=== PATIENT | female | born 1950 | race Caucasian/White ===

== ENCOUNTER → 2017-09-26 07:43 | Outpatient (CLI) | payer MEDICARE, SELFPAY ==
[2017-09-26 13:26] LABS: Basophils % 0.6 % (0.1-2.0); Eosinophils # 0.2 K/mm3 (0.0-0.4); Eosinophils % 3.8 % (0.1-12.0); Hematocrit 35.2 % (37.0-47.0); Hemoglobin 11.3 g/dL (12.2-16.2); Lymphocytes # 1.4 K/mm3 (0.7-4.5); Lymphocytes % 23.7 K/mm3 (10-50); Mean Corpuscular HGB Conc 32.1 g/dL (31.8-35.4); Mean Corpuscular Hemoglobin 29.6 pg (27.0-31.2); Mean Corpuscular Volume 92.1 fl (81-99); Mean Platelet Volume 8.5 fl (7.4-10.4); Monocytes # 0.3 K/mm3 (0.1-1.0); Monocytes % 4.4 % (1.7-9.3); Neutrophils # 4.1 K/mm3 (1.8-7.8); Neutrophils % 67.5 % (37.0-80.0); Platelet Count 202 K/mm3 (142-424); Red Blood Count 3.82 M/mm3 (4.20-5.40)
[2017-09-26 14:02] LABS: Alanine Aminotransferase 8 U/L (12-78); Albumin Level 2.8 gm/dL (3.4-5.0); Albumin/Globulin Ratio 0.7 (1.1-1.8); Alkaline Phosphatase 106 U/L (46-116); Anion Gap 8.3 mEq/L (5-15); Aspartate Amino Transferase 20 U/L (15-37); Bilirubin,Total 0.4 mg/dL (0.2-1.0); Blood Urea Nitrogen 13 mg/dL (7-18); Calcium 8.6 mg/dL (8.5-10.1); Carbon Dioxide 34 mmol/L (21.0-32.0); Chloride 106 mmol/L (98-107); Cholesterol 130 mg/dL (140-200); Creatinine,Serum 1.07 mg/dL (0.55-1.02); Estimated Glomerular Filt Rate 51 ml/min (>60); GFR (African American) 62 ML/MIN (>60); Globulin 3.8 gm/dl (1.3-3.2); Glucose 105 mg/dL (74-106); HDL Cholesterol 66 mg/dL (29-89); LDL Cholesterol 47 mg/dL (0-130); Potassium 3.3 mmoL/L (3.5-5.1); Sodium 145 mmol/L (136-145); Thyroid Stimulating Hormone 2.46 uIU/ml (0.358-3.740); Total Protein,Serum 6.6 gm/dL (6.4-8.2); Triglycerides 84 mg/dL (30-200); VLDL Cholesterol 17 mg/dL (0-40)
[2017-09-26 15:04] LABS: Hemoglobin A1C 6.5 % (0.0-7.0)
== END ==
PROVIDERS: PCP Internal Medicine Adolescent Medicine; Visit Provider Internal Medicine Adolescent Medicine
DX: I10 Essential (primary) hypertension (principal); E11.9 Type 2 diabetes mellitus without complications; R27.0 Ataxia, unspecified; R09.02 Hypoxemia
CPT/HCPCS: 36415; 80053; 80061; 83036; 84443; 85025

== ENCOUNTER → 2017-10-16 17:01 | Outpatient (CLI) | payer MEDICARE, SELFPAY ==
[2017-10-16 19:47] LABS: Amphetamine/Metha Screen,Urine Negative ng/mL (<1000); Barbiturates Screen,Urine Negative ng/mL (<200); Benzodiazepines Screen,Urine Negative ng/mL (200); Cannabinoid Screen,Urine Negative ng/mL (<50); Cocaine Screen,Urine Negative ng/g (<300); Methadone Screen,Urine Negative ng/mL (<300); Opiate Screen,Urine Positive ng/mL (<300); Phencyclidine Screen,Urine Negative ng/mL (<25)
[2017-10-28 23:07] LABS: Codeine Negative (Cutoff=100); Hydrocodone Negative (Cutoff=100); Hydromorphone Positive (.); Morphine Positive (.); Oxycodone (GC/MS) 442 ng/mL (Cutoff=100)
[2017-10-29 02:15] LABS: Opiates Positive (.); Oxymorphone (GC/MS) 275 ng/mL (Cutoff=100)
== END ==
PROVIDERS: PCP Internal Medicine Adolescent Medicine; Visit Provider Anesthesiology
DX: Z79.899 Other long term (current) drug therapy (principal)
CPT/HCPCS: 80305; 80361; 80365; G0480

== ENCOUNTER → 2017-11-13 08:51 | Outpatient (POV) | payer MEDICARE, SELFPAY ==
[2017-11-13 09:25] VITALS: BP 103/66; PULSE 68; RESP 18; TEMP 36.3; O2SAT 99; BMI 41.0
--- NOTE | 2017-11-13 10:27 | HMH.PAINSOAP ---
[facility] Pain Management SOAP Note Subjective:: This patient is a pleasant 67-year-old white female who presents today for descriptions refills. Patient is suffering from chronic pain secondary to degenerative disc disease of lumbar spine with lumbar radiculopathy symptoms and postlaminectomy syndrome. She is being medically managed on morphine sulfate milligrams twice daily and Percocet 10 mg twice a day as needed. Patient had been getting 90 pills however patient states she is not taking this medication. We discussed only writing for 60 pills. Patient has never tried injection therapy. Patient and I discussed this and we will come back to it at her next visit. Patient does not have any recent imaging that she can remember. Patient is also not on any anti-inflammatory medications. Patient denies any stomach or kidney problems. Patient denies any side effects to her pain medication. Patient states the medication decreases her pain 70-80% And make her more functional. Patient's Shane #[id number] reviewed and appropriate. Patient's urine drug screen has been appropriate in the past. ROS General: no recent weight change, no fever, no sleep disturbances Respiratory: no cough, no shortness of air, no recurring pulmonary infections Cardiovascular/Peripheral Vascular: No chest pain, No palpitations, no edema, no shortness of breath. Gastrointestinal: no incontinence, normal bowel movements reported Genitourinary: no incontinence Musculoskeletal: Back pain, leg pain Psychiatric: normal mood/ affect, , Neurological: Weakness in bilateral lower extremities, utilizes a cane for stability Objective:: Physical Exam General: Alert and oriented x3, no acute distress, pleasant and cooperative, [on room air] Lungs: Resps E/U, Symmetrical chest expansion, Eyes: PERRL Musculoskeletal: Flexion and extension of lumbar spine somewhat guarded secondary to pain, deep tendon reflexes normal, strength in upper and lower extremities [5/5], [abnormal gait noted] Neurological: speech clear, 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 twice daily. I discussed the risks of this medication with the patient and she understands. I believe this may help some of her joint pain. Patient only needs 1 month of prescriptions today we will give her morphine sulfate 30 mg 1 p.o. twice daily and Percocet 10 mg 1 p.o. twice daily. Patient's Shane and UDS have been reviewed and appropriate. Shane #[id number]. We will follow-up with this patient in 2 months. At that time we may talk about updating imaging as well as injective therapy. Dr. Dudley has reviewed this chart and agrees with this plan. Patient has been prescribed a controlled substance after being counseled on the medication, medication safety, and possible side effects. SHANE report has been obtained and reviewed prior to prescription and found to be appropriate. Opioid contract was reviewed and signed by the patient, and that they have agreed to all of the terms set forth by our compliance program. This note was dictated using voice recognition software may contain errors or omissions
--- NOTE | 2017-11-13 10:30 | P.CONS_ITS ---
[facility] Pain Management SOAP Note Subjective:: This patient is a pleasant 67-year-old white female who presents today for descriptions refills. Patient is suffering from chronic pain secondary to degenerative disc disease of lumbar spine with lumbar radiculopathy symptoms and postlaminectomy syndrome. She is being medically managed on morphine sulfate milligrams twice daily and Percocet 10 mg twice a day as needed. Patient had been getting 90 pills however patient states she is not taking this medication. We discussed only writing for 60 pills. Patient has never tried injection therapy. Patient and I discussed this and we will come back to it at her next visit. Patient does not have any recent imaging that she can remember. Patient is also not on any anti-inflammatory medications. Patient denies any stomach or kidney problems. Patient denies any side effects to her pain medication. Patient states the medication decreases her pain 70-80% And make her more functional. Patient's Shane #[phone] reviewed and appropriate. Patient's urine drug screen has been appropriate in the past. ROS General: no recent weight change, no fever, no sleep disturbances Respiratory: no cough, no shortness of air, no recurring pulmonary infections Cardiovascular/Peripheral Vascular: No chest pain, No palpitations, no edema, no shortness of breath. Gastrointestinal: no incontinence, normal bowel movements reported Genitourinary: no incontinence Musculoskeletal: Back pain, leg pain Psychiatric: normal mood/ affect, , Neurological: Weakness in bilateral lower extremities, utilizes a cane for stability Objective:: Physical Exam General: Alert and oriented x3, no acute distress, pleasant and cooperative, [ on room air] Lungs: Resps E/U, Symmetrical chest expansion, Eyes: PERRL Musculoskeletal: Flexion and extension of lumbar spine somewhat guarded secondary to pain, deep tendon reflexes normal, strength in upper and lower extremities [5/5], [abnormal gait noted] 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 twice daily. I discussed the risks of this medication with the patient and she understands. I believe this may help some of her joint pain. Patient only needs 1 month of prescriptions today we will give her morphine sulfate 30 mg 1 p.o. twice daily and Percocet 10 mg 1 p.o. twice daily. Patient's Shane and UDS have been reviewed and appropriate. Shane #[id number]. We will follow-up with this patient in 2 months. At that time we may talk about updating imaging as well as injective therapy. Dr. Dudley has reviewed this chart and agrees with this plan. Patient has been prescribed a controlled substance after being counseled on the medication, medication safety, and possible side effects. SHANE report has been obtained and reviewed prior to prescription and found to be appropriate. Opioid contract was reviewed and signed by the patient, and that they have agreed to all of the terms set forth by our compliance program. This note was dictated using voice recognition software may contain errors or omissions
--- NOTE | 2017-11-14 08:34 | PC.PHONENOTE ---
11/13/17-called in Rx for Diclofenac 75mg BID with 2 refills to pt's pharmacy
== END ==
PROVIDERS: Family Provider Internal Medicine Adolescent Medicine; PCP Internal Medicine Adolescent Medicine; Visit Provider Clinical Nurse Specialist Family Health
DX: M54.16 Radiculopathy, lumbar region (principal)
CPT/HCPCS: 99212

== ENCOUNTER → 2017-12-18 09:44 | Outpatient (CLI) | payer MEDICARE, SELFPAY ==
--- NOTE | 2017-12-18 09:46 | MM_ITS ---
MM Dig screening mamm BI w/CAD CAD Screening COMPARISON: Digital mammograms 12/07/2014 and 10/02/2016 INDICATION: There is no personal or family history of breast cancer. There been previous biopsies on each breast. TECHNIQUE: Standard CC and MLO images were obtained. R2 CAD reviewed. FINDINGS: Moderate fibroglandular densities are seen in the subareolar regions of both breasts. Again is a biopsy clip right breast and there is a metallic tubular device left breast likely a monitoring device. There are few benign-appearing calcination is in each breast and there is faint arterial calcification in each breast. There is no suspicious lesion and there are no suspicious microcalcifications. IMPRESSION: Fibrofatty parenchyma with no suspicious lesion seen BI-RADS Category: 2 Benign Finding(s) RECOMMENDED FOLLOW-UP: 1YR - 1 YEAR FOLLOW-UP (A letter has been sent to the patient regarding results of the study.)
== END ==
PROVIDERS: Family Provider Internal Medicine Adolescent Medicine; PCP Internal Medicine Adolescent Medicine; Visit Provider Internal Medicine Adolescent Medicine
DX: Z12.31 Encounter for screening mammogram for malignant neoplasm of breast (principal)
CPT/HCPCS: 77067

== ENCOUNTER 2017-12-26 13:30 | Outpatient (RCR) | payer MEDICARE, SELFPAY | END 2018-01-02 16:49 | disposition short-term general hospital (02) | LOC: PT 13:30 | PROVIDERS: Family Provider Internal Medicine Adolescent Medicine; PCP Internal Medicine Adolescent Medicine; Visit Provider Internal Medicine Adolescent Medicine | DX: R27.0 Ataxia, unspecified (principal); R29.6 Repeated falls; M43.16 Spondylolisthesis, lumbar region; G89.4 Chronic pain syndrome | CPT/HCPCS: 97110 ==

== ENCOUNTER 2017-12-29 06:01 | Observation (INO) ==
--- NOTE | 2017-12-29 06:18 | Emergency Department Note ---
ED Disposition Condition on Discharge: Good - Critical Care Critical Care Time: No <Mich Sinclair - Last Filed: 12/29/17 08:11> <Richie Cintron - Last Filed: 12/29/17 08:44> Clinical Impression: Hypokalemia Fall Qualifiers: Encounter type: initial encounter Qualified Code(s): W19.XXXA - Unspecified fall, initial encounter Leukocytosis Qualifiers: Leukocytosis type: unspecified Qualified Code(s): D72.829 - Elevated white blood cell count, unspecified Disposition: Still a Patient Referrals: Ari Coates MD [Primary Care Provider] - Attestation: On 12/29/17, the high probability of a clinically significant, sudden or life threatening deterioration of the following system(s) required my full and direct attention, intervention and personal management. The time I documented below is in addition to time spent performing reported procedures but includes the following listed in this critical care notation. Medical Decision Making - Asif Inquiry Pt receiving controlled substance: No - Lab Data Result diagrams: 12/29/17 06:30 12/29/17 06:30 - Radiology Data #1 Image(s): Chest, Elbow, Forearm, Pelvis, Femur, Knee Image Reviewed: Yes I reviewed the patient's radiology image - CT Data CT Scan: Head, C-Spine Time Received: 07:[address] Reviewed: Yes: I have viewed the radiologist's interpretation <Mich Sinclair - Last Filed: 12/29/17 08:11> - Lab Data Result diagrams: 12/29/17 06:30 12/29/17 06:30 <Richie Cintron - Last Filed: 12/29/17 08:44> Vital Signs: 12/29/17 06:03 Temperature 98.1 F Temperature Source Oral Pulse Rate [Right Brachial] 88 Respiratory Rate 16 Blood Pressure [Right Arm] 157/91 Blood Pressure Mean [Right Arm] 113 Blood Pressure Source [Right Arm] Automatic Cuff Blood Pressure Position [Right Arm] Sitting 02 Sat by Pulse Oximetry 99 Oxygen Delivery Method Room Air - Lab Data Lab Results 12/29/17 06:14: POC Glucose 162 H 12/29/17 06:30: WBC 18.0 H, RBC 4.09 L, Hgb 12.3, Hct 37.9, MCV 92.6, MCH 30.1, MCHC 32.5, RDW 12.5, Plt Count 244, MPV 8.4, Neut % (Auto) 93.9 H, Lymph % (Auto ) 3.5 L, [place] % (Auto) 2.4, Eos % (Auto) 0.1, Baso % (Auto) 0.1, Neut # (Auto) 16.9 H, Lymph # (Auto) 0.6 L, [place] # (Auto) 0.4, Eos # (Auto) 0.0, Baso # (Auto ) 0.0, Total Counted 100, Neutrophils % (Manual) 95 H, Lymphocytes % (Manual) 3 L, Monocytes % (Manual) 2, Platelet Estimate Normal, RBC Morphology Normal 12/29/17 06:30: Sodium 140, Potassium 3.0 L, Chloride 103, Carbon Dioxide 32, Anion Gap 8.0, BUN 21 H, Creatinine 1.26 H, Estimated Creat Clear 36, Estimated GFR 42 L, Est GFR ( Amer) 51 L, Glucose 160 H, Calcium 9.2, Total Bilirubin 0.4, AST 24, ALT 15, Alkaline Phosphatase 104, Total Creatine Kinase 340 H, CK-MB (CK-2) 4.0 H, CK-MB (CK-2) Rel Index 1.2, Troponin I < 0.02, Total Protein 8.2, Albumin 2.9 L, Globulin 5.3 H, Albumin/Globulin Ratio 0.5 L 12/29/17 07:45: Lactic Acid 1.4 Orders (Tests/Meds): ED MEDICATIONS Generic Name Dose Route Start Last Admin Trade Name Freq PRN Reason Stop Dose Admin Sodium Chloride 1,000 mls @ 100 mls/hr 12/29/17 08:15 12/29/17 08:27 Sod Chlor 0.9% 1000ml Bag IV 01/28/18 08:14 100 mls/hr .Q10H PATRICK Administration Ceftriaxone Sodium 1 gm/ 50 mls @ 100 mls/hr 12/29/17 08:30 12/29/17 08:27 Sodium Chloride IV 01/12/18 08:29 100 mls/hr Q24H PATRICK Administration Protocol Discontinued Medications Generic Name Dose Route Start Last Admin Trade Name Freq PRN Reason Stop Dose Admin Potassium Chloride 60 meq 12/29/17 07:15 12/29/17 07:59 Klor-Con 20meq Tablet PO 12/29/17 07:16 60 meq ONCE ONE Administration ORDERS Category Date Time Status Urinalysis-Acute [Urinalysis and Microscopic] Stat Lab 12/29/17 08:15 Received ECG Request by /Adithya Stat Y 12/29/17 06:26 Ordered - Radiology Data #1 Right femur x-ray interpreted by Mich Sinclair MD. Negative for fracture, dislocation, or foreign body. Left femur x-ray interpreted by Mich Sinclair MD. Negative for fracture, dislocation, or foreign body. Pelvis x-ray interpreted by Mich Sinclair MD. Negative for fracture, dislocation, or foreign body. Forearm x-ray interpreted by Mich Sinclair MD. Negative for fracture, dislocation, or foreign body. Elbow x-ray interpreted by Mich Sinclair MD. Negative for fracture, dislocation, or foreign body. Chest x-ray interpreted by Mich Sinclair M.D. hiatal hernia. Elevated right diaphragm. No infiltrate, pneumothorax, pleural effusion, or wide mediastinum. (Mich Sinclair) - CT Data Findings Narrative: Head: No acute process Cervical spine: Thyroid nodule, degenerative changes. No fracture or dislocation. (Mich Sinclair) - ECG Data Tracing #1 EKG interpreted by Mich Sinclair MD: Rhythm: sinus Rate: 89 [place]: normal Ectopy: none Conduction: normal ST Segment Changes: none T Wave Changes: none Q Waves: none No evidence of acute ischemia or injury Significant baseline artifact present. (Mich Sinclair) Medical Decision Narrative: 8:00 AM: Discussed with Dr. Kunz. Urine analysis and lactic acid pending. He wants to be called back when these return to discuss disposition. 8:00 AM: At shift change, I have discussed the patient with Dr. Cintron, who will assume care of the patient at this time. I have discussed all clinical information including history, physical and diagnostic study results. Preliminary diagnoses based on information available at this point have been recorded by me. Controlled substance administration and critical care statement are also preliminary, as of the time of handoff. (Mich Sinclair) General Adult HPI - General Mode of Arrival: EMS Limitations: Altered Mental Status Description of Symptoms (Recalled from ER Triage Doc. by RN): EMS report patient was found on the floor at home, reports was on floor for approx 2 hours. Reports patient was unable to get up by herself and is extremely weak. Pt reports she went to bed and thats the last thing she remembers before waking up on the floor on her stomach. Reports her left arm/elbow hurts, right knee is redenned, and very minute laceration noted to left leg. Pt alert to self. Pupils noted to be pinpoint at this time. <Mich Sinclair - Last Filed: 12/29/17 08:11> <Richie Cintron - Last Filed: 12/29/17 08:44> - General Chief complaint: Fall Stated complaint: fall Time Seen by Provider: 12/29/17 06:19 - History of Present Illness HPI narrative: Patient is brought in by ambulance. She says she just remembers waking up on the floor face down. She could not get up. She says whenever she got up on either elbow she would just slide back to the ground. She complains of some pain in both lower extremities, the right from the hip down to her knee and the left more from the mid femur to her knee. She denies head injury. States her neck does not hurt. She has chronic back pain and is in pain management on chronic pain medicine. She says she remembers before going to bed shaking and feeling very chilled and could not get warm. Denies any recent cough or cold symptoms, vomiting or diarrhea, or urinary symptoms. No new medications. Denies taking any excess medication. Does not drink alcohol. She has recently started physical therapy for generalized weakness. (Mich Sinclair) - Related Data Home Medications Medication Instructions Recorded Confirmed Atorvastatin Calcium [Lipitor 40mg 40 mg PO HS 12/29/17 12/29/17 Tablet] Carvedilol [Carvedilol 12.5mg Tab] 12.5 mg PO BID 12/29/17 12/29/17 Clopidogrel Bisulfate [Plavix 75mg 75 mg PO DAILY 12/29/17 12/29/17 Tab] Fluoxetine HCl [Prozac] 20 mg PO DAILY 12/29/17 12/29/17 Memantine HCl/Donepezil HCl 1 each PO DAILY 12/29/17 12/29/17 [Namzaric 28 mg-10 mg Capsule] Morphine Sulfate [Morphine Sulfate 30 mg PO BID 12/29/17 12/29/17 IR 30mg Tab] Oxycodone HCl/Acetaminophen 1 tab PO BID 12/29/17 12/29/17 [Oxycodone-Acet 2.5-325] Perphenazine/Amitriptyline HCl 1 each PO DAILY 12/29/17 12/29/17 [Perphen-Amitrip 2 mg-25 mg Tab] hydroCHLOROthiazide [HCTZ 25mg 25 mg PO DAILY 12/29/17 12/29/17 tab] Allergies Allergy/AdvReac Type Severity Reaction Status Date / Time ciprofloxacin [From CIPRO] Allergy Unknown Verified 12/29/17 06:17 codeine [CODEINE] Allergy Unknown Verified 12/29/17 06:17 erythromycin base Allergy Unknown I-RASH Verified 12/29/17 06:17 [From ERYTHROCIN] meperidine [MEPERIDINE] Allergy Unknown Verified 12/29/17 06:17 NSAIDS (Non-Steroidal Allergy Unknown I-RASH Verified 12/29/17 06:17 Anti-Inflamma [NSAIDS (NON-STEROIDAL ANTI-INFLAMMA] ofloxacin [OFLOXACIN] Allergy Unknown Verified 12/29/17 06:17 Quinolones [QUINOLONES] Allergy Unknown Verified 12/29/17 06:17 Iodinated Contrast Media - AdvReac Mild FLUSHED Verified 12/29/17 06:17 Oral and FACE, [Iodinated Contrast Media - ITCHING IV Dye] MACROLIDES Allergy Unknown Uncoded 09/04/17 14:31 [facility] History I have reviewed the patient's past medical history: Yes Medical History: Reports:: Diabetes Mellitus Type 1 Denies:: Cancer, Diabetes Mellitus Type 2, MRSA Amputation: No Fractures: No - Social History Alcohol Intake: never - Psychiatric History Expresses thoughts of harming self/others: None Suicide Plan Description: No Plan <Mich Sinclair - Last Filed: 12/29/17 08:11> ROS Obtained: Yes All systems reviewed & no additional complaints - Constitutional Constitutional: Reports chills, Denies fever(s), Reports weakness - Cardiovascular Cardiovascular: Denies chest pain - Respiratory Respiratory: No cough, No dyspnea - Gastrointestinal Gastrointestingal: Denies: abdominal pain, diarrhea, vomiting - Genitourinary Female Genitourinary: Denies difficulty voiding - Musculoskeletal Musculoskeletal: Reports as per HPI <Mich Sinclair - Last Filed: 12/29/17 08:11> Physical Exam - General General appearance: alert, in no apparent distress - Head Head exam: atraumatic, normocephalic, normal inspection - Eye Eye exam: Present: normal appearance, PERRL, EOMI, miosis - ENT ENT exam: Present: normal exam, normal oropharynx, mucous membranes moist - Neck Neck exam: Present: normal inspection, full ROM, trachea midline. Absent: meningismus, lymphadenopathy - Chest Chest inspection: Present: normal inspection, symmetric chest wall rise. Absent : tenderness - Respiratory Respiratory exam: Present: normal lung sounds bilaterally. Absent: respiratory distress - Cardiovascular Cardiovascular exam: Present: regular rate, normal rhythm. Absent: JVD - Abdominal Exam Abdominal exam: Present: soft, normal bowel sounds. Absent: distention, tenderness, guarding - Extremities Exam Extremities exam: Present: normal inspection, full ROM, normal capillary refill. Absent: calf tenderness - Back Exam Back exam: Present: normal inspection. Absent: tenderness - Neurological Exam Neurological exam: Present: alert, oriented X3, CN II-XII intact, other ( generalized weakness, no focal deficits) - Psychiatric Psychiatric exam: Present: normal affect, normal mood - Skin Skin exam: Present: warm, dry, intact, normal color <Mich Sinclair - Last Filed: 12/29/17 08:11>
[2017-12-29 06:42] LABS: Basophils % 0.1 % (0.1-2.0); Eosinophils % 0.1 % (0.1-12.0); Hematocrit 37.9 % (37.0-47.0); Hemoglobin 12.3 g/dL (12.2-16.2); Lymphocytes # 0.6 K/mm3 (0.7-4.5); Lymphocytes % 3.5 K/mm3 (10-50); Mean Corpuscular HGB Conc 32.5 g/dL (31.8-35.4); Mean Corpuscular Hemoglobin 30.1 pg (27.0-31.2); Mean Corpuscular Volume 92.6 fl (81-99); Mean Platelet Volume 8.4 fl (7.4-10.4); Monocytes # 0.4 K/mm3 (0.1-1.0); Monocytes % 2.4 % (1.7-9.3); Neutrophils # 16.9 K/mm3 (1.8-7.8); Neutrophils % 93.9 % (37.0-80.0); Platelet Count 244 K/mm3 (142-424); Red Blood Count 4.09 M/mm3 (4.20-5.40); Red Cell Distribution Width 12.5 % (11.5-17.5)
[2017-12-29 06:56] LABS: Lymphocytes % 3 % (10-50); Monocytes % 2 % (2-9); Neutrophils % 95 % (42-76); RBC Morphology Normal; Total Cells Counted 100
[2017-12-29 07:05] LABS: Alanine Aminotransferase 15 U/L (12-78); Albumin Level 2.9 gm/dL (3.4-5.0); Albumin/Globulin Ratio 0.5 (1.1-1.8); Alkaline Phosphatase 104 U/L (46-116); Aspartate Amino Transferase 24 U/L (15-37); Bilirubin,Total 0.4 mg/dL (0.2-1.0); Blood Urea Nitrogen 21 mg/dL (7-18); Calcium 9.2 mg/dL (8.5-10.1); Carbon Dioxide 32 mmol/L (21.0-32.0); Chloride 103 mmol/L (98-107); Creatine Kinase 340 U/L (26-192); Globulin 5.3 gm/dl (1.3-3.2); Glucose 160 mg/dL (74-106); Sodium 140 mmol/L (136-145); Total Protein,Serum 8.2 gm/dL (6.4-8.2)
[2017-12-29 08:21] LABS: Microscopic, Urine URINE MICROSCOPIC (MICROSCOPIC)
[2017-12-29 08:22] LABS: Appearance,Urine CLEAR (Clear); Bilirubin,Urine Negative (Negative); Blood, Urine Negative (Negative); Color,Urine YELLOW (Yellow); Glucose,Urine (UA) Negative (Negative); Ketones,Urine Negative (Negative); Leukocyte Esterase,Urine Negative (Negative); Protein,Urine Negative (Negative); Specific Gravity, Urine 1.015 (1.005-1.030); Urobilinogen,Urine 0.2 EU/dl (0.2)
[2017-12-29 08:44] LABS: Bacteria,Urine 2+ /lpf; Mucus,Urine Trace /lpf
[2017-12-29 08:45] LABS: Hyaline Casts,Urine Occasional #/lpf (0)
--- NOTE | 2017-12-29 09:04 | Emergency Department Note ---
ED Disposition Clinical Impression: Hypokalemia, Generalized weakness, Thyroid nodule, UTI (urinary tract infection ), Elevated CK Fall Qualifiers: Encounter type: initial encounter Qualified Code(s): W19.XXXA - Unspecified fall, initial encounter Leukocytosis Qualifiers: Leukocytosis type: unspecified Qualified Code(s): D72.829 - Elevated white blood cell count, unspecified Disposition: Still a Patient Condition on Discharge: Fair Referrals: Ari Coates MD [Primary Care Provider] - - Critical Care Critical Care Time: No Attestation: On 12/29/17, the high probability of a clinically significant, sudden or life threatening deterioration of the following system(s) required my full and direct attention, intervention and personal management. The time I documented below is in addition to time spent performing reported procedures but includes the following listed in this critical care notation. Medical Decision Making - Medical Records Medical records reviewed: Yes: I reviewed the patient's medical records. - Asif Inquiry Pt receiving controlled substance: No Asif was queried for this patient: No Vital Signs: 12/29/17 06:03 Temperature 98.1 F Temperature Source Oral Pulse Rate [Right Brachial] 88 Respiratory Rate 16 Blood Pressure [Right Arm] 157/91 Blood Pressure Mean [Right Arm] 113 Blood Pressure Source [Right Arm] Automatic Cuff Blood Pressure Position [Right Arm] Sitting 02 Sat by Pulse Oximetry 99 Oxygen Delivery Method Room Air - Lab Data Lab Results 12/29/17 06:14: POC Glucose 162 H 12/29/17 06:30: WBC 18.0 H, RBC 4.09 L, Hgb 12.3, Hct 37.9, MCV 92.6, MCH 30.1, MCHC 32.5, RDW 12.5, Plt Count 244, MPV 8.4, Neut % (Auto) 93.9 H, Lymph % (Auto ) 3.5 L, [place] % (Auto) 2.4, Eos % (Auto) 0.1, Baso % (Auto) 0.1, Neut # (Auto) 16.9 H, Lymph # (Auto) 0.6 L, [place] # (Auto) 0.4, Eos # (Auto) 0.0, Baso # (Auto ) 0.0, Total Counted 100, Neutrophils % (Manual) 95 H, Lymphocytes % (Manual) 3 L, Monocytes % (Manual) 2, Platelet Estimate Normal, RBC Morphology Normal 12/29/17 06:30: Sodium 140, Potassium 3.0 L, Chloride 103, Carbon Dioxide 32, Anion Gap 8.0, BUN 21 H, Creatinine 1.26 H, Estimated Creat Clear 36, Estimated GFR 42 L, Est GFR ( Amer) 51 L, Glucose 160 H, Calcium 9.2, Total Bilirubin 0.4, AST 24, ALT 15, Alkaline Phosphatase 104, Total Creatine Kinase 340 H, CK-MB (CK-2) 4.0 H, CK-MB (CK-2) Rel Index 1.2, Troponin I < 0.02, Total Protein 8.2, Albumin 2.9 L, Globulin 5.3 H, Albumin/Globulin Ratio 0.5 L 12/29/17 07:45: Lactic Acid 1.4 12/29/17 08:15: Urine Color Yellow, Urine Appearance Clear, Urine pH 7.0, Ur Specific [place] 1.015, Urine Protein Negative, Urine Glucose (UA) Negative, Urine Ketones Negative, Urine Blood Negative, Urine Nitrate Negative, Urine Bilirubin Negative, Urine Urobilinogen 0.2, Ur Leukocyte Esterase Negative, Urine WBC 3-5, Urine Bacteria 2+, Hyaline Casts Occasional, Urine Mucus Trace Result diagrams: 12/29/17 06:30 12/29/17 06:30 Orders (Tests/Meds): ED MEDICATIONS Generic Name Dose Route Start Last Admin Trade Name Freq PRN Reason Stop Dose Admin Sodium Chloride 1,000 mls @ 100 mls/hr 12/29/17 08:15 12/29/17 08:27 Sod Chlor 0.9% 1000ml Bag IV 01/28/18 08:14 100 mls/hr .Q10H PATRICK Administration Ceftriaxone Sodium 1 gm/ 50 mls @ 100 mls/hr 12/29/17 08:30 12/29/17 08:27 Sodium Chloride IV 01/12/18 08:29 100 mls/hr Q24H PATRICK Administration Protocol Discontinued Medications Generic Name Dose Route Start Last Admin Trade Name Freq PRN Reason Stop Dose Admin Potassium Chloride 60 meq 12/29/17 07:15 12/29/17 07:59 Klor-Con 20meq Tablet PO 12/29/17 07:16 60 meq ONCE ONE Administration ORDERS Category Date Time Status Urine Culture Stat Micro 12/29/17 08:15 Received ECG Request by /Nse Stat Y 12/29/17 06:26 Ordered - CT Data CT Scan: Head, C-Spine Time Received: 09:[address] Reviewed: Yes: I have viewed the radiologist's interpretation Preliminary Findings: Abnormal Findings Narrative: Does have a thyroid nodule, age related changes of arthritis no acute. - ECG Data Tracing #1 Normal sinus rhythm 89/min baseline artifact no acute findings. ECG initial impression date: 12/29/17 ECG initial impression time: 09:08 Medical Decision Narrative: 0800 As an incoming physician, I received a report from Dr. Sinclair and after discussion we contacted Dr. Kunz for admission. He requested lactic acid and urine analysis to be done and called back. 08;30 I personally obtained history examined the patient reviewed EKG labs and x -rays. 899 I received a urine analysis report I called Dr. Kunz who advised for admission for IV fluids potassium replacement and repeat labs on 12/30/17 in a.m. Weakness HPI - General Chief complaint: Fall Stated complaint: fall Time Seen by Provider: 12/29/17 06:19 Mode of Arrival: EMS Limitations: Altered Mental Status Description of Symptoms (Recalled from ER Triage Doc. by RN): EMS report patient was found on the floor at home, reports was on floor for approx 2 hours. Reports patient was unable to get up by herself and is extremely weak. Pt reports she went to bed and thats the last thing she remembers before waking up on the floor on her stomach. Reports her left arm/elbow hurts, right knee is redenned, and very minute laceration noted to left leg. Pt alert to self. Pupils noted to be pinpoint at this time. - History of Present Illness HPI Narrative: 67 years old white female with a history of hyperlipidemia, hypertension and and chronic back pain on morphine and oxycodone per Dr. Dudley the pain specialist. She usually gets up at 4 AM and prepares herself some coffee this morning at 4 AM she found herself on the floor and was unable to get up she contacted her who called her daughter and she was able to sit up. She was unable to stand us when he called ambulance she is brought to the ED at 6 AM. Alert oriented 3 she was able to provide history but she was generally slow to respond and move. He had no focal complain. She mentioned having chills and mild headache started last night before she goes to bed and she urinated only one time during the day yesterday. He denies having fever cough hemoptysis shortness of breath chest pain vomiting diarrhea dysuria or hematuria. MD Complaint: generalized weakness Onset (ago): hour(s) (4-5 hours) Duration: constant Location: generalized Relieving factors: none Exacerbating factors: none Associated symptoms: denies other symptoms - Related Data Home Medications Medication Instructions Recorded Confirmed Atorvastatin Calcium [Lipitor 40mg 40 mg PO HS 12/29/17 12/29/17 Tablet] Carvedilol [Carvedilol 12.5mg Tab] 12.5 mg PO BID 12/29/17 12/29/17 Clopidogrel Bisulfate [Plavix 75mg 75 mg PO DAILY 12/29/17 12/29/17 Tab] Fluoxetine HCl [Prozac] 20 mg PO DAILY 12/29/17 12/29/17 Memantine HCl/Donepezil HCl 1 each PO DAILY 12/29/17 12/29/17 [Namzaric 28 mg-10 mg Capsule] Morphine Sulfate [Morphine Sulfate 30 mg PO BID 12/29/17 12/29/17 IR 30mg Tab] Oxycodone HCl/Acetaminophen 1 tab PO BID 12/29/17 12/29/17 [Oxycodone-Acet 2.5-325] Perphenazine/Amitriptyline HCl 1 each PO DAILY 12/29/17 12/29/17 [Perphen-Amitrip 2 mg-25 mg Tab] hydroCHLOROthiazide [HCTZ 25mg 25 mg PO DAILY 12/29/17 12/29/17 tab] Allergies Allergy/AdvReac Type Severity Reaction Status Date / Time ciprofloxacin [From CIPRO] Allergy Unknown Verified 12/29/17 06:17 codeine [CODEINE] Allergy Unknown Verified 12/29/17 06:17 erythromycin base Allergy Unknown I-RASH Verified 12/29/17 06:17 [From ERYTHROCIN] meperidine [MEPERIDINE] Allergy Unknown Verified 12/29/17 06:17 NSAIDS (Non-Steroidal Allergy Unknown I-RASH Verified 12/29/17 06:17 Anti-Inflamma [NSAIDS (NON-STEROIDAL ANTI-INFLAMMA] ofloxacin [OFLOXACIN] Allergy Unknown Verified 12/29/17 06:17 Quinolones [QUINOLONES] Allergy Unknown Verified 12/29/17 06:17 Iodinated Contrast Media - AdvReac Mild FLUSHED Verified 12/29/17 06:17 Oral and FACE, [Iodinated Contrast Media - ITCHING IV Dye] MACROLIDES Allergy Unknown Uncoded 09/04/17 14:31 [facility] History I have reviewed the patient's past medical history: Yes (I reviewed her history from Dr. Sinclair and her medications.) Medical History: Reports:: Diabetes Mellitus Type 1 Denies:: Cancer, Diabetes Mellitus Type 2, MRSA Amputation: No Fractures: No - Social History Alcohol Intake: never - Psychiatric History Expresses thoughts of harming self/others: None Suicide Plan Description: No Plan ROS Obtained: Yes All systems reviewed & no additional complaints - Constitutional Constitutional: Reports chills, Reports malaise Physical Exam - General General appearance: alert, in no apparent distress, other (she Is generally slow to respond without slurred speech or dysarthia. She has a urine smell over her. ) - Head Head exam: atraumatic, normocephalic, normal inspection - Eye Eye exam: Present: normal appearance, PERRL, EOMI. Absent: scleral icterus - ENT ENT exam: Present: normal exam, normal oropharynx, mucous membranes moist, TM's normal bilaterally, normal external ear exam - Neck Neck exam: Present: normal inspection, full ROM, trachea midline. Absent: tenderness, meningismus, lymphadenopathy - Chest Chest inspection: Present: normal inspection, symmetric chest wall rise. Absent : tenderness - Respiratory Respiratory exam: Present: normal lung sounds bilaterally. Absent: respiratory distress - Cardiovascular Cardiovascular exam: Present: regular rate, normal rhythm. Absent: JVD - Abdominal Exam Abdominal exam: Present: soft, normal bowel sounds. Absent: distention, tenderness, guarding - External exam: Present: normal external exam - Extremities Exam Extremities exam: Present: normal inspection, full ROM, tenderness (Her maximum maximum tenderness over the elbows and knees. ), normal capillary refill. Absent: calf tenderness - Back Exam Back exam: Present: normal inspection. Absent: tenderness - Neurological Exam Neurological exam: Present: alert, oriented X3, CN II-XII intact, motor sensory deficit, reflexes normal, other (Gait was not tested, as a generalized weakness of 4/5. Babinski was downgoing. ) - Psychiatric Psychiatric exam: Present: depressed - Skin Skin exam: Present: intact (She does have bilateral forearm rash with large bruising over the elbows and knees.) - Lymphatic Lymphatic Findings: no adenopathy
--- NOTE | 2017-12-29 11:38 | History & Physical Report ---
*Admission Date: 12/29/17 *Chief complaint: Unexplained fall *History of present illness: 67-year-old female was brought to the emergency department this morning after she was found in her kitchen and could not explain how she got there. Patient states she awoke this morning and was facedown on the floor in her kitchen. She had difficulty getting to a seated position. Once she was to a seated position that was how her found her early this morning. She does not know how long she was on the floor. She suffers from generalized weakness at baseline and apparently has been in physical therapy recently to gain strength. She was not strong enough to get herself to a standing position. She also reports yesterday evening while going to bed onset of shivering and chills with inability to get warm. She denies fevers. She denies cough, dysuria, urinary frequency, urinary urgency, foul-smelling urine. In the emergency department her workup was begun and she was found to be mildly hypokalemic. Family tells me that the hydrochlorothiazide that she takes is a recent addition to her medications. Patient denies any prior history of syncope. She is suspected of having Parkinson's disease. She denies chest pain or shortness of breath. [facility] History Medical History: Reports:: Diabetes Mellitus Type 1, Hyperlipidemia, Hypertension Denies:: Cancer, Diabetes Mellitus Type 2, MRSA Comment: Chronic pain Other Surgeries: Yes: Cardiac Catheterization, Colonoscopy, Hysterectomy-Total, Plastic Surgery Amputation: No Fractures: No - *Social History Educational Level: Attended High School Alcohol Intake: never Occupational Status: retired Household Members: spouse - Psychiatric History Expresses thoughts of harming self/others: None Suicide Plan Description: No Plan *Family Hx:: No significant family history Review of Systems - Constitutional Reports anorexia, Reports chills, Reports lack of energy, Reports weakness, Reports weight loss (35 pounds) - Eyes Denies blurry vision - *Cardiovascular Denies chest pain, Denies chest pain at rest, Denies chest pain with activity - *Respiratory Denies change in phlegm color, Denies cough, Denies shortness of breath - *Gastrointestinal Denies abdominal pain - *Musculoskeletal Denies joint pain - *Neurologic Reports weakness Meds Home Medications Medication Instructions Recorded Confirmed Type Atorvastatin Calcium [Lipitor 40mg 40 mg PO HS 12/29/17 12/29/17 History Tablet] Carvedilol [Carvedilol 12.5mg Tab] 12.5 mg PO BID 12/29/17 12/29/17 History Clopidogrel Bisulfate [Plavix 75mg 75 mg PO DAILY 12/29/17 12/29/17 History Tab] Fluoxetine HCl [Prozac] 20 mg PO DAILY 12/29/17 12/29/17 History Memantine HCl/Donepezil HCl 1 each PO DAILY 12/29/17 12/29/17 History [Namzaric 28 mg-10 mg Capsule] Morphine Sulfate [Morphine Sulfate 30 mg PO BID 12/29/17 12/29/17 History IR 30mg Tab] Oxycodone HCl/Acetaminophen 1 tab PO BID 12/29/17 12/29/17 History [Oxycodone-Acet 2.5-325] Perphenazine/Amitriptyline HCl 1 each PO DAILY 12/29/17 12/29/17 History [Perphen-Amitrip 2 mg-25 mg Tab] hydroCHLOROthiazide [HCTZ 25mg 25 mg PO DAILY 12/29/17 12/29/17 History tab] Allergies Allergy/AdvReac Type Severity Reaction Status Date / Time ciprofloxacin [From CIPRO] Allergy Unknown Verified 12/29/17 06:17 codeine [CODEINE] Allergy Unknown Verified 12/29/17 06:17 erythromycin base Allergy Unknown I-RASH Verified 12/29/17 06:17 [From ERYTHROCIN] meperidine [MEPERIDINE] Allergy Unknown Verified 12/29/17 06:17 NSAIDS (Non-Steroidal Allergy Unknown I-RASH Verified 12/29/17 06:17 Anti-Inflamma [NSAIDS (NON-STEROIDAL ANTI-INFLAMMA] ofloxacin [OFLOXACIN] Allergy Unknown Verified 12/29/17 06:17 Quinolones [QUINOLONES] Allergy Unknown Verified 12/29/17 06:17 Iodinated Contrast Media - AdvReac Mild FLUSHED Verified 12/29/17 06:17 Oral and FACE, [Iodinated Contrast Media - ITCHING IV Dye] MACROLIDES Allergy Unknown Uncoded 09/04/17 14:31 Exam Vital signs and Labs for Last 24 Hours: Temp Pulse Resp BP Pulse Ox 98.6 F 87 18 146/77 93 L 12/29/17 10:24 12/29/17 10:24 12/29/17 10:24 12/29/17 10:24 12/29/17 11:05 I & O for Last 24 hours: Intake & Output 12/26/17 12/27/17 12/28/17 12/29/17 11:59 11:59 11:59 11:59 Weight 213 lb 8 oz Narrative: Patient does not appear acutely ill but looks weak. Pupils are reactive to light. Her lips are dry. Oropharynx has tacky mucous membranes. Neck has no carotid bruits. Neck has no lymphadenopathy. Lungs are clear to auscultation. Heart has a regular rate and rhythm. Abdomen is soft, nontender, nondistended. Braswell catheter is in place. Patient has active range of motion in all extremities. She has bruising on bilateral forearms. There is no facial bruising or swelling. H&P: Result - Labs Labs: Abnormal Lab Results 12/29/17 12/29/17 12/29/17 06:14 06:30 06:30 WBC 18.0 H RBC 4.09 L Hgb 12.3 Hct 37.9 MCV 92.6 MCH 30.1 MCHC 32.5 RDW 12.5 Plt Count 244 MPV 8.4 Neut % (Auto) 93.9 H Lymph % (Auto) 3.5 L [place] % (Auto) 2.4 Eos % (Auto) 0.1 Baso % (Auto) 0.1 Neut # (Auto) 16.9 H Lymph # (Auto) 0.6 L [place] # (Auto) 0.4 Eos # (Auto) 0.0 Baso # (Auto) 0.0 Total Counted 100 Neutrophils % (Manual) 95 H Lymphocytes % (Manual) 3 L Monocytes % (Manual) 2 Platelet Estimate Normal RBC Morphology Normal Sodium 140 Potassium 3.0 L Chloride 103 Carbon Dioxide 32 Anion Gap 8.0 BUN 21 H Creatinine 1.26 H Estimated Creat Clear 36 Estimated GFR 42 L Est GFR ( Amer) 51 L Glucose 160 H POC Glucose 162 H Lactic Acid Calcium 9.2 Total Bilirubin 0.4 AST 24 ALT 15 Alkaline Phosphatase 104 Total Creatine Kinase 340 H CK-MB (CK-2) 4.0 H CK-MB (CK-2) Rel Index 1.2 Troponin I < 0.02 Total Protein 8.2 Albumin 2.9 L Globulin 5.3 H Albumin/Globulin Ratio 0.5 L Urine Color Urine Appearance Urine pH Ur Specific [place] Urine Protein Urine Glucose (UA) Urine Ketones Urine Blood Urine Nitrate Urine Bilirubin Urine Urobilinogen Ur Leukocyte Esterase Urine WBC Urine Bacteria Hyaline Casts Urine Mucus 12/29/17 12/29/17 07:45 08:15 WBC RBC Hgb Hct MCV MCH MCHC RDW Plt Count MPV Neut % (Auto) Lymph % (Auto) [place] % (Auto) Eos % (Auto) Baso % (Auto) Neut # (Auto) Lymph # (Auto) [place] # (Auto) Eos # (Auto) Baso # (Auto) Total Counted Neutrophils % (Manual) Lymphocytes % (Manual) Monocytes % (Manual) Platelet Estimate RBC Morphology Sodium Potassium Chloride Carbon Dioxide Anion Gap BUN Creatinine Estimated Creat Clear Estimated GFR Est GFR ( Amer) Glucose POC Glucose Lactic Acid 1.4 Calcium Total Bilirubin AST ALT Alkaline Phosphatase Total Creatine Kinase CK-MB (CK-2) CK-MB (CK-2) Rel Index Troponin I Total Protein Albumin Globulin Albumin/Globulin Ratio Urine Color Yellow Urine Appearance Clear Urine pH 7.0 Ur Specific [place] 1.015 Urine Protein Negative Urine Glucose (UA) Negative Urine Ketones Negative Urine Blood Negative Urine Nitrate Negative Urine Bilirubin Negative Urine Urobilinogen 0.2 Ur Leukocyte Esterase Negative Urine WBC 3-5 Urine Bacteria 2+ Hyaline Casts Occasional Urine Mucus Trace Assessment and Plan (1) Hypokalemia Current visit: Yes Status: Acute Category: Medical Code(s): E87.6 - Hypokalemia (2) Fall Current visit: Yes Status: Acute Qualifiers: Encounter type: initial encounter Qualified Code(s): W19.XXXA - Unspecified fall, initial encounter Category: Medical Code(s): W19.XXXA - Unspecified fall, initial encounter (3) Generalized weakness Current visit: Yes Status: Acute Category: Medical Code(s): R53.1 - Weakness (4) Leukocytosis Current visit: Yes Status: Acute Qualifiers: Leukocytosis type: unspecified Qualified Code(s): D72.829 - Elevated white blood cell count, unspecified Category: Medical Code(s): D72.829 - Elevated white blood cell count, unspecified (5) UTI (urinary tract infection) Current visit: Yes Status: Suspected Category: Medical Code(s): N39.0 - Urinary tract infection, site not specified - Assessment and plan all Dx Assessment and Plan for all problems:: 1. Correct mild hypokalemia with oral potassium replacement 2. Normal saline at 100 mL's an hour 3. Empiric treatment of UTI with Rocephin 4. Repeat BMP and CBC in a.m. 5. Home medications 6. Out of bed with assistance
--- NOTE | 2017-12-29 13:02 | Pharmacy Consult Notes ---
[facility] Pharmacy VTE Monitoring - Patient Demographics Admission date: 12/29/17 Report Date: 12/29/17 Time: 13:02 Allergies/Adverse Reactions: Patient Allergies ciprofloxacin [From CIPRO] Allergy (Unknown, Verified 12/29/17 06:17) codeine [CODEINE] Allergy (Unknown, Verified 12/29/17 06:17) erythromycin base [From ERYTHROCIN] Allergy (Unknown, Verified 12/29/17 06:17) I-RASH meperidine [MEPERIDINE] Allergy (Unknown, Verified 12/29/17 06:17) NSAIDS (Non-Steroidal Anti-Inflamma [NSAIDS (NON-STEROIDAL ANTI-INFLAMMA] Allergy (Unknown, Verified 12/29/17 06:17) I-RASH ofloxacin [OFLOXACIN] Allergy (Unknown, Verified 12/29/17 06:17) Quinolones [QUINOLONES] Allergy (Unknown, Verified 12/29/17 06:17) Iodinated Contrast Media - Oral and [Iodinated Contrast Media - IV Dye] Adverse Reaction (Mild, Verified 12/29/17 06:17) FLUSHED FACE, ITCHING MACROLIDES Allergy (Unknown, Uncoded 09/04/17 14:31) Height: 1.52 m Weight: 96.842 kg Patient Problems: Current Active Problems Fall (Acute) Leukocytosis (Acute) Hypokalemia (Acute) Generalized weakness (Acute) Thyroid nodule (Acute) Elevated CK (Acute) - VTE Risk Labs: VTE Related Lab Results Hgb 12.3 g/dL (12.2-16.2) 12/29/17 06:30 Hct 37.9 % (37.0-47.0) 12/29/17 06:30 Plt Count 244 K/mm3 (142-424) 12/29/17 06:30 BUN 21 mg/dL (7-18) H 12/29/17 06:30 Creatinine 1.26 mg/dL (0.55-1.02) H 12/29/17 06:30 Estimated Creat Clear 36 mL/min (0-300) 12/29/17 06:30 VTE Score: 2 - Prophylaxis VTE Prophylaxis Ordered?: Yes Types of VTE Prophylaxis: TEDS Knee High Location of Applied Device: Bilateral Lower Extremeties - VTE Diagnosis Confirmed Treatment or plan recommended: Continue Current Treatment
[2017-12-30 06:48] LABS: Basophils % 0.2 % (0.1-2.0); Eosinophils # 0.1 K/mm3 (0.0-0.4); Eosinophils % 1.9 % (0.1-12.0); Lymphocytes # 1.3 K/mm3 (0.7-4.5); Lymphocytes % 19.1 K/mm3 (10-50); Mean Corpuscular HGB Conc 33.1 g/dL (31.8-35.4); Mean Corpuscular Hemoglobin 31.1 pg (27.0-31.2); Mean Platelet Volume 8.2 fl (7.4-10.4); Monocytes # 0.4 K/mm3 (0.1-1.0); Monocytes % 5.7 % (1.7-9.3); Neutrophils # 4.8 K/mm3 (1.8-7.8); Neutrophils % 72.9 % (37.0-80.0); Platelet Count 176 K/mm3 (142-424); Red Blood Count 3.16 M/mm3 (4.20-5.40); Red Cell Distribution Width 12.8 % (11.5-17.5); White Blood Count 6.5 K/mm3 (4.8-10.8)
[2017-12-30 06:49] LABS: Hematocrit 29.7 % (37.0-47.0); Hemoglobin 9.8 g/dL (12.2-16.2)
[2017-12-30 07:26] LABS: Albumin Level 2.1 gm/dL (3.4-5.0); Albumin/Globulin Ratio 0.7 (1.1-1.8); Anion Gap 10.6 mEq/L (5-15); Bilirubin,Total 0.2 mg/dL (0.2-1.0); Calcium 8.3 mg/dL (8.5-10.1); Globulin 3.2 gm/dl (1.3-3.2); Potassium 3.6 mmoL/L (3.5-5.1); Total Protein,Serum 5.3 gm/dL (6.4-8.2)
--- NOTE | 2017-12-30 07:33 | Progress Note ---
Internal Medicine - PN: Subj *Date: 12/30/17 *Time: 07:31 Interval history: Patient reports generalized weakness with pain in both forearms from her unexplained fall. Over the last 24 hours she denies chest pain or shortness of breath. She did get out of bed yesterday although nursing staff reports she appeared quite weak. She used the bedside commode. She states her appetite is not good but next to her bed is a bag of donuts and 2 candy bars Exam Vital signs and Labs for Last 24 Hours: Temp Pulse Resp BP Pulse Ox 98.6 F 66 20 105/46 94 L 12/30/17 03:40 12/30/17 03:40 12/30/17 03:40 12/30/17 03:40 12/30/17 03:40 Laboratory Results - last 24 hr 12/30/17 06:25: WBC 6.5 D, RBC 3.16 L, Hgb 9.8 L D, Hct 29.7 L, MCV 94.0, MCH 31.1, MCHC 33.1, RDW 12.8, Plt Count 176 D, MPV 8.2, Neut % (Auto) 72.9, Lymph % (Auto) 19.1, [place] % (Auto) 5.7, Eos % (Auto) 1.9, Baso % (Auto) 0.2, Neut # ( Auto) 4.8, Lymph # (Auto) 1.3, [place] # (Auto) 0.4, Eos # (Auto) 0.1, Baso # (Auto ) 0.0 I & O for Last 24 hours: Intake & Output 12/27/17 12/28/17 12/29/17 12/30/17 11:59 11:59 11:59 11:59 Intake Total 360 / 360 Output Total 1250 / 1250 Balance -890 / -890 Weight 213 lb 8 oz 213 lb 8 oz Narrative: Patient is awake and alert this morning. Lungs remain clear. Heart has a regular rate and rhythm. Abdomen is soft and nontender. She has extensive bilateral forearm bruising Assessment and Plan (1) Hypokalemia Current visit: Yes Status: Acute Category: Medical Code(s): E87.6 - Hypokalemia (2) Fall Current visit: Yes Status: Acute Qualifiers: Encounter type: initial encounter Qualified Code(s): W19.XXXA - Unspecified fall, initial encounter Category: Medical Code(s): W19.XXXA - Unspecified fall, initial encounter (3) Generalized weakness Current visit: Yes Status: Acute Category: Medical Code(s): R53.1 - Weakness (4) Leukocytosis Current visit: Yes Status: Acute Qualifiers: Leukocytosis type: unspecified Qualified Code(s): D72.829 - Elevated white blood cell count, unspecified Category: Medical Code(s): D72.829 - Elevated white blood cell count, unspecified (5) UTI (urinary tract infection) Current visit: Yes Status: Suspected Category: Medical Code(s): N39.0 - Urinary tract infection, site not specified - Assessment and plan all Dx Assessment and Plan for all problems:: Continue potassium replacement and await labs this morning. Await urine culture. Patient's white count dropped significantly since yesterday. Encourage patient to try to ambulate with assistance today and get out of bed to chair
--- NOTE | 2017-12-31 08:03 | Progress Note ---
Internal Medicine - PN: Subj *Date: 12/31/17 *Time: 08:02 Interval history: Patient feels weak, but has been eating well. Has not fallen, has gotten up with maximal assistance from the nursing staff. Exam Vital signs and Labs for Last 24 Hours: Temp Pulse Resp BP Pulse Ox 97.9 F 57 L 18 127/61 95 12/31/17 03:54 12/31/17 03:54 12/31/17 03:54 12/31/17 03:54 12/31/17 03:54 I & O for Last 24 hours: Intake & Output 12/28/17 12/29/17 12/30/17 12/31/17 11:59 11:59 11:59 11:59 Intake Total 902 / 902 2999 / 2999 Output Total 1450 / 1450 1000 / 1000 Balance -548 / -548 1998 Weight 213 lb 8 oz 213 lb 8 oz Narrative: Patient is weak, tremulous, lungs have good air movement, heart rate regular, abdomen soft, scattered bruising on arms and legs as previously noted. Assessment and Plan (1) Hypokalemia Current visit: Yes Status: Acute Category: Medical Code(s): E87.6 - Hypokalemia (2) Fall Current visit: Yes Status: Acute Qualifiers: Encounter type: initial encounter Qualified Code(s): W19.XXXA - Unspecified fall, initial encounter Category: Medical Code(s): W19.XXXA - Unspecified fall, initial encounter (3) Generalized weakness Current visit: Yes Status: Acute Category: Medical Code(s): R53.1 - Weakness (4) Leukocytosis Current visit: Yes Status: Acute Qualifiers: Leukocytosis type: unspecified Qualified Code(s): D72.829 - Elevated white blood cell count, unspecified Category: Medical Code(s): D72.829 - Elevated white blood cell count, unspecified (5) UTI (urinary tract infection) Current visit: Yes Status: Suspected Category: Medical Code(s): N39.0 - Urinary tract infection, site not specified - Assessment and plan all Dx Assessment and Plan for all problems:: Hypokalemia has improved. Continue potassium placement. PT evaluation given her weakness and tremulousness. Anticipate possible transfer to skilled care for rehabilitation stay.
--- NOTE | 2017-12-31 14:47 | Discharge Summary ---
General - General Admission date: 12/29/17 Discharge date: 12/31/17 HPI HPI: 67-year-old female was brought to the emergency department this morning after she was found in her kitchen and could not explain how she got there. Patient states she awoke this morning and was facedown on the floor in her kitchen. She had difficulty getting to a seated position. Once she was to a seated position that was how her found her early this morning. She does not know how long she was on the floor. She suffers from generalized weakness at baseline and apparently has been in physical therapy recently to gain strength. She was not strong enough to get herself to a standing position. She also reports yesterday evening while going to bed onset of shivering and chills with inability to get warm. She denies fevers. She denies cough, dysuria, urinary frequency, urinary urgency, foul-smelling urine. In the emergency department her workup was begun and she was found to be mildly hypokalemic. Family tells me that the hydrochlorothiazide that she takes is a recent addition to her medications. Patient denies any prior history of syncope. She is suspected of having Parkinson's disease. She denies chest pain or shortness of breath. Hospital Course Hospital Course: Patient was admitted to hospital, potassium was replaced orally and she did very nicely with this. Over the next couple of days she began to improve in regard to her ADL functioning. This morning she was feeling better but very weak, continued to have tremulousness which goes along with her suspected parkinsonism. Potassium levels have normalized. Physical therapy evaluated her and felt that she would do well with her recent fall, weakness and tremor with a round of acute rehabilitation. She will be transferred to the [facility] today for PT/OT evaluation. She will also need labs with a CBC and BMP in 48 hours, medications will be as noted. Objective Vital signs: Temp Pulse Resp BP Pulse Ox 97.9 F 69 18 155/68 98 12/31/17 08:00 12/31/17 08:00 12/31/17 08:00 12/31/17 08:00 12/31/17 09:15 Narrative: Is alert, oriented 3, pill-rolling tremor on the left arm, very weak appearing , lungs are clear, heart rate regular, abdomen is soft, scattered bruises and chronic skin changes on arms and legs consistent with her history of multiple falls and her current blood thinners. DS: Diagnosis - Discharge Diagnosis (1) Hypokalemia Status: Acute (2) Fall Status: Acute (3) Generalized weakness Status: Acute (4) Leukocytosis Status: Acute (5) UTI (urinary tract infection) Status: Suspected Discharge Plan - Patient Discharge Instructions ACTIVITY: Continue current activity DIET: continue same diet - Follow up Plan Follow up with: Aster Landry APRN [Nurse Practitioner] - Disposition: [facility] Home Medications: Home Medications Medication Instructions Recorded Confirmed Type Atorvastatin Calcium [Lipitor 40mg 40 mg PO HS 12/29/17 12/29/17 History Tablet] Carvedilol [Carvedilol 12.5mg Tab] 12.5 mg PO BID 12/29/17 12/29/17 History Clopidogrel Bisulfate [Plavix 75mg 75 mg PO DAILY 12/29/17 12/29/17 History Tab] Fluoxetine HCl [Prozac] 20 mg PO DAILY 12/29/17 12/29/17 History Memantine HCl/Donepezil HCl 1 tab PO DAILY 12/29/17 12/30/17 History [Namzaric 28 mg-10 mg Capsule] Oxycodone HCl/Acetaminophen 1 tab PO BID 12/29/17 12/29/17 History [Percocet 10-325 mg Tab] Perphenazine/Amitriptyline HCl 1 tab PO DAILY 12/29/17 12/30/17 History [Perphen-Amitrip 2 mg-25 mg Tab] hydroCHLOROthiazide [HCTZ 25mg 75 mg PO DAILY 12/29/17 12/30/17 History tab] Prescriptions/Medication Reconciliation: New Potassium Chloride [K-Tab ER 20 mEq] 20 meq PO BID #60 tab Continue hydroCHLOROthiazide [HCTZ 25mg tab] 75 mg PO DAILY Carvedilol [Carvedilol 12.5mg Tab] 12.5 mg PO BID Perphenazine/Amitriptyline HCl [Perphen-Amitrip 2 mg-25 mg Tab] 1 tab PO DAILY Memantine HCl/Donepezil HCl [Namzaric 28 mg-10 mg Capsule] 1 tab PO DAILY Clopidogrel Bisulfate [Plavix 75mg Tab] 75 mg PO DAILY Atorvastatin Calcium [Lipitor 40mg Tablet] 40 mg PO HS Morphine Sulfate [Morphine Sulfate IR 30mg Tab] 30 mg PO BID #60 tab Fluoxetine HCl [Prozac] 20 mg PO DAILY Discontinued Oxycodone HCl/Acetaminophen [Percocet 10-325 mg Tab] 1 tab PO BID
== END 2017-12-31 16:53 ==
LOC: ER 06:01 → 2ND 06:01
PROVIDERS: ADMIT Family Medicine; ATTEND Internal Medicine Adolescent Medicine

== ENCOUNTER → 2018-01-08 09:01 | Outpatient (POV) | payer MEDICARE, SELFPAY ==
[2018-01-08 09:16] VITALS: BP 150/82; PULSE 84; RESP 20; TEMP 36.6; O2SAT 98; BMI 41.0
--- NOTE | 2018-01-08 09:32 | HMH.PAINSOAP ---
[facility] Pain Management SOAP Note Subjective:: Patient is a pleasant 67-year-old white female who presents today for prescription refills. Patient is currently in rehabilitation at [facility] after fall. Patient states she is doing pretty well. Patient states her pain is a 6 out of 10 today. Patient states that she does not notice a difference with her stretching and therapies. Patient is currently being medically managed on morphine sulfate 30 mg 1 p.o. twice daily and Percocet 10 mg 1 p.o. twice daily. Patient denies any side effects. Patient states that the pain medication helps her 70-80%. She states it makes her more functional. Patient's SHANE #[id number] reviewed and appropriate. Patient's UDS has been appropriate in the past. Of note hydromorphone has been noted in her urine however that is a metabolite of the morphine. ROS General: no recent weight change, no fever, no sleep disturbances Respiratory: no cough, no shortness of air, no recurring pulmonary infections Cardiovascular/Peripheral Vascular: No chest pain, No palpitations, no edema, no shortness of breath. Gastrointestinal: no incontinence, normal bowel movements reported Genitourinary: no incontinence Musculoskeletal: Back pain, bilateral leg pain Psychiatric: normal mood/ affect Neurological: [denies weakness in extremities], [denies balance issues] Objective:: Physical Exam General: Alert and oriented x3, no acute distress, pleasant and cooperative, [on room air] Lungs: Resps E/U, Symmetrical chest expansion, Eyes: PERRL Musculoskeletal: Flexion and extension of lumbar spine somewhat guarded secondary to pain, deep tendon reflexes normal, strength in upper and lower extremities [5/5], [abnormal gait noted] Neurological: speech clear, hl7 interface developer equal, no gross sensory deficits Assessment:: 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 I will see her in 2-3 months. Patient has been a call for her prescriptions when they are due. Patient's Shane and urine drug screen appropriate. Dr. Dudley is reviewed this chart and agrees with this plan of care. This note was dictated using voice recognition software and may contain errors or omissions
--- NOTE | 2018-01-08 09:36 | P.CONS_ITS ---
[facility] Pain Management SOAP Note Subjective:: Patient is a pleasant 67-year-old white female who presents today for prescription refills. Patient is currently in rehabilitation at [facility] after fall. Patient states she is doing pretty well. Patient states her pain is a 6 out of 10 today. Patient states that she does not notice a difference with her stretching and therapies. Patient is currently being medically managed on morphine sulfate 30 mg 1 p.o. twice daily and Percocet 10 mg 1 p.o. twice daily. Patient denies any side effects. Patient states that the pain medication helps her 70-80%. She states it makes her more functional. Patient' s SHANE #[id number] reviewed and appropriate. Patient's UDS has been appropriate in the past. Of note hydromorphone has been noted in her urine however that is a metabolite of the morphine. ROS General: no recent weight change, no fever, no sleep disturbances Respiratory: no cough, no shortness of air, no recurring pulmonary infections Cardiovascular/Peripheral Vascular: No chest pain, No palpitations, no edema, no shortness of breath. Gastrointestinal: no incontinence, normal bowel movements reported Genitourinary: no incontinence Musculoskeletal: Back pain, bilateral leg pain Psychiatric: normal mood/ affect Neurological: [denies weakness in extremities], [denies balance issues] Objective:: Physical Exam General: Alert and oriented x3, no acute distress, pleasant and cooperative, [ on room air] Lungs: Resps E/U, Symmetrical chest expansion, Eyes: PERRL Musculoskeletal: Flexion and extension of lumbar spine somewhat guarded secondary to pain, deep tendon reflexes normal, strength in upper and lower extremities [5/5], [abnormal gait noted] Neurological: speech clear, food services coordinator equal, no gross sensory deficits Assessment:: 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 I will see her in 2-3 months. Patient has been a call for her prescriptions when they are due. Patient's Shane and urine drug screen appropriate. Dr. Dudley is reviewed this chart and agrees with this plan of care. This note was dictated using voice recognition software and may contain errors or omissions
== END ==
PROVIDERS: Family Provider Internal Medicine Adolescent Medicine; PCP Internal Medicine Adolescent Medicine; Visit Provider Clinical Nurse Specialist Family Health
DX: M54.16 Radiculopathy, lumbar region (principal)
CPT/HCPCS: 99212

== ENCOUNTER → 2018-04-08 09:44 | Outpatient (POV) | payer MEDICARE, SELFPAY ==
--- NOTE | 2018-04-08 10:31 | HMH.PAINSOAP ---
[facility] Pain Management SOAP Note Subjective:: Patient is a pleasant 68-year-old white female who presents today for prescription refills. Patient states she is doing pretty well. She is currently on morphine sulfate 30 mg 1 p.o. twice daily. Patient states this helps her pain up to 80%. Patient's SHANE #[id number] reviewed and appropriate. Patient's urine drug screen has been appropriate in the past. Patient was on Percocet as well however she has come off of this. Patient has had several falls recently. Patient has been seen by neurology in the past and I believe that it would be beneficial for her to be seen again. Patient would like to follow-up with her neurologist. ROS General: no recent weight change, no fever, no sleep disturbances Respiratory: no cough, no shortness of air, no recurring pulmonary infections Cardiovascular/Peripheral Vascular: No chest pain, No palpitations, no edema, no shortness of breath. Gastrointestinal: no incontinence, normal bowel movements reported Genitourinary: no incontinence Musculoskeletal: Back pain, leg pain Psychiatric: normal mood/ affect Neurological: This in bilateral lower extremities at times, balance issues at times Objective:: Physical Exam General: Alert and oriented x3, no acute distress, pleasant and cooperative, [on room air] Lungs: Resps E/U, Symmetrical chest expansion, Eyes: PERRL Musculoskeletal: Flexion and extension of lumbar spine somewhat guarded secondary to pain, deep tendon reflexes normal, strength in upper and lower extremities [5/5], [abnormal gait noted] Neurological: speech clear, business operations director equal, no gross sensory deficits Assessment:: Degenerative disc disease of the lumbar spine with lumbar radiculopathy Plan:: We will refill the patient's medication pain sulfate ER 30 mg 1 p.o. twice daily. We will give HER-2 months worth of prescriptions and she can call in the third month. Patient's been instructed to call the office if she has any issues prior to her next appointment. We will follow-up with her in 3 months. Patient's Shane and urine drug screen reviewed. Dr. Dudley has reviewed this chart and agrees with this plan of care. We will also set up an appointment with Dr. Yarbrough her neurologist. Patient has been prescribed a controlled substance after being counseled on the medication, medication safety, and possible side effects. SHANE report has been obtained and reviewed prior to prescription and found to be appropriate. Opioid contract was reviewed and signed by the patient, and that they have agreed to all of the terms set forth by our compliance program. This note was dictated using voice recognition software and may contain errors or omissions
--- NOTE | 2018-04-08 10:34 | P.CONS_ITS ---
[facility] Pain Management SOAP Note Subjective:: Patient is a pleasant 68-year-old white female who presents today for prescription refills. Patient states she is doing pretty well. She is currently on morphine sulfate 30 mg 1 p.o. twice daily. Patient states this helps her pain up to 80%. Patient's SHANE #[id number] reviewed and appropriate. Patient's urine drug screen has been appropriate in the past. Patient was on Percocet as well however she has come off of this. Patient has had several falls recently. Patient has been seen by neurology in the past and I believe that it would be beneficial for her to be seen again. Patient would like to follow-up with her neurologist. ROS General: no recent weight change, no fever, no sleep disturbances Respiratory: no cough, no shortness of air, no recurring pulmonary infections Cardiovascular/Peripheral Vascular: No chest pain, No palpitations, no edema, no shortness of breath. Gastrointestinal: no incontinence, normal bowel movements reported Genitourinary: no incontinence Musculoskeletal: Back pain, leg pain Psychiatric: normal mood/ affect Neurological: This in bilateral lower extremities at times, balance issues at times Objective:: Physical Exam General: Alert and oriented x3, no acute distress, pleasant and cooperative, [ on room air] Lungs: Resps E/U, Symmetrical chest expansion, Eyes: PERRL Musculoskeletal: Flexion and extension of lumbar spine somewhat guarded secondary to pain, deep tendon reflexes normal, strength in upper and lower extremities [5/5], [abnormal gait noted] Neurological: speech clear, statistics teacher equal, no gross sensory deficits Assessment:: Degenerative disc disease of the lumbar spine with lumbar radiculopathy Plan:: We will refill the patient's medication pain sulfate ER 30 mg 1 p.o. twice daily. We will give HER-2 months worth of prescriptions and she can call in the third month. Patient's been instructed to call the office if she has any issues prior to her next appointment. We will follow-up with her in 3 months. Patient's Shane and urine drug screen reviewed. Dr. Dudley has reviewed this chart and agrees with this plan of care. We will also set up an appointment with Dr. Yarbrough her neurologist. Patient has been prescribed a controlled substance after being counseled on the medication, medication safety, and possible side effects. SHANE report has been obtained and reviewed prior to prescription and found to be appropriate. Opioid contract was reviewed and signed by the patient, and that they have agreed to all of the terms set forth by our compliance program. This note was dictated using voice recognition software and may contain errors or omissions
[2018-04-08 11:00] VITALS: BP 146/88; PULSE 69; RESP 18; O2SAT 97; BMI 40.2
[2018-04-08 13:36] LABS: Amphetamine/Metha Screen,Urine Negative ng/mL (<1000); Barbiturates Screen,Urine Negative ng/mL (<200); Benzodiazepines Screen,Urine Negative ng/mL (<200); Cannabinoid Screen,Urine Negative ng/mL (<50); Cocaine Screen,Urine Negative ng/mL (<300); Methadone Screen,Urine Negative ng/mL (<300); Opiate Screen,Urine Positive ng/mL (<300); Phencyclidine Screen,Urine Negative ng/mL (<25)
[2018-04-16 23:17] LABS: Codeine Negative (Cutoff=100); Hydrocodone Negative (Cutoff=100); Hydromorphone Positive (.); Morphine Positive (.)
[2018-04-17 16:48] LABS: Opiates Positive (.)
== END ==
PROVIDERS: Family Provider Internal Medicine Adolescent Medicine; PCP Internal Medicine Adolescent Medicine; Visit Provider Clinical Nurse Specialist Family Health
DX: M54.16 Radiculopathy, lumbar region (principal); Z79.899 Other long term (current) drug therapy
CPT/HCPCS: 80305; 80361; 80365; 99212; G0480

== ENCOUNTER → 2018-04-09 08:34 | Outpatient (CLI) | payer MEDICARE, SELFPAY ==
[2018-04-09 14:15] LABS: Basophils % 0.6 % (0.1-2.0); Eosinophils # 0.2 K/mm3 (0.0-0.4); Eosinophils % 3.8 % (0.1-12.0); Hematocrit 34.2 % (37.0-47.0); Hemoglobin 10.9 g/dL (12.2-16.2); Lymphocytes # 1.3 K/mm3 (0.7-4.5); Lymphocytes % 22.2 K/mm3 (10-50); Mean Corpuscular HGB Conc 31.8 g/dL (31.8-35.4); Mean Corpuscular Hemoglobin 29.6 pg (27.0-31.2); Mean Corpuscular Volume 93.1 fl (81-99); Mean Platelet Volume 8.1 fl (7.4-10.4); Monocytes # 0.3 K/mm3 (0.1-1.0); Monocytes % 4.6 % (1.7-9.3); Neutrophils # 4.1 K/mm3 (1.8-7.8); Neutrophils % 68.9 % (37.0-80.0); Platelet Count 217 K/mm3 (142-424); Red Blood Count 3.67 M/mm3 (4.20-5.40)
[2018-04-09 16:06] LABS: Alanine Aminotransferase 17 U/L (12-78); Albumin Level 2.8 gm/dL (3.4-5.0); Albumin/Globulin Ratio 0.7 (1.1-1.8); Alkaline Phosphatase 115 U/L (46-116); Anion Gap 13.3 mEq/L (5-15); Aspartate Amino Transferase 15 U/L (15-37); Bilirubin,Total 0.2 mg/dL (0.2-1.0); Blood Urea Nitrogen 14 mg/dL (7-18); Carbon Dioxide 29 mmol/L (21.0-32.0); Chloride 107 mmol/L (98-107); Creatinine,Serum 1.05 mg/dL (0.55-1.02); Estimated Glomerular Filt Rate 52 ml/min (>60); Free Thyroxine Index 2.8 ug/dL (5.93-13.13); GFR (African American) 63 ML/MIN (>60); Globulin 4.1 gm/dl (1.3-3.2); Glucose 102 mg/dL (74-106); Magnesium 2.1 mg/dL (1.4-2.2); Potassium 4.3 mmoL/L (3.5-5.1); Sodium 145 mmol/L (136-145); T4 (Thyroxine) 8.5 ug/dl (4.7-13.3); Thyroid Stimulating Hormone 2.71 uIU/ml (0.358-3.740); Total Protein,Serum 6.9 gm/dL (6.4-8.2); Triiodothryronine (T3) Uptake 33 % (31-39)
[2018-04-12 06:33] LABS: Vitamin B12 1701 pg/mL (232-1245); Vitamin D 25 Hydroxy 22.4 ng/mL (30.0-100.0)
== END ==
PROVIDERS: Visit Provider Internal Medicine Adolescent Medicine
DX: E11.9 Type 2 diabetes mellitus without complications (principal); R27.0 Ataxia, unspecified; R29.6 Repeated falls
CPT/HCPCS: 36415; 80053; 82607; 82652; 83036; 83735; 84436; 84443; 84479; 85025

== ENCOUNTER 2018-04-13 17:28 | Observation (INO) ==
--- NOTE | 2018-04-13 18:17 | Emergency Department Note ---
ED Disposition Condition on Discharge: Fair - Critical Care Critical Care Time: No <Richie Cintron - Last Filed: 04/13/18 18:14> Condition on Discharge: Fair Time of Disposition: 20:50 - Critical Care Critical Care Time: No <Geovany Hansen - Last Filed: 04/13/18 20:52> Clinical Impression: Chronic pain disorder, Right hemiparesis, History of CVA (cerebrovascular accident), Pars defect of lumbar spine Fall Qualifiers: Encounter type: initial encounter Qualified Code(s): W19.XXXA - Unspecified fall, initial encounter Back pain Qualifiers: Back pain location: low back pain Chronicity: acute Back pain laterality: unspecified Sciatica presence: without sciatica Qualified Code(s): M54.5 - Low back pain Disposition: Admitted as Observation Referrals: Ari Coates MD [Primary Care Provider] - Attestation: On 04/13/18, the high probability of a clinically significant, sudden or life threatening deterioration of the following system(s) required my full and direct attention, intervention and personal management. The time I documented below is in addition to time spent performing reported procedures but includes the following listed in this critical care notation. Medical Decision Making - Asif Inquiry Pt receiving controlled substance: No Asif was queried for this patient: No <Richie Cintron - Last Filed: 04/13/18 18:14> - Medical Records Medical records reviewed: Yes: I reviewed the patient's medical records. - Asif Inquiry Pt receiving controlled substance: No - Lab Data Lab results reviewed: Yes: I reviewed the patient's lab results. Result diagrams: 04/13/18 18:45 04/13/18 18:45 - Radiology Data #1 Image(s): Humerus, Elbow, Forearm Image Reviewed: Yes I reviewed the patient's radiology image Preliminary Findings: Normal/NAD #2 Image(s): Abdomen, L-Spine, Pelvis Image Reviewed: Yes I discussed the image results w/the radiologist Preliminary Findings: Abnormal (bilateral nondisplaced L5 pars intra-articular fractures. Very mild grade 1 L5-S1 anterolisthesis present.) - CT Data CT Scan: Head, C-Spine Time Received: 18:[address] Reviewed: Yes: I have viewed the radiologist's interpretation Preliminary Findings: Abnormal (thyroid nodules) - Physician Consults Physician Consulted: Dr Laguna at Time: 20:30 Reason -: Pt condition Comment/Response: Orange like Pars fractures were old and nothing acute Additional Consult: Dr Boogie Time: 20:44 Reason -: Admission (obs) <Geovany Hansen - Last Filed: 04/13/18 20:52> Vital Signs: 04/13/18 17:28 Temperature 98.6 F Temperature Source Oral Pulse Rate [Left Radial] 75 Respiratory Rate 18 Blood Pressure [Right Arm] 135/80 Blood Pressure Mean [Right Arm] 98 Blood Pressure Source [Right Arm] Manual Cuff/ Auscultation Blood Pressure Position [Right Arm] Sitting 02 Sat by Pulse Oximetry 95 Oxygen Delivery Method Nasal Cannula Oxygen Flow Rate (LPM) 2 - Lab Data Lab Results 04/13/18 18:45: WBC 7.2, RBC 3.43 L, Hgb 11.0 L, Hct 31.5 L, MCV 91.9, MCH 32.1 H, MCHC 34.9, RDW 13.2, Plt Count 208, MPV 7.5, Neut % (Auto) 74.0, Lymph % ( Auto) 18.4, [place] % (Auto) 4.2, Eos % (Auto) 2.9, Baso % (Auto) 0.5, Neut # (Auto ) 5.3, Lymph # (Auto) 1.3, [place] # (Auto) 0.3, Eos # (Auto) 0.2, Baso # (Auto) 0.0 04/13/18 18:45: Sodium 141, Potassium 4.1, Chloride 105, Carbon Dioxide 30, Anion Gap 10.1, BUN 17, Creatinine 1.07 H, Estimated Creat Clear 73, Estimated GFR 51 L, Est GFR ( Amer) 61, Glucose 133 H, Calcium 9.0, Total Bilirubin 0.2, AST 13 L, ALT 16, Alkaline Phosphatase 117 H, Total Creatine Kinase 37, CK-MB (CK-2) 0.8 D, CK-MB (CK-2) Rel Index 2.2, Troponin I < 0.02, Total Protein 7.3, Albumin 2.7 L, Globulin 4.6 H, Albumin/Globulin Ratio 0.6 L 04/13/18 19:55: Urine Color Yellow, Urine Appearance Sl cloudy, Urine pH 6.0, Ur Specific Calcium 1.025, Urine Protein Negative, Urine Glucose (UA) Negative, Urine Ketones Negative, Urine Blood 1+, Urine Nitrate Negative, Urine Bilirubin Negative, Urine Urobilinogen 1.0, Ur Leukocyte Esterase 2+ A, Urine RBC 10-20, Urine WBC 20-50, Ur Squamous Epith Cells 3-5, Hyaline Casts 5-10 Orders (Tests/Meds): ORDERS Category Date Time Status Urine Culture Stat Micro 04/13/18 19:55 Received Medical Decision Narrative: I discussed the case with incoming physician Dr. Hansen will follow up on the labs and CT results make final disposition. (Richie Cintron) Fall HPI - General Mode of Arrival: EMS Limitations: No Limitations Description of Symptoms (Recalled from ER Triage Doc. by RN): Pt was walking on the [employer] steps when she fell, she has fallen in the past few months approx 5 times. Pt c/o pain all over.States when she fell she blacked out - History of Present Illness MD complaint: fall Onset (ago): hour(s) (1 [address].) Place fall occurred: home Loss of consciousness: none Prolonged down time: no Symptoms prior to fall: none Context: tripped/slipped Location of injury - extremities: Right: elbow <Richie Cintron - Last Filed: 04/13/18 18:14> <Geovany Hansen - Last Filed: 04/13/18 20:52> - General Chief Complaint: Fall Stated Complaint: Fall Time Seen by Provider: 04/13/18 17:30 - History of Present Illness HPI Narrative: 5 years old white female chronic pain syndrome and a history of recent CVA with residual right hemiparesis worse in the right lower extremity in January 2018 she is currently on daily Plavix. She finished her rehab and went home but she continues to have frequent falls. She fell 3 times last week and once today. She is complaining of pain over the right elbow and both hips. Has chronic upper and lower back pain. She denies recent head injuries loss of consciousness chest pain abdominal pain nausea vomiting or diarrhea. Her blood pressure was elevated family were concerned asked that she comes to the ER to be checked. (Richie Cintron) - Related Data Home Medications Medication Instructions Recorded Confirmed Atorvastatin Calcium [Lipitor 40mg 40 mg PO HS 12/29/17 04/13/18 Tablet] Carvedilol [Carvedilol 12.5mg Tab] 12.5 mg PO BID 12/29/17 04/13/18 Clopidogrel Bisulfate [Plavix 75mg 75 mg PO DAILY 12/29/17 04/13/18 Tab] Fluoxetine HCl [Prozac] 20 mg PO DAILY 12/29/17 04/13/18 Memantine HCl/Donepezil HCl 1 tab PO DAILY 12/29/17 04/13/18 [Namzaric 28 mg-10 mg Capsule] Perphenazine/Amitriptyline HCl 1 tab PO DAILY 12/29/17 04/13/18 [Perphen-Amitrip 2 mg-25 mg Tab] hydroCHLOROthiazide [HCTZ 25mg 75 mg PO DAILY 12/29/17 04/13/18 tab] Cyanocobalamin (Vitamin B-12) 1,000 mcg IJ WEEKLY 04/13/18 04/13/18 [Physicians Ez Use B-12] Potassium Chloride [K-Tab ER 20 20 meq PO BID 04/13/18 04/13/18 mEq] Previous Rx's Medication Instructions Recorded Morphine Sulfate [Morphine Sulfate 30 mg PO BID #60 tab 12/31/17 IR 30mg Tab] Allergies Allergy/AdvReac Type Severity Reaction Status Date / Time ciprofloxacin [From CIPRO] Allergy Unknown Verified 12/29/17 06:17 codeine [CODEINE] Allergy Unknown Verified 12/29/17 06:17 erythromycin base Allergy Unknown I-RASH Verified 12/29/17 06:17 [From ERYTHROCIN] meperidine [MEPERIDINE] Allergy Unknown Verified 12/29/17 06:17 NSAIDS (Non-Steroidal Allergy Unknown I-RASH Verified 12/29/17 06:17 Anti-Inflamma [NSAIDS (NON-STEROIDAL ANTI-INFLAMMA] ofloxacin [OFLOXACIN] Allergy Unknown Verified 12/29/17 06:17 Quinolones [QUINOLONES] Allergy Unknown Verified 12/29/17 06:17 Iodinated Contrast Media - AdvReac Mild FLUSHED Verified 12/29/17 06:17 Oral and FACE, [Iodinated Contrast Media - ITCHING IV Dye] MACROLIDES Allergy Unknown Uncoded 09/04/17 14:31 [facility] History I have reviewed the patient's past medical history: Yes Medical History: Reports:: Diabetes Mellitus Type 1, Hyperlipidemia, Hypertension Denies:: Cancer, Diabetes Mellitus Type 2, MRSA Comment: Chronic pain Other Surgeries: Yes: Cardiac Catheterization, Colonoscopy, Hysterectomy-Total, Plastic Surgery Amputation: No Fractures: No - Social History Smoking Status: Never smoker Alcohol Intake: never Occupational Status: retired Household Members: spouse - Psychiatric History Expresses thoughts of harming self/others: None Suicide Plan Description: No Plan Family Hx:: No significant family history <Richie Cintron - Last Filed: 04/13/18 18:14> ROS Obtained: Yes All systems reviewed & no additional complaints <Richie Cintron Last Filed: 04/13/18 18:14> Physical Exam - General General appearance: alert, in no apparent distress - Head Head exam: atraumatic, normocephalic, normal inspection - Eye Eye exam: Present: normal appearance, PERRL, EOMI. Absent: scleral icterus - ENT ENT exam: Present: normal exam, normal oropharynx, mucous membranes moist, TM's normal bilaterally, normal external ear exam - Neck Neck exam: Present: normal inspection, full ROM, trachea midline. Absent: tenderness, meningismus, lymphadenopathy - Chest Chest inspection: Present: normal inspection, symmetric chest wall rise, tenderness, other (Chronic midthoracic tenderness.) - Respiratory Respiratory exam: Present: normal lung sounds bilaterally. Absent: respiratory distress - Cardiovascular Cardiovascular exam: Present: regular rate, normal rhythm. Absent: JVD - Abdominal Exam Abdominal exam: Present: soft, normal bowel sounds. Absent: distention, tenderness, guarding, rebound, rigidity - External exam: Present: normal external exam - Extremities Exam Extremities exam: Present: normal inspection, tenderness (Bilateral hip tenderness with limited range of motion), normal capillary refill, pedal edema, other (Lateral hip tenderness with limited range of motion. ). Absent: full ROM , calf tenderness - Back Exam Back exam: Present: normal inspection. Absent: tenderness - Neurological Exam Neurological exam: Present: alert, oriented X3, CN II-XII intact, other (Right hemiparesis that is worse in the right lower extremity.) - Psychiatric Psychiatric exam: Present: normal affect, normal mood - Skin Skin exam: Present: warm, dry, intact, normal color - Lymphatic Lymphatic Findings: no adenopathy <Richie Cintron Last Filed: 04/13/18 18:14>
[2018-04-13 18:57] LABS: Basophils % 0.5 % (0.1-2.0); Eosinophils # 0.2 K/mm3 (0.0-0.4); Eosinophils % 2.9 % (0.1-12.0); Hematocrit 31.5 % (37.0-47.0); Lymphocytes # 1.3 K/mm3 (0.7-4.5); Lymphocytes % 18.4 K/mm3 (10-50); Mean Corpuscular HGB Conc 34.9 g/dL (31.8-35.4); Mean Corpuscular Hemoglobin 32.1 pg (27.0-31.2); Mean Corpuscular Volume 91.9 fl (81-99); Mean Platelet Volume 7.5 fl (7.4-10.4); Monocytes # 0.3 K/mm3 (0.1-1.0); Monocytes % 4.2 % (1.7-9.3); Neutrophils # 5.3 K/mm3 (1.8-7.8); Platelet Count 208 K/mm3 (142-424); Red Blood Count 3.43 M/mm3 (4.20-5.40); Red Cell Distribution Width 13.2 % (11.5-17.5); White Blood Count 7.2 K/mm3 (4.8-10.8)
[2018-04-13 19:28] LABS: Alanine Aminotransferase 16 U/L (12-78); Albumin Level 2.7 gm/dL (3.4-5.0); Albumin/Globulin Ratio 0.6 (1.1-1.8); Alkaline Phosphatase 117 U/L (46-116); Anion Gap 10.1 mEq/L (5-15); Aspartate Amino Transferase 13 U/L (15-37); Bilirubin,Total 0.2 mg/dL (0.2-1.0); Blood Urea Nitrogen 17 mg/dL (7-18); Carbon Dioxide 30 mmol/L (21.0-32.0); Chloride 105 mmol/L (98-107); Creatine Kinase 37 U/L (26-192); Globulin 4.6 gm/dl (1.3-3.2); Glucose 133 mg/dL (74-106); Potassium 4.1 mmoL/L (3.5-5.1); Sodium 141 mmol/L (136-145); Total Protein,Serum 7.3 gm/dL (6.4-8.2)
[2018-04-13 20:01] LABS: Microscopic, Urine URINE MICROSCOPIC (MICROSCOPIC)
[2018-04-13 20:04] LABS: Appearance,Urine SL CLOUDY (Clear); Bilirubin,Urine Negative (Negative); Blood, Urine 1+ (Negative); Color,Urine YELLOW (Yellow); Glucose,Urine (UA) Negative (Negative); Ketones,Urine Negative (Negative); Leukocyte Esterase,Urine 2+ (Negative); Protein,Urine Negative (Negative); Specific Gravity, Urine 1.025 (1.005-1.030)
[2018-04-13 20:07] LABS: WBC,Urine 20-50 #/hpf (0-3)
--- NOTE | 2018-04-14 05:43 | History & Physical Report ---
*Admission Date: 04/13/18 *Chief complaint: Falling and dizzy *History of present illness: 68 yo female with chronic pain syndrome, HTN, dementia, and a history of recent CVA with residual right hemiparesis worse in the right lower extremity in January 2018 she is currently on daily Plavix. She has been doing home health with PT several times a week, however she is underwhelmed by the extent of their services. She continues to have frequent falls while using her Rollator and cane. She fell 3 times last week and once today. She is complaining of pain over the right elbow and both hips. Has chronic upper and lower back pain. She denies recent head injuries loss of consciousness chest pain abdominal pain nausea vomiting or diarrhea. Today she reports improved sensation in her lower extremities compared to yesterday. Daughter at bedside states patient is more alert today. She and her sister have concerns the patient is overmedicated with her morphine, amitriptyline, and other medications. [place] History Medical History: Reports:: Atrial Fibrillation, Deep Vein Thrombosis, Diabetes Mellitus Type 2, Hyperlipidemia, Hypertension Denies:: Cancer, Diabetes Mellitus Type 1, MRSA Other Medical History: Reports: Arthritis, Cataracts, Thyroid Disease Laterality Cases: Bilateral: Breast Biopsy Other Surgeries: Yes: Cardiac Catheterization, Cholecystectomy, Colonoscopy, Hysterectomy-Total, Plastic Surgery Amputation: No Fractures: Yes - *Social History Educational Level: Completed [employer] Smoking Status: Never smoker Alcohol Intake: never Occupational Status: retired Housing: house Household Members: spouse - Psychiatric History Expresses thoughts of harming self/others: None Suicide Plan Description: No Plan *Family Hx:: Cancer, Diabetes, Hyperlipidemia, Stroke Review of Systems - Review of Systems Review of systems:: pertinent systems reviewed and negative unless documented below Meds Home Medications Medication Instructions Recorded Confirmed Type Atorvastatin Calcium [Lipitor 40mg 40 mg PO HS 12/29/17 04/13/18 History Tablet] Carvedilol [Carvedilol 12.5mg Tab] 12.5 mg PO BID 12/29/17 04/13/18 History Clopidogrel Bisulfate [Plavix 75mg 75 mg PO HS 12/29/17 04/14/18 History Tab] Fluoxetine HCl [Prozac] 20 mg PO HS 12/29/17 04/14/18 History Memantine HCl/Donepezil HCl 1 tab PO HS 12/29/17 04/14/18 History [Namzaric 28 mg-10 mg Capsule] Perphenazine/Amitriptyline HCl 2 tab PO TID 12/29/17 04/14/18 History [Perphen-Amitrip 2 mg-25 mg Tab] hydroCHLOROthiazide [HCTZ 25mg 75 mg PO DAILY 12/29/17 04/13/18 History tab] Cyanocobalamin (Vitamin B-12) 1,000 mcg IJ WEEKLY 04/13/18 04/13/18 History [Physicians Ez Use B-12] Potassium Chloride [K-Tab ER 20 20 meq PO BID 04/13/18 04/13/18 History mEq] Allergies Allergy/AdvReac Type Severity Reaction Status Date / Time ciprofloxacin [From CIPRO] Allergy Unknown Unknown Verified 04/14/18 10:13 allergy reaction codeine [CODEINE] Allergy Unknown Unknown Verified 04/14/18 10:13 allergy reaction erythromycin base Allergy Unknown I-RASH Verified 12/29/17 06:17 [From ERYTHROCIN] meperidine [MEPERIDINE] Allergy Unknown Unknown Verified 04/14/18 10:13 allergy reaction NSAIDS (Non-Steroidal Allergy Unknown I-RASH Verified 12/29/17 06:17 Anti-Inflamma [NSAIDS (NON-STEROIDAL ANTI-INFLAMMA] ofloxacin [OFLOXACIN] Allergy Unknown Unknown Verified 04/14/18 10:13 allergy reaction Quinolones [QUINOLONES] Allergy Unknown Unknown Verified 04/14/18 10:13 allergy reaction Macrolide Antibiotics Allergy Unknown Verified 04/14/18 10:13 allergy reaction Iodinated Contrast Media - AdvReac Mild FLUSHED Verified 12/29/17 06:17 Oral and FACE, [Iodinated Contrast Media - ITCHING IV Dye] Exam Vital signs and Labs for Last 24 Hours: Temp Pulse Resp BP Pulse Ox 97.5 F L 63 18 144/72 95 04/14/18 04:00 04/14/18 04:00 04/14/18 04:00 04/14/18 04:00 04/14/18 04:00 Laboratory Results - last 24 hr 04/13/18 18:45: WBC 7.2, RBC 3.43 L, Hgb 11.0 L, Hct 31.5 L, MCV 91.9, MCH 32.1 H, MCHC 34.9, RDW 13.2, Plt Count 208, MPV 7.5, Neut % (Auto) 74.0, Lymph % ( Auto) 18.4, [place] % (Auto) 4.2, Eos % (Auto) 2.9, Baso % (Auto) 0.5, Neut # (Auto ) 5.3, Lymph # (Auto) 1.3, [place] # (Auto) 0.3, Eos # (Auto) 0.2, Baso # (Auto) 0.0 04/13/18 18:45: Sodium 141, Potassium 4.1, Chloride 105, Carbon Dioxide 30, Anion Gap 10.1, BUN 17, Creatinine 1.07 H, Estimated Creat Clear 73, Estimated GFR 51 L, Est GFR ( Amer) 61, Glucose 133 H, Calcium 9.0, Total Bilirubin 0.2, AST 13 L, ALT 16, Alkaline Phosphatase 117 H, Total Creatine Kinase 37, CK-MB (CK-2) 0.8 D, CK-MB (CK-2) Rel Index 2.2, Troponin I < 0.02, Total Protein 7.3, Albumin 2.7 L, Globulin 4.6 H, Albumin/Globulin Ratio 0.6 L 04/13/18 19:55: Urine Color Yellow, Urine Appearance Sl cloudy, Urine pH 6.0, Ur Specific [place] 1.025, Urine Protein Negative, Urine Glucose (UA) Negative, Urine Ketones Negative, Urine Blood 1+, Urine Nitrate Negative, Urine Bilirubin Negative, Urine Urobilinogen 1.0, Ur Leukocyte Esterase 2+ A, Urine RBC 10-20, Urine WBC 20-50, Ur Squamous Epith Cells 3-5, Hyaline Casts 5-10 I & O for Last 24 hours: Intake & Output 04/11/18 04/12/18 04/13/18 04/14/18 23:59 23:59 23:59 23:59 Intake Total 120 / 120 Balance 120 / 120 Weight 94.12 kg - *Routine HEENT Exam Head: Present: normocephalic, atraumatic Eye: Present: EOMI ENT: Present: mucous membranes moist Comments: Pupils constricted, equal response bilaterally to light, dentures in place. - *Routine Neck Exam Present: supple. Absent: lymphadenopathy - *Routine Respiratory Exam Present: CTA bilaterally. Absent: rales, stridor, wheezes - *Routine Cardiovascular Exam Present: RRR, Normal S1, Normal S2. Absent: murmur - *Routine Abdominal Exam Present: soft, normoactive bowel sounds. Absent: tenderness - *Routine Rectal Exam Patient deferred: visual exam - *Routine Exam Patient deferred: external exam - *Routine Extremities Exam Present: edema (1+ edema to bilateral knees). Absent: cyanosis, clubbing - *Routine Skin Exam Present: intact Comments: multiple ecchymoses on arms - *Routine Neurological Exam Present: alert, oriented X3, CN II-XII intact. Absent: sensory deficit H&P: Result - Labs Labs: Short CBC 04/13/18 Range/Units 18:45 WBC 7.2 (4.8-10.8) K/mm3 Hgb 11.0 L (12.2-16.2) g/dL Hct 31.5 L (37.0-47.0) % Plt Count 208 (142-424) K/mm3 BMP 04/13/18 18:45 Sodium 141 Potassium 4.1 Chloride 105 Carbon Dioxide 30 BUN 17 Creatinine 1.07 H Glucose 133 H Calcium 9.0 Cardiac Enzymes 04/13/18 Range/Units 18:45 Total Creatine Kinase 37 (26-192) U/L CK-MB (CK-2) 0.8 D (0.0-3.6) ng/ml Troponin I < 0.02 (0.00-0.06) ng/ml Liver Function 04/13/18 Range/Units 18:45 Total Bilirubin 0.2 (0.2-1.0) mg/dL AST 13 L (15-37) U/L ALT 16 (12-78) U/L Alkaline Phosphatase 117 H (46-116) U/L Albumin 2.7 L (3.4-5.0) gm/dL Urine 04/13/18 Range/Units 19:55 Urine Color Yellow (Yellow) Urine Appearance Sl cloudy (Clear) Urine pH 6.0 (5.0-8.5) Ur Specific [place] 1.025 (1.005-1.030) Urine Protein Negative (Negative) Urine Glucose (UA) Negative (Negative) Assessment and Plan (1) UTI (urinary tract infection) Current visit: Yes Status: Acute Category: Medical Code(s): N39.0 - Urinary tract infection, site not specified (2) Fall Current visit: Yes Status: Acute Qualifiers: Encounter type: initial encounter Qualified Code(s): W19.XXXA - Unspecified fall, initial encounter Category: Medical Code(s): W19.XXXA - Unspecified fall, initial encounter (3) Generalized weakness Current visit: No Status: Acute Category: Medical Code(s): R53.1 - Weakness - Assessment and plan all Dx Assessment and Plan for all problems:: Patient's urine on admission concerning for UTI additionally with her symptoms of confusion and mild dysuria Initiate Bactrim for urinary tract infection Concern falls related to medications, decrease amitriptyline dosage Consult PT OT, initiate recommendations
--- NOTE | 2018-04-14 11:47 | Pharmacy Consult Notes ---
[facility] Pharmacy VTE Monitoring - Patient Demographics Admission date: 04/14/18 Report Date: 04/14/18 Time: 11:47 Allergies/Adverse Reactions: Patient Allergies ciprofloxacin [From CIPRO] Allergy (Unknown, Verified 04/14/18 10:13) Unknown allergy reaction codeine [CODEINE] Allergy (Unknown, Verified 04/14/18 10:13) Unknown allergy reaction erythromycin base [From ERYTHROCIN] Allergy (Unknown, Verified 12/29/17 06:17) I-RASH meperidine [MEPERIDINE] Allergy (Unknown, Verified 04/14/18 10:13) Unknown allergy reaction NSAIDS (Non-Steroidal Anti-Inflamma [NSAIDS (NON-STEROIDAL ANTI-INFLAMMA] Allergy (Unknown, Verified 12/29/17 06:17) I-RASH ofloxacin [OFLOXACIN] Allergy (Unknown, Verified 04/14/18 10:13) Unknown allergy reaction Quinolones [QUINOLONES] Allergy (Unknown, Verified 04/14/18 10:13) Unknown allergy reaction Macrolide Antibiotics Allergy (Verified 04/14/18 10:13) Unknown allergy reaction Iodinated Contrast Media - Oral and [Iodinated Contrast Media - IV Dye] Adverse Reaction (Mild, Verified 12/29/17 06:17) FLUSHED FACE, ITCHING Height: 1.52 m Weight: 94.12 kg Patient Problems: Current Active Problems Fall (Acute) Chronic pain disorder (Acute) Right hemiparesis (Acute) History of CVA (cerebrovascular accident) (Acute) Back pain (Acute) Pars defect of lumbar spine (Acute) UTI (urinary tract infection) (Acute) - VTE Risk Labs: VTE Related Lab Results Hgb 11.0 g/dL (12.2-16.2) L 04/13/18 18:45 Hct 31.5 % (37.0-47.0) L 04/13/18 18:45 Plt Count 208 K/mm3 (142-424) 04/13/18 18:45 BUN 17 mg/dL (7-18) 04/13/18 18:45 Creatinine 1.07 mg/dL (0.55-1.02) H 04/13/18 18:45 Estimated Creat Clear 73 mL/min (0-300) 04/13/18 18:45 VTE Score: 11 VTE Risk Level: Moderate Risk - Prophylaxis Location of Applied Device: Bilateral Lower Extremeties (PREETI HOSE ORDER PLACED)
--- NOTE | 2018-04-15 08:34 | Progress Note ---
Internal Medicine - PN: Subj *Date: 04/15/18 *Time: 08:32 Interval history: Patient is awake, alert. Oriented 3, sitting up in her chair, complains of extreme weakness and is very concerned about her falls. Wonders if "some of my medicine is making the fall." Exam Vital signs and Labs for Last 24 Hours: Temp Pulse Resp BP Pulse Ox 98.0 F 68 18 123/64 94 L 04/15/18 07:30 04/15/18 07:30 04/15/18 07:30 04/15/18 07:30 04/15/18 07:41 I & O for Last 24 hours: Intake & Output 04/12/18 04/13/18 04/14/18 04/15/18 11:59 11:59 11:59 11:59 Intake Total 120 / 120 1080 / 1080 Output Total 450 / 450 900 / 900 Balance -330 / -330 180 / 180 Weight 207 lb 8 oz Microbiology Reports for the Last 24 Hours: Microbiology 04/13/18 19:55 Urine,Catheterized Urine Culture - Preliminary NO GROWTH AFTER 24 HOURS Narrative: Heart rate is regular, lungs are clear in the anterior chiang. She has scattered bruising and evidence of neurodermatitis picking. Otherwise skin is intact. Abdomen is soft but obese. She is globally weak, I do not find any focal deficits on exam today. Assessment and Plan (1) UTI (urinary tract infection) Current visit: Yes Status: Acute Category: Medical Code(s): N39.0 - Urinary tract infection, site not specified (2) Fall Current visit: Yes Status: Acute Qualifiers: Encounter type: initial encounter Qualified Code(s): W19.XXXA - Unspecified fall, initial encounter Category: Medical Code(s): W19.XXXA - Unspecified fall, initial encounter (3) Generalized weakness Current visit: No Status: Acute Category: Medical Code(s): R53.1 - Weakness - Assessment and plan all Dx Assessment and Plan for all problems:: Urine cultures are negative. Continue to monitor. Adjust morphine dose downward, to 15 mg in a.m. and 30 mg in p.m. We will cut back on dose of her amitriptyline-containing antidepressant product to 1 pill twice daily instead of 2 pills 3 times daily. Patient has benefited in the past from short-term skilled stay rehab for deconditioning issues -- we will investigate this.
--- NOTE | 2018-04-15 14:48 | Discharge Summary ---
General - General Admission date:: 04/13/18 Discharge date: 04/15/18 HPI HPI: 68 yo female with chronic pain syndrome, HTN, dementia, and a history of recent CVA with residual right hemiparesis worse in the right lower extremity in January 2018 she is currently on daily Plavix. She has been doing home health with PT several times a week, however she is underwhelmed by the extent of their services. She continues to have frequent falls while using her Rollator and cane. She fell 3 times last week and once today. She is complaining of pain over the right elbow and both hips. Has chronic upper and lower back pain. She denies recent head injuries loss of consciousness chest pain abdominal pain nausea vomiting or diarrhea. Today she reports improved sensation in her lower extremities compared to yesterday. Daughter at bedside states patient is more alert today. She and her sister have concerns the patient is overmedicated with her morphine, amitriptyline, and other medications. Hospital Course Hospital Course: Patient was admitted, found to have evidence of cystitis, final culture report pending, placed on antibiotics. Amitriptyline based medication was decreased given patient's sedation and the possibility that she has been taking more medicine than prescribed, she was also subjected to decrease doses of her chronic morphine which she seemed to tolerate well this morning. PT/OT evaluated her and felt that she would do well with skilled care evaluation over the next couple of weeks. [place] [facility] [place]. Please note she has had some orthostatic hypotensive changes today. She needs to be restricted to getting up with assistance only and with a walker until this resolves. Please note blood pressure medicine changes as noted on her discharge summary. Objective Vital signs: Temp Pulse Resp BP Pulse Ox 98.0 F 68 18 123/64 94 L 04/15/18 07:30 04/15/18 07:30 04/15/18 07:30 04/15/18 07:30 04/15/18 07:41 Narrative: Patient is alert. In no pain currently. Still very weak. Lung chiang are clear, heart rate regular. Mild edema in her feet. Skin with old bruising and scratches. Abdomen soft and nontender. Results Labs on day of discharge: Preliminary micro results at discharge 04/13/18 19:55 Urine Culture - Preliminary Urine,Catheterized NO GROWTH AFTER 24 HOURS DS: Diagnosis - Discharge Diagnosis (1) UTI (urinary tract infection) Status: Acute (2) Fall Status: Acute (3) Generalized weakness Status: Chronic Discharge Plan - Patient Discharge Instructions ACTIVITY: Continue current activity DIET: continue same diet Additional Instructions: PT/OT evaluation at [facility]. Needs CBC/BMP in 1 week., Needs repeat urinalysis in 1 week - Follow up Plan Follow up with: Aster Landry APRN [Nurse Practitioner] - Disposition: [facility] Home Medications: Home Medications Medication Instructions Recorded Confirmed Type Atorvastatin Calcium [Lipitor 40mg 40 mg PO HS 12/29/17 04/13/18 History Tablet] Carvedilol [Carvedilol 12.5mg Tab] 12.5 mg PO BID 12/29/17 04/13/18 History Clopidogrel Bisulfate [Plavix 75mg 75 mg PO HS 12/29/17 04/14/18 History Tab] Fluoxetine HCl [Prozac] 20 mg PO HS 12/29/17 04/14/18 History Memantine HCl/Donepezil HCl 1 tab PO HS 12/29/17 04/14/18 History [Namzaric 28 mg-10 mg Capsule] hydroCHLOROthiazide [HCTZ 25mg 75 mg PO DAILY 12/29/17 04/13/18 History tab] Cyanocobalamin (Vitamin B-12) 1,000 mcg IJ WEEKLY 04/13/18 04/13/18 History [Physicians Ez Use B-12] Potassium Chloride [K-Tab ER 20 20 meq PO BID 04/13/18 04/13/18 History mEq] Prescriptions/Medication Reconciliation: New Atorvastatin Calcium [Lipitor 40mg Tablet] 40 mg PO HS tablet Clopidogrel Bisulfate [Plavix 75mg Tab] 75 mg PO HS tablet Fluoxetine HCl [Prozac 20mg Capsule] 20 mg PO HS capsule Morphine Sulfate [MS Contin 15mg EXTENDED RELEASE tablet] 15 mg PO DAILY 30 Days #60 tablet.er Sulfamethoxazole/Trimethoprim [Bactrim DS tablet] 1 each PO BID #10 tab Carvedilol [Coreg 12.5mg Tablet] 6.25 mg PO BID 30 Days tab Continue Memantine HCl/Donepezil HCl [Namzaric 28 mg-10 mg Capsule] 1 tab PO HS Clopidogrel Bisulfate [Plavix 75mg Tab] 75 mg PO HS Atorvastatin Calcium [Lipitor 40mg Tablet] 40 mg PO HS Fluoxetine HCl [Prozac] 20 mg PO HS Changed Perphenazine/Amitriptyline HCl [Perphen-Amitrip 2 mg-25 mg Tab] 1 tab PO BID #60 tab Discontinued hydroCHLOROthiazide [HCTZ 25mg tab] 75 mg PO DAILY Carvedilol [Carvedilol 12.5mg Tab] 12.5 mg PO BID Morphine Sulfate [Morphine Sulfate IR 30mg Tab] 30 mg PO BID #60 tab Potassium Chloride [K-Tab ER 20 mEq] 20 meq PO BID Cyanocobalamin (Vitamin B-12) [Physicians Ez Use B-12] 1,000 mcg IJ WEEKLY
== END 2018-04-15 16:35 ==
LOC: 2ND 17:28 → ER 17:28 → 2ND 21:56
PROVIDERS: ADMIT Internal Medicine Adolescent Medicine; ATTEND Internal Medicine Adolescent Medicine
CPT/HCPCS: 36415; 70450; 72125; 72131; 72192; 73060; 73080; 73090; 80053; 81001; 82550; 82553; 84484; 85025; 87086; 97116; 97162; 97166; 98960; 99284; G0378

== ENCOUNTER → 2018-06-05 07:26 | Outpatient (CLI) | payer MEDICARE, SELFPAY ==
[2018-06-05 14:02] LABS: Alanine Aminotransferase 15 U/L (12-78); Albumin Level 2.8 gm/dL (3.4-5.0); Albumin/Globulin Ratio 0.7 (1.1-1.8); Alkaline Phosphatase 138 U/L (46-116); Anion Gap 8.9 mEq/L (5-15); Aspartate Amino Transferase 15 U/L (15-37); Bilirubin,Total 0.4 mg/dL (0.2-1.0); Blood Urea Nitrogen 11 mg/dL (7-18); Calcium 8.8 mg/dL (8.5-10.1); Carbon Dioxide 32 mmol/L (21.0-32.0); Chloride 108 mmol/L (98-107); Creatinine,Serum 0.89 mg/dL (0.55-1.02); Estimated Glomerular Filt Rate 63 ml/min (>60); GFR (African American) 76 ML/MIN (>60); Globulin 4.1 gm/dl (1.3-3.2); Glucose 105 mg/dL (74-106); Potassium 3.9 mmoL/L (3.5-5.1); Sodium 145 mmol/L (136-145); Total Protein,Serum 6.9 gm/dL (6.4-8.2)
[2018-06-05 14:12] LABS: Basophils % 0.4 % (0.1-2.0); Eosinophils # 0.2 K/mm3 (0.0-0.4); Hematocrit 37.2 % (37.0-47.0); Hemoglobin 11.7 g/dL (12.2-16.2); Lymphocytes # 0.8 K/mm3 (0.7-4.5); Lymphocytes % 11.9 K/mm3 (10-50); Mean Corpuscular HGB Conc 31.3 g/dL (31.8-35.4); Mean Corpuscular Hemoglobin 29.1 pg (27.0-31.2); Mean Corpuscular Volume 92.9 fl (81-99); Mean Platelet Volume 8.2 fl (7.4-10.4); Monocytes # 0.2 K/mm3 (0.1-1.0); Monocytes % 3.3 % (1.7-9.3); Neutrophils # 5.4 K/mm3 (1.8-7.8); Neutrophils % 81.4 % (37.0-80.0); Platelet Count 222 K/mm3 (142-424); Red Cell Distribution Width 13.1 % (11.5-17.5); White Blood Count 6.6 K/mm3 (4.8-10.8)
== END ==
PROVIDERS: PCP Internal Medicine Adolescent Medicine; Visit Provider Internal Medicine Adolescent Medicine
DX: R42 Dizziness and giddiness (principal); R27.0 Ataxia, unspecified
CPT/HCPCS: 36415; 80053; 85025

== ENCOUNTER 2018-06-17 13:00 | Outpatient (RCR) | payer MEDICARE, SELFPAY | END 2018-06-17 14:30 | disposition home or self-care (01) | LOC: PT 13:00 | PROVIDERS: Family Provider Internal Medicine Adolescent Medicine; PCP Internal Medicine Adolescent Medicine; Visit Provider Internal Medicine Adolescent Medicine | DX: R27.0 Ataxia, unspecified (principal); R29.6 Repeated falls | CPT/HCPCS: 97110; 97112; 97116; 97163 ==

== ENCOUNTER → 2018-06-18 09:57 | Outpatient (POV) | payer MEDICARE, SELFPAY ==
--- NOTE | 2018-06-18 10:06 | HMH.PAINSOAP ---
[facility] Pain Management SOAP Note Subjective:: Patient is a pleasant 68-year-old white female who presents today for medication refills. Patient is being treated for pain secondary to degenerative disc disease and neuropathy in her bilateral legs. Patient is not interested in injective therapy we did discuss neuro stimulation. She may be a candidate for this in the future. Patient is currently on morphine 15 mg extended release q. twice daily. We will change her medication back to morphine for 30 mg extended release in the morning and 15 mg at nighttime. Patient denies side effects or medication. Patient's SHANE reviewed and appropriate. Patient's urine drug screen has been appropriate in the past. I will follow-up with the patient in 1 month to determine how this new medication regimen is doing. ROS General: no recent weight change, no fever, no sleep disturbances Respiratory: no cough, no shortness of air, no recurring pulmonary infections Cardiovascular/Peripheral Vascular: No chest pain, No palpitations, no edema, no shortness of breath. Gastrointestinal: no incontinence, normal bowel movements reported Genitourinary: no incontinence Musculoskeletal: Back pain, leg pain, arm pain Psychiatric: normal mood/ affect Neurological: [denies weakness in extremities], [denies balance issues] Objective:: Physical Exam General: Alert and oriented x3, no acute distress, pleasant and cooperative, [on room air] Lungs: Resps E/U, Symmetrical chest expansion, Eyes: PERRL Musculoskeletal: Flexion and extension of lumbar spine somewhat guarded secondary to pain, deep tendon reflexes normal, strength in upper and lower extremities [5/5], [abnormal gait noted] Neurological: speech clear, 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 We will see her back in a month. Dr. Dudley is reviewed this chart and agrees with this plan of care. Patient has been prescribed a controlled substance after being counseled on the medication, medication safety, and possible side effects. SHANE report has been obtained and reviewed prior to prescription and found to be appropriate. Opioid contract was reviewed and signed by the patient, and that they have agreed to all of the terms set forth by our compliance program. This note was dictated using voice recognition software and may contain errors or omissions
[2018-06-18 10:07] VITALS: BP 152/75; PULSE 78; RESP 18; O2SAT 98; BMI 37.8
== END ==
PROVIDERS: Family Provider Internal Medicine Adolescent Medicine; PCP Internal Medicine Adolescent Medicine; Visit Provider Clinical Nurse Specialist Family Health
DX: M51.16 Intervertebral disc disorders with radiculopathy, lumbar region (principal); G62.9 Polyneuropathy, unspecified
CPT/HCPCS: 99213

== ENCOUNTER → 2018-06-25 09:15 | Outpatient (CLI) | payer MEDICARE, SELFPAY ==
--- NOTE | 2018-06-25 09:17 | XR_ITS ---
XR DEXA axial skeleton HISTORY: ITS.REASON: ASYMPTOMATIC MENOPAUSE ORDERING PHYSICIAN: Ari Coates MD PATIENT AGE: 68 years COMPARISON: 12/15/2014 FINDINGS: The BMD measured at the Right femoral neck is 0.695 g/cm squared with a T score of -2.5. This is considered Osteoporotic according to the World Health Organization criteria. Fracture risk is High. Treatment is advised. The L1 L4 density has T score -0.2. The lumbar spine density has increased by 2%. The hip density has decreased by 3%. IMPRESSION: Osteoporosis with high fracture risk. Treatment suggested. Recommend follow-up exam to monitor treatment in June 2019
== END ==
PROVIDERS: PCP Internal Medicine Adolescent Medicine; Visit Provider Internal Medicine Adolescent Medicine
DX: Z13.820 Encounter for screening for osteoporosis (principal); Z78.0 Asymptomatic menopausal state
CPT/HCPCS: 77080

== ENCOUNTER → 2018-07-15 09:15 | Outpatient (POV) | payer MEDICARE, SELFPAY ==
[2018-07-15 09:52] VITALS: BP 158/89; PULSE 71; RESP 18; O2SAT 98; BMI 37.8
--- NOTE | 2018-07-15 10:39 | HMH.PAINSOAP ---
[facility] Pain Management SOAP Note Subjective:: Patient is a pleasant 68-year-old female who presents today for medication refills. Patient is being treated for pain secondary to degenerative disc disease and neuropathy of her bilateral legs. Patient's not interested in injective therapy. Patient is currently on morphine 15 mg extended release at nighttime and 30 mg extended release in the morning. Patient is doing well with this she denies any side effects. Patient's SHANE #[id number] reviewed and appropriate. Patient has had appropriate drug screens in the past. ROS General: no recent weight change, no fever, no sleep disturbances Respiratory: no cough, no shortness of air, no recurring pulmonary infections Cardiovascular/Peripheral Vascular: No chest pain, No palpitations, no edema, no shortness of breath. Gastrointestinal: no incontinence, normal bowel movements reported Genitourinary: no incontinence Musculoskeletal: Back pain, leg pain, arm pain Psychiatric: normal mood/ affect Neurological: [denies weakness in extremities], [denies balance issues] Objective:: Physical Exam General: Alert and oriented x3, no acute distress, pleasant and cooperative, [on room air] Lungs: Resps E/U, Symmetrical chest expansion, Eyes: PERRL Musculoskeletal: Flexion and extension of lumbar spine somewhat guarded secondary to pain, deep tendon reflexes normal, strength in upper and lower extremities [5/5], [abnormal gait noted] Neurological: speech clear, 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 We will see her back in 3 months. We will give her 2 months worth of prescriptions. Dr. Dudley is reviewed this chart and agrees with this plan of care. Patient has been prescribed a controlled substance after being counseled on the medication, medication safety, and possible side effects. SHANE report has been obtained and reviewed prior to prescription and found to be appropriate. Opioid contract was reviewed and signed by the patient, and that they have agreed to all of the terms set forth by our compliance program. This note was dictated using voice recognition software and may contain errors or omissions
--- NOTE | 2018-07-15 10:46 | P.CONS_ITS ---
[facility] Pain Management SOAP Note Subjective:: Patient is a pleasant 68-year-old female who presents today for medication refills. Patient is being treated for pain secondary to degenerative disc disease and neuropathy of her bilateral legs. Patient's not interested in injective therapy. Patient is currently on morphine 15 mg extended release at nighttime and 30 mg extended release in the morning. Patient is doing well with this she denies any side effects. Patient's SHANE #[id number] reviewed and appropriate. Patient has had appropriate drug screens in the past. ROS General: no recent weight change, no fever, no sleep disturbances Respiratory: no cough, no shortness of air, no recurring pulmonary infections Cardiovascular/Peripheral Vascular: No chest pain, No palpitations, no edema, no shortness of breath. Gastrointestinal: no incontinence, normal bowel movements reported Genitourinary: no incontinence Musculoskeletal: Back pain, leg pain, arm pain Psychiatric: normal mood/ affect Neurological: [denies weakness in extremities], [denies balance issues] Objective:: Physical Exam General: Alert and oriented x3, no acute distress, pleasant and cooperative, [on room air] Lungs: Resps E/U, Symmetrical chest expansion, Eyes: PERRL Musculoskeletal: Flexion and extension of lumbar spine somewhat guarded secondary to pain, deep tendon reflexes normal, strength in upper and lower extremities [5/5], [abnormal gait noted] Neurological: 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 We will see her back in 3 months. We will give her 2 months worth of prescriptions. Dr. Dudley is reviewed this chart and agrees with this plan of care. Patient has been prescribed a controlled substance after being counseled on the medication, medication safety, and possible side effects. SHANE report has been obtained and reviewed prior to prescription and found to be appropriate. Opioid contract was reviewed and signed by the patient, and that they have agreed to all of the terms set forth by our compliance program. This note was dictated using voice recognition software and may contain errors or omissions
== END ==
PROVIDERS: PCP Internal Medicine Adolescent Medicine; Visit Provider Clinical Nurse Specialist Family Health
DX: M51.16 Intervertebral disc disorders with radiculopathy, lumbar region (principal); G62.9 Polyneuropathy, unspecified
CPT/HCPCS: 99213

== ENCOUNTER → 2018-09-13 10:46 | Outpatient (CLI) | payer MEDICARE, SELFPAY ==
[2018-09-13 11:37] LABS: Amphetamine/Metha Screen,Urine Negative ng/mL (<1000); Barbiturates Screen,Urine Negative ng/mL (<200); Benzodiazepines Screen,Urine Negative ng/mL (<200); Cannabinoid Screen,Urine Negative ng/mL (<50); Cocaine Screen,Urine Negative ng/mL (<300); Methadone Screen,Urine Negative ng/mL (<300); Opiate Screen,Urine Positive ng/mL (<300); Phencyclidine Screen,Urine Negative ng/mL (<25)
[2018-09-18 13:13] LABS: Codeine Negative (Cutoff=100); Hydrocodone Negative (Cutoff=100); Hydromorphone Positive (.); Morphine Positive (.)
[2018-09-18 16:19] LABS: Opiates Positive (.)
== END ==
PROVIDERS: Visit Provider Clinical Nurse Specialist Family Health
DX: Z79.899 Other long term (current) drug therapy (principal)
CPT/HCPCS: 80305; 80361; 80365; G0480

== ENCOUNTER → 2018-10-14 08:59 | Outpatient (POV) | payer MEDICARE, SELFPAY ==
[2018-10-14 09:28] VITALS: BP 149/69; PULSE 65; RESP 18; O2SAT 99; BMI 39.0
--- NOTE | 2018-10-14 09:37 | HMH.PAINSOAP ---
[facility] Pain Management SOAP Note Subjective:: Patient is a pleasant 68-year-old white female who presents today for medication refills. Patient is being treated for pain secondary to degenerative disc disease and neuropathy in her bilateral legs. Patient states she has a little increased pain to the weather. Patient's not interested in injective therapy. She is currently on morphine 15 mg extended release at nighttime and 30 mg extended release in the morning. Shane reviewed and appropriate. Patient has had appropriate drug screens. She rates her pain today a 5 out of 10 she denies side effects occasion and states it helps up to 80%. ROS General: no recent weight change, no fever, no sleep disturbances Respiratory: no cough, no shortness of air, no recurring pulmonary infections Cardiovascular/Peripheral Vascular: No chest pain, No palpitations, no edema, no shortness of breath. Gastrointestinal: no incontinence, normal bowel movements reported Genitourinary: no incontinence Musculoskeletal: Back pain, leg pain Psychiatric: normal mood/ affect Neurological: [denies weakness in extremities], [denies balance issues] Objective:: Physical Exam General: Alert and oriented x3, no acute distress, pleasant and cooperative, [on room air] Lungs: Resps E/U, Symmetrical chest expansion, Eyes: PERRL Musculoskeletal: Flexion and extension of lumbar spine somewhat guarded secondary to pain, deep tendon reflexes normal, strength in upper and lower extremities [5/5], [abnormal gait noted] Neurological: speech clear, 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 We will see her back in 3 months we will give her 2 months worth of prescriptions. Patient has been prescribed a controlled substance after being counseled on the medication, medication safety, and possible side effects. SHANE report has been obtained and reviewed prior to prescription and found to be appropriate. Opioid contract was reviewed and signed by the patient, and that they have agreed to all of the terms set forth by our compliance program. Dr. Dudley has reviewed this note and agrees with this plan of care. This note was dictated using voice recognition software and may contain errors or omissions
== END ==
PROVIDERS: PCP Internal Medicine Adolescent Medicine; Visit Provider Clinical Nurse Specialist Family Health
DX: M51.16 Intervertebral disc disorders with radiculopathy, lumbar region (principal); G62.9 Polyneuropathy, unspecified
CPT/HCPCS: 99213

== ENCOUNTER → 2018-12-24 07:27 | Outpatient (CLI) | payer MEDICARE, SELFPAY ==
[2018-12-24 07:35] LABS: Microscopic, Urine URINE MICROSCOPIC (MICROSCOPIC)
[2018-12-24 13:51] LABS: Basophils % 0.3 % (0.1-2.0); Eosinophils # 0.2 K/mm3 (0.0-0.4); Eosinophils % 3.6 % (0.1-12.0); Hematocrit 36.1 % (37.0-47.0); Hemoglobin 11.6 g/dL (12.2-16.2); Lymphocytes # 1.1 K/mm3 (0.7-4.5); Lymphocytes % 21.7 % (10-50); Mean Corpuscular HGB Conc 32.1 g/dL (31.8-35.4); Mean Corpuscular Volume 90.4 fl (81-99); Mean Platelet Volume 7.7 fl (7.4-10.4); Monocytes # 0.2 K/mm3 (0.1-1.0); Monocytes % 3.2 % (1.7-9.3); Neutrophils # 3.5 K/mm3 (1.8-7.8); Neutrophils % 71.2 % (37.0-80.0); Platelet Count 208 K/mm3 (142-424); Red Blood Count 3.99 M/mm3 (4.20-5.40); Red Cell Distribution Width 13.2 % (11.5-17.5); White Blood Count 4.9 K/mm3 (4.8-10.8)
[2018-12-24 14:14] LABS: Alanine Aminotransferase 15 U/L (12-78); Albumin/Globulin Ratio 0.8 (1.1-1.8); Alkaline Phosphatase 126 U/L (46-116); Anion Gap 11.2 mEq/L (5-15); Appearance,Urine CLEAR (Clear); Aspartate Amino Transferase 18 U/L (15-37); Bilirubin,Total 0.4 mg/dL (0.2-1.0); Bilirubin,Urine Negative (Negative); Blood Urea Nitrogen 15 mg/dL (7-18); Blood, Urine Negative (Negative); Calcium 8.9 mg/dL (8.5-10.1); Carbon Dioxide 29 mmol/L (21.0-32.0); Chloride 106 mmol/L (98-107); Chol/HDL Ratio 2.2 (1-3.5); Cholesterol 124 mg/dL (140-200); Color,Urine YELLOW (Yellow); Creatinine,Serum 1.12 mg/dL (0.55-1.02); Estimated Glomerular Filt Rate 48 ml/min (>60); Free Thyroxine Index 2.7 ug/dL (5.93-13.13); GFR (African American) 58 ML/MIN (>60); Glucose 104 mg/dL (74-106); Glucose,Urine (UA) Negative (Negative); HDL Cholesterol 56 mg/dL (29-89); Ketones,Urine Negative (Negative); LDL Cholesterol 51 mg/dL (0-130); Leukocyte Esterase,Urine Negative (Negative); Nitrate,Urine Negative (Negative); Potassium 4.2 mmoL/L (3.5-5.1); Protein,Urine Negative (Negative); Sodium 142 mmol/L (136-145); Specific Gravity, Urine 1.025 (1.005-1.030); T4 (Thyroxine) 8.4 ug/dl (4.7-13.3); Triglycerides 83 mg/dL (30-200); Triiodothryronine (T3) Uptake 32 % (31-39); Urobilinogen,Urine 0.2 EU/dl (0.2); VLDL Cholesterol 17 mg/dL (0-40)
[2018-12-24 14:30] LABS: Bacteria,Urine 1+ /lpf; RBC,Urine Occasional #/hpf (0-3)
[2018-12-24 15:42] LABS: Erythrocyte Sedimentation Rate 108 mm/hr (0-30)
[2018-12-24 17:01] LABS: Hemoglobin A1C 5.7 % (0.0-7.0)
== END ==
PROVIDERS: PCP Internal Medicine Adolescent Medicine; Visit Provider Internal Medicine Adolescent Medicine
DX: I67.7 Cerebral arteritis, not elsewhere classified (principal); E11.9 Type 2 diabetes mellitus without complications; R44.3 Hallucinations, unspecified; R82.90 Unspecified abnormal findings in urine
CPT/HCPCS: 36415; 80053; 80061; 81001; 83036; 84436; 84443; 84479; 85025; 85651; 87086

== ENCOUNTER → 2019-01-02 16:33 | Outpatient (CLI) | payer MEDICARE, SELFPAY ==
--- NOTE | 2019-01-02 16:35 | MM_ITS ---
MM Dig screening mamm BI w/CAD CAD Screening COMPARISON: Digital mammograms with CAD 12/18/2017 and 10/02/2016 INDICATION: There is no personal or family history of breast cancer. TECHNIQUE: Standard CC and MLO images were obtained. R2 CAD reviewed. FINDINGS: The breasts are composed primarily of fat with minimal fibroglandular densities in the subareolar regions bilaterally. Again noted is the metallic clip outer quadrant right breast and the loop recorder device projecting over the inner quadrant left breast. There is no new or suspicious lesion in either breast and there are no suspicious microcalcifications. There is faint arterial calcification in each breast and a couple scattered benign-appearing microcalcifications in each breast. IMPRESSION: Stable exam with no suspicious lesion seen BI-RADS Category: 2 Benign Finding(s) RECOMMENDED FOLLOW-UP: 1YR - 1 YEAR FOLLOW-UP (A letter has been sent to the patient regarding results of the study.)
== END ==
PROVIDERS: PCP Internal Medicine Adolescent Medicine; Visit Provider Internal Medicine Adolescent Medicine
DX: Z12.31 Encounter for screening mammogram for malignant neoplasm of breast (principal)
CPT/HCPCS: 77067

== ENCOUNTER → 2019-01-07 09:05 | Outpatient (POV) | payer MEDICARE, SELFPAY ==
[2019-01-07 09:19] VITALS: BP 153/94; PULSE 91; RESP 18; O2SAT 99; BMI 39.6
--- NOTE | 2019-01-07 09:22 | P.CONS_ITS ---
[facility] Pain Management SOAP Note Subjective:: Patient is a very pleasant 68-year-old white female who presents today for medication refills. Patient is being treated for pain secondary to degenerative disc disease and neuropathy in her bilateral legs. She is rating her pain a 6 out of 10 today which is pretty much her baseline. Patient states she is much more active when the weather is warmer. She is currently on morphine 15 mg extended release at nighttime and 30 mg extended release in the morning. Shane reviewed and appropriate. Her drug screens have been appropriate. She states her medication helps up to 80%. She denies side effects. ROS General: no recent weight change, no fever, no sleep disturbances Respiratory: no cough, no shortness of air, no recurring pulmonary infections Cardiovascular/Peripheral Vascular: No chest pain, No palpitations, no edema, no shortness of breath. Gastrointestinal: no incontinence, normal bowel movements reported Genitourinary: no incontinence Musculoskeletal: Back pain, leg pain Psychiatric: normal mood/ affect Neurological: [denies weakness in extremities], [denies balance issues] Objective:: Physical Exam General: Alert and oriented x3, no acute distress, pleasant and cooperative, [on room air] Lungs: Resps E/U, Symmetrical chest expansion, Eyes: PERRL Musculoskeletal: Flexion and extension of lumbar spine somewhat guarded secondary to pain, deep tendon reflexes normal, strength in upper and lower extremities [5/5], [abnormal gait noted] Neurological: 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 Patient has been prescribed a controlled substance after being counseled on the medication, medication safety, and possible side effects. SHANE report has been obtained and reviewed prior to prescription and found to be appropriate. Opioid contract was reviewed and signed by the patient, and that they have agreed to all of the terms set forth by our compliance program. Dr. Dudley has reviewed this note and agrees with this plan of care. This note was dictated using voice recognition software and may contain errors or omissions
[2019-01-07 12:00] LABS: Amphetamine/Metha Screen,Urine Negative ng/mL (<1000); Barbiturates Screen,Urine Negative ng/mL (<200); Benzodiazepines Screen,Urine Negative ng/mL (<200); Cannabinoid Screen,Urine Negative ng/mL (<50); Cocaine Screen,Urine Negative ng/mL (<300); Methadone Screen,Urine Negative ng/mL (<300); Opiate Screen,Urine Positive ng/mL (<300); Phencyclidine Screen,Urine Negative ng/mL (<25)
[2019-01-12 04:09] LABS: Codeine Negative (Cutoff=100); Hydrocodone Negative (Cutoff=100); Hydromorphone Positive (.); Morphine Positive (.)
[2019-01-13 15:02] LABS: Opiates Positive (.)
== END ==
PROVIDERS: PCP Internal Medicine Adolescent Medicine; Visit Provider Clinical Nurse Specialist Family Health
DX: M51.16 Intervertebral disc disorders with radiculopathy, lumbar region (principal); G62.9 Polyneuropathy, unspecified; Z79.899 Other long term (current) drug therapy
CPT/HCPCS: 80305; 80361; 80365; 99212; G0480

== ENCOUNTER → 2019-01-17 13:34 | Outpatient (CLI) | payer MEDICARE, SELFPAY ==
--- NOTE | 2019-01-17 13:37 | CA_ITS ---
PROCEDURE: 2-D M-mode and color Doppler study INDICATIONS FOR THE TEST: Chest pain COPD Heart Murmur Tobacco Smoking Palpitations Fatigue Syncope EdemaX HypertensionXDiabetes Mellitus Rheumatic Fever SOBXDOEXObesityXHyperlipidemiaX Family History HD Additional History PATIENT INFORMATION HEIGHT: 60 WEIGHT:204 GENDER: Female B/P:130/80 2-D/M-MODE INTERPRETATION: 2-D MEASUREMENTS OBSERVED VALUES IN CMS Right Ventricular Dimension (RVDd) 2.0 Interventricular Septum (Thickness)(IVsd) .8 Left Ventricular Internal Dimensions(LVIDd) 4.9 Left Ventricular Posterior Wall (Thickness)(LVPWd) .8 Aortic Root 3.5 Aortic Cusp Separation 1.7 Left Atrial Dimensions (LAD) 2.0 2D 1. Left atrium is mildly enlarged, left ventricle is normal size, mild concentric left ventricular hypertrophy, visually estimated ejection fraction 55% with no regional wall motion abnormality. 2. The right atrium and right ventricle are mildly enlarged with normal contractility. 3. The aortic valve is minimally thickened and fibrosed. 4. The mitral and tricuspid valvular grossly normal. 5. The pulmonic valve is poorly visualized. 6. No significant pericardial effusion noted. DOPPLER INTERROGATION: Doppler interrogation of the aortic, mitral and tricuspid valvular presence of mild mitral and tricuspid regurgitation, tricuspid regurgitation jet velocity is inadequate for calculation of the right ventricular systolic pressure, grade 1 diastolic dysfunction seen without tissue Doppler evidence of raised left atrial pressure. CONCLUSION: 1. Mildly enlarged left atrium, normal left ventricular size, mild concentric left ventricular hypertrophy, visually estimated ejection fraction 55% with no regional wall motion abnormality, grade 1 diastolic dysfunction seen without tissue Doppler evidence of raised left atrial pressure. 2. Mild mitral and tricuspid regurgitation 3. No significant pericardial effusion noted.
--- NOTE | 2019-01-17 14:15 | CT_ITS ---
CT chest wo con HISTORY: ITS.REASON: SOB,HYPERTENSION ORDERING PHYSICIAN: Ari Coates MD PATIENT AGE: 68 years COMPARISON: 11/19/2015 Technique: Axial images obtained. Sagittal, and coronal reformatted images are also generated and reviewed. All CT scans at the facility use one or more dose reduction, viz: automated exposure control, ma/kV adjustment per patient size (including targeted exams where dose is matched to indication, i.e. head), or iterative reconstruction technique. FINDINGS: Thyroid enlargement once again noted right lobar and left. Ultrasound may provide further evaluation.. There is mild coronary artery calcification. Moderate-sized hiatal hernia. No mediastinal or hilar mass. There are scattered fibrotic changes similar to the previous exam. There is a calcified granuloma within the lingula. No suspicious pulmonary nodules. No effusions or infiltrates. No central obstructing lesions Chronic wedge compression changes are present at T12 with kyphosis loop recorder device is present anteriorly on the left. IMPRESSION: 1. Moderate-sized hiatal hernia. 2. Thyromegaly. 3. Mild coronary artery calcification 4. No acute finding
== END ==
PROVIDERS: PCP Internal Medicine Adolescent Medicine; Visit Provider Internal Medicine Adolescent Medicine
DX: R06.02 Shortness of breath (principal); I10 Essential (primary) hypertension
CPT/HCPCS: 71250; 93306

== ENCOUNTER → 2019-04-01 09:18 | Outpatient (POV) | payer MEDICARE, SELFPAY ==
[2019-04-01 09:26] VITALS: BP 150/96; PULSE 89; RESP 18; O2SAT 98; BMI 37.8
--- NOTE | 2019-04-01 09:29 | HMH.PAINSOAP ---
[facility] Pain Management SOAP Note Subjective:: Patient is a very pleasant 68-year-old white female who presents today for medication refills. Patient is being treated for pain secondary to degenerative disc disease and neuropathy in her bilateral legs. She rates her pain a 7 out of 10 today. She has been increased activity outside. Shane #[id number] has been reviewed and is appropriate. Patient denies any side effects or medications. Patient says the medication helps her up to 80%. Review of Systems General: No recent weight changes, no fever, no sleep disturbances Respiratory: No cough, no shortness of air, no recurring pulmonary infections Cardiovascular/peripheral vascular: No chest pain, no palpitations, no edema, no shortness of breath Gastrointestinal: No new onset incontinence, normal bowel movements reported Genitourinary: No new onset incontinence Musculoskeletal: Back pain Psychiatric: Normal mood/affect Neurological: [Denies weakness in extremities], [denies balance issues] Objective:: Physical exam General: Alert and oriented x3, no acute distress, pleasant and cooperative, [on room air] Lungs: Respirations even and unlabored, symmetrical chest expansion Eyes: PERRL Musculoskeletal: Flexion and extension of lumbar spine somewhat guarded secondary to pain, deep tendon reflexes normal, strength in upper and lower extremities [5/5], [abnormal gait noted] Neurological: Speech clear, hourly sign language interpreter equal, no gross sensory deficit Assessment:: 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 We will see her back in 3 months. Patient's been instructed to call the office if she has any concerns prior to her next appointment. Dr. Dudley has reviewed this note and agrees with this plan of care. This note was dictated using voice recognition software and make contain errors or omissions. Patient has been prescribed a controlled substance after being counseled on the medication, medication safety, and possible side effects. SHANE report has been obtained and reviewed prior to prescription and found to be appropriate. Opioid contract was reviewed and signed by the patient, and that they have agreed to all of the terms set forth by our compliance program.
--- NOTE | 2019-04-01 09:32 | P.CONS_ITS ---
[facility] Pain Management SOAP Note Subjective:: Patient is a very pleasant 68-year-old white female who presents today for medication refills. Patient is being treated for pain secondary to degenerative disc disease and neuropathy in her bilateral legs. She rates her pain a 7 out of 10 today. She has been increased activity outside. Shane #[id number] has been reviewed and is appropriate. Patient denies any side effects or medications. Patient says the medication helps her up to 80%. Review of Systems General: No recent weight changes, no fever, no sleep disturbances Respiratory: No cough, no shortness of air, no recurring pulmonary infections Cardiovascular/peripheral vascular: No chest pain, no palpitations, no edema, no shortness of breath Gastrointestinal: No new onset incontinence, normal bowel movements reported Genitourinary: No new onset incontinence Musculoskeletal: Back pain Psychiatric: Normal mood/affect Neurological: [Denies weakness in extremities], [denies balance issues] Objective:: Physical exam General: Alert and oriented x3, no acute distress, pleasant and cooperative, [on room air] Lungs: Respirations even and unlabored, symmetrical chest expansion Eyes: PERRL Musculoskeletal: Flexion and extension of lumbar spine somewhat guarded secondary to pain, deep tendon reflexes normal, strength in upper and lower extremities [5/5], [abnormal gait noted] Neurological: Speech clear, content writer equal, no gross sensory deficit Assessment:: 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 We will see her back in 3 months. Patient's been instructed to call the office if she has any concerns prior to her next appointment. Dr. Dudley has reviewed this note and agrees with this plan of care. This note was dictated using voice recognition software and make contain errors or omissions. Patient has been prescribed a controlled substance after being counseled on the medication, medication safety, and possible side effects. SHANE report has been obtained and reviewed prior to prescription and found to be appropriate. Opioid contract was reviewed and signed by the patient, and that they have agreed to all of the terms set forth by our compliance program.
== END ==
PROVIDERS: PCP Internal Medicine Adolescent Medicine; Visit Provider Clinical Nurse Specialist Family Health
DX: M48.062 Spinal stenosis, lumbar region with neurogenic claudication (principal)
CPT/HCPCS: 99212

== ENCOUNTER → 2019-05-06 10:33 | Outpatient (CLI) | payer MEDICARE, SELFPAY ==
[2019-05-06 19:27] LABS: Amphetamine/Metha Screen,Urine Negative ng/mL (<1000); Barbiturates Screen,Urine Negative ng/mL (<200); Benzodiazepines Screen,Urine Negative ng/mL (<200); Cannabinoid Screen,Urine Negative ng/mL (<50); Cocaine Screen,Urine Negative ng/mL (<300); Methadone Screen,Urine Negative ng/mL (<300); Opiate Screen,Urine Positive ng/mL (<300); Phencyclidine Screen,Urine Negative ng/mL (<25)
[2019-05-13 10:24] LABS: Codeine Negative (Cutoff=100); Hydrocodone Negative (Cutoff=100); Hydromorphone Positive (.); Morphine Positive (.)
[2019-05-13 11:03] LABS: Opiates Positive (.)
== END ==
PROVIDERS: Visit Provider Clinical Nurse Specialist Family Health
DX: Z79.899 Other long term (current) drug therapy (principal)
CPT/HCPCS: 80305; 80361; 80365; G0480

== ENCOUNTER → 2019-06-23 14:54 | Outpatient (POV) | payer MEDICARE, SELFPAY ==
[2019-06-23 15:12] VITALS: BP 173/94; PULSE 92; RESP 18; O2SAT 96; BMI 34.1
--- NOTE | 2019-06-24 08:26 | HMH.PAINSOAP ---
[facility] Pain Management SOAP Note Subjective:: Patient is a 69-year-old white female who presents today for medication refills. She is being treated for pain secondary to degenerative disc disease and neuropathy in her bilateral legs. She rates her pain today a 10 out of 10 due to her recent humerus fracture. She is actually on her way to her appointment with her orthopedic. Patient's SHANE #[id number] reviewed and appropriate. However when discussing medications patient states you shorted me to pills when I discussed this with her she states that she ran out of pills early. I discussed with her that this should not be the case since we confirmed with the pharmacy that she should have had 2 days of medication left. Patient states she may have taken more than prescribed. We will schedule her for a pill count. Patient and I had a long discussion in regards to the fact that she needs to take medication appropriately. She denies side effects or medication. ROS General: no recent weight change, no fever, no sleep disturbances Respiratory: no cough, no shortness of air, no recurring pulmonary infections Cardiovascular/Peripheral Vascular: No chest pain, No palpitations, no edema, no shortness of breath. Gastrointestinal: no incontinence, normal bowel movements reported Genitourinary: no incontinence Musculoskeletal: Back pain, left shoulder pain Psychiatric: normal mood/ affect Neurological: [denies weakness in extremities], [denies balance issues] Objective:: Physical Exam General: Alert and oriented x3, no acute distress, pleasant and cooperative, [on room air] Lungs: Resps E/U, Symmetrical chest expansion, Eyes: PERRL Musculoskeletal: Flexion and extension of lumbar spine somewhat guarded secondary to pain, deep tendon reflexes normal, strength in upper and lower extremities [5/5], [abnormal gait noted] Neurological: speech clear, food products 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 We will pill count her in several months to ensure compliance. Patient has been prescribed a controlled substance after being counseled on the medication, medication safety, and possible side effects. SHANE report has been obtained and reviewed prior to prescription and found to be appropriate. Opioid contract was reviewed and signed by the patient, and that they have agreed to all of the terms set forth by our compliance program. Dr. Dudley has reviewed this note and agrees with this plan of care. This note was dictated using voice recognition software and may contain errors or omissions [facility] History I have reviewed the patient's past medical history: Yes Medical History: Reports:: Atrial Fibrillation, Deep Vein Thrombosis, Diabetes Mellitus Type 2, Hyperlipidemia, Hypertension Denies:: Cancer, Diabetes Mellitus Type 1, MRSA *Have you ever received a pneumonia vaccine?: No *Have you received a flu vaccine this season?: No Other Medical History: Reports: Arthritis, Cataracts, Thyroid Disease Laterality Cases: Bilateral: Breast Biopsy Other Surgeries: Yes: No Previous Surgery, Cardiac Catheterization, Cholecystectomy, Colonoscopy, Hysterectomy-Total, Plastic Surgery Amputation: No Fractures: Yes - *Social History Smoking Status: Never smoker Alcohol Intake: never *Occupational Status:: other Housing: house Household Members: spouse *Travel in the last 8 weeks: None Family Hx:: Cancer, Diabetes, Hyperlipidemia, Stroke
--- NOTE | 2019-06-24 08:29 | P.CONS_ITS ---
[facility] Pain Management SOAP Note Subjective:: Patient is a 69-year-old white female who presents today for medication refills. She is being treated for pain secondary to degenerative disc disease and neuropathy in her bilateral legs. She rates her pain today a 10 out of 10 due to her recent humerus fracture. She is actually on her way to her appointment with her orthopedic. Patient's SHANE #[id number] reviewed and appropriate. However when discussing medications patient states you shorted me to pills when I discussed this with her she states that she ran out of pills early. I discussed with her that this should not be the case since we confirmed with the pharmacy that she should have had 2 days of medication left. Patient states she may have taken more than prescribed. We will schedule her for a pill count. Patient and I had a long discussion in regards to the fact that she needs to take medication appropriately. She denies side effects or medication. ROS General: no recent weight change, no fever, no sleep disturbances Respiratory: no cough, no shortness of air, no recurring pulmonary infections Cardiovascular/Peripheral Vascular: No chest pain, No palpitations, no edema, no shortness of breath. Gastrointestinal: no incontinence, normal bowel movements reported Genitourinary: no incontinence Musculoskeletal: Back pain, left shoulder pain Psychiatric: normal mood/ affect Neurological: [denies weakness in extremities], [denies balance issues] Objective:: Physical Exam General: Alert and oriented x3, no acute distress, pleasant and cooperative, [on room air] Lungs: Resps E/U, Symmetrical chest expansion, Eyes: PERRL Musculoskeletal: Flexion and extension of lumbar spine somewhat guarded secondary to pain, deep tendon reflexes normal, strength in upper and lower extremities [5/5], [abnormal gait noted] Neurological: speech clear, fuel handler equal, no gross sensory deficits Assessment:: Degenerative disc disease lumbar spine with lumbar radiculopathy, peripheral neuropathy, acute fracture Plan:: We will just give the patient 2 months of morphine extended release 30 mg in the morning and morphine extended release 15 mg at night we will see her back in 2 months reassess her symptoms at that time we discussed if she needs additional medication due to her fracture to speak with her surgeon. We will pill count her in several months to ensure compliance. Patient has been prescribed a controlled substance after being counseled on the medication, medication safety, and possible side effects. SHANE report has been obtained and reviewed prior to prescription and found to be appropriate. Opioid contract was reviewed and signed by the patient, and that they have agreed to all of the terms set forth by our compliance program. Dr. Dudley has reviewed this note and agrees with this plan of care. This note was dictated using voice recognition software and may contain errors or omissions [facility] History I have reviewed the patient's past medical history: Yes Medical History: Reports:: Atrial Fibrillation, Deep Vein Thrombosis, Diabetes Mellitus Type 2, Hyperlipidemia, Hypertension Denies:: Cancer, Diabetes Mellitus Type 1, MRSA *Have you ever received a pneumonia vaccine?: No *Have you received a flu vaccine this season?: No Other Medical History: Reports: Arthritis, Cataracts, Thyroid Disease Laterality Cases: Bilateral: Breast Biopsy Other Surgeries: Yes: No Previous Surgery, Cardiac Catheterization, Cholecyst ectomy, Colonoscopy, Hysterectomy-Total, Plastic Surgery Amputation: No Fractures: Yes - *Social History
== END ==
PROVIDERS: PCP Internal Medicine Adolescent Medicine; Visit Provider Clinical Nurse Specialist Family Health
DX: M51.16 Intervertebral disc disorders with radiculopathy, lumbar region (principal); M80.022A Age-related osteoporosis with current pathological fracture, left humerus, initial encounter for fracture; G62.9 Polyneuropathy, unspecified
CPT/HCPCS: 99212

== ENCOUNTER → 2019-06-25 18:03 | Observation (INO) ==
[2019-06-23 18:23] LABS: Basophils % 0.3 % (0.1-2.0); Eosinophils # 0.1 K/mm3 (0.0-0.4); Eosinophils % 0.7 % (0.1-12.0); Hematocrit 33.3 % (37.0-47.0); Hemoglobin 10.1 g/dL (12.2-16.2); Lymphocytes % 12.4 % (10-50); Mean Corpuscular HGB Conc 30.4 g/dL (31.8-35.4); Mean Corpuscular Volume 91.2 fl (81-99); Mean Platelet Volume 8.8 fl (7.4-10.4); Monocytes # 0.6 K/mm3 (0.1-1.0); Monocytes % 6.9 % (1.7-9.3); Neutrophils # 6.5 K/mm3 (1.8-7.8); Neutrophils % 79.7 % (37.0-80.0); Platelet Count 212 K/mm3 (142-424); Red Blood Count 3.65 M/mm3 (4.20-5.40); Red Cell Distribution Width 13.7 % (11.5-17.5); White Blood Count 8.2 K/mm3 (4.8-10.8)
[2019-06-23 18:31] LABS: INR 1.01 (0.9-1.1); Prothrombin Time 10.5 seconds (9.4-11.8)
[2019-06-23 18:54] LABS: Albumin Level 2.6 gm/dL (3.4-5.0); Albumin/Globulin Ratio 0.6 (1.1-1.8); Anion Gap 12.3 mEq/L (5-15); Bilirubin,Total 0.5 mg/dL (0.2-1.0); Globulin 4.1 gm/dl (1.3-3.2); Total Protein,Serum 6.7 gm/dL (6.4-8.2)
[2019-06-23 19:54] LABS: Calcium 8.2 mg/dL (8.5-10.1)
--- NOTE | 2019-06-23 20:11 | History & Physical Report ---
*Admission Date: 06/23/19 *Reason for consult:: L proximal humerus fracture *History of present illness: 69-year-old female admitted from my office earlier this evening after a fall at home yesterday. She lexis to get out of bed and felt numbness in bilateral feet, and the sensation that both legs were made of rubber; they gave way and she fell to the ground. She denies preceding chest pain, shortness of breath, dizziness or lightheadedness. She was taken to the emergency room where a left proximal humerus fracture was diagnosed. She was placed into a sling and followed up with me today in clinic. She reports severe pain in the left shoulder and was concerned regarding her safety and ability to independently care for herself at home. She does live with her in a single level home with 2 stairs required to enter the home. She ambulates short distances with a rolling walker. 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 each morning, and 15 mg each night. On review of her lumbar x-rays, she does have multilevel degenerative disc disease of the lumbar spine with retrolisthesis of L2 on L3 and a compression fracture of T12. She has a history of osteoporosis, with her last DEXA scan approximately 1 year ago. This report was reviewed and showed a T score of -2.5 in the right femoral neck and -0.2 in the lumbar spine. Follow-up DEXA was recommended in June 2019. Medical history significant for hypertension, diabetes, hyperlipidemia, history of DVT, hypothyroidism, atrial fibrillation. She is undergone a total hysterectomy, cholecystectomy, breast biopsy and cardiac catheterization. Her home medications include atorvastatin, carvedilol, clopidogrel, fluoxetine, morphine ER, meman tinedonepezil, and perphenazineamitriptyline. She has multiple documented medication allergies including ciprofloxacin, codeine, erythromycin, meperidine, NSAIDs, ofloxacin, quinolones, macrolides, and iodinated contrast material, though it is not documented with any of these reactions are. [facility] History I have reviewed the patient's past medical history: Yes Medical History: Reports:: Atrial Fibrillation, Deep Vein Thrombosis, Diabetes Mellitus Type 2, Hyperlipidemia, Hypertension Denies:: Cancer, Diabetes Mellitus Type 1, MRSA *Have you ever received a pneumonia vaccine?: No *Have you received a flu vaccine this season?: No Other Medical History: Reports: Arthritis, Cataracts, Thyroid Disease Laterality Cases: Bilateral: Breast Biopsy Other Surgeries: Yes: No Previous Surgery, Cardiac Catheterization, Cholecystectomy, Colonoscopy, Hysterectomy-Total, Plastic Surgery Amputation: No Fractures: Yes - *Social History Educational Level: Attended High School Smoking Status: Never smoker Alcohol Intake: never *Occupational Status:: other Housing: house Household Members: spouse *Travel in the last 8 weeks: None Family Hx:: Cancer, Diabetes, Hyperlipidemia, Stroke Review of Systems - Review of Systems Review of systems:: pertinent systems reviewed and negative unless documented below Meds Home Medications Medication Instructions Recorded Confirmed Type Atorvastatin Calcium [Lipitor 40mg 40 mg PO HS 12/29/17 06/23/19 History Tablet] Clopidogrel Bisulfate [Plavix 75mg 75 mg PO HS 12/29/17 06/23/19 History Tab] Fluoxetine HCl [Prozac] 20 mg PO HS 12/29/17 06/23/19 History Memantine HCl/Donepezil HCl 1 tab PO HS 12/29/17 06/23/19 History [Namzaric 28 mg-10 mg Capsule] Perphenazine/Amitriptyline HCl 1 tab PO BID #60 tab 04/15/18 06/23/19 Rx [Perphen-Amitrip 2 mg-25 mg Tab] Carvedilol [Coreg 12.5mg 6.25 mg PO BID 06/22/19 06/23/19 History Tablet] Morphine Sulfate [MS Contin 15mg 15 mg PO DAILY 06/22/19 06/23/19 History EXTENDED RELEASE tablet] Morphine Sulfate [MS Contin 30mg 30 mg PO HS 06/23/19 06/23/19 History EXTENDED RELEASE tablet] Allergies Allergy/AdvReac Type Severity Reaction Status Date / Time ciprofloxacin [From CIPRO] Allergy Unknown Unknown Verified 06/23/19 16:52 allergy reaction codeine [CODEINE] Allergy Unknown Unknown Verified 06/23/19 16:52 allergy reaction erythromycin base Allergy Unknown I-RASH Verified 06/23/19 16:52 [From ERYTHROCIN] meperidine [MEPERIDINE] Allergy Unknown Unknown Verified 06/23/19 16:52 allergy reaction NSAIDS (Non-Steroidal Allergy Unknown I-RASH Verified 06/23/19 16:52 Anti-Inflamma [NSAIDS (NON-STEROIDAL ANTI-INFLAMMA] ofloxacin [OFLOXACIN] Allergy Unknown Unknown Verified 06/23/19 16:52 allergy reaction Quinolones [QUINOLONES] Allergy Unknown Unknown Verified 06/23/19 16:52 allergy reaction Macrolide Antibiotics Allergy Unknown Verified 06/23/19 16:52 allergy reaction Iodinated Contrast Media - AdvReac Mild FLUSHED Verified 06/23/19 16:52 Oral and FACE, [Iodinated Contrast Media - ITCHING IV Dye] Exam Vital signs and Labs for Last 24 Hours: Temp Pulse Resp BP Pulse Ox 97.7 F 89 18 160/87 H 96 06/23/19 17:34 06/23/19 17:34 06/23/19 17:34 06/23/19 17:34 06/23/19 17:34 Laboratory Results - last 24 hr 06/23/19 18:15: WBC 8.2, RBC 3.65 L, Hgb 10.1 L, Hct 33.3 L, MCV 91.2, MCH 27.7, MCHC 30.4 L, RDW 13.7, Plt Count 212, MPV 8.8, Neut % (Auto) 79.7, Lymph % (Auto) 12.4, Brantley % (Auto) 6.9, Eos % (Auto) 0.7, Baso % (Auto) 0.3, Neut # (Auto) 6.5, Lymph # (Auto) 1.0, Brantley # (Auto) 0.6, Eos # (Auto) 0.1, Baso # (Auto) 0.0 06/23/19 18:15: Sodium 137, Potassium 3.3 L, Chloride 100, Carbon Dioxide 28, Anion Gap 12.3, BUN 12, Creatinine 0.94, Estimated Creat Clear 73, Estimated GFR 59, Est GFR ( Amer) 71, Glucose 142 H, Calcium 8.2 L D, Total Bilirubin 0.5, AST 14 L D, ALT 10 L, Alkaline Phosphatase 100, Total Protein 6.7, Albumin 2.6 L D, Globulin 4.1 H, Albumin/Globulin Ratio 0.6 L 06/23/19 18:15: PT 10.5, INR 1.01 I & O for Last 24 hours: Intake & Output 06/21/19 06/22/19 06/23/19 06/24/19 11:59 11:59 11:59 11:59 Intake Total 240 / 240 Balance 240 / 240 Weight 198 lb 7 oz - Constitutional no acute distress, morbidly obese - *Routine HEENT Exam Head: Present: normocephalic Eye: Present: EOMI ENT: Present: mucous membranes moist - *Routine Respiratory Exam Present: CTA bilaterally. Absent: wheezes - *Routine Cardiovascular Exam Present: RRR - *Routine Abdominal Exam Present: soft. Absent: tenderness - *Routine Extremities Exam Comments: L shoulder without gross deformity but with moderate soft tissue swelling no ecchymosis or open wounds L shoulder diffuse ecchymosis across B/L forearms (patient reports from IV sticks in ER yesterday) unable to lift L arm, pain reported in L shoulder FROM L elbow, wrist, hand w/o pain L shoulder diffusely tender to palpation, severe pain reported SILT m/r/u distributions distally LUE palpable radial pulse L wrist, fingers warm/well-perfused AIN/PIN/ulnar nerves motor intact LUE patient does not tolerate any ROM L shoulder - *Routine Skin Exam Present: ecchymosis - *Routine Neurological Exam Present: alert, oriented X3, moving all extremities, normal tone, hearing grossly intact, normal speech. Absent: sensory deficit, motor deficit, altered mental status Results - Labs Result Diagrams: 06/23/19 18:15 06/23/19 18:15 Labs: Abnormal lab results 06/23/19 06/23/19 Range/Units 18:15 18:15 RBC 3.65 L (4.20-5.40) M/mm3 Hgb 10.1 L (12.2-16.2) g/dL Hct 33.3 L (37.0-47.0) % MCHC 30.4 L (31.8-35.4) g/dL Potassium 3.3 L (3.5-5.1) mmoL/L Glucose 142 H (74-106) mg/dL Calcium 8.2 L D (8.5-10.1) mg/dL AST 14 L D (15-37) U/L ALT 10 L (12-78) U/L Albumin 2.6 L D (3.4-5.0) gm/dL Globulin 4.1 H (1.3-3.2) gm/dl Albumin/Globulin Ratio 0.6 L (1.1-1.8) H & H 06/23/19 Range/Units 18:15 Hgb 10.1 L (12.2-16.2) g/dL Hct 33.3 L (37.0-47.0) % Coagulation 06/23/19 Range/Units 18:15 INR 1.01 (0.9-1.1) All other labs normal. - Diagnostic results Shoulder x-ray: image reviewed (fracture of surgical neck L proximal humerus; appears to be at least 2 part, likely 3 part; significant osteopenia of humeral head ) Assessment and Plan (1) Chronic pain disorder Current visit: No Status: Acute Category: Medical Code(s): G89.4 - Chronic pain syndrome (2) Fall Current visit: No Status: Acute Qualifiers: Encounter type: initial encounter Qualified Code(s): W19.XXXA - Unspecified fall, initial encounter Category: Medical Code(s): W19.XXXA - Unspecified fall, initial encounter (3) Fracture of humeral head, left, closed Current visit: No Status: Acute Qualifiers: Encounter type: initial encounter Qualified Code(s): S42.292A - Other dis placed fracture of upper end of left humerus, initial encounter for closed fracture Category: Medical Code(s): S42.292A - Other displaced fracture of upper end of left humerus, initial encounter for closed fracture - Assessment and plan all Dx Assessment and Plan for all problems:: 69yo F with L proximal humerus fracture -- CATINA Carvajal -- I believe the patient may be a poor candidate for ORIF given her significant osteoporosis and other medical comorbidities. Shoulder her fracture be reparable I question the ability to retain hardware w/o cutout/failure and inevitable AVN with conversion to RSA. I believe an initial trial of non-operative treatment is warranted, and shoulder her pain level or functional outcome be poor, and medical comorbidities optimized, reverse shoulder arthroplasty (RSA) may be a good long-term option for her. -- PT assessment to evaluate functional capabilities and need for SNF placement -- Dr. Coates to see for medical evaluation
--- NOTE | 2019-06-23 21:03 | Consult Report ---
*Admission Date: 06/23/19 *Reason for consult:: Medical opinion *History of present illness: 69-year-old white female, well known to my practice for many years, who was admitted today with left humerus fracture after a fall at her home. She reports she was giving out of bed and stumbled before she was able to get to her walker and fell down causing significant pain. High humerus fracture noted in [facility] office today. Admitted for pain control, medical consultation and decision making about operative versus nonoperative intervention. Consulted for medical evaluation and opinion about management decision. The patient has no other complaints except for significant arm pain. Has felt progressively weaker over the past several weeks, notes that she denies chest pain, cardiac symptoms or palpitations. Reports this was a mechanical fall where she simply tripped. [facility] History I have reviewed the patient's past medical history: Yes Medical History: Reports:: Atrial Fibrillation, Deep Vein Thrombosis, Diabetes Mellitus Type 2, Hyperlipidemia, Hypertension Denies:: Cancer, Diabetes Mellitus Type 1, MRSA *Have you ever received a pneumonia vaccine?: No *Have you received a flu vaccine this season?: No Other Medical History: Reports: Arthritis, Cataracts, Thyroid Disease Laterality Cases: Bilateral: Breast Biopsy Other Surgeries: Yes: No Previous Surgery, Cardiac Catheterization, Chol ecystectomy, Colonoscopy, Hysterectomy-Total, Plastic Surgery Amputation: No Fractures: Yes - *Social History Educational Level: Attended High School Smoking Status: Never smoker Alcohol Intake: never *Occupational Status:: other Housing: house Household Members: spouse *Travel in the last 8 weeks: None Family Hx:: Cancer, Diabetes, Hyperlipidemia, Stroke Meds Home Medications Medication Instructions Recorded Confirmed Type Atorvastatin Calcium [Lipitor 40mg 40 mg PO HS 12/29/17 06/23/19 History Tablet] Clopidogrel Bisulfate [Plavix 75mg 75 mg PO HS 12/29/17 06/23/19 History Tab] Fluoxetine HCl [Prozac] 20 mg PO HS 12/29/17 06/23/19 History Memantine HCl/Donepezil HCl 1 tab PO HS 12/29/17 06/23/19 History [Namzaric 28 mg-10 mg Capsule] Perphenazine/Amitriptyline HCl 1 tab PO BID #60 tab 04/15/18 06/23/19 Rx [Perphen-Amitrip 2 mg-25 mg Tab] Carvedilol [Coreg 12.5mg 6.25 mg PO BID 06/22/19 06/23/19 History Tablet] Morphine Sulfate [MS Contin 15mg 15 mg PO DAILY 06/22/19 06/23/19 History EXTENDED RELEASE tablet] Morphine Sulfate [MS Contin 30mg 30 mg PO HS 06/23/19 06/23/19 History EXTENDED RELEASE tablet] Allergies Allergy/AdvReac Type Severity Reaction Status Date / Time ciprofloxacin [From CIPRO] Allergy Unknown Unknown Verified 06/23/19 16:52 allergy reaction codeine [CODEINE] Allergy Unknown Unknown Verified 06/23/19 16:52 allergy reaction erythromycin base Allergy Unknown I-RASH Verified 06/23/19 16:52 [From ERYTHROCIN] meperidine [MEPERIDINE] Allergy Unknown Unknown Verified 06/23/19 16:52 allergy reaction NSAIDS (Non-Steroidal Allergy Unknown I-RASH Verified 06/23/19 16:52 Anti-Inflamma [NSAIDS (NON-STEROIDAL ANTI-INFLAMMA] ofloxacin [OFLOXACIN] Allergy Unknown Unknown Verified 06/23/19 16:52 allergy reaction Quinolones [QUINOLONES] Allergy Unknown Unknown Verified 06/23/19 16:52 allergy reaction Macrolide Antibiotics Allergy Unknown Verified 06/23/19 16:52 allergy reaction Iodinated Contrast Media - AdvReac Mild FLUSHED Verified 06/23/19 16:52 Oral and FACE, [Iodinated Contrast Media - ITCHING IV Dye] Exam Vital signs and Labs for Last 24 Hours: Temp Pulse Resp BP Pulse Ox 98.3 F 90 18 146/89 H 97 06/23/19 20:00 06/23/19 20:00 06/23/19 20:00 06/23/19 20:00 06/23/19 20:00 Laboratory Results - last 24 hr 06/23/19 18:15: WBC 8.2, RBC 3.65 L, Hgb 10.1 L, Hct 33.3 L, MCV 91.2, MCH 27.7, MCHC 30.4 L, RDW 13.7, Plt Count 212, MPV 8.8, Neut % (Auto) 79.7, Lymph % (Auto) 12.4, Hart % (Auto) 6.9, Eos % (Auto) 0.7, Baso % (Auto) 0.3, Neut # (Auto) 6.5, Lymph # (Auto) 1.0, Hart # (Auto) 0.6, Eos # (Auto) 0.1, Baso # (Auto) 0.0 06/23/19 18:15: Sodium 137, Potassium 3.3 L, Chloride 100, Carbon Dioxide 28, Anion Gap 12.3, BUN 12, Creatinine 0.94, Estimated Creat Clear 73, Estimated GFR 59, Est GFR ( Amer) 71, Glucose 142 H, Calcium 8.2 L D, Total Bilirubin 0.5, AST 14 L D, ALT 10 L, Alkaline Phosphatase 100, Total Protein 6.7, Albumin 2.6 L D, Globulin 4.1 H, Albumin/Globulin Ratio 0.6 L 06/23/19 18:15: PT 10.5, INR 1.01 I & O for Last 24 hours: Intake & Output 06/21/19 06/22/19 06/23/19 06/24/19 11:59 11:59 11:59 11:59 Intake Total 240 / 240 Balance 240 / 240 Weight 198 lb 7 oz Narrative: Patient examined in her hospital room. He is pleasant, oriented x3. Well aware of her situation and recent fall issues. Left arm in sling. Good distal pulses. Heart rate regular. Significant kyphosis as previously noted. Lungs anterior chiang are clear, abdomen soft, scattered bruising overall of her extremities. Previously noted global weakness but no focal deficits. Internal Medicine - CN: Reslt - Labs CBC & Chem 7: 06/23/19 18:15 06/23/19 18:15 Labs: Short CBC 06/23/19 Range/Units 18:15 WBC 8.2 (4.8-10.8) K/mm3 Hgb 10.1 L (12.2-16.2) g/dL Hct 33.3 L (37.0-47.0) % Plt Count 212 (142-424) K/mm3 BMP 06/23/19 18:15 Sodium 137 Potassium 3.3 L Chloride 100 Carbon Dioxide 28 BUN 12 Creatinine 0.94 Glucose 142 H Calcium 8.2 L D Liver Function 06/23/19 Range/Units 18:15 Total Bilirubin 0.5 (0.2-1.0) mg/dL AST 14 L D (15-37) U/L ALT 10 L (12-78) U/L Alkaline Phosphatase 100 (46-116) U/L Albumin 2.6 L D (3.4-5.0) gm/dL Assessment and Plan (1) Chronic pain disorder Current visit: No Status: Acute Category: Medical Code(s): G89.4 - Chronic pain syndrome (2) Fall Current visit: No Status: Acute Qualifiers: Encounter type: initial encounter Qualified Code(s): W19.XXXA - Unspecified fall, initial encounter Category: Medical Code(s): W19.XXXA - Unspecified fall, initial encounter (3) Fracture of humeral head, left, closed Current visit: No Status: Acute Qualifiers: Encounter type: initial encounter Qualified Code(s): S42.292A - Other displaced fracture of upper end of left humerus, initial encounter for closed fracture Category: Medical Code(s): S42.292A - Other displaced fracture of upper end of left humerus, initial encounter for closed fracture - Assessment and plan all Dx Assessment and Plan for all problems:: Difficult management decision. I agree with admission for PT assessment of balance and pain control. In general I would favor nonoperative intervention given her significant pain problems, chronic opiate dependence and probable increase in pain with surgical approach rather than nonoperative sling and healing I would recommend pursuing [facility] facility admission for balance issues, rehabilitation and strengthening.
--- NOTE | 2019-06-24 13:15 | Progress Note ---
Subjective Date: 06/24/19 Time: 11:00 Principal diagnosis: L proximal humerus fracture Interval history: The patient is doing well today, reports continued pain in the L shoulder. Also reports dizziness/light headedness upon standing and is wondering if that is the reason she fell. Otherwise no new issues overnight. PN: Obj Ex Vital signs: Temp Pulse Resp BP Pulse Ox 98.7 F 75 20 114/67 94 L 06/24/19 08:00 06/24/19 08:00 06/24/19 08:00 06/24/19 08:00 06/24/19 08:00 - Constitutional no acute distress, morbidly obese - Routine HEENT Exam Head: Present: normocephalic Eye: Present: EOMI ENT: Present: mucous membranes moist - Routine Respiratory Exam Absent: respiratory distress, wheezes - Routine Cardiovascular Exam Present: RRR - Routine Abdominal Exam Present: soft. Absent: tenderness - Routine Extremities Exam Comments: L shoulder without gross deformity but with moderate soft tissue swelling no ecchymosis or open wounds L shoulder diffuse ecchymosis across B/L forearms (patient reports from IV sticks in ER yesterday) unable to lift L arm, pain reported in L shoulder FROM L elbow, wrist, hand w/o pain L shoulder diffusely tender to palpation, severe pain reported SILT m/r/u distributions distally LUE palpable radial pulse L wrist, fingers warm/well-perfused AIN/PIN/ulnar nerves motor intact LUE patient does not tolerate any ROM L shoulder - Routine Skin Exam Present: ecchymosis - Routine Neurological Exam Present: alert, oriented X3, moving all extremities, normal tone, hearing gross ly intact, normal speech. Absent: sensory deficit, motor deficit, altered mental status Progress Note: A&P (1) Chronic pain disorder Status: Acute Current Visit: No (2) Fall Status: Acute Current Visit: No (3) Fracture of humeral head, left, closed Status: Acute Current Visit: No Assessment and Plan for All Diagnoses:: 69yo F with L proximal humerus fracture, osteoporosis, chronic pain -- continue current pain regimen; have discussed her case with pain management service, will plan on interscalene nerve block later today, to be performed by anesthesia -- continue NWB LUE in sling -- dispo planning: anticipate SNF placement
--- NOTE | 2019-06-24 15:34 | Pharmacy Consult Notes ---
[facility] Pharmacy VTE Monitoring - Patient Demographics Admission date: 06/23/19 Report Date: 06/24/19 Time: 15:34 Allergies/Adverse Reactions: Patient Allergies ciprofloxacin [From CIPRO] Allergy (Unknown, Verified 06/23/19 16:52) Unknown allergy reaction codeine [CODEINE] Allergy (Unknown, Verified 06/23/19 16:52) Unknown allergy reaction erythromycin base [From ERYTHROCIN] Allergy (Unknown, Verified 06/23/19 16:52) I-RASH meperidine [MEPERIDINE] Allergy (Unknown, Verified 06/23/19 16:52) Unknown allergy reaction NSAIDS (Non-Steroidal Anti-Inflamma [NSAIDS (NON-STEROIDAL ANTI-INFLAMMA] Allergy (Unknown, Verified 06/23/19 16:52) I-RASH ofloxacin [OFLOXACIN] Allergy (Unknown, Verified 06/23/19 16:52) Unknown allergy reaction Quinolones [QUINOLONES] Allergy (Unknown, Verified 06/23/19 16:52) Unknown allergy reaction Macrolide Antibiotics Allergy (Verified 06/23/19 16:52) Unknown allergy reaction Iodinated Contrast Media - Oral and [Iodinated Contrast Media - IV Dye] Adverse Reaction (Mild, Verified 06/23/19 16:52) FLUSHED FACE, ITCHING Height: 1.52 m Weight: 90.01 kg - VTE Risk Labs: VTE Related Lab Results Hgb 10.1 g/dL (12.2-16.2) L 06/23/19 18:15 Hct 33.3 % (37.0-47.0) L 06/23/19 18:15 Plt Count 212 K/mm3 (142-424) 06/23/19 18:15 PT 10.5 seconds (9.4-11.8) 06/23/19 18:15 INR 1.01 (0.9-1.1) 06/23/19 18:15 BUN 12 mg/dL (7-18) 06/23/19 18:15 Creatinine 0.94 mg/dL (0.55-1.02) 06/23/19 18:15 Estimated Creat Clear 73 mL/min (50-200) 06/23/19 18:15 VTE Score: 5 VTE Risk Level: Low Risk - Prophylaxis VTE Prophylaxis Ordered?: Yes Types of VTE Prophylaxis: TEDS Knee High Location of Applied Device: Bilateral Lower Extremeties - VTE Diagnosis Confirmed Treatment or plan recommended: Continue Current Treatment
--- NOTE | 2019-06-24 18:46 | Progress Note ---
Internal Medicine - PN: Subj *Date: 06/24/19 *Time: 18:43 Interval history: Patient continues to complain of pain. Has declined nerve block. Tolerating regular diet. Continues to be we can have difficulty caring for herself. No fever. Chest pain, shortness of breath. Vitals stable. Exam Vital signs and Labs for Last 24 Hours: Temp Pulse Resp BP Pulse Ox 99.4 F 79 20 127/67 95 06/24/19 16:00 06/24/19 16:00 06/24/19 16:00 06/24/19 16:00 06/24/19 16:00 Laboratory Results - last 24 hr 06/23/19 18:15: Sodium 137, Potassium 3.3 L, Chloride 100, Carbon Dioxide 28, Anion Gap 12.3, BUN 12, Creatinine 0.94, Estimated Creat Clear 73, Estimated GFR 59, Est GFR ( Amer) 71, Glucose 142 H, Calcium 8.2 L D, Total Bilirubin 0.5, AST 14 L D, ALT 10 L, Alkaline Phosphatase 100, Total Protein 6.7, Albumin 2.6 L D, Globulin 4.1 H, Albumin/Globulin Ratio 0.6 L 06/23/19 18:15: PT 10.5, INR 1.01 I & O for Last 24 hours: Intake & Output 06/21/19 06/22/19 06/23/19 06/24/19 23:59 23:59 23:59 23:59 Intake Total 240 / 749 1469 / 1469 Output Total 300 / 300 Balance 240 / 749 1169 / 1169 Weight 90.01 kg 90.01 kg Narrative: Patient examined in bedside chair. Pleasant, oriented x3. Well aware of her situation and recent fall issues. Left arm in sling. Good distal pulses. Heart rate regular. Significant kyphosis as previously noted. Lungs anterior chiang are clear abdomen soft scattered bruising overall of her extremities. Previously noted global weakness but no focal deficits. Assessment and Plan (1) Chronic pain disorder Current visit: No Status: Acute Category: Medical Code(s): G89.4 - Chronic pain syndrome (2) Fall Current visit: No Status: Acute Qualifiers: Encounter type: initial encounter Qualified Code(s): W19.XXXA - Unspecified fall, initial encounter Category: Medical Code(s): W19.XXXA - Unspecified fall, initial encounter (3) Fracture of humeral head, left, closed Current visit: No Status: Acute Qualifiers: Encounter type: initial encounter Qualified Code(s): S42.292A - Other displ aced fracture of upper end of left humerus, initial encounter for closed fracture Category: Medical Code(s): S42.292A - Other displaced fracture of upper end of left humerus, initial encounter for closed fracture (4) Generalized weakness Current visit: No Status: Chronic Category: Medical Code(s): R53.1 - Weakness (5) Hypertension Current visit: Yes Status: Chronic Category: Medical Code(s): I10 - Essential (primary) hypertension continue Coreg and plavix for HTN and Hx of CVA (6) Class 2 obesity Current visit: Yes Status: Chronic Category: Medical Code(s): E66.9 - Obe sity, unspecified complicates all aspects of her care. - Assessment and plan all Dx Assessment and Plan for all problems:: Patient appears hemodynamically stable. Continue current pain regimen with as needed morphine as needed. However use with caution. Patient would benefit from short-term stay for rehab to gain strength and work on vestibular dysfu nction due to her recurring dizziness. Appreciate the paternity to consult on your patient. Will continue to follow along while admitted.
--- NOTE | 2019-06-25 08:32 | Progress Note ---
Internal Medicine - PN: Subj *Date: 06/25/19 *Time: 08:31 Interval history: Patient complains of mild nausea because "I am in pain." Otherwise alert, pleasant. Oriented. Exam Vital signs and Labs for Last 24 Hours: Temp Pulse Resp BP Pulse Ox 98.6 F 63 18 100/52 L 91 L 06/25/19 04:00 06/25/19 04:00 06/25/19 04:00 06/25/19 04:00 06/25/19 04:00 I & O for Last 24 hours: Intake & Output 06/22/19 06/23/19 06/24/19 06/25/19 11:59 11:59 11:59 11:59 Intake Total 1229 / 1229 720 / 720 Output Total 300 / 300 300 / 300 Balance 929 / 929 420 / 420 Weight 198 lb 7 oz 198 lb 7.009 oz Narrative: Patient is alert. Oriented. Oropharynx clear. Heart rate regular. Lungs are clear. Left arm in a sling. Distal perfusion and pulse rates are good. Assessment and Plan (1) Chronic pain disorder Current visit: No Status: Acute Category: Medical Code(s): G89.4 - Chronic pain syndrome (2) Fall Current visit: No Status: Acute Qualifiers: Encounter type: initial encounter Qualified Code(s): W19.XXXA - Unspecified fall, initial encounter Category: Medical Code(s): W19.XXXA - Unspecified fall, initial encounter (3) Fracture of humeral head, left, closed Current visit: No Status: Acute Qualifiers: Encounter type: initial encounter Qualified Code(s): S42.292A - Other displaced fracture of upper end of left humerus, initial encounter for closed fracture Category: Medical Code(s): S42.292A - Other displaced fracture of upper end of left humerus, initial encounter for closed fracture (4) Generalized weakness Current visit: No Status: Chronic Category: Medical Code(s): R53.1 - Weakness (5) Hypertension Current visit: Yes Status: Chronic Category: Medical Code(s): I10 - Essential (primary) hypertension (6) Class 2 obesity Current visit: Yes Status: Chronic Category: Medical Code(s): E66.9 - Obesity, unspecified - Assessment and plan all Dx Assessment and Plan for all problems:: Agree with transfer to skilled care today. We will follow at [facility].
--- NOTE | 2019-06-25 13:23 | Progress Note ---
Subjective Date: 06/25/19 Time: 11:00 Principal diagnosis: L proximal humerus fracture Interval history: The patient is doing well this morning. Still having pain in the L shoulder but medication helps. She declined an interscalene block for pain control. Able to ambulate with physical therapy but only 12 feet. PN: Obj Ex Vital signs: Temp Pulse Resp BP Pulse Ox 98.9 F 87 18 120/69 95 06/25/19 08:00 06/25/19 08:00 06/25/19 08:00 06/25/19 08:00 06/25/19 08:00 - Routine Extremities Exam Comments: L shoulder without gross deformity but with moderate soft tissue swelling no ecchymosis or open wounds L shoulder diffuse ecchymosis across B/L forearms (patient reports from IV sticks in ER) unable to lift L arm, pain reported in L shoulder FROM L elbow, wrist, hand w/o pain L shoulder diffusely tender to palpation, severe pain reported SILT m/r/u distributions distally LUE palpable radial pulse L wrist, fingers warm/well-perfused AIN/PIN/ulnar nerves motor intact LUE patient does not tolerate any ROM L shoulder Progress Note: A&P (1) Chronic pain disorder Status: Acute Current Visit: No (2) Fall Status: Acute Current Visit: No (3) Fracture of humeral head, left, closed Status: Acute Current Visit: No (4) Generalized weakness Status: Chronic Current Visit: No (5) Hypertension Status: Chronic Current Visit: Yes (6) Class 2 obesity Status: Chronic Current Visit: Yes Assessment and Plan for All Diagnoses:: 69yo F with L proximal humerus fracture -- peer to peer completed for SNF approval by insurance; verbal approval given, should be processed this afternoon and able to transfer patient later today -- remain NWB LUE with sling; may remove sling while seated/supine for comfort, but wear sling when ambulatory -- patient to continue baseline po morphine from pain management; new Rx was given at her visit with them on 06/23/2019 -- separate Rx given my myself for a small amount of percocet for immediate release if sever pain experienced -- f/u with me in 2 weeks
--- NOTE | 2019-06-25 13:31 | Discharge Summary ---
General - General Admission date:: 06/23/19 Discharge date: 06/25/19 HPI HPI: 69-year-old female admitted from my office Sunday06/23/2019 after a fall at home the day before. She lexis to get out of bed and felt numbness in bilateral feet, and the sensation that both legs were made of rubber; they gave way and she fell to the ground. She denies preceding chest pain, shortness of breath, dizziness or lightheadedness. She was taken to the emergency room where a left proximal humerus fracture was diagnosed. She was placed into a sling and followed up with me the next day in clinic. She reports severe pain in the left shoulder and was concerned regarding her safety and ability to independently care for herself at home. She does live with her in a single level home with 2 stairs required to enter the home. She ambulates short distances with a rolling walker. 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 each morning, and 15 mg each night. On review of her lumbar x-rays, she does have multilevel degenerative disc disease of the lumbar spine with retrolisthesis of L2 on L3 and a compression fracture of T12. She has a history of osteoporosis, with her last DEXA scan approximately 1 year ago. This report was reviewed and showed a T score of -2.5 in the right femoral neck and -0.2 in the lumbar spine. Follow-up DEXA was recommended in June 2019. Medical history significant for hypertension, diabetes, hyperlipidemia, history of DVT, hypothyroidism, atrial fibrillation. She is undergone a total hysterectomy, cholecystectomy, breast biopsy and cardiac catheterization. Her home medications include atorvastatin, carvedilol, clopidogrel, fluoxetine, morphine ER, memantinedonepezil, and perphenazineamitriptyline. She has multiple documented medication allergies including ciprofloxacin, codeine, erythromycin, meperidine, NSAIDs, ofloxacin, quinolones, macrolides, and iodinated contrast material, though it is not documented with any of these reactions are. Hospital Course Hospital Course: The patient was admitted for pain control, physical therapy evaluation and placement in SNF. Her baseline morphine was continued, and additional medications ordered PRN for breakthrough. Interscalene nerve block was offered but declined by the patient. She took 1 dose on Dilaudid on the evening of 06/23/2019 but no additional medication after that. Therapy assessment was performed and insurance approval sought for SNF placement. This was approved 06/25/2019 and the patient discharged with follow-up with me in 2 weeks. There were no medical issues/complications during her stay. Objective Vital signs: Temp Pulse Resp BP Pulse Ox 98.9 F 87 18 120/69 95 06/25/19 08:00 06/25/19 08:00 06/25/19 08:00 06/25/19 08:00 06/25/19 08:00 no acute distress, morbidly obese - *Routine HEENT Exam Head: Present: normocephalic Eye: Present: EOMI ENT: Present: mucous membranes moist - *Routine Respiratory Exam Present: CTA bilaterally - *Routine Cardiovascular Exam Present: RRR - *Routine Abdominal Exam Present: soft. Absent: tenderness - *Routine Extremities Exam Comments: L shoulder without gross deformity but with moderate soft tissue swelling no ecchymosis or open wounds L shoulder diffuse ecchymosis across B/L forearms (patient reports from IV sticks in ER) unable to lift L arm, pain reported in L shoulder FROM L elbow, wrist, hand w/o pain L shoulder diffusely tender to palpation, severe pain reported SILT m/r/u distributions distally LUE palpable radial pulse L wrist, fingers warm/well-perfused AIN/PIN/ulnar nerves motor intact LUE patient does not tolerate any ROM L shoulder - *Routine Skin Exam Present: ecchymosis. Absent: wounds - *Routine Neurological Exam Present: alert, oriented X3, moving all extremities, normal tone, hearing grossl y intact, normal speech. Absent: sensory deficit, motor deficit, altered mental status Results Completed studies during hospitalization [Text1]: CT scan L shoulder DS: Diagnosis - Discharge Diagnosis (1) Chronic pain disorder Status: Acute (2) Fall Status: Acute (3) Fracture of humeral head, left, closed Status: Acute (4) Generalized weakness Status: Chronic (5) Hypertension Status: Chronic (6) Class 2 obesity Status: Chronic Discharge Plan - Patient Discharge Instructions ACTIVITY: Up with assistance, Other (NWB LUE) DIET: continue same diet Additional Instructions: -- NWB LUE with sling -- up with assistance -- f/u with Dr. Mcconnell in 2 weeks Patient Instructions: How to Prevent Falls, DI for Humeral Fracture - Follow up Plan Follow up with: Goldie Mcconnell MD [Physician] - 07/10/19 10:00 am (please arrive 30-45 minutes early for x-ray prior to appointment with Dr. Mcconnell) Disposition: Xfer SNF Home Medications: Home Medications Medication Instructions Recorded Confirmed Type Atorvastatin Calcium [Lipitor 40mg 40 mg PO HS 12/29/17 06/23/19 History Tablet] Clopidogrel Bisulfate [Plavix 75mg 75 mg PO HS 12/29/17 06/23/19 History Tab] Fluoxetine HCl [Prozac] 20 mg PO HS 12/29/17 06/23/19 History Memantine HCl/Donepezil HCl 1 tab PO HS 12/29/17 06/23/19 History [Namzaric 28 mg-10 mg Capsule] Carvedilol [Coreg 12.5mg 6.25 mg PO BID 06/22/19 06/23/19 History Tablet] Morphine Sulfate [MS Contin 15mg 15 mg PO HS 06/22/19 06/24/19 History EXTENDED RELEASE tablet] Morphine Sulfate [MS Contin 30mg 30 mg PO DAILY 06/23/19 06/24/19 History EXTENDED RELEASE tablet] Amitriptyline HCl [Elavil 25mg 3 tab PO DAILY 06/24/19 06/24/19 History tablet] Buspirone HCl [Buspar 10mg 10 mg PO TID 06/24/19 06/24/19 History tablet] Halobetasol Propionate [Ultravate] 1 applicatio TP BID PRN 06/24/19 06/24/19 History Nystatin 1 applicatio TP TID PRN 06/24/19 06/24/19 History Omeprazole 20 mg PO DAILY 06/24/19 06/24/19 History Perphenazine [Trilafon 2mg tablet] 3 tab PO DAILY 06/24/19 06/24/19 History Potassium Chloride 20 meq PO BID 06/24/19 06/24/19 History Oxycodone HCl/Acetaminophen 1 each PO Q4HP PRN #10 tab 06/25/19 Rx [Percocet 5/325mg tablet] Prescriptions/Medication Reconciliation: New Perphenazine/Amitriptyline HCl [Perphen-Amitrip 2 mg-25 mg Tab] 1 tab PO BID Non Formulary [Pt's Own Medication] 1 each PO DAILY each Non Formulary [Pt's Own Medication] 1 each PO BID each Non Formulary [Pt's Own Medication] 1 each PO HS each Acetaminophen [Acetaminophen 325mg tab] 650 mg PO Q4HP PRN tablet PRN Reason: As Needed For Fever Or Pain Non Formulary [Pt's Own Medication] 1 each PO TID each Oxycodone HCl/Acetaminophen [Percocet 5/325mg tablet] 1 each PO Q4HP PRN #10 tab PRN Reason: Moderate Pain Continued Memantine HCl/Donepezil HCl [Namzaric 28 mg-10 mg Capsule] 1 tab PO HS Clopidogrel Bisulfate [Plavix 75mg Tab] 75 mg PO HS Atorvastatin Calcium [Lipitor 40mg Tablet] 40 mg PO HS Carvedilol [Coreg 12.5mg Tablet] 6.25 mg PO BID Halobetasol Propionate [Ultravate] 1 applicatio TP BID PRN PRN Reason: Skin Irritation Nystatin 1 applicatio TP TID PRN PRN Reason: Skin Irritation Amitriptyline HCl [Elavil 25mg tablet] 3 tab PO DAILY Perphenazine [Trilafon 2mg tablet] 3 tab PO DAILY Potassium Chloride 20 meq PO BID Omeprazole 20 mg PO DAILY Fluoxetine HCl [Prozac] 20 mg PO HS Morphine Sulfate [MS Contin 15mg EXTENDED RELEASE tablet] 15 mg PO HS Morphine Sulfate [MS Contin 30mg EXTENDED RELEASE tablet] 30 mg PO DAILY Buspirone HCl [Buspar 10mg tablet] 10 mg PO TID - Problem Reconciliation Problems Reviewed?: Yes
== END ==
LOC: 2ND
PROVIDERS: ADMIT Orthopaedic Surgery; ATTEND Orthopaedic Surgery
CPT/HCPCS: 36415; 73200; 80053; 85025; 85610; 97110; 97116; 97162; 97530; 99212; G0378; J2405

== ENCOUNTER → 2019-07-10 10:41 | Outpatient (CLI) | payer MEDICARE, SELFPAY ==
--- NOTE | 2019-07-10 10:46 | XR_ITS ---
PROCEDURE: XR SHOULDER LT MIN 2V CLINICAL INDICATION: Left humerus FX Follow-up humeral fracture COMPARISON: XR HUMERUS LT from 06/22/2019 FINDINGS: There is a comminuted displaced fracture of the humeral neck with extension into the greater tuberosity. The distal fracture fragment is displaced medially by 1.8 cm and anteriorly by 1.5 cm. There does appear to be some callus formation developing laterally. IMPRESSION: Displaced comminuted left humeral neck fracture with extension into the greater tuberosity with some developing callus formation as described above. Dictated by: Qamar Escobar MD 07/10/2019 14:21 Electronically signed by Qamar Escobar MD in [place] 07/10/2019 14:21
== END ==
PROVIDERS: PCP Internal Medicine Adolescent Medicine; Visit Provider Orthopaedic Surgery
DX: S42.292A Other displaced fracture of upper end of left humerus, initial encounter for closed fracture (principal)
CPT/HCPCS: 73030

== ENCOUNTER → 2019-08-08 14:04 | Outpatient (CLI) | payer MEDICARE, SELFPAY ==
--- NOTE | 2019-08-08 14:10 | XR_ITS ---
PROCEDURE: XR SHOULDER LT MIN 2V CLINICAL INDICATION: humerus FX Follow-up fracture COMPARISON: XR SHOULDER LT MIN 2V from 07/10/2019 FINDINGS: There is a displaced humeral neck fracture. The distal fracture fragment is displaced medially and anteriorly. There is developing callus formation. The humeral head is in place. Incidental note is made of a hiatal hernia IMPRESSION: Healing displaced humeral neck Dictated by: Qamar Escobar MD 08/08/2019 15:02 Electronically signed by Qamar Escobar MD in [place] 08/08/2019 15:02
== END ==
PROVIDERS: PCP Internal Medicine Adolescent Medicine; Visit Provider Orthopaedic Surgery
DX: S42.292A Other displaced fracture of upper end of left humerus, initial encounter for closed fracture (principal)
CPT/HCPCS: 73030

== ENCOUNTER → 2019-08-25 09:02 | Outpatient (POV) | payer MEDICARE, SELFPAY ==
[2019-08-25 09:08] VITALS: BP 154/88; PULSE 75; RESP 18; O2SAT 98; BMI 37.8
--- NOTE | 2019-08-25 09:41 | HMH.PAINSOAP ---
[facility] Pain Management SOAP Note Subjective:: Patient is a pleasant 69-year-old white female who presents today for medication refills. She is being treated for pain secondary to degenerative disc disease and neuropathy in her bilateral legs. She rates her pain today a 6 out of 10 and overall is doing well she had a recent humerus fracture and is being seen by a specialist in [place]. Patient Shane reviewed and appropriate Shane #[phone] reviewed appropriate urine drug screens have been appropriate. She is currently on morphine sulfate extended release 30 mg in the morning and 15 mg at nighttime. She denies side effects or medication. ROS General: no recent weight change, no fever, no sleep disturbances Respiratory: no cough, no shortness of air, no recurring pulmonary infections Cardiovascular/Peripheral Vascular: No chest pain, No palpitations, no edema, no shortness of breath. Gastrointestinal: no new onset incontinence, normal bowel movements reported Genitourinary: no new onset incontinence Musculoskeletal: Back pain, leg pain Psychiatric: normal mood/ affect Neurological: [denies new onset weakness in extremities], [denies new onset balance issues] Objective:: Physical Exam General: Alert and oriented x3, no acute distress, pleasant and cooperative, [on room air] Lungs: Resps E/U, Symmetrical chest expansion, Eyes: PERRL Musculoskeletal: Flexion and extension of lumbar spine somewhat guarded secondary to pain, deep tendon reflexes normal, strength in upper and lower extremities [5/5], [abnormal gait noted] Neurological: speech clear, supervisor pipeline equal, no gross sensory deficits Assessment:: Degenerative disc disease lumbar spine with lumbar radiculopathy, peripheral neuropathy Plan:: We will refill her morphine extended release 30 mg in the morning and 8 extended release 15 mg at night we will see her back in 2 months reassess her symptoms at that time she is been instructed to call the office if she has any issues prior to her next appointment. Patient has been prescribed a controlled substance after being counseled on the medication, medication safety, and possible side effects. SHANE report has been obtained and reviewed prior to prescription and found to be appropriate. Opioid contract was reviewed and signed by the patient, and that they have agreed to all of the terms set forth by our compliance program. Dr. Dudley has reviewed this note and agrees with this plan of care. This note was dictated using voice recognition software and may contain errors or omissions [facility] History I have reviewed the patient's past medical history: Yes Medical History: Reports:: Atrial Fibrillation, Deep Vein Thrombosis, Diabetes Mellitus Type 2, Hyperlipidemia, Hypertension Denies:: Cancer, Diabetes Mellitus Type 1, MRSA *Have you ever received a pneumonia vaccine?: Yes *Have you received a flu vaccine this season?: Yes Other Medical History: Reports: Arthritis, Cataracts, Thyroid Disease Laterality Cases: Other Surgeries: Yes: No Previous Surgery, Cardiac Catheterization, Cholecystectomy, Colonoscopy, Hysterectomy-Total, Plastic Surgery Amputation: No Fractures: Yes - *Social History Smoking Status: Never smoker Alcohol Intake: never *Occupational Status:: other Housing: house Household Members: spouse *Travel in the last 8 weeks: None Family Hx:: Cancer, Diabetes, Hyperlipidemia, Stroke
--- NOTE | 2019-08-25 09:44 | P.CONS_ITS ---
[facility] Pain Management SOAP Note Subjective:: Patient is a pleasant 69-year-old white female who presents today for medication refills. She is being treated for pain secondary to degenerative disc disease and neuropathy in her bilateral legs. She rates her pain today a 6 out of 10 and overall is doing well she had a recent humerus fracture and is being seen by a specialist in [place]. Patient Shane reviewed and appropriate Shane #[id number] reviewed appropriate urine drug screens have been appropriate. She is currently on morphine sulfate extended release 30 mg in the morning and 15 mg at nighttime. She denies side effects or medication. ROS General: no recent weight change, no fever, no sleep disturbances Respiratory: no cough, no shortness of air, no recurring pulmonary infections Cardiovascular/Peripheral Vascular: No chest pain, No palpitations, no edema, no shortness of breath. Gastrointestinal: no new onset incontinence, normal bowel movements reported Genitourinary: no new onset incontinence Musculoskeletal: Back pain, leg pain Psychiatric: normal mood/ affect Neurological: [denies new onset weakness in extremities], [denies new onset balance issues] Objective:: Physical Exam General: Alert and oriented x3, no acute distress, pleasant and cooperative, [on room air] Lungs: Resps E/U, Symmetrical chest expansion, Eyes: PERRL Musculoskeletal: Flexion and extension of lumbar spine somewhat guarded secondary to pain, deep tendon reflexes normal, strength in upper and lower extremities [5/5], [abnormal gait noted] Neurological: speech clear, marketing administrator equal, no gross sensory deficits Assessment:: Degenerative disc disease lumbar spine with lumbar radiculopathy, peripheral neuropathy Plan:: We will refill her morphine extended release 30 mg in the morning and 8 extended release 15 mg at night we will see her back in 2 months reassess her symptoms at that time she is been instructed to call the office if she has any issues prior to her next appointment. Patient has been prescribed a controlled substance after being counseled on the medication, medication safety, and possible side effects. SHANE report has been obtained and reviewed prior to prescription and found to be appropriate. Opioid contract was reviewed and signed by the patient, and that they have agreed to all of the terms set forth by our compliance program. Dr. Dudley has reviewed this note and agrees with this plan of care. This note was dictated using voice recognition software and may contain errors or omissions [facility] History I have reviewed the patient's past medical history: Yes Medical History: Reports:: Atrial Fibrillation, Deep Vein Thrombosis, Diabetes Mellitus Type 2, Hyperlipidemia, Hypertension Denies:: Cancer, Diabetes Mellitus Type 1, MRSA *Have you ever received a pneumonia vaccine?: Yes *Have you received a flu vaccine this season?: Yes Other Medical History: Reports: Arthritis, Cataracts, Thyroid Disease Laterality Cases: Other Surgeries: Yes: No Previous Surgery, Cardiac Catheterization, Cholecystectomy, Colonoscopy, Hysterectomy-Total, Plastic Surgery Amputation: No Fractures: Yes - *Social History Smoking Status: Never smoker Alcohol Intake: never *Occupational Status:: other Housing: house Household Members: spouse *Travel in the last 8 weeks: None Family Hx:: Cancer, Diabetes, Hyperlipidemia, Stroke
== END ==
PROVIDERS: PCP Internal Medicine Adolescent Medicine; Visit Provider Clinical Nurse Specialist Family Health
DX: M51.16 Intervertebral disc disorders with radiculopathy, lumbar region (principal); G62.9 Polyneuropathy, unspecified
CPT/HCPCS: 99212

== ENCOUNTER → 2019-10-27 10:37 | Outpatient (POV) | payer MEDICARE, SELFPAY ==
--- NOTE | 2019-10-27 11:03 | HMH.PAINSOAP ---
[facility] Pain Management SOAP Note Subjective:: Patient is pleasant 69-year-old white female presents today for medication refill she is being treated for pain secondary to degenerative disc disease lumbar spine with lumbar radiculopathy and neuropathy in her bilateral legs. She rates her pain a 5 out of 10 and states overall she is doing very well. Patient is currently on morphine extended release 30 mg in the morning and 15 mg at nighttime. She denies side effects or medication. Asif #[id number] reviewed and appropriate. Urine drug screen is appropriate. ROS General: no recent weight change, no fever, no sleep disturbances Respiratory: no cough, no shortness of air, no recurring pulmonary infections Cardiovascular/Peripheral Vascular: No chest pain, No palpitations, no edema, no shortness of breath. Gastrointestinal: no new onset incontinence, normal bowel movements reported Genitourinary: no new onset incontinence Musculoskeletal: Back pain, leg pain Psychiatric: normal mood/ affect, Neurological: [denies new onset weakness in extremities], [denies new onset balance issues] Objective:: Physical Exam General: Alert and oriented x3, no acute distress, pleasant and cooperative, [on room air] Lungs: Resps E/U, Symmetrical chest expansion, Eyes: PERRL Musculoskeletal: Flexion and extension of lumbar spine somewhat guarded secondary to pain, deep tendon reflexes normal, strength in upper and lower extremities [5/5], [abnormal gait noted] Neurological: speech clear, offline cutter equal, no gross sensory deficits Assessment:: Generative disc disease lumbar spine with lumbar radiculopathy and peripheral neuropathy Plan:: We will refill her morphine extended release 30 mg in the morning and morphine extended release 15 mg at nighttime we will see her back in 2 months reassess her symptoms at that time give her 2 months worth of medication. Patient is been instructed to call the office if she has any issues prior to her next appointment. Dr. Dudley has reviewed this note and agrees with this plan of care. This note was dictated using voice recognition software and may contain errors or omissions Patient has been prescribed a controlled substance after being counseled on the medication, medication safety, and possible side effects. [facility] report has been obtained and reviewed prior to prescription and found to be appropriate. Opioid contract was reviewed and signed by the patient, and that they have agreed to all of the terms set forth by our compliance program. [facility] History I have reviewed the patient's past medical history: Yes Medical History: Reports:: Atrial Fibrillation, Deep Vein Thrombosis, Diabetes Mellitus Type 2, Hyperlipidemia, Hypertension Denies:: Cancer, Diabetes Mellitus Type 1, MRSA *Have you ever received a pneumonia vaccine?: Yes *Have you received a flu vaccine this season?: Yes Other Medical History: Reports: Arthritis, Cataracts, Thyroid Disease Laterality Cases: Bilateral: Breast Biopsy Other Surgeries: Yes: No Previous Surgery, Cardiac Catheterization, Cholecystectomy, Colonoscopy, Hysterectomy-Total, Plastic Surgery Amputation: No Fractures: Yes - *Social History Smoking Status: Never smoker Alcohol Intake: never *Occupational Status:: other Housing: house Household Members: spouse *Travel in the last 8 weeks: None Family Hx:: Cancer, Diabetes, Hyperlipidemia, Stroke
[2019-10-27 12:09] LABS: Amphetamine/Metha Screen,Urine Negative ng/mL (<1000); Barbiturates Screen,Urine Negative ng/mL (<200); Benzodiazepines Screen,Urine Negative ng/mL (<200); Cannabinoid Screen,Urine Negative ng/mL (<50); Cocaine Screen,Urine Negative ng/mL (<300); Methadone Screen,Urine Negative ng/mL (<300); Opiate Screen,Urine Positive ng/mL (<300); Phencyclidine Screen,Urine Negative ng/mL (<25)
[2019-10-27 12:57] VITALS: BP 170/98; PULSE 75; RESP 18; O2SAT 98; BMI 38.0
[2019-11-01 08:39] LABS: Codeine Negative (Cutoff=100); Hydrocodone Negative (Cutoff=100); Hydromorphone Positive (.); Morphine Positive (.)
[2019-11-01 19:09] LABS: Opiates Positive (.)
== END ==
PROVIDERS: PCP Internal Medicine Adolescent Medicine; Visit Provider Clinical Nurse Specialist Family Health
DX: M51.16 Intervertebral disc disorders with radiculopathy, lumbar region (principal); G62.9 Polyneuropathy, unspecified; Z79.899 Other long term (current) drug therapy
CPT/HCPCS: 80305; 80361; 80365; 99212; G0480

== ENCOUNTER → 2019-12-23 09:09 | Outpatient (POV) | payer MEDICARE, SELFPAY ==
--- NOTE | 2019-12-23 09:24 | HMH.VVPMSO ---
[facility] PM Virtual Visit SOAP Consent for virtual visit:: With the recent concerns about the COVID-19, we are trying to minimize exposure to you by shifting to telehealth appointments whenever possible. It restricts me from seeing you in person, but the trade off is protecting you during this pandemic. Can you see and hear me okay, and do you consent to this option? If not, I would be happy to see if we can reschedule your appointment in the future, when feasible. Has patient consented to this virtual visit?: Yes Subjective:: Is a pleasant 69-year-old white female who presents today for medication refills. She is being treated for pain secondary to degenerative disc disease lumbar spine with lumbar radiculopathy and neuropathy in her bilateral legs. She rates her pain today at 3 out of 10 and overall is doing extremely well. Patient is currently on a morphine extended release 30 mg in the morning and 15 mg at nighttime she denies side effects of medication and states it helps up to 80%. [facility] #[id number] reviewed and appropriate. Urine drug screens have been appropriate in the past. Overall doing well. Patient has no sign symptoms of Covid- 19. ROS General: no recent weight change, no fever, no sleep disturbances Respiratory: no cough, no shortness of air, no recurring pulmonary infections Cardiovascular/Peripheral Vascular: No chest pain, No palpitations, no edema, no shortness of breath. Gastrointestinal: no new onset incontinence, normal bowel movements reported Genitourinary: no new onset incontinence Musculoskeletal: Back pain, leg pain Psychiatric: normal mood/ affect Neurological: [denies new onset weakness in extremities], [denies new onset balance issues] Objective:: Physical exam: Constitutional: Healthy appearing, well-developed, alert, in no acute distress Psychiatric: Judgment and insight intact, Alert and oriented x4 Mood and affect: Mood normal, affect appropriate Head and face: Inspection: Normocephalic atraumatic, extraocular movement intact Respiratory: Breathing nonlabored, nondyspneic Cardiovascular: No cyanosis, clubbing, or edema observed Skin: Head and neck: Skin with no lesions or rash observed Gait: assistive device used Neurologic: Sensation grossly intact per patient Musculoskeletal: Patient has decreased range of motion noted on the telehealth visit in the lumbar spine. Assessment:: Degenerative disc disease lumbar spine with lumbar radiculopathy and neuropathy Plan:: We will continue her morphine extended release 30 mg in the morning and morphine extended release 15 mg at nighttime we will see her back in 2 months reassess her symptoms at that time she has been instructed to call the office if she has any issues prior to her next appointment. This encounter was performed as a telemedicine visit via secure 2 way video and audio to minimize risk and transmission of Covid-19. The patient and we understand the limitations of a telemedicine visit including inability to check reflexes, possibly missing subtle findings on physical exam. Alternative options were presented to the patient and the patient elected to proceed with the visit. We specifically discussed risk factors for Covid-19 including age, heart or lung disease, diabetes, immunosuppression and travel. We also discussed that NSAIDs may worsen Covid-19 infection symptoms and that they should not be used to treat Covid-19 symptoms. Patient was also informed that corticosteroids in any form oral or injectable will decrease immune response and may increase risk of Covid-[address] Dudley has reviewed this patient's chart and this note and agrees with plan of care. Patient has been instructed to call the office if they have any issues prior to the next appointment. Patient has been prescribed a controlled substance after being counseled on the medication, medication safety, and possible side effects. SHANE report has been obtained an
== END ==
PROVIDERS: Visit Provider Clinical Nurse Specialist Family Health
DX: M51.16 Intervertebral disc disorders with radiculopathy, lumbar region (principal); G62.9 Polyneuropathy, unspecified
CPT/HCPCS: 99212

== ENCOUNTER → 2020-02-23 10:24 | Outpatient (POV) | payer MEDICARE, SELFPAY ==
--- NOTE | 2020-02-23 12:56 | HMH.VVPMSO ---
[facility] PM Virtual Visit SOAP Consent for virtual visit:: With the recent concerns about the COVID-19, we are trying to minimize exposure to you by shifting to telehealth appointments whenever possible. It restricts me from seeing you in person, but the trade off is protecting you during this pandemic. Can you see and hear me okay, and do you consent to this option? If not, I would be happy to see if we can reschedule your appointment in the future, when feasible. Has patient consented to this virtual visit?: Yes Subjective:: Patient is a pleasant 70-year-old white female who presents today for medication refills. She is being treated for pain secondary to degenerative disc disease lumbar spine with lumbar radiculopathy. She rates her pain today a 6 out of 10. Overall doing well she is currently on a morphine extended release 30 mg in the morning and 15 mg at nighttime. She denies side effects to her medication and states it helps up to 80%. [facility] #[id number] reviewed and appropriate. ROS General: no recent weight change, no fever, no sleep disturbances Respiratory: no cough, no shortness of air, no recurring pulmonary infections Cardiovascular/Peripheral Vascular: No chest pain, No palpitations, no edema, no shortness of breath. Gastrointestinal: no new onset incontinence, normal bowel movements reported Genitourinary: no new onset incontinence Musculoskeletal: Back pain, leg pain Psychiatric: normal mood/ affect, Neurological: [denies new onset weakness in extremities], [denies new onset balance issues] Objective:: Physical exam: Constitutional: Healthy appearing, well-developed, alert, in no acute distress Psychiatric: Judgment and insight intact, Alert and oriented x4 Mood and affect: Mood normal, affect appropriate Head and face: Inspection: Normocephalic atraumatic, extraocular movement intact Respiratory: Breathing nonlabored, nondyspneic Cardiovascular: No cyanosis, clubbing, or edema observed Skin: Head and neck: Skin with no lesions or rash observed Gait: Able to walk with assistive device Neurologic: Sensation grossly intact per patient Musculoskeletal: Decreased range of motion lumbar spine Assessment:: Degenerative disc disease lumbar spine with lumbar radiculopathy Plan:: We will refill the patient's morphine extended release 30 mg 1 p.o. every morning and 15 mg 1 p.o. nightly. We will follow-up with her in 2 months reassess her symptoms at that time she has been instructed to call the office if she has any issues prior to next appointment. This encounter was performed as a telemedicine visit via secure 2 way video and audio to minimize risk and transmission of Covid-19. The patient and we understand the limitations of a telemedicine visit including inability to check reflexes, possibly missing subtle findings on physical exam. Alternative options were presented to the patient and the patient elected to proceed with the visit. We specifically discussed risk factors for Covid-19 including age, heart or lung disease, diabetes, immunosuppression and travel. We also discussed that NSAIDs may worsen Covid-19 infection symptoms and that they should not be used to treat Covid-19 symptoms. Patient was also informed that corticosteroids in any form oral or injectable will decrease immune response and may increase risk of Covid-[address] Dudley has reviewed this patient's chart and this note and agrees with plan of care. Patient has been instructed to call the office if they have any issues prior to the next appointment. Time In:: 10:25 Time Out:: 10:30 [facility] History I have reviewed the patient's past medical history: Yes Medical History: Reports:: Atrial Fibrillation, Deep Vein Thrombosis, Diabetes Mellitus Type 2, Hyperlipidemia, Hypertension Denies:: Cancer, Diabetes Mellitus Type 1, MRSA *Have you ever received a pneumonia vaccine?: Yes *Have you received a flu vaccine this season?: Yes Other Me
== END ==
PROVIDERS: Visit Provider Clinical Nurse Specialist Family Health
DX: M51.16 Intervertebral disc disorders with radiculopathy, lumbar region (principal)
CPT/HCPCS: 99212

== ENCOUNTER → 2020-04-22 10:19 | Outpatient (POV) | payer MEDICARE, SELFPAY ==
[2020-04-22 10:26] VITALS: BP 132/88; PULSE 75; RESP 18; O2SAT 98; BMI 38.2
--- NOTE | 2020-04-22 10:33 | HMH.PAINSOAP ---
[facility] Pain Management SOAP Note Subjective:: Patient is a 70-year-old white female who presents today for medication refills. She has been treated for pain secondary to degenerative disc disease lumbar spine with lumbar radiculopathy symptoms. She rates her pain a 5 out of 10 today. She says she is doing well with her medication regimen. She is currently prescribed morphine sulfate 15 mg 1 tablet p.o. daily and morphine sulfate 30 mg 1 tablet p.o. daily. She denies any side effects to the medications. Her Asif #[id number] has been reviewed and is appropriate. Her morphine equivalent is 45. Her urine drug screens have been appropriate. Review of Systems General: No recent weight changes, no fever, no sleep disturbances Respiratory: No cough, no shortness of air, no recurring pulmonary infections Cardiovascular/peripheral vascular: No chest pain, no palpitations, no edema, no shortness of breath Gastrointestinal: No new onset incontinence, normal bowel movements reported Genitourinary: No new onset incontinence Musculoskeletal: Low back pain Psychiatric: Normal mood/affect Neurological: [Denies weakness in extremities], [denies balance issues] Objective:: Physical exam General: Alert and oriented x3, no acute distress, pleasant and cooperative, [on room air] Lungs: Respirations even and unlabored, symmetrical chest expansion Eyes: PERRL Musculoskeletal: Flexion and extension of lumbar spine somewhat guarded secondary to pain, deep tendon reflexes normal, strength in upper and lower extremities [5/5], [abnormal gait noted] Neurological: Speech clear, tennis racket repairer equal, no gross sensory deficit Assessment:: Degenerative disc disease lumbar spine with lumbar radiculopathy symptoms Plan:: We will refill the patient's morphine 15 mg 1 tablet p.o. daily and morphine 30 mg 1 tablet p.o. daily. 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 We will see her back in the clinic in 3 months to reassess her symptoms. Patient has been instructed to contact the clinic if she has any concerns before her next appointment. The patient and I specifically discussed risk factors for COVID19. These risks include, but are not limited to age greater than 60, heart or lung disease, diabetes, immunosuppression, and travel. We also discussed NSAIDs may worsen COVID19 infection or symptoms. Patient should not use NSAIDs to treat COVID19 signs or symptoms. Patient was also informed that any type of corticosteroid of any form (oral or injection) will decrease the patient's immune system response and may increase the likelihood of COVID19 infection and symptoms[address] Dr. Dudley has reviewed this note and agrees with this plan of care. This note was dictated using voice recognition software and make contain errors or omissions. [facility] History I have reviewed the patient's past medical history: Yes Medical History: Reports:: Atrial Fibrillation, Deep Vein Thrombosis, Diabetes Mellitus Type 2, Hyperlipidemia, Hypertension Denies:: Cancer, Diabetes Mellitus Type 1, MRSA *Have you ever received a pneumonia vaccine?: Yes *Have you received a flu vaccine this season?: Yes Other Medical History: Reports: Arthritis, Cataracts, Thyroid Disease Laterality Cases: Bilateral: Breast Biopsy Other Surgeries: Yes: No Previous Surgery, Cardiac Catheterization, Cholecystectomy, Colonoscopy, Hysterectomy-Total, Plastic Surgery Amputation: No Fractures: Yes - *Social History Smoking Status: Never smoker Alcohol Intake: never *Occupational Status:: other Housing: house Household Members: spouse *Travel in the last 8 weeks: None Family Hx:: Cancer, Diabetes, Hyperlipidemia, Stroke
== END ==
PROVIDERS: PCP Internal Medicine Adolescent Medicine; Visit Provider Clinical Nurse Specialist Family Health
DX: M51.16 Intervertebral disc disorders with radiculopathy, lumbar region (principal)
CPT/HCPCS: 99212

== ENCOUNTER → 2020-07-19 10:35 | Outpatient (POV) | payer MEDICARE, SELFPAY ==
--- NOTE | 2020-07-19 11:19 | HMH.PAINSOAP ---
[facility] Pain Management SOAP Note Subjective:: Patient is a pleasant 70-year-old white female who presents today for medication refills. Patient is being treated for pain secondary to degenerative disc disease lumbar spine with lumbar radiculopathy symptoms. She rates her pain today 6 out of 10. Patient is doing well with her current medication regimen she is on morphine sulfate 15 mg 1 tab p.o. daily and morphine sulfate 30 mg 1 tab p.o. daily. She denies side effects from medication. Her Shane number is [id number] reviewed and appropriate. Patient will have a drug screen today. Patient's morphine equivalent currently is 45 ROS General: no recent weight change, no fever, no sleep disturbances Respiratory: no cough, no shortness of air, no recurring pulmonary infections Cardiovascular/Peripheral Vascular: No chest pain, No palpitations, no edema, no shortness of breath. Gastrointestinal: no new onset incontinence, normal bowel movements reported Genitourinary: no new onset incontinence Musculoskeletal: Back pain, joint pain Psychiatric: normal mood/ affect Neurological: [denies new onset weakness in extremities], [denies new onset balance issues] Objective:: Physical Exam General: Alert and oriented x3, no acute distress, pleasant and cooperative, [on room air] Lungs: Resps E/U, Symmetrical chest expansion, Eyes: PERRL Musculoskeletal: Flexion and extension of lumbar spine somewhat guarded secondary to pain, deep tendon reflexes normal, strength in upper and lower extremities [5/5], [abnormal gait noted] Neurological: speech clear, diamond expert equal, no gross sensory deficits Assessment:: Degenerative disc disease lumbar spine lumbar radiculopathy symptoms Plan:: We will refill the patient's morphine 15 mg 1 tab p.o. daily morphine 30 mg 1 tab p.o. 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 We will see her back in 3 months reassess her symptoms at that time she has been instructed to call the office if she has any issues prior to her next appointment. Dr. Dudley has reviewed this note and agrees with this plan of care. This note was dictated using voice recognition software and may contain errors or omissions Patient has been prescribed a controlled substance after being counseled on the medication, medication safety, and possible side effects. [facility]ANE report has been obtained and reviewed prior to prescription and found to be appropriate. Opioid contract was reviewed and signed by the patient, and that they have agreed to all of the terms set forth by our compliance program. [facility] History I have reviewed the patient's past medical history: Yes Medical History: Reports:: Atrial Fibrillation, Deep Vein Thrombosis, Diabetes Mellitus Type 2, Hyperlipidemia, Hypertension Denies:: Cancer, Diabetes Mellitus Type 1, MRSA *Have you ever received a pneumonia vaccine?: Yes *Have you received a flu vaccine this season?: Yes Other Medical History: Reports: Arthritis, Cataracts, Thyroid Disease Laterality Cases: Bilateral: Breast Biopsy Other Surgeries: Yes: No Previous Surgery, Cardiac Catheterization, Cholecystectomy, Colonoscopy, Hysterectomy-Total, Plastic Surgery Amputation: No Fractures: Yes - *Social History Smoking Status: Never smoker Alcohol Intake: never *Occupational Status:: other Housing: house Household Members: spouse *Travel in the last 8 weeks: None Family Hx:: Cancer, Diabetes, Hyperlipidemia, Stroke
[2020-07-19 11:23] VITALS: BP 166/89; PULSE 75; RESP 18; O2SAT 98; BMI 38.5
== END ==
PROVIDERS: PCP Internal Medicine Adolescent Medicine; Visit Provider Clinical Nurse Specialist Family Health
DX: M51.16 Intervertebral disc disorders with radiculopathy, lumbar region (principal)
CPT/HCPCS: 99212

== ENCOUNTER → 2020-10-18 09:34 | Outpatient (POV) | payer MEDICARE, SELFPAY ==
--- NOTE | 2020-10-18 09:58 | HMH.PAINSOAP ---
[facility] Pain Management SOAP Note Subjective:: Patient is a 70-year-old white female who presents today for follow-up and medication refills. She is being treated for pain secondary to degenerative disc disease lumbar spine lumbar radiculopathy symptoms. She rates her pain a 6 out of 10 which is her baseline. She is doing well. She denies any side effects. She is currently on morphine sulfate extended release 15 mg once a day and morphine sulfate extended release 30 mg once a day. [facility] #[id number] reviewed and appropriate drug screens have been appropriate. Her morphine equivalent is currently 45. ROS General: no recent weight change, no fever, no sleep disturbances Respiratory: no cough, no shortness of air, no recurring pulmonary infections Cardiovascular/Peripheral Vascular: No chest pain, No palpitations, no edema, no shortness of breath. Gastrointestinal: no new onset incontinence, normal bowel movements reported Genitourinary: no new onset incontinence Musculoskeletal: Back pain, leg pain Psychiatric: normal mood/ affect Neurological: [denies new onset weakness in extremities], [denies new onset balance issues] Objective:: Physical Exam General: Alert and oriented x3, no acute distress, pleasant and cooperative, [on room air] Lungs: Resps E/U, Symmetrical chest expansion, Eyes: PERRL Musculoskeletal: Flexion and extension of lumbar spine somewhat guarded secondary to pain, deep tendon reflexes normal, strength in upper and lower extremities [5/5], [abnormal gait noted] Neurological: speech clear, 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 daily morphine 30 mg 1 tab p.o. daily we we will continue her for 3 months. We will see her back in 3 months reassess her symptoms at that time she is not due a refill today. Patient's been instructed to call the office if she has any issues prior to next appointment. Dr. Dudley has reviewed this note and agrees with this plan of care. This note was dictated using voice recognition software and may contain errors or omissions Patient has been prescribed a controlled substance after being counseled on the medication, medication safety, and possible side effects. [facility] report has been obtained and reviewed prior to prescription and found to be appropriate. Opioid contract was reviewed and signed by the patient, and that they have agreed to all of the terms set forth by our compliance program. [facility] History I have reviewed the patient's past medical history: Yes Medical History: Reports:: Atrial Fibrillation, Deep Vein Thrombosis, Diabetes Mellitus Type 2, Hyperlipidemia, Hypertension Denies:: Cancer, Diabetes Mellitus Type 1, MRSA *Have you ever received a pneumonia vaccine?: Yes *Have you received a flu vaccine this season?: Yes Other Medical History: Reports: Arthritis, Cataracts, Thyroid Disease Laterality Cases: Bilateral: Breast Biopsy Other Surgeries: Yes: No Previous Surgery, Cardiac Catheterization, Cholecystectomy, Colonoscopy, Hysterectomy-Total, Plastic Surgery Amputation: No Fractures: Yes - *Social History Smoking Status: Never smoker Alcohol Intake: never *Occupational Status:: other Housing: house Household Members: spouse *Travel in the last 8 weeks: None Family Hx:: Cancer, Diabetes, Hyperlipidemia, Stroke
[2020-10-18 10:09] VITALS: BP 140/74; PULSE 85; RESP 18; TEMP 36.6; O2SAT 99; BMI 38.8
== END ==
PROVIDERS: PCP Internal Medicine Adolescent Medicine; Visit Provider Clinical Nurse Specialist Family Health
DX: M51.16 Intervertebral disc disorders with radiculopathy, lumbar region (principal)
CPT/HCPCS: 99212; G0463

== ENCOUNTER → 2020-12-13 13:34 | Outpatient (CLI) | payer MEDICARE, SELFPAY ==
--- NOTE | 2020-12-13 | CA_ITS ---
APPROVED REPORT Left Lower Extremity Venous Study for DVT. Manager Gaming: TABBY Indications Lower Extremity Pain: Left Lower Extremity Edema: Left HTN, HLD, DM. Patient states 12/08/20 that left leg began hurting with no known trauma. Pain begins in the popliteal region and extends to ankle in posterior leg and calf. Medications Plavix Vein Imaging CFV (L): compressive, spontaneous, phasic, augmentation FEM (L): compressive, spontaneous, phasic, augmentation POP (L): compressive, spontaneous, phasic, augmentation PTV (L): Compressible GSV (L): Thrombus SSV (L): Compressible Peroneals (L):Not Visualized GAS (L): Compressible Findings No evidence of DVT in the veins scanned of the left lower extremity. SVT seen the distal GSV of the left lower extremity. Conclusion No evidence of DVT in the veins scanned of the left lower extremity. SVT seen the distal GSV of the left lower extremity. Electronically signed by : Lesa Kent, 12/15/2020 17:24:32
== END ==
PROVIDERS: PCP Internal Medicine Adolescent Medicine; Visit Provider Internal Medicine Adolescent Medicine
DX: M79.605 Pain in left leg (principal)
CPT/HCPCS: 93971

== ENCOUNTER → 2020-12-21 11:07 | Outpatient (CLI) | payer MEDICARE, SELFPAY ==
--- NOTE | 2020-12-21 | XR_ITS ---
PROCEDURE: XR HIP LT 2-3V W/PELVIS CLINICAL INDICATION: LT HIP PAIN COMPARISON: No exams were available for comparison FINDINGS: AP view of the pelvis shows mild bilateral osteoarthritic changes of the hips. There is loss of joint space medially with osteosclerosis of the acetabular roof and acetabular osteophyte formation slightly greater on the left. No acute fracture or dislocation. No lytic or blastic change.. Facet arthritic changes are present at L5-S1 junction IMPRESSION: Osteoarthritis of the hips overall not significantly changed. Dictated by: Qamar Escobar MD 12/21/2020 12:29 Qamar Escobar MD in [place] 12/21/2020 12:29
--- NOTE | 2020-12-21 | XR_ITS ---
PROCEDURE: XR KNEE LT 3V CLINICAL INDICATION: ACUTE PAIN OF LT KNEE COMPARISON: CR [id number] KNEE-LIMITED 2 VIEWS-LT from 07/30/2014 CR [id number] XR knee RT 3V from 12/29/2017 FINDINGS: No fracture or dislocation. No lytic or blastic change. There is normal mineralization. Mild osteoarthritic changes involve all 3 compartments. There may be a small suprapatellar effusion. Vascular calcification is noted. Small osteophyte is present along the medial femoral condyle and could be due to old ligamentous injury. Other findings:None. IMPRESSION: Mild osteoarthritis with small knee joint effusion Dictated by: Qamar Escobar MD 12/21/2020 12:41 Qamar Escobar MD in [place] 12/21/2020 12:41
== END ==
PROVIDERS: PCP Internal Medicine Adolescent Medicine; Visit Provider Internal Medicine Adolescent Medicine
DX: M25.552 Pain in left hip (principal); M25.562 Pain in left knee
CPT/HCPCS: 73502; 73562

== ENCOUNTER → 2021-01-05 10:40 | Outpatient (CLI) | payer MEDICARE, SELFPAY ==
--- NOTE | 2021-01-05 10:46 | XR_ITS ---
PROCEDURE: XR KNEE LT 4V CLINICAL INDICATION: LT knee pain Chronic left knee pain COMPARISON: CR [id number] KNEE-LIMITED 2 VIEWS-LT from 07/30/2014 CR [id number] XR knee RT 3V from 12/29/2017 CR XR KNEE LT 3V from 12/21/2020 FINDINGS: No fracture or dislocation. No lytic or blastic change. There is normal mineralization. There are mild osteoarthritic changes involving all 3 compartments with decrease in the joint space medially and laterally and mild osteophyte formation. There may be a small suprapatellar effusion. Other findings:None. IMPRESSION: Mild osteoarthritis with small knee joint effusion Dictated by: Qamar Escobar MD 01/05/2021 14:22 Qamar Escobar MD in [place] 01/05/2021 14:22
== END ==
PROVIDERS: PCP Internal Medicine Adolescent Medicine; Visit Provider Orthopaedic Surgery
DX: M25.562 Pain in left knee (principal)
CPT/HCPCS: 73564

== ENCOUNTER → 2021-01-20 12:56 | Outpatient (POV) | payer MEDICARE, SELFPAY ==
[2021-01-20 13:08] VITALS: BP 152/92; PULSE 75; RESP 18; O2SAT 98; BMI 38.7
--- NOTE | 2021-01-20 13:31 | HMH.PAINSOAP ---
[facility] Pain Management SOAP Note Subjective:: 70-year-old white female who presents today for follow-up and medication refills. She is being treated for pain secondary to degenerative disc disease lumbar spine with lumbar radiculopathy symptoms. She rates her pain a 7 out of 10 mostly in her left knee. Patient overall doing well she denies any side effects to her current morphine sulfate extended release 15 mg once a day and morphine sulfate extended release 30 mg once a day. Her Shane reviewed and appropriate. Drug screens have been appropriate. Her morphine equivalent is 45. ROS General: no recent weight change, no fever, no sleep disturbances Respiratory: no cough, no shortness of air, no recurring pulmonary infections Cardiovascular/Peripheral Vascular: No chest pain, No palpitations, no edema, no shortness of breath. Gastrointestinal: no new onset incontinence, normal bowel movements reported Genitourinary: no new onset incontinence Musculoskeletal: Back pain, leg pain Psychiatric: normal mood/ affect Neurological: [denies new onset weakness in extremities], [denies new onset balance issues] Objective:: Physical Exam General: Alert and oriented x3, no acute distress, pleasant and cooperative, [on room air] Lungs: Resps E/U, Symmetrical chest expansion, Eyes: PERRL Musculoskeletal: Flexion and extension of lumbar spine somewhat guarded secondary to pain, deep tendon reflexes normal, strength in upper and lower extremities [5/5], [abnormal gait noted] Neurological: speech clear, 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 daily and morphine 30 mg 1 tab p.o. daily we will give her 2 months worth of medication and she can apple picker 1 in the interim. We will schedule her for a return appointment in 3 months. Patient has been prescribed a controlled substance after being counseled on the medication, medication safety, and possible side effects. [facility] report has been obtained and reviewed prior to prescription and found to be appropriate. Opioid contract was reviewed and signed by the patient, and that they have agreed to all of the terms set forth by our compliance program. Dr. Dudley has reviewed this note and agrees with this plan of care. This note was dictated using voice recognition software and may contain errors or omissions [facility] History I have reviewed the patient's past medical history: Yes Medical History: Reports:: Atrial Fibrillation, Deep Vein Thrombosis, Diabetes Mellitus Type 2, Hyperlipidemia, Hypertension Denies:: Cancer, Diabetes Mellitus Type 1, MRSA *Have you ever received a pneumonia vaccine?: Yes *Have you received a flu vaccine this season?: Yes Other Medical History: Reports: Arthritis, Cataracts, Thyroid Disease Laterality Cases: Bilateral: Breast Biopsy Other Surgeries: Yes: No Previous Surgery, Cardiac Catheterization, Cholecystectomy, Colonoscopy, Hysterectomy-Total, Plastic Surgery Amputation: No Fractures: Yes - *Social History Smoking Status: Never smoker Alcohol Intake: never *Occupational Status:: retired Housing: house Household Members: spouse *Travel in the last 8 weeks: None Family Hx:: Cancer, Diabetes, Hyperlipidemia, Stroke
== END ==
PROVIDERS: PCP Internal Medicine Adolescent Medicine; Visit Provider Clinical Nurse Specialist Family Health
DX: M51.16 Intervertebral disc disorders with radiculopathy, lumbar region (principal)
CPT/HCPCS: 99212; G0463

== ENCOUNTER → 2021-03-15 22:04 | Outpatient (CLI) | payer MEDICARE, SELFPAY ==
[2021-03-15 22:19] LABS: Basophils % 0.6 % (0.1-2.0); Eosinophils # 0.2 K/mm3 (0.0-0.4); Eosinophils % 2.5 % (0.1-12.0); Hematocrit 40.8 % (37.0-47.0); Hemoglobin 12.8 g/dL (12.2-16.2); Lymphocytes # 1.5 K/mm3 (0.7-4.5); Lymphocytes % 21.1 % (10-50); Mean Corpuscular HGB Conc 31.4 g/dL (31.8-35.4); Mean Corpuscular Hemoglobin 30.6 pg (27.0-31.2); Mean Corpuscular Volume 97.4 fl (81-99); Mean Platelet Volume 8.7 fl (7.4-10.4); Monocytes # 0.2 K/mm3 (0.1-1.0); Monocytes % 3.5 % (1.7-9.3); Neutrophils % 72.3 % (37.0-80.0); Platelet Count 211 K/mm3 (142-424); Red Blood Count 4.18 M/mm3 (4.20-5.40); Red Cell Distribution Width 13.1 % (11.5-17.5); White Blood Count 6.9 K/mm3 (4.8-10.8)
[2021-03-15 22:46] LABS: Alanine Aminotransferase 10 U/L (12-78); Albumin Level 3.8 g/dl (3.5-5.0); Albumin/Globulin Ratio 1.2 (1.1-1.8); Alkaline Phosphatase 94 U/L (38-126); Anion Gap 14.3 mEq/L (5-15); Aspartate Amino Transferase 24 U/L (14-36); Bilirubin,Total 0.4 mg/dl (0.2-1.3); Blood Urea Nitrogen 17 mg/dl (7-17); Carbon Dioxide 32 mmol/L (22.0-30.0); Chloride 102 mmol/L (98-107); Chol/HDL Ratio 3.8 (1-3.5); Cholesterol 200 mg/dl (140-200); Estimated Glomerular Filt Rate 70 ml/min (>60); GFR (African American) 85 ML/MIN (>60); Globulin 3.2 g/dL (1.3-3.2); Glucose 74 mg/dl (74-100); HDL Cholesterol 52 mg/dl (40-60); Potassium 4.3 mmoL/L (3.5-5.1); Sodium 144 mmol/L (136-145); Triglycerides 142 mg/dl (30-150); VLDL Cholesterol 28 mg/dL (0-40)
[2021-03-15 22:57] LABS: Direct LDL Cholesterol 108.59 mg/dL (100-129)
[2021-03-15 23:18] LABS: Thyroid Stimulating Hormone 2.76 uIU/mL (0.465-4.68)
[2021-03-15 23:36] LABS: Vitamin B12 975 pg/mL (239-931)
[2021-03-16 00:08] LABS: 25-OH Vitamin D, Total 27.7 ng/mL (30-100)
[2021-03-16 07:50] LABS: Hemoglobin A1C 5.4 % (4.0-6.0)
== END ==
PROVIDERS: Visit Provider Internal Medicine Adolescent Medicine
DX: E11.9 Type 2 diabetes mellitus without complications (principal); R29.6 Repeated falls; R27.0 Ataxia, unspecified; E55.9 Vitamin D deficiency, unspecified
CPT/HCPCS: 80053; 80061; 82306; 82607; 83036; 84443; 85025

== ENCOUNTER → 2021-03-31 09:14 | Outpatient (POV) | payer MEDICARE, SELFPAY ==
[2021-03-31 09:26] VITALS: BP 128/77; PULSE 74; RESP 18; O2SAT 96; BMI 38.7
--- NOTE | 2021-03-31 10:48 | HMH.PAINSOAP ---
[facility] Pain Management SOAP Note Subjective:: Patient is a pleasant 71-year-old white female who presents today for medication refills and for follow-up. She has been treated for degenerative disc disease lumbar spine with lumbar radiculopathy symptoms chronic low back pain. She is managed with morphine 15 mg 1 tablet p.o. daily and morphine 30 mg 1 tablet p.o. daily. She denies any side effects. Her pain is a 6 out of 10 which is her baseline. She says the medication is working well for her. She says it gives her up to 60 to 70% relief. Her Shane #[id number] has been reviewed and is appropriate. Morphine equivalent is 45. Review of Systems General: No recent weight changes, no fever, no sleep disturbances Respiratory: No cough, no shortness of air, no recurring pulmonary infections Cardiovascular/peripheral vascular: No chest pain, no palpitations, no edema, no shortness of breath Gastrointestinal: No new onset incontinence, normal bowel movements reported Genitourinary: No new onset incontinence Musculoskeletal: Chronic low back pain Psychiatric: Normal mood/affect Neurological: [Denies weakness in extremities], [denies balance issues] Objective:: Physical exam General: Alert and oriented x3, no acute distress, pleasant and cooperative, [on room air] Lungs: Respirations even and unlabored, symmetrical chest expansion Eyes: PERRL Musculoskeletal: Flexion and extension of [] lumbar spine somewhat guarded secondary to pain, deep tendon reflexes normal, strength in upper and lower extremities [5/5], [abnormal gait noted] Neurological: Speech clear, logistics vice president equal, no gross sensory deficit Assessment:: Degenerative disc disease lumbar spine with lumbar radiculopathy symptoms, chronic low back pain Plan:: We will refill the patient morphine 15 mg 1 tablet p.o. daily and morphine ER 30 mg 1 tablet p.o. daily. We will give the patient a month medication see her back in the clinic in 1 month for reevaluation of symptoms. She did undergo drug screen today. Risks and benefits of the medication have been explained in detail to the patient. The patient has been advised to consult with his/her primary care provider and pharmacist regarding drug-drug interaction of medications currently prescribed. Patient has been instructed to contact the clinic with any concerns before the next appointment. Dr. Dudley has reviewed this note and agrees with this plan of care. This note was dictated using voice recognition software and make contain errors or omissions. Patient has been prescribed a controlled substance after being counseled on the medication, medication safety, and possible side effects. SHANE report has been obtained and reviewed prior to prescription and found to be appropriate. Opioid contract was reviewed and signed by the patient, and that they have agreed to all of the terms set forth by our compliance program. [facility] History I have reviewed the patient's past medical history: Yes Medical History: Reports:: Atrial Fibrillation, Deep Vein Thrombosis, Diabetes Mellitus Type 2, Hyperlipidemia, Hypertension Denies:: Cancer, Diabetes Mellitus Type 1, MRSA *Have you ever received a pneumonia vaccine?: Yes *Have you received a flu vaccine this season?: Yes Other Medical History: Reports: Arthritis, Cataracts, Thyroid Disease Laterality Cases: Bilateral: Breast Biopsy Other Surgeries: Yes: No Previous Surgery, Cardiac Catheterization, Cholecystectomy, Colonoscopy, Hysterectomy-Total, Plastic Surgery Amputation: No Fractures: Yes - *Social History Smoking Status: Never smoker Alcohol Intake: never *Occupational Status:: unemployed Housing: house Household Members: spouse *Travel in the last 8 weeks: None Family Hx:: Cancer, Diabetes, Hyperlipidemia, Stroke
== END ==
PROVIDERS: PCP Internal Medicine Adolescent Medicine; Visit Provider Clinical Nurse Specialist Family Health
DX: M51.16 Intervertebral disc disorders with radiculopathy, lumbar region (principal); G89.29 Other chronic pain
CPT/HCPCS: 99212; G0463

== ENCOUNTER → 2021-04-28 09:07 | Outpatient (POV) | payer MEDICARE, SELFPAY ==
[2021-04-28 09:29] VITALS: BP 141/93; PULSE 77; RESP 18; O2SAT 99; BMI 38.7
--- NOTE | 2021-04-28 09:45 | HMH.PAINSOAP ---
[facility] Pain Management SOAP Note Subjective:: Patient is a 71-year-old white female who presents today for medication refills and follow-up. The patient is being treated for chronic low back pain due to degenerative disc disease lumbar spine and lumbar radicular symptoms. Patient says her pain is a 6 out of 10 today. She is getting about 60 to 70% relief with her medicine. She takes morphine 15 mg 1 tablet p.o. daily and morphine 30 mg 1 tablet p.o. daily. She denies any side effects. Her Shane #[id number] has been reviewed and is appropriate. Morphine equivalent is 45. Drug screens have been appropriate. Review of Systems General: No recent weight changes, no fever, no sleep disturbances Respiratory: No cough, no shortness of air, no recurring pulmonary infections Cardiovascular/peripheral vascular: No chest pain, no palpitations, no edema, no shortness of breath Gastrointestinal: No new onset incontinence, normal bowel movements reported Genitourinary: No new onset incontinence Musculoskeletal: Chronic low back pain Psychiatric: [Normal mood/affect] Neurological: [Denies weakness in extremities], [denies balance issues] Objective:: Physical exam General: Alert and oriented x3, no acute distress, pleasant and cooperative, [on room air] Lungs: Respirations even and unlabored, symmetrical chest expansion Eyes: PERRL Musculoskeletal: Flexion and extension of [] lumbar [spine] somewhat guarded secondary to pain, strength in upper and lower extremities [5/5], [antalgic gait noted] Neurological: Speech clear, [business writer equal], no gross sensory deficit Assessment:: Degenerative disc disease lumbar spine with lumbar radiculopathy symptoms, chronic low back pain Plan:: We will refill the patient's morphine 15 mg 1 tablet p.o. daily and morphine 30 mg 1 tablet p.o. daily. She will get a month medication and will be seen in the clinic in 1 month for reevaluation of symptoms. Risks and benefits of the medication have been explained in detail to the patient. The patient has been advised to consult with his/her primary care provider and pharmacist regarding drug-drug interaction of medications currently prescribed. Patient has been instructed to contact the clinic with any concerns before the next appointment. Dr. Dudley has reviewed this note and agrees with this plan of care. This note was dictated using voice recognition software and make contain errors or omissions. Patient has been prescribed a controlled substance after being counseled on the medication, medication safety, and possible side effects. SHANE report has been obtained and reviewed prior to prescription and found to be appropriate. Opioid contract was reviewed and signed by the patient, and that they have agreed to all of the terms set forth by our compliance program. [facility] History I have reviewed the patient's past medical history: Yes Medical History: Reports:: Atrial Fibrillation, Deep Vein Thrombosis, Diabetes Mellitus Type 2, Hyperlipidemia, Hypertension Denies:: Cancer, Diabetes Mellitus Type 1, MRSA *Have you ever received a pneumonia vaccine?: No *Have you received a flu vaccine this season?: No Other Medical History: Reports: Arthritis, Cataracts, Thyroid Disease Laterality Cases: Bilateral: Breast Biopsy Other Surgeries: Yes: No Previous Surgery, Cardiac Catheterization, Cholecystectomy, Colonoscopy, Hysterectomy-Total, Plastic Surgery Amputation: No Fractures: Yes - *Social History Smoking Status: Never smoker Alcohol Intake: never *Occupational Status:: unemployed Housing: house Household Members: spouse *Travel in the last 8 weeks: None Family Hx:: Cancer, Diabetes, Hyperlipidemia, Stroke
[2021-04-28 10:37] LABS: Amphetamine/Metha Screen,Urine Negative ng/ml (<1000)
[2021-04-28 10:38] LABS: Barbiturates Screen,Urine Negative ng/ml (<200)
[2021-04-28 10:39] LABS: Benzodiazepines Screen,Urine Negative ng/ml (<200); Cannabinoid Screen,Urine Negative ng/ml (<50)
[2021-04-28 10:40] LABS: Cocaine Screen,Urine Negative ng/ml (<300)
[2021-04-28 10:41] LABS: Methadone Screen,Urine Negative ng/ml (<300); Opiate Screen,Urine Positive ng/ml (<300)
[2021-04-28 10:42] LABS: Phencyclidine Screen,Urine Negative ng/ml (<25)
[2021-05-06 13:10] LABS: Codeine Negative (Cutoff=100); Hydrocodone Negative (Cutoff=100); Hydromorphone Negative (Cutoff=100); Morphine Positive (.); Opiates Positive (.)
== END ==
PROVIDERS: Visit Provider Clinical Nurse Specialist Family Health
DX: M51.16 Intervertebral disc disorders with radiculopathy, lumbar region (principal); G89.29 Other chronic pain; Z79.891 Long term (current) use of opiate analgesic
CPT/HCPCS: 80305; 80361; 80365; 99212; G0463; G0480

== ENCOUNTER → 2021-05-26 09:31 | Outpatient (POV) | payer MEDICARE, SELFPAY ==
[2021-05-26 09:39] VITALS: BP 169/89; PULSE 63; RESP 18; O2SAT 98; BMI 37.7
--- NOTE | 2021-05-26 09:52 | HMH.PAINSOAP ---
[facility] Pain Management SOAP Note Subjective:: Patient is a 61-year-old white female who presents today for medication refills. She is being treated for degenerative disc disease lumbar spine with lumbar radiculopathy symptoms. Patient's pain is a 6 out of 10. Patient says she is doing well overall with her medication regimen. She did do a virtual visit at her last follow-up. She and I did discuss doing a virtual visit at next follow-up so that she is not traveling or in the clinic due to risk of exposure to Covid. She does have other comorbidities that does place her at risk. Patient is managed with morphine 15 mg 1 tablet p.o. daily and morphine 30 mg 1 tablet p.o. daily. She denies any side effects. The patient's Shane #[id number] has been reviewed and is appropriate. Morphine equivalent is 45. Drug screen is appropriate. She did undergo a urinalysis at her last in person visit. Patient does continue with home stretching. She has tried physical therapy in the past and did not get any significant relief. She has also had injections in the past with no long-term relief. Review of Systems General: No recent weight changes, no fever, no sleep disturbances Respiratory: No cough, no shortness of air, no recurring pulmonary infections Cardiovascular/peripheral vascular: No chest pain, no palpitations, no edema, no shortness of breath Gastrointestinal: No new onset incontinence, normal bowel movements reported Genitourinary: No new onset incontinence Musculoskeletal: Chronic low back pain Psychiatric: [Normal mood/affect] Neurological: [Denies weakness in extremities], [denies balance issues] Objective:: Physical exam General: Alert and oriented x3, no acute distress, pleasant and cooperative, [on room air] Lungs: Respirations even and unlabored, symmetrical chest expansion Eyes: PERRL Musculoskeletal: Flexion and extension of [lumbar] [spine] somewhat guarded secondary to pain, strength in upper and lower extremities [5/5], [antalgic gait noted] Neurological: Speech clear, [stock shipper equal], no gross sensory deficit Assessment:: Degenerative disc disease lumbar spine with lumbar radiculopathy symptoms Plan:: We will refill the patient's morphine 15 mg 1 tablet p.o. daily, morphine 30 mg 1 tablet p.o. daily. We will give her a month medication and plan for virtual visit at her next follow-up. Risks and benefits of the medication have been explained in detail to the patient. The patient has been advised to consult with his/her primary care provider and pharmacist regarding drug-drug interaction of medications currently prescribed. Patient has been prescribed a controlled substance after being counseled on the medication, medication safety, and possible side effects. SHANE report has been obtained and reviewed prior to prescription and found to be appropriate. Opioid contract was reviewed and signed by the patient, and that they have agreed to all of the terms set forth by our compliance program. Patient has been instructed to contact the clinic with any concerns before the next appointment. Dr. Dudley has reviewed this note and agrees with this plan of care. This note was dictated using voice recognition software and make contain errors or omissions. [facility] History I have reviewed the patient's past medical history: Yes Medical History: Reports:: Atrial Fibrillation, Deep Vein Thrombosis, Diabetes Mellitus Type 2, Hyperlipidemia, Hypertension Denies:: Cancer, Diabetes Mellitus Type 1, MRSA *Have you ever received a pneumonia vaccine?: Yes *Have you received a flu vaccine this season?: Yes Other Medical History: Reports: Arthritis, Cataracts, Thyroid Disease Laterality Cases: Bilateral: Breast Biopsy Other Surgeries: Yes: No Previous Surgery, Cardiac Catheterization, Cholecystectomy, Colonoscopy, Hysterectomy-Total, Plastic Surgery Amputation: No Fractures: Yes - *Social History Smoking Status: Never smoker Alcohol Intake: ne
== END ==
PROVIDERS: PCP Internal Medicine Adolescent Medicine; Visit Provider Clinical Nurse Specialist Family Health
DX: M51.16 Intervertebral disc disorders with radiculopathy, lumbar region (principal)
CPT/HCPCS: 99212; G0463

== ENCOUNTER → 2021-06-23 10:17 | Outpatient (POV) | payer MEDICARE, SELFPAY ==
--- NOTE | 2021-06-23 10:20 | HMH.VVPMSO ---
[facility] PM Virtual Visit SOAP Consent for virtual visit:: With the recent concerns about the COVID-19, we are trying to minimize exposure to you by shifting to telehealth appointments whenever possible. It restricts me from seeing you in person, but the trade off is protecting you during this pandemic. Can you see and hear me okay, and do you consent to this option? If not, I would be happy to see if we can reschedule your appointment in the future, when feasible. Has patient consented to this virtual visit?: Yes Subjective:: Patient is a 71-year-old female who presents via telehealth audio visit today. The patient is following up for medication refills. Patient does have chronic low back pain with lumbar radicular symptoms. She does undergo injective therapy as needed. She has had physical therapy in the past and continues with home stretching. The patient is managed with morphine 15 mg 1 tablet p.o. daily and morphine 30 mg 1 tablet p.o. daily. She denies any side effects to these medications. She says it does give her significant relief of her pain. The patient's Shane #[id number] has been reviewed and is appropriate. Drug screen is appropriate. Patient's morphine equivalent is 45. Review of Systems General: No recent weight changes, no fever, no sleep disturbances Respiratory: No cough, no shortness of air, no recurring pulmonary infections Cardiovascular/peripheral vascular: No chest pain, no palpitations, no edema, no shortness of breath Gastrointestinal: No new onset incontinence, normal bowel movements reported Genitourinary: No new onset incontinence Musculoskeletal: Chronic low back pain Psychiatric: [Normal mood/affect] Neurological: [Denies weakness in extremities], [denies balance issues] Objective:: Physical exam General: Alert and oriented x3, no acute distress, pleasant and cooperative, [on room air] Lungs: Respirations even and unlabored, symmetrical chest expansion Eyes: PERRL Musculoskeletal: Flexion and extension of lumbar [spine] somewhat guarded secondary to pain, strength in upper and lower extremities [5/5], [antalgic gait noted] Neurological: Speech clear, [olive grower equal], no gross sensory deficit Assessment:: Degenerative disc disease lumbar spine with lumbar radiculopathy symptoms Plan:: We will refill the patient's morphine 15 mg 1 tablet p.o. daily and morphine 30 mg 1 tablet p.o. daily. We will give the patient a month medication we will see her back in 1 month. Patient did rate her pain a 6.5 out of 10 today. We will order the patient Narcan due to high risk of oversedation with morphine equivalent of 45 a medications of morphine. She does understand she is at a risk of oversedation with these medications. Risks and benefits of the medication have been explained in detail to the patient. The patient has been advised to consult with his/her primary care provider and pharmacist regarding drug-drug interaction of medications currently prescribed. Patient has been prescribed a controlled substance after being counseled on the medication, medication safety, and possible side effects. SHANE report has been obtained and reviewed prior to prescription and found to be appropriate. Opioid contract was reviewed and signed by the patient, and that they have agreed to all of the terms set forth by our compliance program. Patient has been instructed to contact the clinic with any concerns before the next appointment. Dr. Dudley has reviewed this note and agrees with this plan of care. This note was dictated using voice recognition software and make contain errors or omissions. Time In:: 10:10 Time Out:: 10:23 [facility] History I have reviewed the patient's past medical history: Yes Medical History: Reports:: Atrial Fibrillation, Deep Vein Thrombosis, Diabetes Mellitus Type 2, Hyperlipidemia, Hypertension Denies:: Cancer, Diabetes Mellitus Type 1, MRSA *Have you ever received a pneumonia vaccine?: Yes *Hussein
== END ==
PROVIDERS: Visit Provider Clinical Nurse Specialist Family Health
DX: M51.16 Intervertebral disc disorders with radiculopathy, lumbar region (principal)
CPT/HCPCS: 99212; G0463

== ENCOUNTER 2021-07-09 13:38 | Emergency (ER) | payer MEDICARE, SELFPAY ==
[2021-07-09 14:12] VITALS: BP 169/94; PULSE 77; RESP 18; TEMP 36.6; O2SAT 97; BMI 38.2
--- NOTE | 2021-07-09 14:27 | XR_ITS ---
PROCEDURE INFORMATION: Exam: XR Left Elbow Exam date and time: 07/09/2021 2:27 PM Age: 71 years old Clinical indication: Pain; Elbow; Bilateral; Additional info: Fall TECHNIQUE: Imaging protocol: XR Left elbow. Views: 3 or more views. COMPARISON: CR XR ELBOW LT 2V 06/22/2019 10:36 AM FINDINGS: Bones/joints: There is no evidence of acute fracture. There is no evidence of joint malalignment or dislocation. Soft tissues: No focal soft tissue swelling. IMPRESSION: 1. No evidence of acute fracture. 2. No evidence of acute dislocation.
--- NOTE | 2021-07-09 14:27 | XR_ITS ---
PROCEDURE INFORMATION: Exam: XR Right Elbow Exam date and time: 07/09/2021 2:27 PM Age: 71 years old Clinical indication: Pain; Elbow; Bilateral; Additional info: Fall TECHNIQUE: Imaging protocol: XR Right elbow. Views: 3 or more views. COMPARISON: CR ELBOWCMRT XR elbow RT min 3V 04/13/2018 6:34 PM FINDINGS: Bones/joints: There is no evidence of acute fracture. There is no evidence of joint malalignment or dislocation. Soft tissues: No focal soft tissue swelling. IMPRESSION: 1. No evidence of acute fracture. 2. No evidence of acute dislocation.
--- NOTE | 2021-07-09 15:47 | HMH.EDUTC ---
[facility] [place] Clinical Impression: Skin tear Fall Qualifiers: Encounter type: initial encounter Qualified Code(s): W19.XXXA - Unspecified fall, initial encounter Disposition: Home, Self-Care Condition on Discharge: Good Instructions: Contusion, DI for Abrasion, DI for Elbow Pain, Tetanus, Diphtheria, Pertussis (Tdap) Vaccine Additional Instructions: Rest the extremity, apply ice for 15 minutes as tolerated three or four times per day, Elevate the extremity as tolerated while you are resting. Take tylenol for pain. Follow up with Dr. Kent (orthopedics) if you continue to have elbow pain. The x-rays were ok, but sometimes there can be things that don't show up well on x-rays, like tendon or ligament injuries. So, follow up if you don't seem to be getting better as fast as you should. I put in a referral but you need to call his office and schedule an appointment. Follow up with your regular doctor. GO TO THE ER FOR ANY WORSENING SYMPTOMS Prescriptions: Mupirocin [Bactroban 2% Ointment 22gm tube] 1 applicatio TP TID 7 Days #1 gm Transmission Status: Sent to [facility] cephALEXin [cephALEXin 500mg capsule] 500 mg PO Q6H 10 Days #40 cap Transmission Status: [facility] to [facility] Referrals: Ari Coates MD [Primary Care Provider] - Sebastien Kent MD [Staff Physician] - Time of Disposition: 15:51 Medical Decision Making - Medical Records Medical records reviewed: No: I reviewed the patient's medical records. - Asif Inquiry Pt receiving controlled substance: No Vital Signs: 07/09/21 14:12 07/09/21 15:53 Temperature 98 F 98.2 F Temperature Source Oral Pulse Rate 70 Pulse Rate [Radial] 77 Respiratory Rate 18 19 Blood Pressure 155/85 H Blood Pressure [Right Arm] 169/94 H Blood Pressure Mean [Right Arm] 119 02 Sat by Pulse Oximetry 97 Orders (Tests/Meds): ED MEDICATIONS Discontinued Medications Generic Name Dose Route Start Last Admin Trade Name Freq PRN Reason Stop Dose Admin Tetanus/Reduced Diphtheria/Acell Pertussis 0.5 ml 07/09/21 15:20 07/09/21 15:29 Tet/Diphth/Pert-Adult 0.5ml Syringe IM 07/09/21 15:21 0.5 ml .ONCE ONE Administration - Radiology Data #1 Image(s): Elbow Image Reviewed: Yes I reviewed the patient's radiology image, Yes I have reviewed radiologist's interpretation Preliminary Findings: Normal/NAD, No Fracture Seen PROCEDURE INFORMATION: Exam: XR Left Elbow Exam date and time: 07/09/2021 2:27 PM Age: 71 years old Clinical indication: Pain; Elbow; Bilateral; Additional info: Fall TECHNIQUE: Imaging protocol: XR Left elbow. Views: 3 or more views. COMPARISON: CR XR ELBOW LT 2V 06/22/2019 10:36 AM FINDINGS: Bones/joints: There is no evidence of acute fracture. There is no evidence of joint malalignment or dislocation. Soft tissues: No focal soft tissue swelling. IMPRESSION: 1. No evidence of acute fracture. 2. No evidence of acute dislocation. #2 Image(s): Elbow Image Reviewed: Yes I reviewed the patient's radiology image, Yes I have reviewed radiologist's interpretation Preliminary Findings: Normal/NAD, No Fracture Seen PROCEDURE INFORMATION: Exam: XR Right Elbow Exam date and time: 07/09/2021 2:27 PM Age: 71 years old Clinical indication: Pain; Elbow; Bilateral; Additional info: Fall TECHNIQUE: Imaging protocol: XR Right elbow. Views: 3 or more views. COMPARISON: CR ELBOWCMRT XR elbow RT min 3V 04/13/2018 6:34 PM FINDINGS: Bones/joints: There is no evidence of acute fracture. There is no evidence of joint malalignment or dislocation. Soft tissues: No focal soft tissue swelling. IMPRESSION: 1. No evidence of acute fracture. 2. No evidence of acute dislocation. Medical Decision Narr
[2021-07-09 15:53] VITALS: BP 155/85; PULSE 70; RESP 19; TEMP 36.8; O2SAT 98
== END 2021-07-09 15:58 | disposition home or self-care (01) ==
PROVIDERS: Emergency Provider Nurse Practitioner Family; PCP Internal Medicine Adolescent Medicine
DX: S51.011A Laceration without foreign body of right elbow, initial encounter (principal); W01.0XXA Fall on same level from slipping, tripping and stumbling without subsequent striking against object, initial encounter; Y92.89 Other specified places as the place of occurrence of the external cause; I48.0 Paroxysmal atrial fibrillation; Z23 Encounter for immunization; E11.9 Type 2 diabetes mellitus without complications; E78.5 Hyperlipidemia, unspecified; I10 Essential (primary) hypertension
CPT/HCPCS: G0463; 73080; 90715; 99202

== ENCOUNTER → 2021-07-25 09:43 | Outpatient (POV) | payer MEDICARE, SELFPAY ==
[2021-07-25 09:56] VITALS: BP 174/92; PULSE 78; RESP 18; O2SAT 98; BMI 38.5
--- NOTE | 2021-07-25 10:24 | HMH.PAINSOAP ---
[facility] Pain Management SOAP Note Subjective:: Patient is a 71-year-old white female who presents today for medication refills. Patient was seen via telehealth visit last visit to decrease Covid exposure. She is following up for chronic low back pain. She does have pain in her lower extremities well. Patient does undergo injective therapy as needed and does get relief for 2 to 3 weeks generally with injections. Patient does have chronic low back pain as well as pain in the bilateral lower extremities. Pain is made worse with standing and walking and does improve somewhat with sitting. We do manage the patient with morphine 15 mg 1 tablet p.o. daily and morphine 30 mg 1 tablet p.o. daily. She says she is doing well with the medication regimen and does rate her pain a 6.5 out of 10 today. Patient's Shane #[id number] has been reviewed and is appropriate. The patient's morphine equivalent is 45. Drug screens have been appropriate. She denies any side effects to the medication. Review of Systems General: No recent weight changes, no fever, no sleep disturbances Respiratory: No cough, no shortness of air, no recurring pulmonary infections Cardiovascular/peripheral vascular: No chest pain, no palpitations, no edema, no shortness of breath Gastrointestinal: No new onset incontinence, normal bowel movements reported Genitourinary: No new onset incontinence Musculoskeletal: Low back pain, bilateral leg pain Psychiatric: [Normal mood/affect] Neurological: [Denies weakness in extremities], [denies balance issues] Objective:: Physical exam General: Alert and oriented x3, no acute distress, pleasant and cooperative Lungs: Respirations even and unlabored, symmetrical chest expansion Eyes: PERRL Musculoskeletal: Flexion and extension of lumbar [spine] somewhat guarded secondary to pain, [antalgic gait noted] Neurological: Speech clear, no gross sensory deficit Assessment:: Degenerative disc disease lumbar spine with lumbar radiculopathy symptoms Plan:: Low low sounds like you got the cough (come in after you O to get into troubles pain when normocellular we will refill the patient's morphine 15 mg 1 tablet p.o. daily and morphine 30 mg 1 tablet p.o. daily. Patient will be given a month medication. We will also order Narcan for the patient for risk of oversedation. Patient's morphine equivalent is 45. Risks and benefits of the medication have been explained in detail to the patient. The patient does understand the risk of dependence on the medication when given over a prolonged period. Patient has been advised of risks of oversedation with the prescribed medication. Narcan has been offered to the paitent in the event of oversedation. Patient has been advised that a family member should also be educated regarding administration of Narcan. The patient has been advised to consult with his/her primary care provider and pharmacist regarding drug-drug interaction of medications currently prescribed. Patient has been prescribed a controlled substance after being counseled on the medication, medication safety, and possible side effects. SHANE report has been obtained and reviewed prior to prescription and found to be appropriate. Opioid contract was reviewed and signed by the patient, and that they have agreed to all of the terms set forth by our compliance program. Patient has been instructed to contact the clinic with any concerns before the next appointment. Dr. Dudley has reviewed this note and agrees with this plan of care. This note was dictated using voice recognition software and make contain errors or omissions. [facility] History I have reviewed the patient's past medical history: Yes Medical History: Reports:: Atrial Fibrillation, Deep Vein Thrombosis, Diabetes Mellitus Type 2, Hyperlipidemia, Hypertension Denies:: Cancer, Diabetes Mellitus Type 1, MRSA *Have you ever received a pneumonia vaccine?: Yes *Have you received
[2021-07-25 15:47] LABS: Amphetamine/Metha Screen,Urine Negative ng/ml (<1000)
[2021-07-25 15:48] LABS: Barbiturates Screen,Urine Negative ng/ml (<200)
[2021-07-25 15:49] LABS: Benzodiazepines Screen,Urine Negative ng/ml (<200); Cannabinoid Screen,Urine Negative ng/ml (<50)
[2021-07-25 15:50] LABS: Cocaine Screen,Urine Negative ng/ml (<300); Methadone Screen,Urine Negative ng/ml (<300)
[2021-07-25 15:51] LABS: Opiate Screen,Urine Positive ng/ml (<300)
[2021-07-25 15:52] LABS: Phencyclidine Screen,Urine Negative ng/ml (<25)
== END ==
PROVIDERS: Visit Provider Clinical Nurse Specialist Family Health
DX: M51.16 Intervertebral disc disorders with radiculopathy, lumbar region (principal); Z79.891 Long term (current) use of opiate analgesic
CPT/HCPCS: 80305; 99212; G0463

== ENCOUNTER → 2021-08-18 09:50 | Outpatient (POV) | payer MEDICARE, SELFPAY ==
--- NOTE | 2021-08-18 09:59 | HMH.PAINSOAP ---
[facility] Pain Management SOAP Note Subjective:: Patient is a pleasant 71-year-old female who presents today as a telehealth visit for follow-up and medication refill. Patient patient is currently being managed for chronic low back pain that radiates down the bilateral lower extremities. Patient's pain is currently being managed with morphine 15 mg and 30 mg daily. Patient denies any side effects from his medications. Patient denies any changes to the location of the pain. She rates her pain today 5 out of 10. Her Shane number is [phone] been an active morphine equivalent of 45. Review of Systems General: No recent weight changes, no fever, no sleep disturbances Respiratory: No cough, no shortness of air, no recurring pulmonary infections Cardiovascular/peripheral vascular: No chest pain, no palpitations, no edema, no shortness of breath Gastrointestinal: No new onset incontinence, normal bowel movements reported Genitourinary: No new onset incontinence Musculoskeletal: Low back, bilateral leg pain Psychiatric: [Normal mood/affect] Neurological: [Denies weakness in extremities], [denies balance issues] Objective:: Physical exam General: Alert and oriented x3, no acute distress, pleasant and cooperative Neurological: Speech clear Assessment:: Degenerative disc disease of the lumbar spine with lumbar radiculopathy Plan:: We will continue the patient's morphine 15 mg and 30 mg. We will provide the patient with 1month of refills. We would like to see the patient back in 1month. Risks and benefits of the medication have been explained in detail to the patient. The patient does understand the risk of dependence on the medication when given over a prolonged period. Patient has been advised of risks of oversedation with the prescribed medication. Narcan has been offered to the paitent in the event of oversedation. Patient has been advised that a family member should also be educated regarding administration of Narcan. The patient has been advised to consult with his/her primary care provider and pharmacist regarding drug-drug interaction of medications currently prescribed. Patient has been prescribed a controlled substance after being counseled on the medication, medication safety, and possible side effects. SHANE report has been obtained and reviewed prior to prescription and found to be appropriate. Opioid contract was reviewed and signed by the patient, and that they have agreed to all of the terms set forth by our compliance program. Patient has been instructed to contact the clinic with any concerns before the next appointment. Dr. Dudley has reviewed this note and agrees with this plan of care. This note was dictated using voice recognition software and make contain errors or omissions. [facility] History Medical History: Reports:: Atrial Fibrillation, Deep Vein Thrombosis, Diabetes Mellitus Type 2, Hyperlipidemia, Hypertension Denies:: Cancer, Diabetes Mellitus Type 1, MRSA *Have you ever received a pneumonia vaccine?: Yes *Have you received a flu vaccine this season?: Yes Other Medical History: Reports: Arthritis, Cataracts, Thyroid Disease Laterality Cases: Bilateral: Breast Biopsy Other Surgeries: Yes: No Previous Surgery, Cardiac Catheterization, Cholecystectomy, Colonoscopy, Hysterectomy-Total, Plastic Surgery Amputation: No Fractures: Yes - *Social History Smoking Status: Never smoker Alcohol Intake: never *Occupational Status:: unemployed Housing: house Household Members: spouse *Travel in the last 8 weeks: Inside the [place] Family Hx:: Cancer, Diabetes, Hyperlipidemia, Stroke
== END ==
PROVIDERS: Visit Provider Clinical Nurse Specialist Family Health
DX: M51.16 Intervertebral disc disorders with radiculopathy, lumbar region (principal)
CPT/HCPCS: 99212; G0463

== ENCOUNTER → 2021-09-19 09:21 | Outpatient (POV) | payer MEDICARE, SELFPAY ==
[2021-09-19 09:40] VITALS: BP 177/85; PULSE 82; RESP 18; O2SAT 96; BMI 38.5
--- NOTE | 2021-09-19 09:40 | HMH.PAINSOAP ---
[facility] Pain Management SOAP Note Subjective:: Patient is a pleasant 71 year old female who is here for medication refill and follow-up. Patient is currently being treated for DDD lumbar. Patient is being managed with Morphine 30mg in the morning and 15mg in the evening. Patient denies any side effects from the medications. Patient denies any changes to the location and type of pain. Rates pain as 6/10. Asif number [id number] with an active morphine equivalent 45. Drug screens have been reviewed and appropriate. General: No recent weight changes, no fever, no sleep disturbances Respiratory: No cough, no shortness of air, no recurring pulmonary infections Cardiovascular/peripheral vascular: No chest pain, no palpitations, no edema, no shortness of breath Gastrointestinal: No new onset incontinence, normal bowel movements reported Genitourinary: No new onset incontinence Musculoskeletal: low back pain Psychiatric: [Normal mood/affect] Neurological: [Denies weakness in extremities], [denies balance issues] Objective:: General: Alert and oriented x3, no acute distress, pleasant and cooperative, [on room air] Lungs: Respirations even and unlabored, symmetrical chest expansion Eyes: PERRL Musculoskeletal: Flexion and extension of [lumbar] [spine] somewhat guarded secondary to pain, [antalgic gait noted] Neurological: Speech clear, no gross sensory deficit Assessment:: Degenerative disc disease of the lumbar spine Lumbar Radiculopathy Plan:: We will continue the patient's Morphine 15mg and 30mg. We will provide the patient with 1 month of refills. We would like to see the patient back in 1 month for follow-up. Risks and benefits of the medication have been explained in detail to the patient. The patient does understand the risk of dependence on the medication when given over a prolonged period. Patient has been advised of risks of oversedation with the prescribed medication. Narcan has been offered to the paitent in the event of oversedation. Patient has been advised that a family member should also be educated regarding administration of Narcan. The patient has been advised to consult with his/her primary care provider and pharmacist regarding drug-drug interaction of medications currently prescribed. Patient has been prescribed a controlled substance after being counseled on the medication, medication safety, and possible side effects. Opioid contract was reviewed and signed by the patient, and that they have agreed to all of the terms set forth by our compliance program. [facility] History Medical History: Reports:: Atrial Fibrillation, Deep Vein Thrombosis, Diabetes Mellitus Type 2, Hyperlipidemia, Hypertension Denies:: Cancer, Diabetes Mellitus Type 1, MRSA *Have you ever received a pneumonia vaccine?: Yes *Have you received a flu vaccine this season?: Yes Other Medical History: Reports: Arthritis, Cataracts, Thyroid Disease Laterality Cases: Bilateral: Breast Biopsy Other Surgeries: Yes: No Previous Surgery, Cardiac Catheterization, Cholecystectomy, Colonoscopy, Hysterectomy-Total, Plastic Surgery Amputation: No Fractures: Yes - *Social History Smoking Status: Never smoker Alcohol Intake: never *Occupational Status:: unemployed Housing: house Household Members: spouse *Travel in the last 8 weeks: Inside the [facility] Family Hx:: Cancer, Diabetes, Hyperlipidemia, Stroke
--- NOTE | 2021-09-20 07:56 | HMH.PAINSOAP ---
[facility] Pain Management SOAP Note Subjective:: ORT score is 0, low risk, New pain management contract signed and completed Patient is a pleasant 71 year old female who is here for medication refill and follow-up. Patient is currently being treated for DDD lumbar. Patient is being managed with Morphine 30mg in the morning and 15mg in the evening. Patient denies any side effects from the medications. Patient denies any changes to the location and type of pain. Rates pain as 10. [facility] number [id number] with an active morphine equivalent 45. Drug screens have been reviewed and appropriate. General: No recent weight changes, no fever, no sleep disturbances Respiratory: No cough, no shortness of air, no recurring pulmonary infections Cardiovascular/peripheral vascular: No chest pain, no palpitations, no edema, no shortness of breath Gastrointestinal: No new onset incontinence, normal bowel movements reported Genitourinary: No new onset incontinence Musculoskeletal: low back pain Psychiatric: [Normal mood/affect] Neurological: [Denies weakness in extremities], [denies balance issues] Objective:: General: Alert and oriented x3, no acute distress, pleasant and cooperative, [on room air] Lungs: Respirations even and unlabored, symmetrical chest expansion Eyes: PERRL Musculoskeletal: Flexion and extension of [lumbar] [spine] somewhat guarded secondary to pain, [antalgic gait noted] Neurological: Speech clear, no gross sensory deficit Assessment:: Degenerative disc disease of the lumbar spine Lumbar Radiculopathy Plan:: We will continue the patient's Morphine 15mg and 30mg. We will provide the patient with 1 month of refills. We would like to see the patient back in 1 month for follow-up. Risks and benefits of the medication have been explained in detail to the patient. The patient does understand the risk of dependence on the medication when given over a prolonged period. Patient has been advised of risks of oversedation with the prescribed medication. Narcan has been offered to the paitent in the event of oversedation. Patient has been advised that a family member should also be educated regarding administration of Narcan. The patient has been advised to consult with his/her primary care provider and pharmacist regarding drug-drug interaction of medications currently prescribed. Patient has been prescribed a controlled substance after being counseled on the medication, medication safety, and possible side effects. Opioid contract was reviewed and signed by the patient, and that they have agreed to all of the terms set forth by our compliance program. [facility] History I have reviewed the patient's past medical history: Yes Medical History: Reports:: Atrial Fibrillation, Deep Vein Thrombosis, Diabetes Mellitus Type 2, Hyperlipidemia, Hypertension Denies:: Cancer, Diabetes Mellitus Type 1, MRSA *Have you ever received a pneumonia vaccine?: Yes *Have you received a flu vaccine this season?: Yes Other Medical History: Reports: Arthritis, Cataracts, Thyroid Disease Laterality Cases: Bilateral: Breast Biopsy Other Surgeries: Yes: No Previous Surgery, Cardiac Catheterization, Cholecystectomy, Colonoscopy, Hysterectomy-Total, Plastic Surgery Amputation: No Fractures: Yes - *Social History Smoking Status: Never smoker Alcohol Intake: never *Occupational Status:: unemployed Housing: house Household Members: spouse *Travel in the last 8 weeks: Inside the [place] Family Hx:: Cancer, Diabetes, Hyperlipidemia, Stroke
== END ==
PROVIDERS: Visit Provider Clinical Nurse Specialist Family Health
DX: M51.16 Intervertebral disc disorders with radiculopathy, lumbar region (principal)
CPT/HCPCS: 99212; G0463

== ENCOUNTER → 2021-10-20 07:43 | Outpatient (POV) | payer MEDICARE, SELFPAY ==
--- NOTE | 2021-10-20 08:47 | HMH.VVPMSO ---
[facility] PM Virtual Visit SOAP Consent for virtual visit:: With the recent concerns about the COVID-19, we are trying to minimize exposure to you by shifting to telehealth appointments whenever possible. It restricts me from seeing you in person, but the trade off is protecting you during this pandemic. Can you see and hear me okay, and do you consent to this option? If not, I would be happy to see if we can reschedule your appointment in the future, when feasible. Has patient consented to this virtual visit?: Yes Subjective:: Patient is a 71-year-old white female who presents today for follow-up. She is following up via telehealth medicine phone call due to weather conditions. We are treating the patient for chronic low back pain and lumbar radicular cyst dunes. She is on morphine 30 mg in the a.m. and 15 mg in the p.m. The medicines work well for her pain. She does rate her pain a 4 out of 10 today. She denies any side effects. Shane is appropriate drug screens have been appropriate. Review of Systems General: No recent weight changes, no fever, no sleep disturbances Respiratory: No cough, no shortness of air, no recurring pulmonary infections Cardiovascular/peripheral vascular: No chest pain, no palpitations, no edema, no shortness of breath Gastrointestinal: No new onset incontinence, normal bowel movements reported Genitourinary: No new onset incontinence Musculoskeletal: Chronic low back pain Psychiatric: [Normal mood/affect] Neurological: [Denies weakness in extremities], [denies balance issues] Objective:: Physical exam General: Alert and oriented x3, no acute distress, pleasant and cooperative Assessment:: Degenerative disc disease lumbar spine with lumbar radiculopathy symptoms Plan:: We will continue the patient's morphine 30 mg in the a.m. and 15 mg in the p.m. She'll get a month medication will follow up in the clinic in 1 month. Risks and benefits of the medication have been explained in detail to the patient. The patient does understand the risk of dependence on the medication when given over a prolonged period. Patient has been advised of risks of oversedation with the prescribed medication. Narcan has been offered to the paitent in the event of oversedation. Patient has been advised that a family member should also be educated regarding administration of Narcan. The patient has been advised to consult with his/her primary care provider and pharmacist regarding drug-drug interaction of medications currently prescribed. Patient has been prescribed a controlled substance after being counseled on the medication, medication safety, and possible side effects. SHANE report has been obtained and reviewed prior to prescription and found to be appropriate. Opioid contract was reviewed and signed by the patient, and that they have agreed to all of the terms set forth by our compliance program. Patient has been instructed to contact the clinic with any concerns before the next appointment. Dr. Dudley has reviewed this note and agrees with this plan of care. This note was dictated using voice recognition software and make contain errors or omissions. Time In:: 08:45 Time Out:: 08:50 [facility] History I have reviewed the patient's past medical history: Yes Medical History: Reports:: Atrial Fibrillation, Deep Vein Thrombosis, Diabetes Mellitus Type 2, Hyperlipidemia, Hypertension Denies:: Cancer, Diabetes Mellitus Type 1, MRSA *Have you ever received a pneumonia vaccine?: Yes *Have you received a flu vaccine this season?: Yes Other Medical History: Reports: Arthritis, Cataracts, Thyroid Disease Laterality Cases: Bilateral: Breast Biopsy Other Surgeries: Yes: No Previous Surgery, Cardiac Catheterization, Cholecystectomy, Colonoscopy, Hysterectomy-Total, Plastic Surgery Amputation: No Fractures: Yes - *Social History Smoking Status: Never smoker Alcohol Intake: never *Occupational Status:: unemployed Ho
== END ==
PROVIDERS: Visit Provider Clinical Nurse Specialist Family Health
DX: M51.16 Intervertebral disc disorders with radiculopathy, lumbar region (principal)
CPT/HCPCS: 99212; G0463

== ENCOUNTER → 2021-11-17 10:40 | Outpatient (POV) | payer MEDICARE, SELFPAY ==
[2021-11-17 12:10] VITALS: BP 193/98; PULSE 80; RESP 18; TEMP 36.4; O2SAT 97; BMI 38.5
--- NOTE | 2021-11-17 14:41 | P.CONS_ITS ---
[facility] Pain Management SOAP Note Subjective:: Patient is a very pleasant 71-year-old white female who presents for follow-up. She is currently being treated for degenerative disc disease of the lumbar spine with lumbar radiculopathy. She is currently prescribed MS Contin 30 mg in the morning and MS Contin 15 mg in the evening. He states that her current pain regimen is adequately managing her chronic pain symptoms and allows her to maintain her functionality and ambulate better. She denies any adverse effects with this medication. She rates her pain today as a 3 out of 10. She is requesting refills on her medications today. Objective:: General: Alert and oriented x3, no acute distress, pleasant and cooperative Lungs: Resps E/U, symmetric chest expansion Eyes: PERRL Musculoskeletal: limited flexion and extension of the lumbar spine secondary to pain. Deep tendon reflexes were normal in bilateral lower extremities. Motor exam was grossly intact in the bilateral lower extremities, antalgic gait noted. 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 We will follow-up with this patient in 1 month for reassessment of her chronic pain symptoms and medication refills. Asif and prior drug screens were reviewed and appropriate. [facility] History Medical History: Reports:: Atrial Fibrillation, Deep Vein Thrombosis, Diabetes Mellitus Type 2, Hyperlipidemia, Hypertension Denies:: Cancer, Diabetes Mellitus Type 1, MRSA *Have you ever received a pneumonia vaccine?: No *Have you received a flu vaccine this season?: Yes Other Medical History: Reports: Arthritis, Cataracts, Thyroid Disease Laterality Cases: Bilateral: Breast Biopsy Other Surgeries: Yes: No Previous Surgery, Cardiac Catheterization, Cholecystectomy, Colonoscopy, Hysterectomy-Total, Plastic Surgery Amputation: No Fractures: Yes - *Social History Smoking Status: Never smoker Alcohol Intake: never *Occupational Status:: other Housing: house Household Members: spouse *Travel in the last 8 weeks: None Family Hx:: Cancer, Diabetes, Hyperlipidemia, Stroke
== END ==
PROVIDERS: Visit Provider Anesthesiology Pain Medicine
DX: M51.16 Intervertebral disc disorders with radiculopathy, lumbar region (principal); G89.4 Chronic pain syndrome
CPT/HCPCS: 80305; 80361; 80365; 99212; G0463; G0480

== ENCOUNTER → 2021-11-17 11:10 | Outpatient (CLI) | payer MEDICARE, SELFPAY ==
[2021-11-17 12:29] LABS: Amphetamine/Metha Screen,Urine Negative ng/ml (<1000)
[2021-11-17 12:30] LABS: Barbiturates Screen,Urine Negative ng/ml (<200); Benzodiazepines Screen,Urine Negative ng/ml (<200)
[2021-11-17 12:31] LABS: Cannabinoid Screen,Urine Negative ng/ml (<50)
[2021-11-17 12:32] LABS: Cocaine Screen,Urine Negative ng/ml (<300); Methadone Screen,Urine Negative ng/ml (<300)
[2021-11-17 12:33] LABS: Opiate Screen,Urine Positive ng/ml (<300)
[2021-11-17 12:34] LABS: Phencyclidine Screen,Urine Negative ng/ml (<25)
[2021-11-25 18:10] LABS: Codeine Negative (Cutoff=100); Hydrocodone Negative (Cutoff=100); Hydromorphone Positive (.); Morphine Positive (.); Opiates Positive (.)
== END ==
PROVIDERS: Visit Provider Anesthesiology
DX: Z79.891 Long term (current) use of opiate analgesic (principal)
CPT/HCPCS: 80305; 80361; 80365; G0480

== ENCOUNTER → 2021-12-19 10:09 | Outpatient (POV) | payer MEDICARE, SELFPAY ==
[2021-12-19 10:19] VITALS: BP 161/85; PULSE 69; RESP 20; TEMP 36.2; O2SAT 100; BMI 38.5
--- NOTE | 2021-12-19 10:42 | P.CONS_ITS ---
[facility] Pain Management SOAP Note Subjective:: Patient is a pleasant 71-year-old female who is here for medication refill and follow-up. Patient is currently being treated for degenerative disc disease of lumbar spine with lumbar radiculopathy symptoms, chronic pain syndrome. Patient is being managed with morphine ER 30 mg in the morning and morphine ER 15 mg in the evening. Patient also states that she has been using her compounding cream which is helping her the most. Patient denies any side effects from the medications. Patient denies any changes to the location and type of pain. Patient states that this is adequately helping manage their pain. Rates pain as 6 out of 10. [facility] [place] number [phone] with an active morphine equivalent 45. Drug screens have been reviewed and appropriate. Review of Systems: General: No recent weight changes, no fever, no sleep disturbances Respiratory: No cough, no shortness of air, no recurring pulmonary infections Cardiovascular/peripheral vascular: No chest pain, no palpitations, no edema, no shortness of breath Gastrointestinal: No new onset incontinence, normal bowel movements reported Genitourinary: No new onset incontinence Musculoskeletal: Low back pains Psychiatric: [Normal mood/affect] Neurological: [Denies weakness in extremities], [denies balance issues] Objective:: Physical Exam: General: Alert and oriented x3, no acute distress, pleasant and cooperative, [on room air] Lungs: Respirations even and unlabored, symmetrical chest expansion Eyes: PERRL Musculoskeletal: Flexion and extension of lumbar [spine] somewhat guarded secondary to pain, [antalgic gait noted] Neurological: Speech clear, no gross sensory deficit Assessment:: Degenerative disc disease of lumbar spine with lumbar radiculopathy symptoms Chronic pain syndrome Plan:: We will continue the patient's morphine ER 15 mg and morphine ER 30 mg. We will provide the patient with 1 month of refills. We would like to see the patient back in 1 month for follow-up and reevaluation of chronic pain syndrome. Patient has been advised of risks of oversedation with the prescribed medication. Narcan has been offered to the patient in the event of oversedation. Patient has been advised that a family member should also be educated regarding administration of Narcan. Patient has been instructed to contact the clinic with any concerns before the next appointment. Dr. Dudley has reviewed this note and agrees with this plan of care. This note was dictated using voice recognition software and make contain errors or omissions. [facility] History Medical History: Reports:: Atrial Fibrillation, Deep Vein Thrombosis, Diabetes Mellitus Type 2, Hyperlipidemia, Hypertension Denies:: Cancer, Diabetes Mellitus Type 1, MRSA *Have you ever received a pneumonia vaccine?: No *Have you received a flu vaccine this season?: Yes Other Medical History: Reports: Arthritis, Cataracts, Thyroid Disease Laterality Cases: Bilateral: Breast Biopsy Other Surgeries: Yes: No Previous Surgery, Cardiac Catheterization, Cholecystectomy, Colonoscopy, Hysterectomy-Total, Plastic Surgery Amputation: No Fractures: Yes - *Social History Smoking Status: Never smoker Alcohol Intake: never *Occupational Status:: other Housing: house Household Members: spouse *Travel in the last 8 weeks: None Family Hx:: Cancer, Diabetes, Hyperlipidemia, Stroke
== END ==
PROVIDERS: Visit Provider Student in an Organized Health Care Education/Training Program
DX: M51.16 Intervertebral disc disorders with radiculopathy, lumbar region (principal); G89.4 Chronic pain syndrome
CPT/HCPCS: 99212; G0463

== ENCOUNTER → 2022-01-19 09:02 | Outpatient (POV) | payer MEDICARE, SELFPAY ==
[2022-01-19 09:13] VITALS: BP 158/89; PULSE 71; RESP 18; TEMP 36.7; O2SAT 98; BMI 38.5
--- NOTE | 2022-01-19 09:29 | HMH.PAINSOAP ---
[facility] Pain Management SOAP Note Subjective:: Patient is a pleasant 71-year-old female who is here for medication refill and follow-up. Patient is currently being treated for degenerative disc disease of lumbar spine with lumbar radiculopathy symptoms, chronic pain syndrome. Patient is being managed with morphine ER 30 mg in the morning and morphine ER 15 mg in the evening. Patient is also using her compounding cream to help with some of her pain. She says that the cream is helping her the most.. Patient denies any side effects from the medications. Patient denies any changes to the location and type of pain. Patient states that this is adequately helping manage their pain. Rates pain as 6 out of 10. [facility] number [id number] with an active morphine equivalent 45. Drug screens have been reviewed and appropriate. Review of Systems: General: No recent weight changes, no fever, no sleep disturbances Respiratory: No cough, no shortness of air, no recurring pulmonary infections Cardiovascular/peripheral vascular: No chest pain, no palpitations, no edema, no shortness of breath Gastrointestinal: No new onset incontinence, normal bowel movements reported Genitourinary: No new onset incontinence Musculoskeletal: Low back pain Psychiatric: [Normal mood/affect] Neurological: [Denies weakness in extremities], [denies balance issues] Objective:: Physical Exam: General: Alert and oriented x3, no acute distress, pleasant and cooperative Lungs: Respirations even and unlabored, symmetrical chest expansion Eyes: PERRL Musculoskeletal: Flexion and extension of lumbar [spine] somewhat guarded secondary to pain, [antalgic gait noted] Neurological: Speech clear, no gross sensory deficit Assessment:: Degenerative disc disease of the lumbar spine with lumbar radiculopathy symptoms, chronic pain syndrome Plan:: We will continue the patient's morphine ER 15 mg and morphine ER 30 mg. We will provide the patient with 1 month of refills. We would like to see the patient back in 1 month for follow-up and reevaluation of chronic pain syndrome. Patient has been advised of risks of oversedation with the prescribed medication. Narcan has been offered to the patient in the event of oversedation. Patient has been advised that a family member should also be educated regarding administration of Narcan. Patient has been instructed to contact the clinic with any concerns before the next appointment. Dr. Dudley has reviewed this note and agrees with this plan of care. This note was dictated using voice recognition software and make contain errors or omissions. [facility] History Medical History: Reports:: Atrial Fibrillation, Deep Vein Thrombosis, Diabetes Mellitus Type 2, Hyperlipidemia, Hypertension Denies:: Cancer, Diabetes Mellitus Type 1, MRSA *Have you ever received a pneumonia vaccine?: No *Have you received a flu vaccine this season?: Yes Other Medical History: Reports: Arthritis, Cataracts, Thyroid Disease Laterality Cases: Bilateral: Breast Biopsy Other Surgeries: Yes: No Previous Surgery, Cardiac Catheterization, Cholecystectomy, Colonoscopy, Hysterectomy-Total, Plastic Surgery Amputation: No Fractures: Yes - *Social History Smoking Status: Never smoker Alcohol Intake: never *Occupational Status:: retired Housing: house Household Members: spouse *Travel in the last 8 weeks: None Family Hx:: Cancer, Diabetes, Hyperlipidemia, Stroke
== END ==
PROVIDERS: Visit Provider Student in an Organized Health Care Education/Training Program
DX: M51.16 Intervertebral disc disorders with radiculopathy, lumbar region (principal); G89.4 Chronic pain syndrome
CPT/HCPCS: 99212; G0463

== ENCOUNTER → 2022-02-20 08:56 | Outpatient (POV) | payer MEDICARE, SELFPAY ==
[2022-02-20 09:53] VITALS: BP 132/89; PULSE 72; RESP 18; TEMP 36.2; O2SAT 97; BMI 38.5
--- NOTE | 2022-02-20 10:46 | P.CONS_ITS ---
[facility] Pain Management SOAP Note Subjective:: Patient is a pleasant 72-year-old female who is here for medication refill and follow-up. Patient is currently being treated for degenerative disc disease of lumbar spine with lumbar radiculopathy symptoms. Patient is being managed with morphine ER 30 mg in the morning and morphine ER 15 mg in the evening. Patient is also using compounding cream to help with some of her pain. She does say that the cream is helping her pain the most. Patient denies any side effects from the medications. Patient denies any changes to the location and type of pain. Patient states that this is adequately helping manage their pain. Rates pain as 6 out of 10. [facility] number [id number] with an active morphine equivalent 45. Drug screens have been reviewed and appropriate. Review of Systems: General: No recent weight changes, no fever, no sleep disturbances Respiratory: No cough, no shortness of air, no recurring pulmonary infections Cardiovascular/peripheral vascular: No chest pain, no palpitations, no edema, no shortness of breath Gastrointestinal: No new onset incontinence, normal bowel movements reported Genitourinary: No new onset incontinence Musculoskeletal: Low back pain Psychiatric: [Normal mood/affect] Neurological: [Denies weakness in extremities], [denies balance issues] Objective:: Physical Exam: General: Alert and oriented x3, no acute distress, pleasant and cooperative Lungs: Respirations even and unlabored, symmetrical chest expansion Eyes: PERRL Musculoskeletal: Flexion and extension of lumbar [spine] somewhat guarded secondary to pain, [antalgic gait noted] Neurological: Speech clear, no gross sensory deficit Assessment:: Degenerative disc disease of lumbar spine with lumbar radiculopathy symptoms Plan:: We will continue the patient's morphine ER 15 mg daily and morphine ER 30 mg daily. We will provide the patient with 1 month of refills. We would like to see the patient back in 1 month for follow-up and reevaluation of chronic pain syndrome. Patient has been advised of risks of oversedation with the prescribed medication. Narcan has been offered to the patient in the event of oversedation. Patient has been advised that a family member should also be educated regarding administration of Narcan. Patient has been instructed to contact the clinic with any concerns before the next appointment. Dr. Dudley has reviewed this note and agrees with this plan of care. This note was dictated using voice recognition software and make contain errors or omissions. [facility] History Medical History: Reports:: Atrial Fibrillation, Deep Vein Thrombosis, Diabetes Mellitus Type 2, Hyperlipidemia, Hypertension Denies:: Cancer, Diabetes Mellitus Type 1, MRSA *Have you ever received a pneumonia vaccine?: No *Have you received a flu vaccine this season?: Yes Other Medical History: Reports: Arthritis, Cataracts, Thyroid Disease Laterality Cases: Bilateral: Breast Biopsy Other Surgeries: Yes: No Previous Surgery, Cardiac Catheterization, Cholecystectomy, Colonoscopy, Hysterectomy-Total, Plastic Surgery Amputation: No Fractures: Yes - *Social History Smoking Status: Never smoker Alcohol Intake: never *Occupational Status:: retired Housing: house Household Members: spouse *Travel in the last 8 weeks: None Family Hx:: Cancer, Diabetes, Hyperlipidemia, Stroke
== END ==
PROVIDERS: Visit Provider Student in an Organized Health Care Education/Training Program
DX: M51.16 Intervertebral disc disorders with radiculopathy, lumbar region (principal); M19.90 Unspecified osteoarthritis, unspecified site
CPT/HCPCS: 99212; G0463

== ENCOUNTER 2022-03-10 09:20 | Emergency (ER) | payer MEDICARE, SELFPAY ==
[2022-03-10 09:21] VITALS: BP 158/88; PULSE 77; RESP 18; TEMP 36.6; O2SAT 96; BMI 37.0
--- NOTE | 2022-03-10 09:34 | CT_ITS ---
FINAL REPORT CLINICAL HISTORY: FALL 1 WEEK AGO HIT LEFT SIDE OF HEAD, BRUISING NOTED, RIGHT EYE BLURRED VISION. head injury on plavix COMPARISON: June 22, 2019 FINDINGS: Axial images of the head were obtained without contrast. Coronal reformatted images were also obtained.This study was performed with techniques to keep radiation doses as low as reasonably achievable (ALARA). Individualized dose reduction techniques using automated exposure control or adjustment of mA and/or kV according to the patient's size were employed. There is no evidence of intracranial hemorrhage or mass. The ventricular size is within normal limits. There is no evidence of shift of the midline structures. No abnormal extra axial fluid collection is identified. No skull abnormality is seen on the bone window images. IMPRESSION: No acute intracranial abnormality. Reviewed, Interpreted and Dictated by Reji Llanos III, MD Transcribed by Amelia Ramirez Authenticated and . [facility]
--- NOTE | 2022-03-10 09:59 | PC.NURSE ---
came up and said pt has been having some dementia over the past 6 months
--- NOTE | 2022-03-10 10:04 | PC.NURSE ---
pt back from CT
--- NOTE | 2022-03-10 10:05 | HMH.EDGENADL ---
ED Disposition Clinical Impression: Blurry vision, right eye, Paresthesia of right arm Contusion of head Qualifiers: Encounter type: initial encounter Contusion of head detail: unspecified part of head Qualified Code(s): S00.93XA - Contusion of unspecified part of head, initial encounter Fullness in ear Qualifiers: Laterality: bilateral Qualified Code(s): H93.8X3 - Other specified disorders of ear, bilateral Disposition: Home, Self-Care Condition on Discharge: Good Instructions: DI for Closed Head Injury Additional Instructions: Follow-up with your primary care provider for tingling in the right arm, call for appointment. Follow-up with your eye doctor for eye exam. Referrals: Ari Coates MD [Primary Care Provider] - - Critical Care Critical Care Time: No Attestation: On 03/10/22, the high probability of a clinically significant, sudden or life threatening deterioration of the following system(s) required my full and direct attention, intervention and personal management. The time I documented below is in addition to time spent performing reported procedures but includes the following listed in this critical care notation. Medical Decision Making - Asif Inquiry Pt receiving controlled substance: No Vital Signs: 03/10/22 09:21 Temperature 98 F Temperature Source Oral Pulse Rate [Radial] 77 Respiratory Rate 18 Blood Pressure [Right Arm] 158/88 H Blood Pressure Mean [Right Arm] 111 Blood Pressure Position [Right Arm] Sitting 02 Sat by Pulse Oximetry 96 Oxygen Delivery Method Room Air - Lab Data Lab Results 03/10/22 09:53: WBC 7.0, RBC 4.10 L, Hgb 12.8, Hct 40.3, MCV 98.4, MCH 31.2, MCHC 31.7 L, RDW 13.1, Plt Count 180, MPV 8.5, Neut % (Auto) 77.0, Lymph % (Auto) 14.3, [place] % (Auto) 4.2, Eos % (Auto) 2.8, Baso % (Auto) 1.7, Neut # (Auto) 5.4, Lymph # (Auto) 1.0, [place] # (Auto) 0.3, Eos # (Auto) 0.2, Baso # (Auto) 0.1 03/10/22 09:53: Sodium 138, Potassium 4.0, Chloride 101, Carbon Dioxide 32 H, Anion Gap 9.0, BUN 17, Creatinine 0.80, Estimated Creat Clear 67, Estimated GFR 70, Est GFR ( Amer) 85, Glucose 125 H, Calcium 9.3, Total Bilirubin < 0.1 L, AST 30, ALT 14, Alkaline Phosphatase 88, Total Protein 7.2, Albumin 3.6, Globulin 3.6 H, Albumin/Globulin Ratio 1.0 L Result diagrams: 03/10/22 09:53 03/10/22 09:53 Orders (Tests/Meds): ED MEDICATIONS Generic Name Dose Route Start Last Admin Trade Name Freq PRN Reason Stop Dose Admin Sodium Chloride 10 ml 03/10/22 09:54 Sodium Chloride 0.9% 10ml Flush Syringe IV 04/09/22 09:53 NEEDED PRN Maintain IV Site - CT Data CT Scan: Head Time Received: 10:[address] Reviewed: Yes: I have viewed the radiologist's interpretation Findings Narrative: Procedure(s): CT head/brain wo con Accession Number(s): [id number] cc: Ari Coates MD; Reji Llanos MD; Mich Sinclair MD~ FINAL REPORT CLINICAL HISTORY: FALL 1 WEEK AGO HIT LEFT SIDE OF HEAD, BRUISING NOTED, RIGHT EYE BLURRED VISION. head injury on plavix COMPARISON: June 22, 2019 FINDINGS: Axial images of the head were obtained without contrast. Coronal reformatted images were also obtained.This study was performed with techniques to keep radiation doses as low as reasonably achievable (ALARA). Individualized dose reduction techniques using automated exposure control or adjustment of mA and/or kV according to the patient's size were employed. There is no evidence of intracranial hemorrhage or mass. The ventricular size is within normal limits. There is no evidence of shift of the midline structures. No abnormal extra axial fluid collection is identified. No skull abnormality is seen on the bone window images. IMPRESSION: No acute intracranial abnormality. Reviewed, Interpreted and Dictated by Reji Llanos III, MD Transcribed by Amelia Ramirez Authenticated and 10
[2022-03-10 10:10] LABS: Basophils # 0.1 K/mm3 (0-0.2); Basophils % 1.7 % (0.1-2.0); Eosinophils # 0.2 K/mm3 (0.0-0.4); Eosinophils % 2.8 % (0.1-12.0); Hematocrit 40.3 % (37.0-47.0); Hemoglobin 12.8 g/dL (12.2-16.2); Lymphocytes % 14.3 % (10-50); Mean Corpuscular HGB Conc 31.7 g/dL (31.8-35.4); Mean Corpuscular Hemoglobin 31.2 pg (27.0-31.2); Mean Corpuscular Volume 98.4 fl (81-99); Mean Platelet Volume 8.5 fl (7.4-10.4); Monocytes # 0.3 K/mm3 (0.1-1.0); Monocytes % 4.2 % (1.7-9.3); Neutrophils # 5.4 K/mm3 (1.8-7.8); Platelet Count 180 K/mm3 (142-424); Red Cell Distribution Width 13.1 % (11.5-17.5)
[2022-03-10 10:18] LABS: Alanine Aminotransferase 14 U/L (12-78); Albumin Level 3.6 g/dl (3.5-5.0); Alkaline Phosphatase 88 U/L (38-126); Aspartate Amino Transferase 30 U/L (14-36); Blood Urea Nitrogen 17 mg/dl (7-17); Calcium 9.3 mg/dl (8.4-10.2); Carbon Dioxide 32 mmol/L (22.0-30.0); Chloride 101 mmol/L (98-107); Creatinine Clearance Estimated 67 mL/min (50-200); Estimated Glomerular Filt Rate 70 ml/min (>60); GFR (African American) 85 ML/MIN (>60); Globulin 3.6 g/dL (1.3-3.2); Glucose 125 mg/dl (74-100); Sodium 138 mmol/L (136-145); Total Protein,Serum 7.2 g/dl (6.3-8.2)
[2022-03-10 10:19] LABS: Bilirubin,Total < 0.1 mg/dl (0.2-1.3)
--- NOTE | 2022-03-10 10:45 | PC.NURSE ---
pt up to bathroom pt uses cane with ambulation.
[2022-03-10 11:35] VITALS: BP 155/88; PULSE 72; RESP 20; TEMP 36.6; O2SAT 96
== END 2022-03-10 11:36 | disposition home or self-care (01) ==
PROVIDERS: Emergency Provider Emergency Medicine; PCP Internal Medicine Adolescent Medicine
DX: H53.8 Other visual disturbances (principal); R20.2 Paresthesia of skin; S00.93XA Contusion of unspecified part of head, initial encounter; H93.8X3 Other specified disorders of ear, bilateral; Z79.01 Long term (current) use of anticoagulants; W10.8XXA Fall (on) (from) other stairs and steps, initial encounter; I48.91 Unspecified atrial fibrillation; E11.9 Type 2 diabetes mellitus without complications; E78.5 Hyperlipidemia, unspecified; I10 Essential (primary) hypertension; I73.9 Peripheral vascular disease, unspecified; M19.90 Unspecified osteoarthritis, unspecified site; E07.9 Disorder of thyroid, unspecified; Z79.899 Other long term (current) drug therapy; Z88.8 Allergy status to other drugs, medicaments and biological substances; Z88.6 Allergy status to analgesic agent; Z88.1 Allergy status to other antibiotic agents; Z91.041 Radiographic dye allergy status
CPT/HCPCS: 70450; 80053; 85025; 99284

== ENCOUNTER → 2022-03-21 09:15 | Outpatient (POV) | payer MEDICARE, SELFPAY ==
--- NOTE | 2022-03-21 09:31 | HMH.PAINSOAP ---
[facility] Pain Management SOAP Note Subjective:: Is a pleasant 72-year-old female who is here for medication refill and follow-up. Patient is currently being treated for degenerative disc disease of lumbar spine with lumbar radiculopathy symptoms. She is managed with morphine ER 30 mg in the morning and morphine ER 15 mg in the evening. Patient also uses compounding cream to help with her pain. She denies any changes to the location and type of pain. She denies any side effects from these medications. She states the compounding cream is helping well. Today she rates her pain a 6 out of 10. States her pain is in her low back and describes it as a dull achy sensation. Patient states she had a fall 2 weeks ago on her deck. She landed on her back and head. She was checked out following incident and CAT scan was negative. She states she is not having any additional pain from her injury and states she is back at her baseline. She states that her fall was due to a deck step that is too short. She states she has a contractor coming to fix the step. Her Asif is [id number], with a morphine equivalent 45. It has been reviewed and is appropriate. Review of Systems: General: No recent weight changes, no fever, no sleep disturbances Respiratory: No cough, no shortness of air, no recurring pulmonary infections Cardiovascular/peripheral vascular: No chest pain, no palpitations, no edema, no shortness of breath Gastrointestinal: No new onset incontinence, normal bowel movements reported Genitourinary: No new onset incontinence Musculoskeletal: Low back pain Psychiatric: [Normal mood/affect] Neurological: [Denies weakness in extremities], [denies balance issues] Objective:: Physical Exam: General: Alert and oriented x3, no acute distress, pleasant and cooperative Lungs: Respirations even and unlabored, symmetrical chest expansion Eyes: PERRL Musculoskeletal: Flexion and extension of lumbar [spine] somewhat guarded secondary to pain, [antalgic gait noted] Neurological: Speech clear, no gross sensory deficit Assessment:: Degenerative disc disease of lumbar spine with lumbar radiculopathy symptoms. Plan:: We will continue the patient's morphine ER 30 mg daily and morphine 15 mg daily. We will provide the patient 1 with 1 month of refills. Patient will return to clinic in 1 month for medication refill and follow-up. Patient has been advised of risks of oversedation with the prescribed medication. Narcan has been offered to the patient in the event of oversedation. Patient has been advised that a family member should also be educated regarding administration of Narcan. Patient has been instructed to contact the clinic with any concerns before the next appointment. Dr. Dudley has reviewed this note and agrees with this plan of care. This note was dictated using voice recognition software and make contain errors or omissions. [facility] History I have reviewed the patient's past medical history: Yes Medical History: Reports:: Atrial Fibrillation, Deep Vein Thrombosis, Diabetes Mellitus Type 2, Hyperlipidemia, Hypertension Denies:: Cancer, Diabetes Mellitus Type 1, MRSA *Have you ever received a pneumonia vaccine?: Yes *Have you received a flu vaccine this season?: Yes Other Medical History: Reports: Arthritis, Cataracts, Thyroid Disease Laterality Cases: Bilateral: Breast Biopsy Other Surgeries: Yes: No Previous Surgery, Cardiac Catheterization, Cholecystectomy, Colonoscopy, Hysterectomy-Total, Plastic Surgery Amputation: No Fractures: Yes - *Social History Smoking Status: Never smoker Alcohol Intake: never *Occupational Status:: retired Housing: house Household Members: spouse *Travel in the last 8 weeks: Inside the [facility] Family Hx:: Cancer, Diabetes, Hyperlipidemia, Stroke
[2022-03-21 09:32] VITALS: BP 154/91; PULSE 70; RESP 17; TEMP 36.6; O2SAT 97; BMI 38.2
[2022-03-21 16:19] LABS: Amphetamine/Metha Screen,Urine Negative ng/ml (<1000)
[2022-03-21 16:20] LABS: Barbiturates Screen,Urine Negative ng/ml (<200); Benzodiazepines Screen,Urine Negative ng/ml (<200)
[2022-03-21 16:21] LABS: Cannabinoid Screen,Urine Negative ng/ml (<50); Cocaine Screen,Urine Negative ng/ml (<300)
[2022-03-21 16:22] LABS: Methadone Screen,Urine Negative ng/ml (<300)
[2022-03-21 16:23] LABS: Opiate Screen,Urine Positive ng/ml (<300); Phencyclidine Screen,Urine Negative ng/ml (<25)
[2022-03-28 15:11] LABS: Codeine Negative (Cutoff=100); Hydrocodone Negative (Cutoff=100); Hydromorphone Positive (.); Morphine Positive (.); Opiates Positive (.)
== END ==
PROVIDERS: Visit Provider Student in an Organized Health Care Education/Training Program
DX: M51.16 Intervertebral disc disorders with radiculopathy, lumbar region (principal); Z79.891 Long term (current) use of opiate analgesic
CPT/HCPCS: 80305; 80361; 80365; 99212; G0463; G0480

== ENCOUNTER → 2022-04-20 10:21 | Outpatient (POV) | payer MEDICARE, SELFPAY ==
[2022-04-20 10:28] VITALS: BP 151/86; PULSE 75; RESP 20; O2SAT 99; BMI 38.5
--- NOTE | 2022-04-20 11:22 | HMH.PAINSOAP ---
[place] Pain Management SOAP Note Subjective:: Patient is a pleasant 72-year-old female that presents today for medication refill and follow-up. We are currently treating the patient for degenerative disc disease of lumbar spine with lumbar radiculopathy symptoms. Today she rates her pain a 6 out of 10. She states the pain is just all in her low back. She describes this as a aching, throbbing sensation. Patient did have a fall last month on her deck. She did land on her back and her head and was checked out following and had a CAT scan that was all negative. Patient denies having any additional pain from this injury and she does still continue to state that she is at her baseline. We are currently managing the patient with morphine ER 30 mg in the morning and morphine ER 15 mg in the evening she does also use compounding cream that helps give some relief. She denies any change in the location or type of pain she experiences. She denies any side effects from this medication. She does state these medications are helping manage her pain well. She does state that she is still having a contractor come to fix her step. Her Asif is [id number]. It has been reviewed and appropriate. Review of Systems: General: No recent weight changes, no fever, no sleep disturbances Respiratory: No cough, no shortness of air, no recurring pulmonary infections Cardiovascular/peripheral vascular: No chest pain, no palpitations, no edema, no shortness of breath Gastrointestinal: No new onset incontinence, normal bowel movements reported Genitourinary: No new onset incontinence Musculoskeletal: low back pain Psychiatric: [Normal mood/affect] Neurological: [Denies weakness in extremities], [denies balance issues] Objective:: Physical Exam: General: Alert and oriented x3, no acute distress, pleasant and cooperative Lungs: Respirations even and unlabored, symmetrical chest expansion Eyes: PERRL Musculoskeletal: Flexion and extension of lumbar [spine] somewhat guarded secondary to pain, [antalgic gait noted] Neurological: Speech clear, no gross sensory deficit r Assessment:: Degenerative disc disease of lumbar spine with lumbar radiculopathy symptoms Plan:: Patient is currently having significant pain in her low back. We will refill the patient's morphine ER 30 mg in the morning and morphine ER 15 mg in the evening. We will give a 1 month supply of this medication. Patient will return to clinic in 1 month for medication refill and reevaluation of symptoms. Patient has been advised of risk of oversedation with the prescribed medication. Patient has been instructed to contact the clinic with any concerns before the next appointment. Dr. Dudley has reviewed this note and agrees with this plan of care. This note was dictated using voice recognition software and make contain errors or omissions. [place] History I have reviewed the patient's past medical history: Yes Medical History: Reports:: Atrial Fibrillation, Deep Vein Thrombosis, Diabetes Mellitus Type 2, Hyperlipidemia, Hypertension Denies:: Cancer, Diabetes Mellitus Type 1, MRSA *Have you ever received a pneumonia vaccine?: Yes *Have you received a flu vaccine this season?: Yes Other Medical History: Reports: Arthritis, Cataracts, Thyroid Disease Laterality Cases: Bilateral: Breast Biopsy Other Surgeries: Yes: No Previous Surgery, Cardiac Catheterization, Cholecystectomy, Colonoscopy, Hysterectomy-Total, Plastic Surgery Amputation: No Fractures: Yes - *Social History Smoking Status: Never smoker Alcohol Intake: never *Occupational Status:: other Housing: house Household Members: spouse *Travel in the last 8 weeks: None Family Hx:: Cancer, Diabetes, Hyperlipidemia, Stroke
== END ==
PROVIDERS: PCP Internal Medicine Adolescent Medicine; Visit Provider Nurse Practitioner Family
DX: M51.16 Intervertebral disc disorders with radiculopathy, lumbar region (principal); M19.90 Unspecified osteoarthritis, unspecified site
CPT/HCPCS: 99212; G0463

== ENCOUNTER → 2022-05-25 08:45 | Outpatient (POV) | payer MEDICARE, SELFPAY ==
--- NOTE | 2022-05-25 09:16 | EXP.PAIN.SOA ---
[facility] Pain Management SOAP Note Subjective:: Patient is a pleasant 72-year-old female who presents today for follow-up and medication refill. We are currently treating the patient for degenerative disc disease of lumbar spine with lumbar radiculopathy symptoms. Today she rates her pain a 6 out of 10. She states this is all in her low back with occasional radiating symptoms into her right leg. She describes this as a aching, throbbing sensation that is worse with increased activity. At her previous office visit the patient had had a fall on her deck. Patient denies any additional falls or new trauma at this time. She is currently managed with morphine ER 30 mg in the morning and morphine ER 15 mg in the evening. She denies any side effects of this medication. She states these medications do adequately help manage her pain. She also is prescribed compounding cream that she says provide significant improvement of her symptoms however only provide short-term relief. Her Asif is [id number]. It has been reviewed and appropriate. Review of Systems: General: No recent weight changes, no fever, no sleep disturbances Respiratory: No cough, no shortness of air, no recurring pulmonary infections Cardiovascular/peripheral vascular: No chest pain, no palpitations, no edema, no shortness of breath Gastrointestinal: No new onset incontinence, normal bowel movements reported Genitourinary: No new onset incontinence Musculoskeletal: Low back pain Psychiatric: [Normal mood/affect] Neurological: [Denies weakness in extremities], [denies balance issues] Objective:: Physical Exam: General: Alert and oriented x3, no acute distress, pleasant and cooperative Lungs: Respirations even and unlabored, symmetrical chest expansion Eyes: PERRL Musculoskeletal: Flexion and extension of lumbar [spine] somewhat guarded secondary to pain, [antalgic gait noted] Neurological: Speech clear, no gross sensory deficit Assessment:: Degenerative disc disease of lumbar spine with lumbar radiculopathy symptoms Plan:: Patient continues to have significant pain along her low back with occasional radiation into her right leg. I will refill the patient's morphine ER 30 mg and morphine ER 15 mg and provide a 1 month supply of these medications. I have discussed with the patient regarding possible benefit from having a epidural steroid injection in the future. Risk and benefits were discussed with the patient. At this time the patient would like to hold off. We will schedule the patient for a 1 month follow-up. She will return to clinic in 1 month for reevaluation of symptoms and medication refill. Patient has been advised of risks of oversedation with the prescribed medication. Narcan has been offered to the patient in the event of oversedation. Patient has been advised that a family member should also be educated regarding administration of Narcan. Patient has been instructed to contact the clinic with any concerns before the next appointment. Dr. Dudley has reviewed this note and agrees with this plan of care. This note was dictated using voice recognition software and make contain errors or omissions. PFSH PFSH Social History Smoking Status: Never smoker alcohol intake: never current occupational status: other Travel in the last 8 weeks: None household members: spouse housing: house current occupational exposures/hazards: No caffeine: Yes
[2022-05-25 09:20] VITALS: BP 156/81; PULSE 68; RESP 18; TEMP 36.2; O2SAT 99; BMI 38.5
== END | disposition home or self-care (01) ==
PROVIDERS: PCP Internal Medicine Adolescent Medicine; Visit Provider Nurse Practitioner Family
DX: M51.16 Intervertebral disc disorders with radiculopathy, lumbar region (principal)
CPT/HCPCS: 99212; G0463

== ENCOUNTER → 2022-06-22 08:45 | Outpatient (POV) | payer MEDICARE, SELFPAY ==
--- NOTE | 2022-06-22 09:04 | A.OFFVIS_ITS ---
[facility] Pain Management SOAP Note Subjective:: Patient is a pleasant 72-year-old female who presents today for medication refill and follow-up. We are currently treating the patient for degenerative disc disease of lumbar spine with lumbar radiculopathy symptoms. Today she rates her pain a 5 out of 10. She states the pain is in her low back with some radiating symptoms into her right leg. She describes this as a aching throbbing sensation that is worse with increased activity. Patient denies any new trauma or injury. Patient denies any change to location or type of pain she experiences. She is currently managed with morphine ER 30 mg in the morning and morphine ER 15 mg in the evening. Patient denies any side effects from these medications. She states these medications do adequately manage her pain. Patient is requesting a refill at today's visit. She is also managed with a compounding cream that she states provides significant improvement of her symptoms. She states she is doing well on refills on this medication. Her Asif is [id number]. It has been reviewed and appropriate. Review of Systems: General: No recent weight changes, no fever, no sleep disturbances Respiratory: No cough, no shortness of air, no recurring pulmonary infections Cardiovascular/peripheral vascular: No chest pain, no palpitations, no edema, no shortness of breath Gastrointestinal: No new onset incontinence, normal bowel movements reported Genitourinary: No new onset incontinence Musculoskeletal: Low back pain, right leg pain Psychiatric: [Normal mood/affect] Neurological: [Denies weakness in extremities], [denies balance issues] Objective:: Physical Exam: General: Alert and oriented x3, no acute distress, pleasant and cooperative Lungs: Respirations even and unlabored, symmetrical chest expansion Eyes: PERRL Musculoskeletal: Flexion and extension of lumbar [spine] somewhat guarded secondary to pain, [antalgic gait noted] Neurological: Speech clear, no gross sensory deficit Assessment:: Degenerative disc disease of lumbar spine with lumbar radiculopathy symptoms Plan:: Patient continues to have significant pain in her low back that radiates into her right leg however she is managed well with her current medication regimen. I will send in a refill of her morphine sulfate ER 15 mg daily and morphine sulfate ER 30 mg daily and provide a 1 month supply of this medication. Patient will return to clinic in 1 month for reevaluation of symptoms, medication refill and follow-up. Patient has been advised of risks of oversedation with the prescribed medication. Narcan has been offered to the patient in the event of oversedation. Patient has been advised that a family member should also be educated regarding administration of Narcan. Patient has been instructed to contact the clinic with any concerns before the next appointment. Dr. Dudley has reviewed this note and agrees with this plan of care. This note was dictated using voice recognition software and make contain errors or omissions. PFSH PFSH Social History Smoking Status: Never smoker alcohol intake: never current occupational status: retired Travel in the last 8 weeks: None household members: spouse housing: house current occupational exposures/hazards: No caffeine: Yes
[2022-06-22 09:06] VITALS: BP 146/78; PULSE 76; RESP 18; TEMP 36.5; O2SAT 98; BMI 38.5
== END | disposition home or self-care (01) ==
PROVIDERS: PCP Internal Medicine Adolescent Medicine; Visit Provider Nurse Practitioner Family
DX: M51.16 Intervertebral disc disorders with radiculopathy, lumbar region (principal)
CPT/HCPCS: 99212; G0463

== ENCOUNTER → 2022-07-24 09:40 | Outpatient (POV) | payer MEDICARE, SELFPAY ==
[2022-07-24 09:57] VITALS: BP 131/81; PULSE 73; RESP 18; O2SAT 98; BMI 38.5
--- NOTE | 2022-07-24 09:57 | EXP.PAIN.SOA ---
[facility] Pain Management SOAP Note Subjective:: Patient is a pleasant 72-year-old female who presents today for medication refill and follow-up. We are currently treating the patient for degenerative disc disease of lumbar spine with lumbar radiculopathy symptoms. Today she rates her pain a 7 out of 10. Patient states the pain is in her low back with some radiating symptoms into her right leg. Patient denies any new trauma or injury. Patient denies any change in location or type of pain she experiences. Patient does state this is an aching, throbbing sensation that is worse with increased activity. Patient is managed with morphine ER 30 mg in the morning and morphine ER 15 mg at night. Patient denies any side effects from this medication. She states this medication does adequately manage her pain. Patient is also prescribed compounding cream that she states provides additional relief of her symptoms. Patient does use a cane for ambulation. Her Asif is [id number] with a morphine equivalent of 45. It has been reviewed and appropriate. Review of Systems: General: No recent weight changes, no fever, no sleep disturbances Respiratory: No cough, no shortness of air, no recurring pulmonary infections Cardiovascular/peripheral vascular: No chest pain, no palpitations, no edema, no shortness of breath Gastrointestinal: No new onset incontinence, normal bowel movements reported Genitourinary: No new onset incontinence Musculoskeletal: Low back pain, right leg pain Psychiatric: [Normal mood/affect] Neurological: [Denies weakness in extremities], [denies balance issues] Objective:: Physical Exam: General: Alert and oriented x3, no acute distress, pleasant and cooperative Lungs: Respirations even and unlabored, symmetrical chest expansion Eyes: PERRL Musculoskeletal: Flexion and extension of lumbar [spine] somewhat guarded secondary to pain, [antalgic gait noted] Neurological: Speech clear, no gross sensory deficit Assessment:: Degenerative disc disease of lumbar spine with lumbar radiculopathy symptoms Plan:: Patient continues to have significant pain in her low back that radiates into her right lower extremity. I will refill the patient's morphine sulfate ER 15 mg daily and morphine sulfate ER 30 mg daily and provide a 1 month supply of this medication. Patient will return to clinic in 1 month for reevaluation of symptoms, medication refill and follow-up. Patient has been advised of risks of oversedation with the prescribed medication. Narcan has been offered to the patient in the event of oversedation. Patient has been advised that a family member should also be educated regarding administration of Narcan. Patient has been instructed to contact the clinic with any concerns before the next appointment. Dr. Dudley has reviewed this note and agrees with this plan of care. This note was dictated using voice recognition software and make contain errors or omissions. PFSH PFSH Social History Smoking Status: Never smoker alcohol intake: never current occupational status: retired Travel in the last 8 weeks: None household members: spouse housing: house current occupational exposures/hazards: No caffeine: Yes
[2022-07-24 11:44] LABS: Barbiturates Screen,Urine Negative ng/ml (<200); Benzodiazepines Screen,Urine Negative ng/ml (<200)
[2022-07-24 11:45] LABS: Amphetamine/Metha Screen,Urine Negative ng/ml (<1000); Methadone Screen,Urine Negative ng/ml (<300)
[2022-07-24 11:46] LABS: Cannabinoid Screen,Urine Negative ng/ml (<50)
[2022-07-24 11:47] LABS: Cocaine Screen,Urine Negative ng/ml (<300); Opiate Screen,Urine Positive ng/ml (<300)
[2022-07-24 11:48] LABS: Phencyclidine Screen,Urine Negative ng/ml (<25)
== END | disposition home or self-care (01) ==
PROVIDERS: PCP Internal Medicine Adolescent Medicine; Visit Provider Nurse Practitioner Family
DX: M51.16 Intervertebral disc disorders with radiculopathy, lumbar region (principal); Z79.891 Long term (current) use of opiate analgesic
CPT/HCPCS: 80305; 80361; 80365; 99212; G0463; G0480

== ENCOUNTER → 2022-08-29 09:00 | Outpatient (CLI) | payer MEDICARE, SELFPAY ==
[2022-08-29 09:14] VITALS: BP 160/82; PULSE 66; RESP 20; BMI 37.0
--- NOTE | 2022-08-29 09:21 | A.OFFVIS_ITS ---
[facility] Pain Management SOAP Note Subjective:: Patient is a pleasant 72-year-old female who presents today for medication refill and follow-up. We are currently treating the patient for degenerative disc disease of lumbar spine with lumbar radiculopathy symptoms. Today she rates her pain a 7 out of 10. Patient denies any new trauma or injury. Patient denies any change location or type of pain she experiences. We are currently managing the patient with morphine ER 30 mg in the morning and morphine ER 15 mg in the evening. Patient denies any side effects from these medications. She states these medications work well for her. She is also prescribed compounding cream that provides additional relief. Her Asif is [id number]. It is been reviewed and appropriate. Review of Systems: General: No recent weight changes, no fever, no sleep disturbances Respiratory: No cough, no shortness of air, no recurring pulmonary infections Cardiovascular/peripheral vascular: No chest pain, no palpitations, no edema, no shortness of breath Gastrointestinal: No new onset incontinence, normal bowel movements reported Genitourinary: No new onset incontinence Musculoskeletal: Low back pain Psychiatric: [Normal mood/affect] Neurological: [Denies weakness in extremities], [denies balance issues] Objective:: Physical Exam: General: Alert and oriented x3, no acute distress, pleasant and cooperative Lungs: Respirations even and unlabored, symmetrical chest expansion Eyes: PERRL Musculoskeletal: Flexion and extension of lumbar [spine] somewhat guarded secondary to pain, [antalgic gait noted] Neurological: Speech clear, no gross sensory deficit Assessment:: Degenerative disc disease of lumbar spine with lumbar radiculopathy symptoms Plan:: Patient continues to experience significant pain in her low back with radiating symptoms into her lower extremities however she is doing well with her current medication regimen. I will refill her morphine ER 30 mg in the morning and morphine ER 15 mg in the evening and provide a 1 month supply of this medication. Patient will return to clinic in 1 month for reevaluation of symptoms, medication refill and follow-up. Patient has been advised of risks of oversedation with the prescribed medication. Narcan has been offered to the patient in the event of oversedation. Patient has been advised that a family member should also be educated regarding administration of Narcan. Patient has been instructed to contact the clinic with any concerns before the next appointment. Dr. Bux has reviewed this note and agrees with this plan of c are. This note was dictated using voice recognition software and make contain errors or omissions. [facility] Disclaimer: The information contained in this section may have been updated after the patient was seen, as this information can be updated by other users. Surgical History (Updated 08/16/22 @ 15:11 by Melissa Cota LPN) Previous back surgery Social History Smoking Status: Never smoker alcohol intake: never current occupational status: other Travel in the last 8 weeks: None household members: spouse housing: house current occupational exposures/hazards: No caffeine: Yes
== END ==
PROVIDERS: PCP Internal Medicine Adolescent Medicine; Visit Provider Nurse Practitioner Family
DX: M51.16 Intervertebral disc disorders with radiculopathy, lumbar region (principal)
CPT/HCPCS: 99212; G0463

== ENCOUNTER → 2022-08-29 09:08 | Outpatient (POV) | payer MEDICARE, SELFPAY | PROVIDERS: PCP Internal Medicine Adolescent Medicine; Visit Provider Nurse Practitioner Family | DX: M51.16 Intervertebral disc disorders with radiculopathy, lumbar region (principal) | CPT/HCPCS: 99212; G0463 ==

== ENCOUNTER → 2022-09-25 09:31 | Outpatient (POV) | payer MEDICARE, SELFPAY ==
--- NOTE | 2022-09-25 09:37 | EXP.PAIN.SOA ---
[facility] Pain Management SOAP Note Subjective:: Patient is a pleasant 72-year-old female who presents today for follow-up and medication refill via telehealth visit. This telehealth visit is occurring at the patient's home and she is giving verbal consent for this visit. We are currently treating the patient for degenerative disc disease of the lumbar spine with lumbar radiculopathy symptoms. Today the patient rates her pain a 7 out of 10. Patient denies any new trauma or injury. Patient denies any change location or type of pain she experiences. Patient is currently managed with morphine sulfate ER 15 mg at night and morphine sulfate ER 30 mg in the morning. Patient denies any side effects from these medications. She states these medications do adequately manage her pain symptoms. She is requesting a refill at today's visit. Her Asif is [id number]. Its been reviewed and appropriate. Review of Systems: General: No recent weight changes, no fever, no sleep disturbances Respiratory: No cough, no shortness of air, no recurring pulmonary infections Cardiovascular/peripheral vascular: No chest pain, no palpitations, no edema, no shortness of breath Gastrointestinal: No new onset incontinence, normal bowel movements reported Genitourinary: No new onset incontinence Musculoskeletal: Low back pain Psychiatric: [Normal mood/affect] Neurological: [Denies weakness in extremities], [denies balance issues] Objective:: Physical Exam: General: Alert and oriented x3, no acute distress, pleasant and cooperative Lungs: Respirations even and unlabored, symmetrical chest expansion Eyes: PERRL Musculoskeletal: Flexion and extension of lumbar [spine] somewhat guarded secondary to pain, [antalgic gait noted] Neurological: Speech clear, no gross sensory deficit Assessment:: Degenerative disc disease of lumbar spine with lumbar radiculopathy symptoms Plan:: Patient continues to experience significant pain in her low back and bilateral lower extremities however she is doing well on her current medication regimen. I will refill the patient's morphine ER 15 mg daily and morphine ER 30 mg daily and provide a 1 month supply of this medication. Patient will return to clinic in 1 month for reevaluation of symptoms, medication refill and follow-up. Patient has been advised of risks of oversedation with the prescribed medication. Narcan has been offered to the patient in the event of oversedation. Patient has been advised that a family member should also be educated regarding administration of Narcan. Patient has been instructed to contact the clinic with any concerns before the next appointment. Dr. Dudley has reviewed this note and agrees with this plan of care. This note was dictated using voice recognition software and make contain errors or omissions. [facility] Disclaimer: The information contained in this section may have been updated after the patient was seen, as this information can be updated by other users. Surgical History (Updated 08/16/22 @ 15:11 by Melissa Cota LPN) Previous back surgery Social History Smoking Status: Never smoker alcohol intake: never current occupational status: other Travel in the last 8 weeks: None household members: spouse housing: house current occupational exposures/hazards: No caffeine: Yes
== END | disposition home or self-care (01) ==
PROVIDERS: Visit Provider Nurse Practitioner Family
DX: M51.16 Intervertebral disc disorders with radiculopathy, lumbar region (principal)
CPT/HCPCS: 99212; G0463

== ENCOUNTER → 2022-10-11 10:02 | Outpatient (CLI) | payer MEDICARE, SELFPAY ==
[2022-10-11 11:25] LABS: Basophils # 0.1 K/mm3 (0-0.2); Basophils % 0.8 % (0.1-2.0); Chloride 103 mmol/L (98-107); Eosinophils # 0.3 K/mm3 (0.0-0.4); Eosinophils % 3.2 % (0.1-12.0); Hematocrit 41.9 % (37.0-47.0); Hemoglobin 13.5 g/dL (12.2-16.2); Lymphocytes # 1.5 K/mm3 (0.7-4.5); Lymphocytes % 18.2 % (10-50); Mean Corpuscular HGB Conc 32.2 g/dL (31.8-35.4); Mean Corpuscular Hemoglobin 31.6 pg (27.0-31.2); Mean Corpuscular Volume 98.3 fl (81-99); Mean Platelet Volume 8.4 fl (7.4-10.4); Monocytes # 0.3 K/mm3 (0.1-1.0); Monocytes % 4.2 % (1.7-9.3); Neutrophils % 73.6 % (37.0-80.0); Platelet Count 204 K/mm3 (142-424); Potassium 4.1 mmoL/L (3.5-5.1); Red Blood Count 4.26 M/mm3 (4.20-5.40); Red Cell Distribution Width 12.8 % (11.5-17.5); Sodium 143 mmol/L (136-145); White Blood Count 8.2 K/mm3 (4.8-10.8)
[2022-10-11 11:28] LABS: Alanine Aminotransferase 12 U/L (12-78); Albumin/Globulin Ratio 1.2 (1.1-1.8); Alkaline Phosphatase 84 U/L (38-126); Anion Gap 10.1 mEq/L (5-15); Aspartate Amino Transferase 24 U/L (14-36); Bilirubin,Total 0.3 mg/dl (0.2-1.3); Blood Urea Nitrogen 19 mg/dl (7-17); Calcium 9.1 mg/dl (8.4-10.2); Carbon Dioxide 34 mmol/L (22.0-30.0); Cholesterol 203 mg/dl (140-200); Estimated Glomerular Filt Rate 70 ml/min (>60); GFR (African American) 85 ML/MIN (>60); Globulin 3.4 g/dL (1.3-3.2); Glucose 95 mg/dl (74-100); Total Protein,Serum 7.4 g/dl (6.3-8.2); Triglycerides 119 mg/dl (30-150); VLDL Cholesterol 24 mg/dL (0-40)
[2022-10-11 11:29] LABS: Chol/HDL Ratio 3.6 (1-3.5); HDL Cholesterol 57 mg/dl (40-60)
[2022-10-11 11:39] LABS: Direct LDL Cholesterol 89.67 mg/dL (100-129)
[2022-10-11 11:40] LABS: Hemoglobin A1C 5.7 % (4.0-6.0)
[2022-10-11 11:45] LABS: Triiodothryronine (T3) Uptake 30 % (23.5-40.5)
[2022-10-11 11:59] LABS: Thyroid Stimulating Hormone 2.49 uIU/mL (0.465-4.68)
[2022-10-11 15:17] LABS: Free Thyroxine Index 3.3 ug/dL (5.93-13.13)
[2022-10-11 15:18] LABS: T4 (Thyroxine) 10.9 ug/dl (5.53-11.0)
== END ==
PROVIDERS: PCP Internal Medicine Adolescent Medicine; Visit Provider Internal Medicine Adolescent Medicine
DX: E11.9 Type 2 diabetes mellitus without complications (principal); R27.0 Ataxia, unspecified; E55.9 Vitamin D deficiency, unspecified; Z79.84 Long term (current) use of oral hypoglycemic drugs
CPT/HCPCS: 36415; 80053; 80061; 83036; 83735; 84436; 84443; 84479; 85025

== ENCOUNTER → 2022-10-26 09:56 | Outpatient (POV) | payer MEDICARE, SELFPAY ==
--- NOTE | 2022-10-26 10:16 | A.OFFVIS_ITS ---
[facility] Pain Management SOAP Note Subjective:: Patient is a pleasant 72-year-old who presents today for medication refill and follow-up. We are currently treating the patient for degenerative disc disease of lumbar spine with lumbar radiculopathy symptoms. Today she rates her pain a 7 out of 10. Patient denies any new trauma or injury. Patient denies any change location or type of pain she experiences. Patient has been using her compounding cream that she states does provide additional improvement. She is currently managed with morphine sulfate ER 15 mg at night and morphine sulfate ER 30 mg in the morning. Patient denies any side effects from these medications. She is requesting a refill at today's visit. Patient is also r equesting an increase in her pain medication due to her significant pain. Her Asif is [id number]. Its been reviewed and appropriate. Review of Systems: General: No recent weight changes, no fever, no sleep disturbances Respiratory: No cough, no shortness of air, no recurring pulmonary infections Cardiovascular/peripheral vascular: No chest pain, no palpitations, no edema, no shortness of breath Gastrointestinal: No new onset incontinence, normal bowel movements reported Genitourinary: No new onset incontinence Musculoskeletal: Low back pain Psychiatric: [Normal mood/affect] Neurological: [Denies weakness in extremities], [denies balance issues] Objective:: Physical Exam: General: Alert and oriented x3, no acute distress, pleasant and cooperative Lungs: Respirations even and unlabored, symmetrical chest expansion Eyes: PERRL Musculoskeletal: Flexion and extension of lumbar [spine] somewhat guarded secondary to pain, [antalgic gait noted] Neurological: Speech clear, no gross sensory deficit ORT score updated with low risk Assessment:: Degenerative disc disease of lumbar spine with lumbar radiculopathy symptoms Plan:: Patient continues to experience significant pain in her low back and legs. I will refill the patient's morphine ER 15 mg at night and morphine sulfate ER 30 mg during the day and provide a 1 month supply of this medication. I have also counseled the patient that she can use her compounding cream up to 3 times per day. I will order the patient tizanidine 4 mg at bedtime and provide a 30-day supply of this medication. Patient will return to clinic in 1 month for reevaluation of symptoms, medication refill and follow-up. Patient has been advised of risks of oversedation with the prescribed medication. Narcan has been offered to the patient in the event of oversedation. Patient has been advised that a family member should also be educated regarding administration of Narcan. Patient has been instructed to contact the clinic with any concerns before the next appointment. Dr. Dudley has reviewed this note and agrees with this plan of care. This note was dictated using voice recognition software and make contain errors or omissions. [facility] Disclaimer: The information contained in this section may have been updated after the patient was seen, as this information can be updated by other users. Surgical History (Updated 08/16/22 @ 15:11 by Melissa Cota LPN) Previous back surgery Social History Smoking Status: Never smoker alcohol intake: never current occupational status: other Travel in the last 8 weeks: None household members: spouse housing: house current occupational exposures/hazards: No caffeine: Yes
--- NOTE | 2022-10-26 10:34 | A.OFFVIS_ITS ---
[facility] Pain Management SOAP Note Objective:: Physical Exam: General: Alert and oriented x3, no acute distress, pleasant and cooperative Lungs: Respirations even and unlabored, symmetrical chest expansion Eyes: PERRL Musculoskeletal: Flexion and extension of lumbar [spine] somewhat guarded secondary to pain, [antalgic gait noted] Neurological: Speech clear, no gross sensory deficit [facility] Disclaimer: The information contained in this section may have been updated after the patient was seen, as this information can be updated by other users. Surgical History (Updated 08/16/22 @ 15:11 by Melissa Cota LPN) Previous back surgery Social History Smoking Status: Never smoker alcohol intake: never current occupational status: other Travel in the last 8 weeks: None household members: spouse housing: house current occupational exposures/hazards: No caffeine: Yes
[2022-10-26 10:42] VITALS: BP 131/59; PULSE 81; RESP 18; O2SAT 97; BMI 38.5
== END | disposition home or self-care (01) ==
PROVIDERS: PCP Internal Medicine Adolescent Medicine; Visit Provider Nurse Practitioner Family
DX: M51.16 Intervertebral disc disorders with radiculopathy, lumbar region (principal)
CPT/HCPCS: 99212; G0463

== ENCOUNTER → 2022-10-26 10:22 | Outpatient (CLI) | payer MEDICARE, SELFPAY ==
[2022-10-26 11:27] LABS: Amphetamine/Metha Screen,Urine Negative ng/ml (<1000); Barbiturates Screen,Urine Negative ng/ml (<200); Benzodiazepines Screen,Urine Negative ng/ml (<200); Cannabinoid Screen,Urine Negative ng/ml (<50); Cocaine Screen,Urine Negative ng/ml (<300); Methadone Screen,Urine Negative ng/ml (<300); Opiate Screen,Urine Positive ng/ml (<300); Phencyclidine Screen,Urine Negative ng/ml (<25)
[2022-11-01 00:08] LABS: Codeine Negative (Cutoff=100); Hydrocodone Negative (Cutoff=100); Hydromorphone Positive (.); Morphine Positive (.); Opiates Positive (.)
== END ==
PROVIDERS: Nurse Practitioner Family; PCP Internal Medicine Adolescent Medicine; Visit Provider Anesthesiology
DX: Z79.891 Long term (current) use of opiate analgesic (principal)
CPT/HCPCS: 80305; 80361; 80365; 99212; G0463; G0480

== ENCOUNTER → 2022-11-23 09:33 | Outpatient (POV) | payer MEDICARE, SELFPAY ==
[2022-11-23 10:06] VITALS: BP 145/86; PULSE 87; RESP 18; O2SAT 97; BMI 38.5
--- NOTE | 2022-11-23 10:13 | A.OFFVIS_ITS ---
[facility] Pain Management SOAP Note Subjective:: Patient is a pleasant 72-year-old female who presents today for follow-up and medication refill. We are currently treating the patient for degenerative disc disease of lumbar spine with lumbar radiculopathy symptoms. Today she rates her pain a 8 out of 10. Patient denies any new trauma or injury. Patient denies any change location or type of pain she experiences. At our last visit the patient was prescribed tizanidine 4 mg at night and she states that it did make her very drowsy during the day. Patient states that she did try breaking them in half however then she could not tell significant difference. Patient is currently prescribed compounding cream along with morphine sulfate ER 15 mg at night and morphine sulfate ER 30 mg in the morning. Patient denies any side effects from these medications. Her Asif is [id number]. Its been reviewed and appropriate. Review of Systems: General: No recent weight changes, no fever, no sleep disturbances Respiratory: No cough, no shortness of air, no recurring pulmonary infections Cardiovascular/peripheral vascular: No chest pain, no palpitations, no edema, no shortness of breath Gastrointestinal: No new onset incontinence, normal bowel movements reported Genitourinary: No new onset incontinence Musculoskeletal: Low back pain Psychiatric: [Normal mood/affect] Neurological: [Denies weakness in extremities], [denies balance issues] Objective:: Physical Exam: General: Alert and oriented x3, no acute distress, pleasant and cooperative Lungs: Respirations even and unlabored, symmetrical chest expansion Eyes: PERRL Musculoskeletal: Flexion and extension of lumbar [spine] somewhat guarded secondary to pain, [antalgic gait noted] Neurological: Speech clear, no gross sensory deficit Assessment:: Degenerative disc disease of lumbar spine with lumbar radiculopathy symptoms Plan:: Patient continues to experience significant pain in her low back and legs. I have discussed with her to discontinue the tizanidine and I will order her baclofen 5 mg at bedtime and provide a 2-week supply of this medication. We will send in refills on her morphine sulfate ER 30 mg daily and morphine sulfate ER 15 mg daily and provide a 1 month supply of this medication. Patient will return to clinic in 1 month for reevaluation of symptoms, medication refill and follow-up. Patient has been advised of risks of oversedation with the prescribed medication. Narcan has been offered to the patient in the event of oversedation. Patient has been advised that a family member should also be edu cated regarding administration of Narcan. Patient has been instructed to contact the clinic with any concerns before the next appointment. Dr. Dudley has reviewed this note and agrees with this plan of care. This note was dictated using voice recognition software and make contain errors or omissions. [facility] Disclaimer: The information contained in this section may have been updated after the patient was seen, as this information can be updated by other users. Surgical History (Updated 08/16/22 @ 15:11 by Melissa Cota LPN) Previous back surgery Social History Smoking Status: Never smoker alcohol intake: never current occupational status: retired Travel in the last 8 weeks: None household members: spouse housing: house current occupational exposures/hazards: No caffeine: Yes
== END | disposition home or self-care (01) ==
PROVIDERS: PCP Internal Medicine Adolescent Medicine; Visit Provider Nurse Practitioner Family
DX: M51.16 Intervertebral disc disorders with radiculopathy, lumbar region (principal)
CPT/HCPCS: 99212; G0463

== ENCOUNTER 2022-12-03 15:14 | Observation (INO) | payer MEDICARE, SELFPAY ==
[2022-12-03] VITALS (9 sets, daily range): BP systolic 158–178; BP diastolic 81–93; PULSE 72–106; RESP 14–20; TEMP 36.7–36.8; O2SAT 90–97; BMI 38.5; BMI 38.7
--- NOTE | 2022-12-03 15:32 | CT_ITS ---
PROCEDURE INFORMATION: Exam: CT Thoracic Spine Without Contrast Exam date and time: 12/03/2022 3:49 PM Age: 72 years old Clinical indication: Injury or trauma; Fall; Blunt trauma (contusions or hematomas); Additional info: Fall, injury TECHNIQUE: Imaging protocol: Computed tomography of the thoracic spine without contrast. Radiation optimization: All CT scans at this facility use at least one of these dose optimization techniques: automated exposure control; mA and/or kV adjustment per patient size (includes targeted exams where dose is matched to clinical indication); or iterative reconstruction. REPORTING DATA: Count of CT and Cardiac NM exams in prior 12 months: This patient has received 3 known CTs and 0 known cardiac nuclear medicine studies in the 12 months prior to the current study. COMPARISON: CT CERVICAL SPINE WO CON 12/03/2022 3:46 PM FINDINGS: Bones/joints: No acute fracture. A chronic moderate T12 vertebral compression fracture, no definite change compared with 06/22/2019. Chronic surgical changes in the posterior elements T9-L2. Levo scoliotic curvature, and thoracolumbar kyphosis. Minimal chronic anterior subluxations at T10-T11 and T11-T12, unchanged. No high-grade listhesis. Degenerative disc narrowing and spondylosis, vacuum phenomenon at T8-T9 through T11-T12 levels. No significant disc protrusions or bulges. No significant disc bulge or herniation. No severe spinal canal stenosis or foraminal stenoses. Soft tissues: There are no soft tissue masses or fluid collections. Kidneys and ureters: Chronic anterior left renal cortical lesion, likely cyst, HU density measurements of 20-26, indeterminate, and this is incompletely characterized on this nonenhanced exam. Series 5, image 115, series 1002, image 69. This measures approximately 1.6 cm diameter. Other findings: Prominent hiatal hernia, chronic since the prior study. IMPRESSION: 1. No acute fracture, high-grade listhesis, or significant interval change in the thoracic spine compared with 06/22/2019. 2. Chronic degenerative and surgical changes, as above. No high-grade foraminal stenosis or high-grade spinal stenosis. 3. Chronic moderate T12 vertebral compression fracture, unchanged. 4. Chronic prominent hiatal hernia. 5. Indeterminate density 1.6 cm left renal cortical lesion, possible cyst but incompletely characterized on this exam and with indeterminate density measurements up to 26 HU. ACR guidelines recommend non-emergent MRI without and with contrast or non-emergent CT without and with contrast. MRI is preferred for masses under 1.5 cm. 6. Additional nonemergency and chronic findings as above.
--- NOTE | 2022-12-03 15:32 | XR_ITS ---
PROCEDURE INFORMATION: Exam: XR Chest Exam date and time: 12/03/2022 4:11 PM Age: 72 years old Clinical indication: Injury or trauma; Fall; Blunt trauma (contusions or hematomas); Additional info: Fall, injury TECHNIQUE: Imaging protocol: Radiologic exam of the chest. Views: 1 view. Portable AP exam 4:12 p.m. COMPARISON: CR XR CHEST AP 06/22/2019 10:25 AM FINDINGS: Tubes, catheters and devices: Overlying monitor technician electrodes. Overlying implantable loop recorder device in the lower left chest, unchanged. 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 This is unchanged compared with the photographic spotter topogram from a chest CT of 01/17/2019. No acute findings. No consolidation. Pulmonary vessels do not appear congested. Pleural spaces: Unremarkable. No significant pleural effusion. No pneumothorax. Heart/Mediastinum: Large hiatal hernia, unchanged compared with 06/22/2019. Mild cardiomegaly, unchanged. Vasculature: Chronic tortuous thoracic aorta. Bones/joints: There are spinal degenerative changes, with multilevel disc narrrowing and spondylosis. Organs: Cholecystectomy clips in the right upper quadrant abdomen. IMPRESSION: 1. No acute cardiopulmonary findings or significant change compared with 01/17/2019. 2. Large hiatal hernia. 3. Cardiomegaly. 4. 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 5. Additional nonemergency and chronic findings as above.
--- NOTE | 2022-12-03 15:32 | CT_ITS ---
PROCEDURE INFORMATION: Exam: CT Cervical Spine Without Contrast Exam date and time: 12/03/2022 3:46 PM Age: 72 years old Clinical indication: Injury or trauma; Fall; Blunt trauma; Additional info: Fall, injury TECHNIQUE: Imaging protocol: Computed tomography of the cervical spine without contrast. Radiation optimization: All CT scans at this facility use at least one of these dose optimization techniques: automated exposure control; mA and/or kV adjustment per patient size (includes targeted exams where dose is matched to clinical indication); or iterative reconstruction. REPORTING DATA: Count of CT and Cardiac NM exams in prior 12 months: This patient has received 3 known CTs and 0 known cardiac nuclear medicine studies in the 12 months prior to the current study. COMPARISON: CT CERVICAL SPINE WO CON 06/22/2019 11:00 AM FINDINGS: Bones/joints: No acute fracture. Normal alignment. There are no lytic skeletal lesions seen. Chronic degenerative osteoarthrosis anteriorly C1-C2 with prominent periarticular spurs and sclerosis. Degenerative disc narrowing and spondylosis greatest C4-C5 through C6-C7. Worsened spondylosis at the inferior C4 endplate compared with the prior study, with disc-osteophyte complex indenting the thecal sac toward the right, mildly narrowing the central spinal canal. There is no high-grade spinal stenosis. Multilevel cervical facet arthropathy, greatest on the right at C2-C3 and C3-C4, on the left at C3-C4 through C6-C7. Degenerative narrowing of neural foramina, this appears moderately severe at the right C5 foramen due to lateral uncovertebral spurs, correlate for right C5 radiculopathy; series 6, image 46. Milder narrowing of other foramina, no severe foraminal stenoses, as visualized. Lungs: Minimal apical interstitial scarring. No acute findings. No consolidation. Soft tissues: No acute findings in the paraspinous soft tissues. No prevertebral swelling. Chronic right thyroid nodule of approximately 2.5 cm, no significant change compared with 06/22/2019 as visualized. IMPRESSION: 1. No acute fracture or significant listhesis, compared with 06/22/2019. 2. Multilevel degenerative disc disease, spondylosis, and facet arthropathy as detailed above. 3. Mild degenerative central spinal stenosis at C4-C5. Moderately severe right C5 foraminal narrowing due to lateral uncovertebral spurs, correlate for radiculopathy. 4. No other high-grade stenosis. 5. Chronic 2.5 cm right thyroid nodule, no definite change compared with 06/22/2019. If not previously worked up, recommend nonemergent follow-up thyroid ultrasound.
--- NOTE | 2022-12-03 15:32 | XR_ITS ---
PROCEDURE INFORMATION: Exam: XR Pelvis Exam date and time: 12/03/2022 4:11 PM Age: 72 years old Clinical indication: Injury or trauma; Fall; Blunt trauma (contusions or hematomas); Bilateral; Pelvic region TECHNIQUE: Imaging protocol: Radiologic exam of the pelvis. Views: 1 or 2 view. COMPARISON: CR XR HIP LT 2-3V W/PELVIS 12/21/2020 11:21 AM FINDINGS: Bones/joints: Mild degenerative changes in both hip joints, with mild hip joint space narrowing, small femur head spurs. Bilateral sacroiliitis. Lower lumbar degenerative changes, please see the lumbar spine CT report for detailed lumbar findings.No acute fracture or dislocation.There are no lytic skeletal lesions seen. Soft tissues: No acute findings, as visualized. IMPRESSION: 1. No acute fracture or dislocation. 2. Chronic hip degenerative changes. 3. Chronic lumbosacral degenerative changes.
--- NOTE | 2022-12-03 15:32 | CT_ITS ---
PROCEDURE INFORMATION: Exam: CT Lumbar Spine Without Contrast Exam date and time: 12/03/2022 3:54 PM Age: 72 years old Clinical indication: Injury or trauma; Fall; Blunt trauma (contusions or hematomas); Additional info: Fall, injury TECHNIQUE: Imaging protocol: Computed tomography of the lumbar spine without contrast. Radiation optimization: All CT scans at this facility use at least one of these dose optimization techniques: automated exposure control; mA and/or kV adjustment per patient size (includes targeted exams where dose is matched to clinical indication); or iterative reconstruction. REPORTING DATA: Count of CT and Cardiac NM exams in prior 12 months: This patient has received 3 known CTs and 0 known cardiac nuclear medicine studies in the 12 months prior to the current study. COMPARISON: CT LUMBAR SPINE WO CON 06/22/2019 11:02 AM FINDINGS: Bones/joints: No acute fracture. Chronic T12 vertebral compression fracture unchanged compared with 06/22/2019. Normal alignment. L1-L2: Chronic degenerative disc narrowing, vacuum phenomenon, and spondylosis. Chronic posterior bony fusion. No significant disc bulge or herniation. No severe spinal canal stenosis. No significant neural foraminal narrowing. L2-L3: Chronic severe degenerative disc narrowing, vacuum phenomenon, with spondylosis. Chronic grade 1 retrolisthesis. Chronic posterior bony fusion. Posterolateral disc bulge and spondylosis. Moderate bilateral L2 foraminal narrowing. Mild chronic central spinal stenosis. L3-L4: Shallow posterior disc bulge. Minimal chronic grade 1 degenerative retrolisthesis. Mild facet arthropathy. Mild foraminal narrowing. No significant spinal stenosis. L4-L5: Broad posterolateral disc bulges. Right-sided facet hypertrophy/arthropathy. No significant spinal stenosis. Mild bilateral L4 foraminal narrowing. L5-S1: Degenerated disc with vacuum phenomenon. Posterolateral disc bulging. Prominent bilateral facet arthropathy. Degenerative grade 1 anterolisthesis. Mild spinal canal narrowing, mild L5 foraminal narrowing. Soft tissues: No acute findings in the paraspinous soft tissues. IMPRESSION: 1. No acute findings or significant interval change compared with 06/22/2019. 2. Chronic grade 1 retrolisthesis L2-L3 and L3-L4, and grade 1 anterolisthesis L5-S1. No high-grade listhesis. 3. Chronic T12 compression deformity. No acute lumbar fracture. 4. Multilevel degenerative disc disease, spondylosis, and facet arthropathy as detailed above. No severe spinal stenosis or severe foraminal stenoses.
--- NOTE | 2022-12-03 15:36 | HMH.EDGENADL ---
Discharge Plan Disposition Patient Disposition: Admitted as Observation Condition: Fair Clinical Impressions Clinical Impression: Cervical muscle strain, Strain of thoracic spine, Lumbar spine strain, Fall (on) (from) other stairs and steps, initial encounter Discharge ED Provider: Mich Sinclair General Adult HPI General Chief complaint: Fall Stated complaint: fall Time Seen by Provider: 12/03/22 15:24 Mode of Arrival: EMS Source of Information: Patient Limitations: No Limitations Description of Symptoms (Recalled from ER Triage Doc. by RN): pt to ed c/o lumbar pain after fall. pt states she fell in the garage today and is having pain. pt states she fell on her bottom. pt statates a previous hx of back surgery. History of Present Illness HPI narrative: The patient is brought in by ambulance. Patient states that she fell down a step when her legs went out from under her and she landed on her bottom. She complains of pain in her entire spine from her tailbone up to her neck. The pain in her neck is on the right side. She did not strike her head. She denies any other injuries except for a scuff on her right elbow, she states it does not hurt. No chest or abdominal injury. No numbness or weakness. States she has a history of previous back surgeries years ago and chronic back pain. She sees Dr. Dudley in pain management and is currently on morphine twice a day. Her last dose was this morning. Related Data Home Medications Medication Instructions Recorded Confirmed clopidogrel 75 mg tablet 75 mg PO HS Heart disease 12/29/17 12/03/22 fluoxetine 20 mg capsule 20 mg PO HS mood 12/29/17 12/03/22 memantine ER 28 mg-donepezil 10 mg 1 tab PO HS MEMORY 12/29/17 12/03/22 capsule sprinkle,ext.release 24 hr amitriptyline 25 mg tablet 3 tab PO DAILY MOOD 06/24/19 12/03/22 buspirone 10 mg tablet 10 mg PO TID ANXIETY/MOOD 06/24/19 12/03/22 halobetasol propionate 0.05 % 1 applicatio topical BID PRN Skin 06/24/19 12/03/22 topical ointment Irritation omeprazole 20 mg capsule,delayed 20 mg PO DAILY GERD 06/24/19 12/03/22 release perphenazine 2 mg tablet 3 tab PO DAILY MOOD 06/24/19 12/03/22 carvedilol 6.25 mg tablet 6.25 mg PO DAILY blood pressure 08/16/22 12/03/22 tizanidine 4 mg tablet (Zanaflex) 4 mg PO HS MUSCLES 11/23/22 12/03/22 baclofen 5 mg tablet 5 mg PO HS per md 12/03/22 12/03/22 morphine 30 mg tablet,extended 30 mg PO AM Pain 12/03/22 12/03/22 release Previous Rx's Medication Instructions Recorded morphine 15 mg tablet,extended 15 mg PO HS Pain #30 tabs 11/23/22 release Allergies Allergy/AdvReac Type Severity Reaction Status Date / Time ciprofloxacin [From CIPRO] Allergy Unknown Unknown Verified 08/16/22 15:07 allergy reaction codeine [CODEINE] Allergy Unknown Unknown Verified 08/16/22 15:07 allergy reaction erythromycin base Allergy Unknown I-RASH Verified 08/16/22 15:07 [From ERYTHROCIN] meperidine [MEPERIDINE] Allergy Unknown Unknown Verified 08/16/22 15:07 allergy reaction NSAIDS (Non-Steroidal Allergy Unknown I-RASH Verified 08/16/22 15:07 Anti-Inflamma [NSAIDS (NON-STEROIDAL ANTI-INFLAMMA] ofloxacin [OFLOXACIN] Allergy Unknown Unknown Verified 08/16/22 15:07 allergy reaction Quinolones [QUINOLONES] Allergy Unknown Unknown Verified 08/16/22 15:07 allergy reaction Macrolide Antibiotics Allergy Unknown Verified 08/16/22 15:07 allergy reaction Iodinated Contrast Media AdvReac Mild FLUSHED Verified 08/16/22 15:07 [Iodinated Contrast Media - FACE, IV Dye] ITCHING PFSH PFSH Disclaimer: The information contained in this section may have been updated after the patient was seen, as this information can be updated by other users. Surgical History (Updated 08/16/22 @ 15:11 by Melissa Cota LPN) Previous back surgery Social History Smoking Status: Daniella
--- NOTE | 2022-12-03 16:35 | PC.NURSE ---
pt resting in bed family @ bs
--- NOTE | 2022-12-03 16:36 | PC.NURSE ---
pt sleeping, daughter @ bs
--- NOTE | 2022-12-03 17:19 | PC.NURSE ---
Dr Sinclair speaking to Dr Coates
--- NOTE | 2022-12-03 17:20 | PC.NURSE ---
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
--- NOTE | 2022-12-03 17:23 | PC.NURSE ---
covid swab sent to lab
[2022-12-03 17:28] LABS: Coronavirus 19, PCR Not Detected (NotDetected); Influenza A, PCR Not Detected (NotDetected); Influenza B, PCR Not Detected (NotDetected)
--- NOTE | 2022-12-03 18:25 | PC.NURSE ---
patient arrived to floor by stretcher from ED
--- NOTE | 2022-12-03 19:00 | PC.NURSE ---
pt has been admitted to the floor from ED. pt is here due to increased back pain after a fall today. pt has chronic back pain. She reports not being physically able to do ADLS as a result of increased pain and weakness. Pt reports increased depression with a history of wishing she were / suicidal ideation, none of which was within the last three months. pt states she lives with her who is also not well. She grimaces with any repositioning and refuses to ambulate or transfer due to pain. Care management consult put in.
--- NOTE | 2022-12-04 03:45 | PC.NURSE ---
Pt. reports increased pain with repositioning and needing assistance. She asked for a purewick so she wouldn't have to use a bedpan. States her pain at home is usually a 10 and is on po morphine twice a day at home. No other changes noted.
[2022-12-04 04:00] VITALS: BP 156/80; PULSE 74; RESP 16; TEMP 36.6; O2SAT 93; BMI 39.3
--- NOTE | 2022-12-04 07:17 | HMH.PHAINT1 ---
Pharmacy Intervention Comments: MEDICATION RECONCILIATION COMPLETED ON PATIENTUSING EXTERNAL FILL HISTORY FROM PHARMACY AND SHANE REPORT. -KELECHI YUNGD
[2022-12-04 08:00] VITALS: BP 137/81; PULSE 75; RESP 18; TEMP 36.8; O2SAT 96
--- NOTE | 2022-12-04 08:27 | EXP.HP ---
History of Present Illness *Admission Date: 12/03/22 *Reason for visit:: Fall with intractable back pain *History of present illness: 72-year-old female with long history of chronic pain syndrome, fibromyalgia, vascular encephalopathy and significant ataxia problems who at home gets around very gingerly with a walker and a lot of help from her family. Yesterday she fell going into her garage and rolled onto the garage floor. She was brought to the hospital because of intractable back pain. Extensive roentgenograms survey revealed no evidence of fracture, but had intractable pain and was admitted to hospital for ongoing pain control and PT and OT evaluation. [facility] Disclaimer: The information contained in this section may have been updated after the patient was seen, as this information can be updated by other users. Surgical History Previous back surgery Family History (Updated 12/03/22 @ 18:54 by Donna Rodriguez RN) No significant family history Social History (Updated 12/03/22 @ 18:54 by Donna Rodriguez RN) Smoking Status: Never smoker alcohol intake: never substance use type: denies use current occupational status: retired Travel in the last 8 weeks: None household members: spouse housing: house current occupational exposures/hazards: No caffeine: Yes Review of Systems Review of Systems Review of systems:: pertinent systems reviewed and negative unless documented below Constitutional Constitutional: Denies weakness *Musculoskeletal Musculoskeletal: Denies numbness *Neurologic Neurologic: Denies numbness and Denies weakness Meds Home Medications and Allergies Home Medications Medication Instructions Recorded Confirmed Type clopidogrel 75 mg tablet 75 mg PO HS PLATELET INHIB[employer]OR 12/29/17 12/03/22 History fluoxetine 20 mg capsule 20 mg PO HS mood 12/29/17 12/03/22 History amitriptyline 25 mg tablet 25 mg PO DAILY MOOD 06/24/19 12/04/22 History buspirone 10 mg tablet 10 mg PO BID ANXIETY/MOOD 06/24/19 12/04/22 History halobetasol propionate 0.05 % 1 applicatio topical BIDP PRN Skin 06/24/19 12/04/22 History topical ointment Irritation perphenazine 2 mg tablet 2 mg PO DAILY MOOD 06/24/19 12/04/22 History carvedilol 6.25 mg tablet 6.25 mg PO BID Hypertension 08/16/22 12/04/22 History morphine 15 mg tablet,extended 15 mg PO HS Pain #30 tabs 11/23/22 12/03/22 Rx release tizanidine 4 mg tablet (Zanaflex) 4 mg PO HS MUSCLE SPASM 11/23/22 12/03/22 History baclofen 5 mg tablet 5 mg PO HS MUSCLE SPASM 12/03/22 12/03/22 History morphine 30 mg tablet,extended 30 mg PO AM Pain 12/03/22 12/03/22 History release amitriptyline 25 mg tablet 50 mg PO HS MOOD 12/04/22 12/04/22 History memantine ER 28 mg-donepezil 10 mg 1 cap PO HS MEMORY 12/04/22 12/04/22 History capsule sprinkle,ext.release 24 hr (Namzaric) perphenazine 2 mg tablet 4 mg PO HS MOOD 12/04/22 12/04/22 History New Prescriptions to Start Prescriptions: Allergies Allergy/AdvReac Type Severity Reaction Status Date / Time ciprofloxacin [From CIPRO] Allergy Unknown Unknown Verified 08/16/22 15:07 allergy reaction codeine [CODEINE] Allergy Unknown Unknown Verified 08/16/22 15:07 allergy reaction erythromycin base Allergy Unknown I-RASH Verified 08/16/22 15:07 [From ERYTHROCIN] meperidine [MEPERIDINE] Allergy Unknown Unknown Verified 08/16/22 15:07 allergy reaction NSAIDS (Non-Steroidal Allergy Unknown I-RASH Verified 08/16/22 15:07 Anti-Inflamma [NSAIDS (NON-STEROIDAL ANTI-INFLAMMA] ofloxacin [OFLOXACIN] Allergy Unknown Unknown Verified 08/16/22 15:07 allergy reaction Quinolones [QUINOLONES] Allergy Unknown Unknown Verified 08/16/22 15:07 allergy reaction Macrolide Antibiotics Allergy Unknown Verified 08/16/22 15:07 allergy reaction Iodinated Contrast Media AdvReac Mild FLUSHED Verified 08/16
--- NOTE | 2022-12-04 09:21 | PC.NURSE ---
PT at bedside for eval.
--- NOTE | 2022-12-04 09:59 | EXP.PAIN.SOA ---
[facility] Pain Management SOAP Note Subjective:: Patient is a pleasant 72-year-old female who presents today for follow-up. We are currently treating the patient for degenerative disc disease of lumbar spine with lumbar radiculopathy symptoms. Today she rates her pain a 9 out of 10. Patient is currently hospitalized at [facility] due to a recent fall in her garage. She states that her back is a aching, sharp sensation that is worse with increased activity. Patient does state that her pain is all more midline around her mid to low back. Patient's recent CT imaging showed no fractures or dislocations related to this fall. Patient was recently prescribed baclofen 5 mg at bedtime however she states she still does not do well with muscle relaxers. She is currently managed with compounding cream, morphine sulfate ER 15 mg at night and morphine sulfate ER 30 mg in the morning. Patient denies any side effects from this medication. Her Asif has been reviewed and is appropriate. Review of Systems: General: No recent weight changes, no fever, no sleep disturbances Respiratory: No cough, no shortness of air, no recurring pulmonary infections Cardiovascular/peripheral vascular: No chest pain, no palpitations, no edema, no shortness of breath Gastrointestinal: No new onset incontinence, normal bowel movements reported Genitourinary: No new onset incontinence Musculoskeletal: Mid/low back pain Psychiatric: [Normal mood/affect] Neurological: [Denies weakness in extremities], [denies balance issues] Objective:: Physical Exam: General: Alert and oriented x3, no acute distress, pleasant and cooperative Lungs: Respirations even and unlabored, symmetrical chest expansion Eyes: PERRL Musculoskeletal: Flexion and extension of thoracic, lumbar [spine] somewhat guarded secondary to pain, [antalgic gait noted] Neurological: Speech clear, no gross sensory deficit Assessment:: Degenerative disc disease of lumbar spine with lumbar radiculopathy symptoms, low back pain, mid back pain, chronic compression fracture T12 Plan:: Patient is experiencing significant pain at her mid to low back with limited range of motion. I have discussed with the patient that she may benefit from an epidural steroid injection. Patient does have significant pain at and around her last rib approximately T12. Patient's imaging did show this is a site of a chronic compression deformity. Risk and benefits were discussed with the patient and she would like to proceed forward with this plan of care. Patient is not on any blood thinners. I have also discussed with the patient that we will start her on tramadol 50 mg daily for breakthrough pain. We will schedule the patient for a TESI T12-L1. Patient has been advised of risks of oversedation with the prescribed medication. Narcan has been offered to the patient in the event of oversedation. Patient has been advised that a family member should also be educated regarding administration of Narcan. Patient has been instructed to contact the clinic with any concerns before the next appointment. Dr. Dudley has reviewed this note and agrees with this plan of care. This note was dictated using voice recognition software and make contain errors or omissions. [facility] Disclaimer: The information contained in this section may have been updated after the patient was seen, as this information can be updated by other users. Surgical History Previous back surgery Family History (Updated 12/03/22 @ 18:54 by Donna Rodriguez RN) Other No significant family history Social History (Updated 12/03/22 @ 18:54 by Donna Rodriguez RN) Smoking Status: Never smoker alcohol intake: never substance use type: denies use current occupational status: retired Travel in the last 8 weeks: None household members: spouse housing: house current occupational exposures/hazards: No caffeine: Yes
--- NOTE | 2022-12-04 10:05 | HMH.OTEV ---
OT Inpatient Evaluation Rehab OT IP Evaluation Start: 12/03/22 17:59 Freq: ONCE Status: Active Protocol: Document 12/04/22 10:00 [facility] (Rec: 12/04/22 10:05 [facility] [id number]) Rehab OT IP Assessment Subjective History Pt oriented x 3 on arrival. Pt agreeable to engage in therapy evaluation. Pt was admitted on 12/03/22 due to a fall at home with intractable back pain. Pt lives at home with her . Pt claims she was independent with all ADLs such as dressing, bathing , and feeding. However, she is dependent upon her for completion of all IADLS. Pt does use a rollator during ambulation. Subjective I am very stiff and sore. Objective Patient Orientation Person,Place,Birthday Upper Extremity Gross ROM Min Limitation <25% Shoulder ROM Limitations Muscle Weakness Elbow ROM Limitations Muscle Weakness Wrist Limitations of Range of Motion Muscle Weakness Bed Mobility bed mobility-scooting,bed mobility - supine/sit,bed mobility - rolling Assist Level Moderate x 2 (50% assist) Transfer Training Sit/Stand/Step Transfer Assist Level Moderate x 2 (50% assist) Rehab OT IP prob,goals,plan Problems Date of Evaluation: 12/04/22 OT IP Problems Bed Mobility,Transfers,Balance ,Self care,Safety Rehab Potential Rehab Potential Good Equipment Needs Assistive Devices Rolling / Wheeled Walker Plan OT intervention Plan Bed Mobility,Transfers,Balance ,Self care,Safety,Therapeutic Exercise OT Plan Frequency BID Duration LOS Discharge Goals Bed Mobility Ability Assistance x1 Sit to Stand Chair Transfer Ability Minimal x 1 (25% assist) Chair Transfer Ability Minimal x 1 (25% assist) Chair Transfer Technique Sit to/from Ambulatory Chair Transfer Assistive Devices Rolling Walker Feeding Ability Assist with Tray Set Up Lower Body Dressing Ability Assistance X1 Upper Body Dressing Ability Assistance X1 Bathing Ability Assistance x1 Performing Toilet Hygiene Ability Assistance X1 Overall Commode/Toilet Transfer Ability Assistance x1 Commode/Toilet Transfer Technique Sit to/from Ambulatory Discharge P
--- NOTE | 2022-12-04 11:20 | HMH.PTEV ---
Physical Therapy Evaluation Rehab PT IP Evaluation Start: 12/03/22 17:59 Freq: ONCE Status: Active Protocol: Document 12/04/22 11:04 [facility] (Rec: 12/04/22 11:19 [facility] [id number]) Subjective/History History History Pt is a pleasant 72 year old female that was admitted following a GLF at home. Pt was brought to the hospital due to back pain following the fall. Imaging performed was negative for acute fracture. Pt lives at home with her in a H with 4 KESHAV and ambulates with a rollator at baseline. Subjective Subjective Pt presents supine in bed with RN at side, pleasant and agreeable to therapy evaluation. Pt reports she has a lot of back pain at rest . Rehab PT IP Eval Objective Appearance Patient Behavior Appropriate,Cooperative Patient Orientation Person,Place,Time,Birthday Difficulty following instructions none Speech Pattern Clear,Appropriate Ambulation Patient Able to Ambulate No Balance Ability to Arise Able, uses arms to help Sitting Balance Leans or slides in chair Standing Balance Unsteady Dynamic Sitting Balance Ability Fair Dynamic Standing Balance Ability Fair Transfers Bed Transfer Ability Moderate x 2 (50% assist) Chair Transfer Ability Minimal x 2 (25% assist) Sit to Stand Bed Transfer Ability Minimal x 2 (25% assist) Sit to Stand Chair Transfer Ability Minimal x 2 (25% assist) ROM RLE PT ROM Status WFL LLE PT ROM Status WFL MMT LUE PT MMT WFL LLE PT MMT WFL Rehab PT IP prob,goals,plan Problems Date of Evaluation: 12/04/22 PT IP Problems Bed Mobility,Transfers,Gait, Balance,Self care,Safety Rehab Potential Rehab Potential Fair Equipment Needs Assistive Devices Rolling / Wheeled Walker Plan PT Intervention Plan Bed Mobility,Transfers,Gait, Balance,Self care,Safety, Therapeutic Exercise PT Plan Frequency Daily Duration LOS Discharge Goals Bed Transfer Ability Minimal x 2 (25% assist) Sit to Stand Chair Transfer Ability Contact Guard/Hand Hold Ambulation Assistive Device
--- NOTE | 2022-12-04 11:28 | CARE MANAGER ---
During rounds this am patient indicated to Dr. Coates that she may need some post-discharge rehab. Patient preference is [facility], but they do not have any beds at this time. This was relayed to patient and family who requests information be sent to [facility] in [facility] and [facility] in [place]. Information was faxed.
[2022-12-04 11:31] VITALS: BP 142/69; PULSE 72; RESP 20; TEMP 36.7; O2SAT 95
[2022-12-04 15:42] VITALS: BP 132/73; PULSE 66; RESP 16; TEMP 36.3; O2SAT 92
--- NOTE | 2022-12-04 18:20 | PC.NURSE ---
Patient tolerated PT this shift. Denies any needs at this time.
[2022-12-04 20:00] VITALS: BP 159/78; PULSE 65; RESP 18; TEMP 36.9; O2SAT 95
[2022-12-04 21:48] VITALS: O2SAT 97
[2022-12-05] VITALS: BP 114/64; PULSE 69; RESP 18; TEMP 36.4; O2SAT 94
--- NOTE | 2022-12-05 03:58 | PC.NURSE ---
Pt. didn't require as much pain medication as the previous night. Will continue to monitor.
[2022-12-05 04:00] VITALS: BP 144/72; PULSE 69; RESP 18; TEMP 36.5; O2SAT 91; BMI 39.9
[2022-12-05 07:43] VITALS: BP 183/92; PULSE 66; RESP 16; TEMP 36.6; O2SAT 94
--- NOTE | 2022-12-05 07:44 | P.PN_ITS ---
Subjective *Date: 12/05/22 *Time: 07:44 Interval history: Overall patient has some back pain but feels good otherwise. PT evaluation noted. Medical Exam Vital signs and Labs for Last 24 Hours: Vital Signs Temp Pulse Resp BP Pulse Ox 12/05/22 04:00 97.7 F 69 18 144/72 H 91 L 12/05/22 00:00 97.6 F 69 18 114/64 94 L 12/04/22 21:48 97 12/04/22 20:00 98.4 F 65 18 159/78 H 95 12/04/22 15:42 97.3 F L 66 16 132/73 92 L 12/04/22 11:31 98.0 F 72 20 142/69 H 95 12/04/22 08:00 98.3 F 75 18 137/81 96 Intake and Output 12/04/22 12/05/22 12/05/22 19:59 03:59 11:59 Intake Total 600 / 600 Output Total 0 / 1600 1200 / 1600 400 / 1600 Balance 600 / -1000 -1200 / -1000 -400 / -1000 Intake: Intake, Oral Amount 600 / 600 Output: Output, Urine Amount 0 / 1600 1200 / 1600 400 / 1600 Other: Number of Unmeasured Voids 1 Weight 203 lb 4 oz Patient Weight 12/05/22 11:59 Weight 203 lb 4 oz I & O for Labs for Last 24 Hours: Intake & Output 12/02/22 12/03/22 12/04/22 12/05/22 11:59 11:59 11:59 11:59 Intake Total 240 / 240 600 / 600 Output Total 300 / 300 1600 / 1600 Balance -60 / -60 -1000 / -1000 Weight 200 lb 4.8 oz 203 lb 4 oz Comment:: Heart rate regular. Lungs have good air movement. She is alert and pleasant. She has significant pain with movement of her back and legs. This is at basel ine. Assessment and Plan *Assessment and plan (1) Cervical muscle strain: Status: Acute Category: Medical Code(s): S16.1XXA - Strain of muscle, fascia and tendon at neck level, initial encounter (2) Strain of thoracic spine: Status: Acute Category: Medical Code(s): S29.012A - Strain of muscle and tendon of back wall of thorax, initial encounter (3) Lumbar spine strain: Status: Acute Category: Medical Code(s): S39.012A - Strain of muscle, fascia and tendon of lower back, initial encounter (4) Fall (on) (from) other stairs and steps, initial encounter: Status: Acute Category: Medical Code(s): W10.8XXA - Fall (on) (from) other stairs and steps, initial encounter (5) Lumbosacral spondylolysis: Status: Acute Category: Medical Code(s): M43.07 - Spondylolysis, lumbosacral region Plan Fragile individual with a host of comorbid conditions including diabetes, ch ronic depression, anxiety, morbid obesity and frequent falls. PT and OT evaluation today. I will ask pain clinic to stop by and give us some advice about breakthrough pain relief given her pain pump and ongoing morphine administration. Evaluate for possible skilled care stay to do some rehab Update plan for 12/05/2022-continue to do PT and pain control, evaluate for skilled care placement today.
[2022-12-05 08:00] VITALS: O2SAT 94
--- NOTE | 2022-12-05 09:06 | EXP.DC.SUM ---
General Admission date:: 12/03/22 Discharge date: 12/05/22 HPI HPI HPI: 72-year-old female with long history of chronic pain syndrome, fibromyalgia, vascular encephalopathy and significant ataxia problems who at home gets around very gingerly with a walker and a lot of help from her family. Yesterday she fell going into her garage and rolled onto the garage floor. She was brought to the hospital because of intractable back pain. Extensive roentgenograms survey revealed no evidence of fracture, but had intractable pain and was admitted to hospital for ongoing pain control and PT and OT evaluation. Hospital Course Hospital Course Hospital Course: Patient was admitted to hospital. Multiple x-rays showed no evidence of fracture. PT evaluation revealed that she was significantly weak and in need of skilled care. Pain clinic consultation was placed because of her history of pain pump and her ongoing narcotic therapy through pain clinic. They have yet to see patient but hopefully well before discharge. Patient was accepted at the [facility] in [place]-apparently her daughter is currently a nurse there and so wished her to be placed there and patient is willing. Insurance approved the admission to skilled care and she will be transferred there today. She will need PT/OT evaluation. Other medications will be as per discharge summary. I have electronically sent her baseline narcotic prescription to the [facility]-please note this is normally prescribed by the [facility] pain clinic. Exam Data for Last 24 hours Vital signs and Labs for Last 24 Hours: Temp Pulse Resp BP Pulse Ox 97.9 F 66 16 183/92 H 94 L 12/05/22 07:43 12/05/22 07:43 12/05/22 07:43 12/05/22 07:43 12/05/22 07:43 I & O for Last 24 hours: Intake & Output 12/02/22 12/03/22 12/04/22 12/05/22 11:59 11:59 11:59 11:59 Intake Total 240 / 240 600 / 600 Output Total 300 / 300 1600 / 1600 Balance -60 / -60 -1000 / -1000 Weight 200 lb 4.8 oz 203 lb 4 oz Constitutional Constitutional: no acute distress *Routine HEENT Exam Head: Present normocephalic Eye: Present EOMI and PERRL ENT: Present mucous membranes moist *Routine Neck Exam Neck: Present supple; Absent lymphadenopathy *Routine Respiratory Exam Respiratory: Present CTA bilaterally *Routine Cardiovascular Exam Cardiovascular: Present RRR *Routine Abdominal Exam Abdominal: Present soft and normoactive bowel sounds; Absent tenderness *Routine Extremities Exam Extremities: Absent cyanosis, clubbing or edema Routine Back/Spine/Pelvis Exam Back/Spine: Present muscle spasm, scoliosis, pain with flexion and abnormal straight leg raise *Routine Skin Exam Skin: Present warm; Absent rash *Routine Neurological Exam Neurological: Present alert and oriented X3 DS: Diagnosis Discharge Diagnosis (1) Cervical muscle strain: Status: Acute (2) Strain of thoracic spine: Status: Acute (3) Lumbar spine strain: Status: Acute (4) Fall (on) (from) other stairs and steps, initial encounter: Status: Acute (5) Lumbosacral spondylolysis: Status: Acute Meds Home Medications and Allergies Home Medications Medication Instructions Recorded Confirmed Type clopidogrel 75 mg tablet 75 mg PO HS platelet inhibitor 12/29/17 12/03/22 History fluoxetine 20 mg capsule 20 mg PO HS mood 12/29/17 12/03/22 History amitriptyline 25 mg tablet 25 mg PO DAILY mood 06/24/19 12/04/22 History buspirone 10 mg tablet 10 mg PO BID anxiety/mood 06/24/19 12/04/22 History halobetasol propionate 0.05 % 1 applicatio topical BIDP PRN Skin 06/24/19 12/04/22 History topical ointment Irritation perphenazine 2 mg tablet 2 mg PO DAILY mood 06/24/19 12/04/22 History carvedilol 6.25 mg tablet 6.25 mg PO BID Hypertension 08/16/22 12/04/22 History tizanidine 4 mg tablet (Zanaflex) 4 mg PO HS muscle spasms 11/23/22 12/03/22 History baclofen 5 mg tablet 5 mg PO HS mu
[2022-12-05 09:25] LABS: Coronavirus 19, PCR Not Detected (NotDetected); Influenza A, PCR Not Detected (NotDetected); Influenza B, PCR Not Detected (NotDetected)
--- NOTE | 2022-12-05 11:33 | CARE MANAGER ---
Patient has been accepted today to [facility] in [facility], she will discharge there today.
--- NOTE | 2022-12-06 13:17 | CARE MANAGER ---
Spoke with nurse at [facility], [place]. She states that patient is doing well and has no issues noted.
== END 2022-12-05 12:38 ==
LOC: ER 17:22 → 2ND 17:41
PROVIDERS: Admitting Provider Internal Medicine Adolescent Medicine; Emergency Provider Emergency Medicine; PCP Internal Medicine Adolescent Medicine; Visit Provider Internal Medicine Adolescent Medicine
DX: S16.1XXA Strain of muscle, fascia and tendon at neck level, initial encounter (principal); S29.012A Strain of muscle and tendon of back wall of thorax, initial encounter; S39.012A Strain of muscle, fascia and tendon of lower back, initial encounter; W10.8XXA Fall (on) (from) other stairs and steps, initial encounter; M43.07 Spondylolysis, lumbosacral region; Z79.899 Other long term (current) drug therapy; Z79.02 Long term (current) use of antithrombotics/antiplatelets; R29.6 Repeated falls; Z20.822 Contact with and (suspected) exposure to COVID-19; E11.9 Type 2 diabetes mellitus without complications; R27.0 Ataxia, unspecified; G93.49 Other encephalopathy; M79.7 Fibromyalgia; G89.4 Chronic pain syndrome; Z91.81 History of falling; Y92.015 Private garage of single-family (private) house as the place of occurrence of the external cause
CPT/HCPCS: G0378; 71045; 72125; 72128; 72131; 72170; 97116; 97162; 97166; 97530; 97535; 99285; C9803; J2405; U0003; U0005

== ENCOUNTER 2022-12-26 10:43 | Day surgery (SDC) | payer MEDICARE, OTHER, SELFPAY ==
[2022-12-26 11:00] VITALS: BP 127/77; PULSE 67; RESP 18; TEMP 36.7; O2SAT 97; BMI 40.8
--- NOTE | 2022-12-26 11:10 | EXP.PAIN.PRO ---
Procedure Date: 12/26/22 Time: 11:10 Anesthesiologist:: Jayson Sommer CRNA Complications:: None Pre-procedure Diagnosis:: Degenerative disc disease lumbar spine multilevels. Lumbar radiculopathy. Chronic thoracolumbar pain. Lumbar radiculopathy. Post-procedure Diagnosis:: Same. Indications for Procedure:: Patient is a pleasant 72-year-old female that comes our clinic today for T12-L1 epidural steroid injection. We have been treating this patient for quite some time for chronic thoracolumbar back pain. Lumbar radiculopathy. Today she rates her pain 8/10. Patient recently had a fall in her garage. CT scan shows no fractures or dislocations. Patient being managed with chronic narcotics as well. Procedure Details:: Procedure:Thoracic epidural steroid injection under fluoroscopy Informed consent was obtained and the risks and benefits of the procedure were explained to the patient. The patient was taken to the procedure room and noninvasive monitors placed, including noninvasive blood pressure cuff and pulse oximeter. The back was viewed using C-Arm fluoroscopy and prepped using Betadine as a cleansing solution and the T12-L1 interspace was palpated. Skin and subcutaneous tissues were anesthetized using lidocaine 1.5% and a 25-gauge needle. After this, an 18-gauge Touhy epidural needle was placed into the T12-L1 interspace and advanced using fluoroscopic guidance and loss of resistance to air until the epidural space was encountered. After confirmation of needle placement in the epidural space, with dye, a solution containing lidocaine 1.5%, 4 mL and Depo-Medrol 80 mg were incrementally injected into the thoracic epidural space. The patient tolerated the procedure well with no complications. The patient was observed in the Pain Clinic and then discharged home neurologically intact. Plan and Disposition:: Patient was discharged without incident.
[2022-12-26 11:16] VITALS: BP 125/72; PULSE 61; RESP 18; O2SAT 97
== END 2022-12-26 11:16 | disposition home or self-care (01) ==
PROVIDERS: PCP Internal Medicine Adolescent Medicine; Visit Provider Nurse Anesthetist, Certified Registered
DX: M51.16 Intervertebral disc disorders with radiculopathy, lumbar region (principal)
CPT/HCPCS: 62321; J1040

== ENCOUNTER 2023-01-09 06:05 | Observation (INO) | payer MEDICARE, SELFPAY ==
[2023-01-09] VITALS (13 sets, daily range): BP systolic 105–169; BP diastolic 56–86; PULSE 63–90; RESP 15–19; TEMP 36.6–36.8; O2SAT 90–97; BMI 37.9; BMI 39.0
--- NOTE | 2023-01-09 06:07 | ECG_ITS ---
APPROVED REPORT Exam: Resting ECG HR:59 bpm ECG Measurements Heart Rate 59 AXES DC 156 P 60 QRSd 100 QRS 76 QT 403 T 67 QTc 401 Conclusion SINUS BRADYCARDIA BORDERLINE ECG UNCONFIRMED REPORT Electronically signed by : Ari Coates MD 01/09/2023 19:36:54
--- NOTE | 2023-01-09 06:13 | PC.NURSE ---
patient care transferred from [facility] to this nurse. HS at bedside and using US for peripheal IV access at this time.
--- NOTE | 2023-01-09 06:20 | XR_ITS ---
PROCEDURE INFORMATION: Exam: XR Chest Exam date and time: 01/09/2023 6:41 AM Age: 72 years old Clinical indication: Shortness of breath TECHNIQUE: Imaging protocol: Radiologic exam of the chest. Views: 1 view. COMPARISON: CR XR CHEST PORTABLE 12/03/2022 4:11 PM FINDINGS: Lungs: Interstitial prominence. Pleural spaces: Stable right basilar airspace/pleural disease. Heart/Mediastinum: Epicardial fat accentuates the cardiac silhouette. Hiatal hernia. Vasculature: Ectasia of the thoracic aorta. Bones/joints: Osteopenia, degenerative change, and old left humeral fracture. Other findings: Obscuration of the right apex by the patient's mandible. When correlating with the previous study, no significant interval changes are present. IMPRESSION: Stable appearance of the chest, not significantly changed from 12/03/22.
[2023-01-09 06:29] LABS: Basophils % 0.3 % (0.1-2.0); Eosinophils # 0.2 K/mm3 (0.0-0.4); Eosinophils % 2.2 % (0.1-12.0); Hemoglobin 13.1 g/dL (12.2-16.2); Lymphocytes # 0.8 K/mm3 (0.7-4.5); Lymphocytes % 10.6 % (10-50); Mean Corpuscular HGB Conc 32.7 g/dL (31.8-35.4); Mean Corpuscular Hemoglobin 31.2 pg (27.0-31.2); Mean Corpuscular Volume 95.6 fl (81-99); Monocytes # 0.3 K/mm3 (0.1-1.0); Neutrophils # 5.9 K/mm3 (1.8-7.8); Neutrophils % 82.8 % (37.0-80.0); Platelet Count 203 K/mm3 (142-424); Red Blood Count 4.18 M/mm3 (4.20-5.40); White Blood Count 7.1 K/mm3 (4.8-10.8)
[2023-01-09 06:30] LABS: Chloride 101 mmol/L (98-107); Potassium 3.8 mmoL/L (3.5-5.1); Sodium 135 mmol/L (136-145)
--- NOTE | 2023-01-09 06:31 | CT_ITS ---
FINAL REPORT CLINICAL HISTORY: Neck pain COMPARISON: 12/03/2022 FINDINGS: Axial CT images of the cervical spine were obtained without contrast. Sagittal and coronal reformatted images were also obtained. This study was performed with techniques to keep radiation doses as low as reasonably achievable (ALARA). Individualized dose reduction techniques using automated exposure control or adjustment of mA and/or kV according to the patient''s size were employed. There is no evidence of fracture or dislocation. There is rightward curvature. Multilevel moderate degenerative changes are seen with multilevel disc osteophyte complexes. There is mild neural foraminal narrowing with no significant canal stenosis. Note is made of heterogeneous enlargement of the thyroid gland bilaterally with bilateral nodules. Mild scarring is seen in the lung apices. IMPRESSION: No fracture or acute bony abnormality identified. Multilevel degenerative disease. Reviewed, Interpreted and Dictated by Reji Llanos III, MD Transcribed by Anca Roca Authenticated and [facility]
--- NOTE | 2023-01-09 06:31 | CT_ITS ---
FINAL REPORT TECHNIQUE: Then section axial CT images of the chest were obtained with contrast. Three-D reformatted images were also obtained.This study was performed with techniques to keep radiation doses as low as reasonably achievable (ALARA). Individualized dose reduction techniques using automated exposure control or adjustment of mA and/or kV according to the patient''s size were employed. CLINICAL HISTORY: Shortness of air COMPARISON: 01/17/2019 FINDINGS: The thyroid is enlarged and heterogeneous similar to the prior exam. There is no evidence of pulmonary embolism. There are enlarged central pulmonary arteries worrisome for pulmonary arterial hypertension. There is no evidence of thoracic aortic aneurysm or dissection. There is no evidence of mediastinal or hilar mass or adenopathy. A large hiatal hernia is noted. There is no evidence of pulmonary mass or suspicious nodule. There is mild dependent atelectasis and mild scarring. IMPRESSION: No evidence of pulmonary embolism. Enlarged central pulmonary arteries worrisome for pulmonary arterial hypertension. Reviewed, Interpreted and Dictated by Reji Llanos III, MD Transcribed by Anca Roca Authenticated and [facility]
--- NOTE | 2023-01-09 06:31 | CT_ITS ---
FINAL REPORT CLINICAL HISTORY: Headache COMPARISON: 03/10/2022 FINDINGS: Axial images of the head were obtained without contrast. Coronal reformatted images were also obtained.This study was performed with techniques to keep radiation doses as low as reasonably achievable (ALARA). Individualized dose reduction techniques using automated exposure control or adjustment of mA and/or kV according to the patient''s size were employed. There is no evidence of intracranial hemorrhage or mass. The ventricular size is within normal limits. There is no evidence of shift of the midline structures. No abnormal extra axial fluid collection is identified. No skull abnormality is seen on the bone window images. There is mild mucosal thickening in the multiple sinuses. IMPRESSION: No acute intracranial abnormality. Reviewed, Interpreted and Dictated by Reji Llanos III, MD Transcribed by Anca Roca Authenticated and [facility]
--- NOTE | 2023-01-09 06:31 | CT_ITS ---
FINAL REPORT CLINICAL HISTORY: Epigastric pain COMPARISON: 06/22/2019 FINDINGS: CT OF THE ABDOMEN AND PELVIS WITH CONTRAST Axial CT images of the abdomen and pelvis were obtained after the administration of oral and iv contrast. Coronal reformatted images were also obtained and reviewed.This study was performed with techniques to keep radiation doses as low as reasonably achievable (ALARA). Individualized dose reduction techniques using automated exposure control or adjustment of mA and/or kV according to the patient's size were employed. Abdomen: A large hiatal hernia is seen. The patient is status post cholecystectomy. There is mild biliary ductal dilatation which is likely post cholecystectomy change. The liver parenchyma is homogeneous. The spleen is unremarkable. No adrenal mass is present. The pancreas has an unremarkable appearance. There are bilateral renal cysts. There is no renal stone or hydronephrosis. The aorta is normal in caliber. There is no free fluid or adenopathy. No mass or abnormal fluid collection is seen. Pelvis: The appendix is not well-visualized. The urinary bladder is unremarkable. The patient is status post hysterectomy. There is sigmoid diverticulosis with no evidence of diverticulitis. There is no evidence of bowel obstruction. Multilevel severe degenerative changes are seen in lumbar spine with presumed posterior fusion of the lower thoracic and upper lumbar spines. IMPRESSION: Large hiatal hernia. Bilateral renal cysts. Multilevel severe degenerative changes in the lumbar spine with postoperative changes in the lower thoracic and upper lumbar spine. Reviewed, Interpreted and Dictated by Reji Llanos III, MD Transcribed by Anca Roca Authenticated and [facility]
[2023-01-09 06:32] LABS: Coronavirus 19, PCR Not Detected (NotDetected); Influenza A, PCR Not Detected (NotDetected); Influenza B, PCR Not Detected (NotDetected)
[2023-01-09 06:32] LABS: Alanine Aminotransferase 17 U/L (12-78); Alkaline Phosphatase 109 U/L (38-126); Aspartate Amino Transferase 26 U/L (14-36); Bilirubin,Total 0.4 mg/dl (0.2-1.3); Blood Urea Nitrogen 13 mg/dl (7-17); Creatinine Clearance Estimated 86 mL/min (50-200); Estimated Glomerular Filt Rate 70 ml/min (>60); GFR (African American) 85 ML/MIN (>60)
[2023-01-09 06:33] LABS: Albumin Level 3.4 g/dl (3.5-5.0); Albumin/Globulin Ratio 0.9 (1.1-1.8); Anion Gap 7.8 mEq/L (5-15); Calcium 8.8 mg/dl (8.4-10.2); Carbon Dioxide 30 mmol/L (22.0-30.0); Globulin 3.7 g/dL (1.3-3.2); Glucose 134 mg/dl (74-100); Total Protein,Serum 7.1 g/dl (6.3-8.2)
[2023-01-09 06:41] LABS: C-Reactive Protein 27.3 mg/L (0-4)
--- NOTE | 2023-01-09 06:41 | PC.NURSE ---
plan of care discussed with daughter via nursing. daughter verbalizes understanding. waiting on ancillary resources at this time.
[2023-01-09 06:45] LABS: NT Pro Brain Natriuretic Pep. 564 pg/mL (0-125)
[2023-01-09 06:48] LABS: Troponin I < 0.01 ng/ml (0.00-0.034)
--- NOTE | 2023-01-09 06:49 | PC.NURSE ---
repositioned patient for comfort. daughter at bedside
[2023-01-09 06:52] LABS: T4 (Thyroxine) 10.7 ug/dl (5.53-11.0)
[2023-01-09 07:06] LABS: Thyroid Stimulating Hormone 1.49 uIU/mL (0.465-4.68)
--- NOTE | 2023-01-09 07:09 | HMH.EDSOB ---
Discharge Plan Disposition Patient Disposition: Admitted As Inpatient Prescriptions Prescriptions: No Action carvedilol 6.25 mg tablet 6.25 mg PO BID morphine 30 mg tablet extended release 30 mg PO BID Label Comments: 30 mg orally every morning for Pain for 30 days amitriptyline 25 mg tablet 50 mg PO DAILY amitriptyline 25 mg tablet 25 mg PO DAILY baclofen 10 mg tablet 5 mg PO DAILY buspirone 10 mg tablet 10 mg PO BID morphine 15 mg tablet extended release 15 mg PO HS Label Comments: 15 mg orally at bedtime nightly for Pain fluoxetine 20 mg capsule 20 mg PO DAILY perphenazine 2 mg tablet 4 mg PO DIRECTED tizanidine 4 mg tablet 4 mg PO DIRECTED clopidogrel 75 mg tablet 75 mg PO DAILY tramadol 50 mg tablet 50 mg PO DIRECTED Label Comments: 50 mg orally daily As Needed for pain Namzaric 28-10 mg capsule,sprinkle,ER 24hr 1 cap PO DAILY Referrals Follow up/Referrals: Ari Coates MD [Primary Care Provider] - See instructions Clinical Impressions Clinical Impression: Acute dyspnea, Chronic pain disorder, DVT (deep venous thrombosis) Discharge ED Provider: Magen (ED)Alireza Resp/SOB HPI <Alireza Us (ED)MD - Last Filed: 01/09/23 07:59> General Chief Complaint: Shortness of Breath/Dyspnea Stated Complaint: neck pain Time Seen by Provider: 01/09/23 07:00 Mode of Arrival: EMS Source of Information: Patient, EMS and Medical Record Limitations: No Limitations Description of Symptoms (Recalled from ER Triage Doc. by RN): 72 yo female presents with chief complaint of intractible pain to posterior neck and throughout back. states that she fell three weeks ago and was sent to rehab at [facility]. Currently she is at home with her daughter. Patient states she feels somewhat soa. afebrile. vss. a&ox4. Multiple bruises in various colors on all extremities.Left lower extremity swollen, 1+ edema noted. Wants to be evaluated for covid. History of Present Illness pt with long hx of ongoing pain with no acute fall - pt reports sob which started this am - has been at rehab and now at home - pt reports acute sob this am w/o chest pain - also has loose stool - MD Complaint: shortness of breath Onset (ago): hour(s) Severity: moderate Consistency/Duration: intermittent Related Data Home oxygen amount: none Home Medications Medication Instructions Recorded Confirmed amitriptyline 25 mg tablet 25 mg PO DAILY htn 01/09/23 01/09/23 amitriptyline 25 mg tablet 50 mg PO DAILY htn 01/09/23 01/09/23 baclofen 10 mg tablet 5 mg PO DAILY Pain 01/09/23 01/09/23 buspirone 10 mg tablet 10 mg PO BID behavior 01/09/23 01/09/23 carvedilol 6.25 mg tablet 6.25 mg PO BID cardiac 01/09/23 01/09/23 clopidogrel 75 mg tablet 75 mg PO DAILY antiplatelet 01/09/23 01/09/23 fluoxetine 20 mg capsule 20 mg PO DAILY behavior 01/09/23 01/09/23 memantine ER 28 mg-donepezil 10 mg 1 cap PO DAILY dementia 01/09/23 01/09/23 capsule sprinkle,ext.release 24 hr (Namzaric) morphine 15 mg tablet,extended 15 mg PO HS chronic pain 01/09/23 01/09/23 release morphine 30 mg tablet,extended 30 mg PO BID Pain 01/09/23 01/09/23 release perphenazine 2 mg tablet 4 mg PO DIRECTED unkn 01/09/23 01/09/23 tizanidine 4 mg tablet 4 mg PO DIRECTED Pain 01/09/23 01/09/23 tramadol 50 mg tablet 50 mg PO DIRECTED Pain 01/09/23 01/09/23 Allergies Allergy/AdvReac Type Severity Reaction Status Date / Time ciprofloxacin [From CIPRO] Allergy Unknown Unknown Verified 12/26/22 11:15 allergy reaction codeine [CODEINE] Allergy Unknown Unknown Verified 12/26/22 11:15 allergy reaction erythromycin base Allergy Unknown I-RASH Verified 12/26/22 11:15 [From ERYTHROCIN] meperidine [MEPERIDINE] Allergy Unknown Unknown Verified 12/26/22 11:15 allergy reaction NSAIDS (Non-Steroidal Allergy Unknown I-RASH V
--- NOTE | 2023-01-09 07:16 | PC.NURSE ---
pt in CT, reported to rad staff of contrast allergy, daughter states pt has had hives with contrast in the past. Notified ER MD, verbal orders for benadryl and solumedrol for pre-treatment obtained.
--- NOTE | 2023-01-09 07:21 | PC.NURSE ---
pt medicated per NOV r/t contrast allergy in CT scanner prior to contrast given
--- NOTE | 2023-01-09 07:37 | HMH.ITSTN ---
Laura Hairston premedicated patient before contrast was given.
[2023-01-09 07:43] LABS: Erythrocyte Sedimentation Rate 48 mm/hr (0-30)
--- NOTE | 2023-01-09 07:44 | CA_ITS ---
FINAL REPORT TECHNIQUE: Grayscale and color Doppler ultrasound images with graded compression of the deep venous system were obtained from the groin to the calf veins bilaterally. CLINICAL HISTORY: SOA,EDEMA BRUISING BLE'S,PT ON PLAVIX,PT UNABLE TO WALK FINDINGS: There is superficial venous thrombus in the left greater saphenous vein. The remaining deep venous system is normal. There is no evidence of DVT. Flow and compressibility are normal. IMPRESSION: No evidence of left or right lower extremity DVT. Superficial venous thrombus in the left greater saphenous vein. Reviewed, Interpreted and Dictated by Reji Llanos III, MD Transcribed by Jose De Jesus Figueroa Authenticated and [facility]
--- NOTE | 2023-01-09 07:44 | PC.NURSE ---
pt arrived back to room from ct
--- NOTE | 2023-01-09 07:47 | PC.NURSE ---
notified cv lab staff of doppler order
[2023-01-09 08:00] LABS: Microscopic, Urine URINE MICROSCOPIC (MICROSCOPIC)
[2023-01-09 08:01] LABS: Appearance,Urine CLEAR (Clear); Bilirubin,Urine Negative (Negative); Blood, Urine Negative (Negative); Color,Urine YELLOW (Yellow); Glucose,Urine (UA) Negative (Negative); Ketones,Urine Negative (Negative); Leukocyte Esterase,Urine TRACE (Negative); Nitrate,Urine Negative (Negative); PH,Urine 7.5 (5.0-8.5); Protein,Urine Negative (Negative)
--- NOTE | 2023-01-09 08:16 | PC.NURSE ---
cv lab staff giving ER MD castañeda) verbal report
[2023-01-09 08:19] LABS: Bacteria,Urine Trace /lpf; Squamous Epithelial Cell,Urine Occasional #/hpf (0-5)
[2023-01-09 08:25] LABS: Procalcitonin 0.076 ng/mL (0.0-2.0)
--- NOTE | 2023-01-09 08:56 | PC.NURSE ---
ER MD El at
--- NOTE | 2023-01-09 09:00 | PC.NURSE ---
calling [place] office for dr tovar to speak to maroi james
--- NOTE | 2023-01-09 09:03 | PC.NURSE ---
notified care management of admission, spoke with adrienne.
--- NOTE | 2023-01-09 09:36 | PC.NURSE ---
Addendum entered by Laura Anderson RN 01/09/23 09:37: states will send staff down to transport pt. Original Note: report called to eleonora disla on second floor at this time
[2023-01-09 09:59] LABS: Troponin I < 0.01 ng/ml (0.00-0.034)
--- NOTE | 2023-01-09 10:46 | HMH.PHAINT1 ---
Pharmacy Intervention Comments: Reconciled patient's home medications using pharmacy fill history, list from outside facility, and patient/relative interview.
--- NOTE | 2023-01-09 10:53 | HMH.OTEV ---
OT Inpatient Evaluation Rehab OT IP Evaluation Start: 01/09/23 09:08 Freq: ONCE Status: Active Protocol: Document 01/09/23 10:45 [facility] (Rec: 01/09/23 10:53 [facility] [id number]) Rehab OT IP Assessment Subjective History Pt oriented x 3 on arrival. Pt agreeable to engage in therapy evaluation. Pt was admitted on 01/09/23 due to dehydration and diarrhea. Daughter present and supportive during evaluation. Pt was recently discharged from [facility] for short term rehab. She was there due to a fall she had 3 weeks ago. Since the fall, pt claims she has had continued pain and weakness in her legs (worse on right side). Pt was discharged home with her . Pt was requiring assistance with all ADLs and was dependent upon her to complete all IADLs. She was using a wheelchair most of the time, but does have a walker to complete short functional transfers. However , prior to her initial fall 3 weeks ago, pt was independent with all ADLs and IADLs. Subjective I am just really weak. Objective Patient Orientation Person,Place,Birthday Upper Extremity Gross ROM WFL Bed Mobility bed mobility-scooting,bed mobility - supine/sit,bed mobility - rolling Assist Level Minimal x 1 (25% assist) Transfer Training Sit/Stand/Step Transfer Assist Level Minimal x 1 (25% assist) Lower Body Dressing Ability Assistance X1 Rehab OT IP prob,goals,plan Problems Date of Evaluation: 01/09/23 OT IP Problems Bed Mobility,Transfers,Balance ,Self care,Safety Rehab Potential Rehab Potential Good Equipment Needs Assistive Devices Rolling / Wheeled Walker, Wheelchair Plan OT intervention Plan Bed Mobility,Transfers,Balance ,Self care OT Plan Frequency BID
[2023-01-09 13:04] LABS: Troponin I < 0.01 ng/ml (0.00-0.034)
--- NOTE | 2023-01-09 13:18 | SW/DCPLANNER ---
Addendum entered by [facility] 01/11/23 09:37: Patient will discharge to [facility] today SNF level of care. Addendum entered by [facility] 01/10/23 15:38: Dr Coates has stated that he will discharge patient today. I have called and updated patient's daughter (Mrs Grayson). Addendum entered by [facility] 01/10/23 15:24: Megan stated this patient has been approved. I have updated Dr Coates. Addendum entered by [facility] 01/10/23 10:36: Megan arrington/ [facility] has started precert on this patient. Addendum entered by [facility] 01/10/23 07:42: Esperanza arrington/ [facility] is unable to accept this patient. Megan arrington/ [facility] is reviewing patient information and insurance. Original Note: I spoke with patient regarding plans once medically stable for discharge. Patient was discharged from [facility] on 01/06/23. Patient has expressed an interest in returning to [facility] or [place]. I will fax patient information to both facilities at this time.
--- NOTE | 2023-01-09 13:46 | HMH.PTEV ---
Physical Therapy Evaluation Rehab PT IP Evaluation Start: 01/09/23 09:07 Freq: ONCE Status: Active Protocol: Document 01/09/23 13:39 [facility] (Rec: 01/09/23 13:45 [facility] [id number]) Subjective/History History History [address] [facility] with SOA and increased chronic low back pain. She reports she lives with her and daughter helps her with ADLs. She is non-ambulatory at baseline and uses manual w/c for all mobility. She generally requires assistance with transfers to her chair due to frequent falls when she attempts to transfer herself. She has ramp to enter the home . She was found to have superficial L LE blood clot in ED. Subjective Subjective Pt reports pain in her back and numbness in the R foot since I fell the last time. Rehab PT IP Eval Objective Appearance Patient Behavior Appropriate Patient Orientation Person,Place,Time Difficulty following instructions none Speech Pattern Clear Ambulation Patient Able to Ambulate No Balance Ability to Arise Able, uses arms to help Sitting Balance Steady, safe Standing Balance Unsteady Dynamic Sitting Balance Ability Good Dynamic Standing Balance Ability Poor Transfers Bed Transfer Ability Minimal x 1 (25% assist) Chair Transfer Ability Moderate x 1 (50% assist) Sit to Stand Bed Transfer Ability Moderate x 1 (50% assist) Sit to Stand Chair Transfer Ability Moderate x 1 (50% assist) ROM All Extremities PT ROM Status WFL MMT All Extremities Abnormal MMT Grade grossly 3/5 Rehab PT IP prob,goals,plan Problems Date of Evaluation: 01/09/23 PT IP Problems Bed Mobility,Transfers Rehab Potential Rehab Potential Fair Plan PT Intervention Plan Bed Mobility,Transfers,Self care,Therapeutic Exercise PT Plan Frequency Daily Duration LOS Discharge Goals Bed Transfer Ability Contact Guard/Hand Hold Sit to Stand Chair Transfer Ability Minimal x 2 (25% assist) Discharge Plan PT Discharge Plan Pt is currently most appropriate for rehab placement once medically
--- NOTE | 2023-01-09 14:34 | CARE MANAGER ---
Patient was just starting services with [facility], and will need new orders for services if she returns home.
--- NOTE | 2023-01-09 19:38 | EXP.HP ---
History of Present Illness *Admission Date: 01/09/23 *Reason for visit:: Weakness, dizziness, imbalance. Recent falls *History of present illness: 72-year-old white female with long history of ataxia/balance problems from a whole host of issues-history of cerebral vasculitis and multiple small strokes over the past 30 years, along with issues with spinal stenosis, chronic arthritis, chronic pain syndrome and chronic use of opiate therapy. Has been on reduced dose opiate therapy over the past 10 years with pain pump implanted and is followed by [facility] pain clinic. About 2 weeks ago had a fall at home, admitted at [facility] and transferred to long-term care for rehab. She was discharged home on Sunday, 3 days ago but apparently the facility where she was residing was having a viral outbreak of a URI type pathogen. She began to feel ill that night when she got home and has had progressive problems with cough, congestion and some nausea with diarrhea over the past couple of days. Today she was very weak, unable to transfer, brought to the emergency department where she was found to be dehydrated. Weak and unable to care for herself. She is admitted to hospital for further evaluation and reevaluation for placement issues. [facility] Disclaimer: The information contained in this section may have been updated after the patient was seen, as this information can be updated by other users. Surgical History Previous back surgery Family History No significant family history Social History Smoking Status: Former smoker alcohol intake: never substance use type: denies use current occupational status: retired Travel in the last 8 weeks: None household members: spouse housing: house current occupational exposures/hazards: No caffeine: Yes Meds Home Medications and Allergies Home Medications Medication Instructions Recorded Confirmed Type amitriptyline 25 mg tablet 25 mg PO AM Mood 01/09/23 01/09/23 History amitriptyline 50 mg tablet 50 mg PO HS Mood 01/09/23 01/09/23 History baclofen 5 mg tablet 5 mg PO HS Muscle spasms 01/09/23 01/09/23 History buspirone 10 mg tablet 10 mg PO BID Mood 01/09/23 01/09/23 History carvedilol 6.25 mg tablet 6.25 mg PO BID High blood pressure 01/09/23 01/09/23 History clopidogrel 75 mg tablet 75 mg PO DAILY Antiplatelet, 01/09/23 01/09/23 History vascular disease fluoxetine 20 mg capsule 20 mg PO HS Mood 01/09/23 01/09/23 History halobetasol propionate 0.05 % 1 applic topical BID Skin 01/09/23 01/09/23 History lotion inflammation memantine ER 28 mg-donepezil 10 mg 1 cap PO HS dementia 01/09/23 01/09/23 History capsule sprinkle,ext.release 24 hr (Namzaric) morphine 15 mg tablet,extended 15 mg PO HS Pain 01/09/23 01/09/23 History release morphine 30 mg tablet,extended 30 mg PO AM Pain 01/09/23 01/09/23 History release perphenazine 2 mg tablet 2 mg PO DAILY Mood 01/09/23 01/09/23 History perphenazine 4 mg tablet 4 mg PO HS Mood 01/09/23 01/09/23 History tizanidine 4 mg tablet 4 mg PO HS PRN Muscle spasms 01/09/23 01/09/23 History tramadol 50 mg tablet 50 mg PO DAILYP PRN Pain 01/09/23 01/09/23 History New Prescriptions to Start Prescriptions: Allergies Allergy/AdvReac Type Severity Reaction Status Date / Time ciprofloxacin [From CIPRO] Allergy Unknown Unknown Verified 12/26/22 11:15 allergy reaction codeine [CODEINE] Allergy Unknown Unknown Verified 12/26/22 11:15 allergy reaction erythromycin base Allergy Unknown I-RASH Verified 12/26/22 11:15 [From ERYTHROCIN] meperidine [MEPERIDINE] Allergy Unknown Unknown Verified 12/26/22 11:15 allergy reaction NSAIDS (Non-Steroidal Allergy Unknown I-RASH Verified 12/26/22 11:15 A
[2023-01-10] VITALS: BP 152/8; PULSE 79; RESP 18; TEMP 36.8; O2SAT 94
[2023-01-10 04:00] VITALS: BP 169/88; PULSE 80; PULSE 90; RESP 18; TEMP 37; O2SAT 95; BMI 39.7
[2023-01-10 06:33] LABS: Eosinophils # 0.1 K/mm3 (0.0-0.4); Eosinophils % 0.5 % (0.1-12.0); Hematocrit 39.7 % (37.0-47.0); Lymphocytes # 0.8 K/mm3 (0.7-4.5); Lymphocytes % 7.6 % (10-50); Mean Corpuscular HGB Conc 32.6 g/dL (31.8-35.4); Mean Corpuscular Hemoglobin 31.2 pg (27.0-31.2); Mean Corpuscular Volume 95.5 fl (81-99); Mean Platelet Volume 7.8 fl (7.4-10.4); Monocytes # 0.4 K/mm3 (0.1-1.0); Neutrophils # 8.7 K/mm3 (1.8-7.8); Neutrophils % 87.8 % (37.0-80.0); Platelet Count 169 K/mm3 (142-424); Red Blood Count 4.15 M/mm3 (4.20-5.40); Red Cell Distribution Width 12.9 % (11.5-17.5); White Blood Count 9.9 K/mm3 (4.8-10.8)
[2023-01-10 06:36] LABS: MANUAL DIFFERENTIAL MANUAL DIFFERENTIAL (MANUAL DIFF)
[2023-01-10 06:37] LABS: Chloride 103 mmol/L (98-107); Potassium 3.7 mmoL/L (3.5-5.1); Sodium 135 mmol/L (136-145)
[2023-01-10 06:40] LABS: Blood Urea Nitrogen 14 mg/dl (7-17); Creatinine Clearance Estimated 72 mL/min (50-200); Estimated Glomerular Filt Rate 82 ml/min (>60); GFR (African American) 99 ML/MIN (>60)
[2023-01-10 06:41] LABS: Anion Gap 7.7 mEq/L (5-15); Calcium 8.6 mg/dl (8.4-10.2); Carbon Dioxide 28 mmol/L (22.0-30.0); Glucose 135 mg/dl (74-100)
[2023-01-10 07:07] LABS: Lymphocytes % 8 % (10-50); Monocytes % 1 % (2-9); Neutrophils % 90 % (42-76); Platelet Estimate Normal; RBC Morphology Normal; Total Cells Counted 100
[2023-01-10 07:45] VITALS: BP 138/93; PULSE 74; RESP 18; TEMP 37.3; O2SAT 89
--- NOTE | 2023-01-10 07:46 | EXP.ACUTE.PN ---
Subjective *Date: 01/10/23 *Time: 07:46 Interval history: Patient slept fairly well. Is a little sleepy this morning. No complaints of pain, her breathing is about the same except for some very minimal congestion in the nasal passages. This has been a finding over the past 5 days for her. Medical Exam Vital signs and Labs for Last 24 Hours: Vital Signs Temp Pulse Pulse Resp BP BP Pulse Ox 01/10/23 04:00 80 01/10/23 04:00 98.6 F 90 18 169/88 H 95 01/10/23 00:00 98.2 F 79 18 152/8 H 94 L 01/09/23 20:00 97.9 F 79 18 152/84 H 93 L 01/09/23 20:00 90 01/09/23 16:00 70 01/09/23 15:30 97.9 F 75 18 150/86 H 96 01/09/23 12:00 70 01/09/23 10:04 98.0 F 67 19 169/76 H 97 01/09/23 09:51 98.2 F 65 18 135/67 01/09/23 09:01 65 135/67 90 L 01/09/23 08:31 67 127/59 L 92 L 01/09/23 08:01 67 131/58 L 95 01/09/23 07:47 75 140/61 94 L Intake and Output 01/09/23 01/10/23 01/10/23 19:59 03:59 11:59 Intake Total 600 / 1600 1000 / 1600 Output Total 0 / 400 150 / 400 250 / 400 Balance 600 / 1200 850 / 1200 -250 / 1200 Intake: Intake, Oral Amount 600 / 600 Intake, Total IV Amount 1000 / 1000 0.9 % Sodium Chloride 1000ML 1, 1000 / 1000 000 ml @ 100 mls/hr IV .Q10H [facility] Rx#:[id number] Output: Output, Urine Amount 0 / 400 150 / 400 250 / 400 Other: Number of Unmeasured Voids 1 Number of Bowel Movements 0 Weight 202 lb 8 oz Patient Weight 01/10/23 11:59 Weight 202 lb 8 oz Laboratory Results - last 24 hr 01/09/23 06:19: Procalcitonin 0.076 01/09/23 07:56: Urine Color Yellow, Urine Appearance Clear, Urine pH 7.5, Ur Specific [place] 1.010, Urine Protein Negative, Urine Glucose (UA) Negative, Urine Ketones Negative, Urine Blood Negative, Urine Nitrate Negative, Urine Bilirubin Negative, Urine Urobilinogen 1.0, Ur Leukocyte Esterase Trace, Urine RBC None, Urine WBC 3-5, Ur Squamous Epith Cells Occasional, Urine Bacteria Trace 01/09/23 09:23: Troponin I < 0.01 01/09/23 12:30: Troponin I < 0.01 01/10/23 06:16: WBC 9.9 D, RBC 4.15 L, Hgb 13.0, Hct 39.7, MCV 95.5, MCH 31.2, MCHC 32.6, RDW 12.9, Plt Count 169, MPV 7.8, Neut % (Auto) 87.8 H, Lymph % (Auto) 7.6 L, [place] % (Auto) 4.0, Eos % (Auto) 0.5, Baso % (Auto) 0.0 L, Neut # (Auto) 8.7 H, Lymph # (Auto) 0.8, [place] # (Auto) 0.4, Eos # (Auto) 0.1, Baso # (Auto) 0.0, Total Counted 100, Neutrophils % (Manual) 90 H, Band Neutrophils % 1.0, Lymphocytes % (Manual) 8 L, Monocytes % (Manual) 1 L, Platelet Estimate Normal, RBC Morphology Normal 01/10/23 06:16: Sodium 135 L, Potassium 3.7, Chloride 103, Carbon Dioxide 28, Anion Gap 7.7, BUN 14, Creatinine 0.70, Estimated Creat Clear 72, Estimated GFR 82, Est GFR ( Amer) 99, Glucose 135 H, Calcium 8.6 I & O for Labs for Last 24 Hours: Intake & Output 01/07/23 01/08/23 01/09/23 01/10/23 11:59 11:59 11:59 11:59 Intake Total 1600 / 1600 Output Total 400 / 400 Balance 1200 / 1200 Weight 200 lb 1.6 oz 202 lb 8 oz Comment:: Alert, pleasant. Anterior lung chiang are clear, has some postnasal drainage. Heart rate regular, previously noted murmur. Abdomen soft, extremities globally weak. Lots of bruising. 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 Assessment and Plan *Assessment and plan (1) Cervical muscle strain: Status: Acute Category: Medical Code(s): S16.1XXA - Strain of muscle, fascia and tendon at neck level, initial encounter (2) Strain of thoracic spine: Status: Acute Category: Medical Code(s): S29.012A - Strain of muscle and tendon of back wall of thorax, initial encounter (3) Lumbar spine strain: Status: Acute Category: Medical Code(s): S39.012A - Strain of muscle, fascia and tendon of lower back, initial encounter (4) Fall (on) (from) other stairs and steps, initial encounter: Status: Acute Category: Medical
[2023-01-10 11:37] VITALS: BMI 39.7
[2023-01-10 15:12] VITALS: BP 164/99; PULSE 75; RESP 18; TEMP 36.3; O2SAT 94
--- NOTE | 2023-01-10 16:01 | EXP.DC.SUM ---
General Admission date:: 01/09/23 Discharge date: 01/10/23 HPI HPI HPI: 72-year-old white female with long history of ataxia/balance problems from a whole host of issues-history of cerebral vasculitis and multiple small strokes over the past 30 years, along with issues with spinal stenosis, chronic arthritis, chronic pain syndrome and chronic use of opiate therapy. Has been on reduced dose opiate therapy over the past 10 years with pain pump implanted and is followed by [facility] pain clinic. About 2 weeks ago had a fall at home, admitted at [facility] and transferred to long-term care for rehab. She was discharged home on Sunday, 3 days ago but apparently the facility where she was residing was having a viral outbreak of a URI type pathogen. She began to feel ill that night when she got home and has had progressive problems with cough, congestion and some nausea with diarrhea over the past couple of days. Today she was very weak, unable to transfer, brought to the emergency department where she was found to be dehydrated. Weak and unable to care for herself. She is admitted to hospital for further evaluation and reevaluation for placement issues. Hospital Course Hospital Course Hospital Course: Patient was admitted, given IV fluids overnight. Did well with this. [place] better. PT evaluated her and felt that she would deserve going back to skilled care for ongoing PT and OT evaluation. Family was willing to do this. A bed was found for patient [facility] and she will be transferred there today. Please see below for medications, discharge plan, etc. We will follow her up on her rounds. Please note that she will need PT/OT evaluation. Other medication will continue. Please note that she was found to have a distal SVT because of leg swelling and Doppler testing. Given her high risk of DVT Eliquis 2.5 mg was started in hospital and will be continued. Exam Data for Last 24 hours Vital signs and Labs for Last 24 Hours: Temp Pulse Resp BP Pulse Ox 97.4 F L 75 18 163/81 H 89 L 01/10/23 15:12 01/10/23 15:12 01/10/23 15:12 01/10/23 15:12 01/10/23 15:12 Laboratory Results - last 24 hr 01/10/23 06:16: WBC 9.9 D, RBC 4.15 L, Hgb 13.0, Hct 39.7, MCV 95.5, MCH 31.2, MCHC 32.6, RDW 12.9, Plt Count 169, MPV 7.8, Neut % (Auto) 87.8 H, Lymph % (Auto) 7.6 L, [place] % (Auto) 4.0, Eos % (Auto) 0.5, Baso % (Auto) 0.0 L, Neut # (Auto) 8.7 H, Lymph # (Auto) 0.8, [place] # (Auto) 0.4, Eos # (Auto) 0.1, Baso # (Auto) 0.0, Total Counted 100, Neutrophils % (Manual) 90 H, Band Neutrophils % 1.0, Lymphocytes % (Manual) 8 L, Monocytes % (Manual) 1 L, Platelet Estimate Normal, RBC Morphology Normal 01/10/23 06:16: Sodium 135 L, Potassium 3.7, Chloride 103, Carbon Dioxide 28, Anion Gap 7.7, BUN 14, Creatinine 0.70, Estimated Creat Clear 72, Estimated GFR 82, Est GFR ( Amer) 99, Glucose 135 H, Calcium 8.6 I & O for Last 24 hours: Intake & Output 01/08/23 01/09/23 01/10/23 01/11/23 11:59 11:59 11:59 11:59 Intake Total 2137 / 2137 Output Total 400 / 400 0 / 0 Balance 1737 / 1737 0 / 0 Weight 200 lb 1.6 oz 202 lb 6.15 oz Constitutional Constitutional: no acute distress *Routine HEENT Exam Head: Present normocephalic Eye: Present EOMI and PERRL ENT: Present mucous membranes moist *Routine Neck Exam Neck: Present supple; Absent lymphadenopathy *Routine Respiratory Exam Respiratory: Present CTA bilaterally *Routine Cardiovascular Exam Cardiovascular: Present RRR *Routine Abdominal Exam Abdominal: Present soft and normoactive bowel sounds; Absent tenderness *Routine Extremities Exam Extremities: Absent cyanosis, clubbing or edema Routine Back/Spine/Pelvis Exam Back/Spine: Present muscle spasm, scoliosis, pain with flexion and abnormal straight leg raise *Routine Skin Exam Skin: Present warm; Absent rash *Routine Neurological Exam Neurological: Present alert and orien
--- NOTE | 2023-01-10 16:51 | PC.NURSE ---
Called daughter, provided update, patient ready for transport to [facility]. Called report to [facility], spoke to JOSE Aguilera.
[2023-01-10 17:28] VITALS: BP 154/72; PULSE 89; RESP 16; O2SAT 95
--- NOTE | 2023-01-10 17:34 | XR_ITS ---
PROCEDURE INFORMATION: Exam: XR Chest Exam date and time: 01/10/2023 5:41 PM Age: 72 years old Clinical indication: Shortness of breath; Additional info: Change in condition TECHNIQUE: Imaging protocol: Radiologic exam of the chest. Views: 1 view. COMPARISON: CR XR CHEST PORTABLE 01/09/2023 6:41 AM FINDINGS: Lungs: Clear lungs. Pleural spaces: No pneumothorax. No sizable pleural effusion. Heart/Mediastinum: Hiatal hernia. No cardiomegaly. Bones/joints: Unremarkable. IMPRESSION: Clear lungs.
[2023-01-10 18:32] LABS: Adenovirus,PCR Not Detected (NotDetected); Bordetella Pertussis Not Detected (NotDetected); Chlamydophila Pneumoniae, PCR Not Detected (NotDetected); Coronavirus 19, PCR Not Detected (NotDetected); Coronavirus 229E Not Detected (NotDetected); Coronavirus NL63 Not Detected (NotDetected); Coronavirus OC43 Not Detected (NotDetected); Coronovirus HKU1,PCR Not Detected (NotDetected); Influenza A, PCR Not Detected (NotDetected); Influenza AH1, 2009 Not Detected (NotDetected); Influenza AH1, PCR Not Detected (NotDetected); Influenza AH3,PCR Not Detected (NotDetected); Influenza B, PCR Not Detected (NotDetected); Mycoplasma Pneumoniae, PCR Not Detected (NotDetected); Parainfluenza 1, PCR Not Detected (NotDetected); Parainfluenza 2, PCR Not Detected (NotDetected); Parainfluenza 3, PCR Not Detected (NotDetected); Parainfluenza 4, PCR Not Detected (NotDetected); Respiratory Syncytial Virus Not Detected (NotDetected); Rhinovirus/Enterovirus Not Detected (NotDetected)
[2023-01-10 20:00] VITALS: BP 154/81; PULSE 59; RESP 18; TEMP 36.9; O2SAT 98
[2023-01-10 21:14] LABS: Human Metapneumovirus Detected (NotDetected)
[2023-01-11 04:00] VITALS: BP 144/73; PULSE 63; RESP 18; TEMP 36.6; O2SAT 92; BMI 40.1
[2023-01-11 04:28] LABS: Basophils % 0.5 % (0.1-2.0); Eosinophils # 0.1 K/mm3 (0.0-0.4); Eosinophils % 0.7 % (0.1-12.0); Hematocrit 39.2 % (37.0-47.0); Hemoglobin 12.6 g/dL (12.2-16.2); Lymphocytes # 1.1 K/mm3 (0.7-4.5); Lymphocytes % 16.1 % (10-50); Mean Corpuscular HGB Conc 32.1 g/dL (31.8-35.4); Mean Corpuscular Hemoglobin 30.8 pg (27.0-31.2); Mean Platelet Volume 8.2 fl (7.4-10.4); Monocytes # 0.4 K/mm3 (0.1-1.0); Monocytes % 5.9 % (1.7-9.3); Neutrophils # 5.3 K/mm3 (1.8-7.8); Neutrophils % 76.7 % (37.0-80.0); Platelet Count 180 K/mm3 (142-424); Red Blood Count 4.08 M/mm3 (4.20-5.40); Red Cell Distribution Width 13.1 % (11.5-17.5); White Blood Count 6.9 K/mm3 (4.8-10.8)
[2023-01-11 04:33] LABS: Chloride 104 mmol/L (98-107); Potassium 3.4 mmoL/L (3.5-5.1); Sodium 139 mmol/L (136-145)
[2023-01-11 04:36] LABS: Anion Gap 5.4 mEq/L (5-15); Blood Urea Nitrogen 12 mg/dl (7-17); Calcium 8.6 mg/dl (8.4-10.2); Carbon Dioxide 33 mmol/L (22.0-30.0); Creatinine Clearance Estimated 72 mL/min (50-200); Estimated Glomerular Filt Rate 70 ml/min (>60); GFR (African American) 85 ML/MIN (>60); Glucose 84 mg/dl (74-100)
[2023-01-11 07:51] VITALS: BP 154/73; PULSE 76; RESP 17; TEMP 37.1; O2SAT 91
== END 2023-01-11 11:20 ==
LOC: ER 09:13 → 2ND 09:17
PROVIDERS: Admitting Provider Internal Medicine Adolescent Medicine; Emergency Provider Emergency Medicine; PCP Internal Medicine Adolescent Medicine; Visit Provider Internal Medicine Adolescent Medicine
DX: E86.0 Dehydration (principal)
CPT/HCPCS: 36415; 70450; 71045; 71275; 72125; 74177; 80048; 80053; 81001; 83880; 84145; 84436; 84443; 84484; 85007; 85025; 85651; 86140; 87581; 87632; 87798; 93005; 93970; 97110; 97162; 97166; 97530; 99285; C9803; G0378; J2405; Q9967; U0003; U0005

== ENCOUNTER 2023-01-12 12:37 | Inpatient (IN) | payer MEDICARE, SELFPAY ==
[2023-01-12] VITALS (10 sets, daily range): BP systolic 102–126; BP diastolic 51–67; PULSE 57–89; RESP 15–22; TEMP 36.5–38; O2SAT 87–96; BMI 38.2; BMI 40.6
--- NOTE | 2023-01-12 | ECG_ITS ---
APPROVED REPORT Exam: Resting ECG HR:81 bpm ECG Measurements Heart Rate 81 AXES IA 177 P 61 QRSd 102 QRS 8 QT 394 T 27 QTc 432 Conclusion SINUS RHYTHM LOW QRS VOLTAGE IN PRECORDIAL LEADS [QRS DEFLECTION < 1.0 mV IN CHEST LEADS] BORDERLINE ECG UNCONFIRMED REPORT Electronically signed by : Ari Coates MD 01/13/2023 15:31:11
--- NOTE | 2023-01-12 13:25 | PC.NURSE ---
1325 DR SUTTON AT BEDSIDE
--- NOTE | 2023-01-12 13:27 | XR_ITS ---
FINAL REPORT CLINICAL HISTORY: sob COMPARISON: 01/09/2023 FINDINGS: A single portable view of the chest was obtained. The heart size is enlarged. The pulmonary vascularity is within normal limits. There is a large hiatal hernia. There are worsening bibasilar pulmonary opacities consistent with worsening atelectasis or pneumonia. There is a small right pleural effusion. The bony thorax is intact. Chronic fracture of the proximal left humerus is noted. IMPRESSION: Worsening bibasilar opacities. Small right pleural effusion. Reviewed, Interpreted and Dictated by Reji Llanos III, MD Transcribed by Deanna Angulo Authenticated and [facility]
--- NOTE | 2023-01-12 13:28 | PC.NURSE ---
PT PLACED ON BEDPAN, DAUGHTER AT BEDSIDE
[2023-01-12 13:39] LABS: Basophils # 0.1 K/mm3 (0-0.2); Basophils % 0.3 % (0.1-2.0); Chloride 95 mmol/L (98-107); Eosinophils % 0.1 % (0.1-12.0); Hematocrit 41.3 % (37.0-47.0); Hemoglobin 13.6 g/dL (12.2-16.2); Lymphocytes # 1.2 K/mm3 (0.7-4.5); Lymphocytes % 4.5 % (10-50); Mean Corpuscular HGB Conc 32.9 g/dL (31.8-35.4); Mean Corpuscular Hemoglobin 31.4 pg (27.0-31.2); Mean Corpuscular Volume 95.5 fl (81-99); Mean Platelet Volume 8.5 fl (7.4-10.4); Monocytes # 0.5 K/mm3 (0.1-1.0); Monocytes % 1.9 % (1.7-9.3); Neutrophils % 93.2 % (37.0-80.0); Platelet Count 201 K/mm3 (142-424); Potassium 3.2 mmoL/L (3.5-5.1); Red Blood Count 4.33 M/mm3 (4.20-5.40); Red Cell Distribution Width 13.1 % (11.5-17.5); Sodium 131 mmol/L (136-145); White Blood Count 25.7 K/mm3 (4.8-10.8)
[2023-01-12 13:42] LABS: Alanine Aminotransferase 24 U/L (12-78); Albumin Level 3.1 g/dl (3.5-5.0); Albumin/Globulin Ratio 0.9 (1.1-1.8); Alkaline Phosphatase 79 U/L (38-126); Anion Gap 9.2 mEq/L (5-15); Aspartate Amino Transferase 37 U/L (14-36); Bilirubin,Total 0.7 mg/dl (0.2-1.3); Blood Urea Nitrogen 20 mg/dl (7-17); Calcium 8.5 mg/dl (8.4-10.2); Carbon Dioxide 30 mmol/L (22.0-30.0); Creatinine Clearance Estimated 63 mL/min (50-200); Estimated Glomerular Filt Rate 49 ml/min (>60); GFR (African American) 59 ML/MIN (>60); Globulin 3.3 g/dL (1.3-3.2); Glucose 150 mg/dl (74-100); Lactic Acid 1.2 mmol/L (0.7-2.1); Total Protein,Serum 6.4 g/dl (6.3-8.2)
[2023-01-12 13:53] LABS: MANUAL DIFFERENTIAL MANUAL DIFFERENTIAL (MANUAL DIFF)
--- NOTE | 2023-01-12 14:11 | HMH.EDGENADL ---
Discharge Plan Disposition Patient Disposition: Admitted As Inpatient Condition: Serious Chief Complaint: Weakness Prescriptions Prescriptions: No Action carvedilol 6.25 mg tablet 6.25 mg PO BID amitriptyline 25 mg tablet 25 mg PO AM buspirone 10 mg tablet 10 mg PO BID fluoxetine 20 mg capsule 20 mg PO HS clopidogrel 75 mg tablet 75 mg PO DAILY Namzaric 28-10 mg capsule,sprinkle,ER 24hr 1 cap PO HS perphenazine 2 mg Tablet 2 mg PO DAILY tizanidine 4 mg Tablet 4 mg PO HS PRN (Reason: Muscle spasms) halobetasol propionate 0.05 % Lotion 1 applic TOPICAL BID amitriptyline 50 mg Tablet 50 mg PO HS perphenazine 4 mg Tablet 4 mg PO HS baclofen 5 mg Tablet 5 mg PO HS tramadol 50 mg tablet 50 mg PO DAILYP PRN (Reason: Pain) 30 Days Qty: 30 0RF morphine 15 mg tablet extended release 15 mg PO HS 30 Days Qty: 30 0RF morphine 30 mg tablet extended release 30 mg PO AM 30 Days Qty: 30 0RF Eliquis 2.5 mg tablet 2.5 mg PO BID Qty: 60 0RF Referrals Follow up/Referrals: Ari Coates MD [Primary Care Provider] - See instructions Clinical Impressions Clinical Impression: Pneumonia, Respiratory failure Discharge ED Provider: [facility] General Chief complaint: Weakness Stated complaint: hypoxia Time Seen by Provider: 01/12/23 13:00 Mode of Arrival: EMS Source of Information: EMS Limitations: Altered Mental Status Description of Symptoms (Recalled from ER Triage Doc. by RN): 72 F presents via EMS from [facility] for hypoxia, crackles in her lungs, decreased physical mobility, and lethargy. Patient recently discharged from this facility and viral type illness and placement issues since she came from home apparently. Patient reportedly had oxygen saturations 80%-85% while at residential, so she was placed on 2L. EMS arrived and placed her on 5L via NC. Patient placed on RA when she arrived here and maintained 87%, so placed on 3L via NC and is >88%. NAD on arrival; however, patient reports she just doesn't feel good at all. 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 Over the last 24 hours patient has had worsening respiratory status, intermittent encephalopathy, fevers causing her to represent for continued evaluation. History obtained by daughter at bedside, recent discharge and chart review. Patient is intermittently encephalopathic upon interviewing however is aware of where she is at, how old she is, her name. Related Data Home Medications Medication Instructions Recorded Confirmed amitriptyline 25 mg tablet 25 mg PO AM Mood 01/09/23 01/09/23 amitriptyline 50 mg tablet 50 mg PO HS Mood 01/09/23 01/09/23 baclofen 5 mg tablet 5 mg PO HS Muscle spasms 01/09/23 01/09/23 buspirone 10 mg tablet 10 mg PO BID Mood 01/09/23 01/09/23 carvedilol 6.25 mg tablet 6.25 mg PO BID High blood pressure 01/09/23 01/09/23 clopidogrel 75 mg tablet 75 mg PO DAILY Antiplatelet, 01/09/23 01/09/23 vascular disease fluoxetine 20 mg capsule 20 mg PO HS Mood 01/09/23 01/09/23 halobetasol propionate 0.05 % 1 applic topical BID Skin 01/09/23 01/09/23 lotion inflammation memantine ER 28 mg-donepezil 10 mg 1 cap PO HS dementia 01/09/23 01/09/23 capsule sprinkle,ext.release 24 hr (Namzaric) perphenazine 2 mg tablet 2 mg PO DAILY Mood 01/09/23 01/09/23 perphenazine 4 mg tablet 4 mg PO HS Mood 01/09/23 01/09/23 tizanidine 4 mg tablet 4 mg PO HS PRN Muscle spasms 01/09/23 01/09/23 Previous Rx's Medication Instructions Recorded apixaban 2.5 mg tablet (Eliquis) 2.5 mg PO BID #60 tabs 01/10/23 morphine 15 mg table
--- NOTE | 2023-01-12 14:15 | PC.NURSE ---
covid swab sent to lab
[2023-01-12 14:21] LABS: Coronavirus 19, PCR Not Detected (NotDetected); Influenza A, PCR Not Detected (NotDetected); Influenza B, PCR Not Detected (NotDetected)
[2023-01-12 14:35] LABS: VBG HCO3 27.1 mmol/L (23-30); VBG Oxygen Saturation 84.7 % (50-70); VBG PCO2 46.4 mmol/L (35-51); VBG PH 7.38 mmol/L (7.31-7.41); VBG PO2 47.8 mmol/L (28-40); VBG Total CO2 28.5 mmol/L (23-27)
[2023-01-12 14:41] LABS: Lymphocytes % 6 % (10-50); Monocytes % 2 % (2-9); Neutrophils % 91 % (42-76); Platelet Estimate Normal; Total Cells Counted 100
[2023-01-12 14:42] LABS: RBC Morphology Normal
--- NOTE | 2023-01-12 14:42 | EXP.PHA.CONS ---
Pharmacy Consult Date: 01/12/23 Time: 14:42 Referring provider: DR. SUTTON Reason for Consult:: VANCOMYCIN DOSING Allergies Allergy/AdvReac Type Severity Reaction Status Date / Time ciprofloxacin [From CIPRO] Allergy Unknown Unknown Verified 12/26/22 11:15 allergy reaction codeine [CODEINE] Allergy Unknown Unknown Verified 12/26/22 11:15 allergy reaction erythromycin base Allergy Unknown I-RASH Verified 12/26/22 11:15 [From ERYTHROCIN] meperidine [MEPERIDINE] Allergy Unknown Unknown Verified 12/26/22 11:15 allergy reaction NSAIDS (Non-Steroidal Allergy Unknown I-RASH Verified 12/26/22 11:15 Anti-Inflamma [NSAIDS (NON-STEROIDAL ANTI-INFLAMMA] ofloxacin [OFLOXACIN] Allergy Unknown Unknown Verified 12/26/22 11:15 allergy reaction Quinolones [QUINOLONES] Allergy Unknown Unknown Verified 12/26/22 11:15 allergy reaction Macrolide Antibiotics Allergy Unknown Verified 12/26/22 11:15 allergy reaction Iodinated Contrast Media AdvReac Mild FLUSHED Verified 12/26/22 11:15 [Iodinated Contrast Media - FACE, IV Dye] ITCHING Home Medications Medication Instructions Recorded Confirmed Type amitriptyline 25 mg tablet 25 mg PO AM Mood 01/09/23 01/09/23 History amitriptyline 50 mg tablet 50 mg PO HS Mood 01/09/23 01/09/23 History baclofen 5 mg tablet 5 mg PO HS Muscle spasms 01/09/23 01/09/23 History buspirone 10 mg tablet 10 mg PO BID Mood 01/09/23 01/09/23 History carvedilol 6.25 mg tablet 6.25 mg PO BID High blood pressure 01/09/23 01/09/23 History clopidogrel 75 mg tablet 75 mg PO DAILY Antiplatelet, 01/09/23 01/09/23 History vascular disease fluoxetine 20 mg capsule 20 mg PO HS Mood 01/09/23 01/09/23 History halobetasol propionate 0.05 % 1 applic topical BID Skin 01/09/23 01/09/23 History lotion inflammation memantine ER 28 mg-donepezil 10 mg 1 cap PO HS dementia 01/09/23 01/09/23 History capsule sprinkle,ext.release 24 hr (Namzaric) perphenazine 2 mg tablet 2 mg PO DAILY Mood 01/09/23 01/09/23 History perphenazine 4 mg tablet 4 mg PO HS Mood 01/09/23 01/09/23 History tizanidine 4 mg tablet 4 mg PO HS PRN Muscle spasms 01/09/23 01/09/23 History morphine 15 mg tablet,extended 15 mg PO HS Pain 30 days #30 tabs 01/10/23 Rx release morphine 30 mg tablet,extended 30 mg PO AM Pain 30 days #30 tabs 01/10/23 Rx release tramadol 50 mg tablet 50 mg PO DAILYP PRN Pain 30 days 01/10/23 Rx #30 tabs apixaban 2.5 mg tablet (Eliquis) 2.5 mg PO BID Blood thinner 01/12/23 01/12/23 History New Prescriptions to Start Prescriptions: Height: 1.52 m Weight: 88.904 kg Laboratory Results:: Laboratory Results - last 24 hr 01/12/23 13:00: WBC 25.7 H* D, RBC 4.33, Hgb 13.6, Hct 41.3, MCV 95.5, MCH 31.4 H, MCHC 32.9, RDW 13.1, Plt Count 201, MPV 8.5, Neut % (Auto) 93.2 H, Lymph % (Auto) 4.5 L, [place] % (Auto) 1.9, Eos % (Auto) 0.1, Baso % (Auto) 0.3, Neut # (Auto) 24.0 H, Lymph # (Auto) 1.2, [place] # (Auto) 0.5, Eos # (Auto) 0.0, Baso # (Auto) 0.1, Total Counted 100, Neutrophils % (Manual) 91 H, Band Neutrophils % 1.0, Lymphocytes % (Manual) 6 L, Monocytes % (Manual) 2, Platelet Estimate Normal, RBC Morphology Normal 01/12/23 13:00: Sodium 131 L, Potassium 3.2 L, Chloride 95 L, Carbon Dioxide 30, Anion Gap 9.2, BUN 20 H D, Creatinine 1.10 H D, Estimated Creat Clear 63, Estimated GFR 49 L, Est GFR ( Amer) 59 D, Glucose 150 H, Calcium 8.5, Total Bilirubin 0.7, AST 37 H, ALT 24, Alkaline Phosphatase 79, Total Protein 6.4, Albumin 3.1 L, Globulin 3.3 H, Albumin/Globulin Ratio 0.9 L 01/12/23 13:00: Lactate 1.2 01/12/23 13:27: VBG pH 7.38, VBG pCO2 46.4, VBG pO2 47.8 H, VBG HCO3 27.1, VBG Total CO2 28.5 H, VBG O2 Saturation 84.7 H, VBG Base Excess 2.0 Assessment and Plan Assessment and plan all Dx Assessment and Plan for all problems:: Pharmacokinetic dosing service Objective: Patient: Floor
[2023-01-12 14:43] LABS: Microscopic, Urine URINE MICROSCOPIC (MICROSCOPIC)
[2023-01-12 14:47] LABS: Appearance,Urine CLEAR (Clear); Blood, Urine Negative (Negative); Color,Urine YELLOW (Yellow); Glucose,Urine (UA) Negative (Negative); Ketones,Urine 1+ (Negative); Leukocyte Esterase,Urine Negative (Negative); Nitrate,Urine POSITIVE (Negative); PH,Urine 5.5 (5.0-8.5); Protein,Urine 1+ (Negative); Specific Gravity, Urine >= 1.030 (1.005-1.030)
--- NOTE | 2023-01-12 14:48 | PC.NURSE ---
checked on pt no complaints at this time, storm and I placed a purewick for pt, sister at bedside
--- NOTE | 2023-01-12 14:52 | SW/DCPLANNER ---
This patient currently resides at [facility] level of care. I will continue to update Megan arrington/ SAMMIEHieu regarding this patient.
[2023-01-12 14:59] LABS: Bilirubin,Urine 2+ (Negative)
[2023-01-12 15:02] LABS: Bacteria,Urine 3+ /lpf
--- NOTE | 2023-01-12 15:02 | PC.NURSE ---
Attempted to call report; No answer from nurse's phone
--- NOTE | 2023-01-12 15:05 | PC.NURSE ---
Patient presents with gluteal cleft excoriation, no other open wounds or pressure injuries noted on assessment in ED
--- NOTE | 2023-01-12 15:13 | PC.NURSE ---
Report to JOSE Cortez
--- NOTE | 2023-01-12 15:19 | PC.NURSE ---
arrived to floor by stretcher from ED
--- NOTE | 2023-01-12 15:57 | P.CONPHA_ITS ---
Pharmacy Intervention Comments: MEDICATION RECONCILIATION COMPLETE USING MAR FROM [facility].
--- NOTE | 2023-01-12 15:57 | HMH.PHAINT1 ---
Pharmacy Intervention Comments: MEDICATION RECONCILIATION COMPLETE USING MAR FROM [facility].
--- NOTE | 2023-01-12 17:04 | EXP.HP ---
History of Present Illness *Admission Date: 01/12/23 *Reason for visit:: Hypoxia, mental status change *History of present illness: 72-year-old white female with multiple medical problems including chronic ataxia, chronic cerebrovascular disease, chronic opiate dependence and chronic neuropathy. She was admitted here about 4 weeks ago, transferred to a rehab facility but then did well and went home. She was readmitted here 2 days later because of fall, cough, diarrhea. She was reevaluated and thought she would do well back in nursing facility. She was found here on her previous admission to have metapneumovirus, was treated with IV fluids and supportive care, but yesterday morning was doing very nicely, in her normal state of alertness, pleasant and talkative, chest x-ray was clear, CBC was normal and she was transferred to [facility] for skilled care and rehabilitation to try to get her back in a state of self-care activities. Family reports that they transported her there and she was doing well on the left. Unfortunately this morning she had a rough night with declining mental status and this morning was febrile, hypoxic and very obtunded. Transferred back to the ER. Dramatic changes in labs were noted with WBC in the mid 20s, infiltrates on chest x-ray and evidence of hypoxia. Admitted to [facility] for healthcare acquired pneumonia for Pseudomonas and staph coverage. Talked with family in room, they reaffirmed her DNR status. [facility] Disclaimer: The information contained in this section may have been updated after the patient was seen, as this information can be updated by other users. Surgical History Previous back surgery Family History No significant family history Social History Smoking Status: Never smoker alcohol intake: never substance use type: denies use current occupational status: retired Travel in the last 8 weeks: None household members: spouse housing: house current occupational exposures/hazards: No caffeine: Yes Review of Systems Review of Systems Review of systems:: unable to obtain Meds Home Medications and Allergies Home Medications Medication Instructions Recorded Confirmed Type amitriptyline 25 mg tablet 25 mg PO AM Depression 01/09/23 01/12/23 History amitriptyline 50 mg tablet 50 mg PO HS Depression 01/09/23 01/12/23 History baclofen 5 mg tablet 5 mg PO HS Muscle spasms 01/09/23 01/12/23 History buspirone 10 mg tablet 10 mg PO BID Anxiety 01/09/23 01/12/23 History carvedilol 6.25 mg tablet 6.25 mg PO BID High blood pressure 01/09/23 01/12/23 History clopidogrel 75 mg tablet 75 mg PO DAILY Blood thinner 01/09/23 01/12/23 History fluoxetine 20 mg capsule 20 mg PO HS Depression 01/09/23 01/12/23 History halobetasol propionate 0.05 % 1 applic topical BID DRY SKIN 01/09/23 01/12/23 History lotion memantine ER 28 mg-donepezil 10 mg 1 cap PO HS DEMENTIA 01/09/23 01/12/23 History capsule sprinkle,ext.release 24 hr (Namzaric) perphenazine 2 mg tablet 2 mg PO DAILY Depression 01/09/23 01/12/23 History perphenazine 4 mg tablet 4 mg PO HS Depression 01/09/23 01/12/23 History tizanidine 4 mg tablet 4 mg PO HSP PRN Muscle spasms 01/09/23 01/12/23 History apixaban 2.5 mg tablet (Eliquis) 2.5 mg PO BID Blood thinner 01/12/23 01/12/23 History cyanocobalamin (vitamin B-12) 1,000 mcg SQ DAILY Supplement 01/12/23 01/12/23 History 1,000 mcg/mL injection kit morphine 15 mg tablet,extended 15 mg PO HS SEVERE CHRONIC PAIN 01/12/23 01/12/23 History release morphine 30 mg tablet,extended 30 mg PO AM SEVERE CHRONIC PAIN 01/12/23 01/12/23 History release multivitamin with minerals 1 tab PO DAILY Supplement 01/12/23 01/12/23 History (Multiple Vitamin-Minerals tablet) nystatin 100,000
--- NOTE | 2023-01-12 18:59 | PC.NURSE ---
pt would withdraw to painful stimuli and moan when arrived to floor. unable to respond to questions or community board member my hand, only opened her eyes for a few seconds x2. daughter at bedside, pt mumbled to daughter she thinks she had a bm. myself, and the tech changed pt, took pictures of open area to the gluteal fold, the pt told us her bottom was hurting. after the brief change pt was alert x4, stated her name, , place, year. pt stated she was very nausea. 20minutes later, pt would not communicate or respond to painful stimuli.
[2023-01-13 04:00] VITALS: BP 155/68; PULSE 80; RESP 16; TEMP 36.6; O2SAT 92; BMI 41.8
--- NOTE | 2023-01-13 05:24 | PC.NURSE ---
patient very lethargic at time of shift, did not respond to voice or touch but would to pain. Patient was also nonverbable. Patient had had a BM and as we were turning her she woke up and has been awake off and on all night. patient has c/o nausea have given her 2 dose of zofran. Patient also requesting her nerve pills which are her amitriptyline & perphenazine. Patient confirmed when she woke up the she want to be a Full Code; she stated this to her daughter and myself. Patient has had good output tonight. BL lungs clear and diminished in bilateral bases.
--- NOTE | 2023-01-13 07:55 | PC.WOUNDNOTE ---
old blister, lt elbow
[2023-01-13 07:56] VITALS: BP 147/69; PULSE 91; RESP 18; TEMP 36.9; O2SAT 91
[2023-01-13 08:02] LABS: Basophils % 0.1 % (0.1-2.0); Eosinophils # 0.1 K/mm3 (0.0-0.4); Eosinophils % 0.3 % (0.1-12.0); Hematocrit 40.6 % (37.0-47.0); Hemoglobin 13.4 g/dL (12.2-16.2); Lymphocytes # 0.7 K/mm3 (0.7-4.5); Lymphocytes % 2.8 % (10-50); Mean Corpuscular Hemoglobin 31.3 pg (27.0-31.2); Mean Corpuscular Volume 94.7 fl (81-99); Mean Platelet Volume 8.7 fl (7.4-10.4); Monocytes # 0.5 K/mm3 (0.1-1.0); Monocytes % 2.1 % (1.7-9.3); Neutrophils # 21.8 K/mm3 (1.8-7.8); Neutrophils % 94.6 % (37.0-80.0); Platelet Count 161 K/mm3 (142-424); Red Blood Count 4.28 M/mm3 (4.20-5.40); Red Cell Distribution Width 13.1 % (11.5-17.5); White Blood Count 23.1 K/mm3 (4.8-10.8)
--- NOTE | 2023-01-13 08:09 | EXP.ACUTE.PN ---
Subjective *Date: 01/13/23 *Time: 08:09 Interval history: Overnight patient's mental status is improved. She is awake, has been talking to the nurses, has been able to take some clear liquids. She is complaining of some nausea and was upset about her lack of sleep through the night. Medical Exam Vital signs and Labs for Last 24 Hours: Vital Signs Temp Pulse Pulse Resp BP BP Pulse Ox 01/13/23 07:56 98.4 F 91 H 18 147/69 H 91 L 01/13/23 04:00 98 F 80 16 155/68 H 92 L 01/12/23 20:00 90 L 01/12/23 20:00 97.7 F 57 L 17 115/51 L 90 L 01/12/23 15:33 98.4 F 75 18 105/52 L 95 01/12/23 15:06 98.7 F 81 15 109/67 L 01/12/23 14:31 76 22 102/53 L 96 01/12/23 14:25 79 01/12/23 14:25 92 L 01/12/23 14:00 86 19 122/62 92 L 01/12/23 13:30 88 126/60 92 L 01/12/23 12:43 89 113/56 L 92 L 01/12/23 12:55 91 L 01/12/23 12:37 100.4 F H 89 16 113/56 L 87 L Intake and Output 01/12/23 01/13/23 01/13/23 19:59 03:59 11:59 Intake Total 1200 / 2400 1200 / 2400 Output Total 0 / 300 200 / 300 100 / 300 Balance 1200 / 2100 -200 / 2100 1100 / 2100 Intake: Intake, Total IV Amount 1200 / 2400 1200 / 2400 Cefepime HCl 2 gm In 0.9 % 200 / 200 Sodium Chloride 100 ml @ 200 mls/hr IV Q8H PATRICK Rx#:[id number] Lactated Ringers 1000ML 1,000 1000 / 1000 ml @ 100 mls/hr IV .Q10H PATRICK Rx #:[id number] Output: Output, Urine Amount 0 / 300 200 / 300 100 / 300 Other: Number of Unmeasured Voids 1 1 1 Number of Bowel Movements 2 Weight 207 lb 0.1 oz 213 lb Patient Weight 01/13/23 11:59 Weight 213 lb Laboratory Results - last 24 hr 01/12/23 13:00: WBC 25.7 H* D, RBC 4.33, Hgb 13.6, Hct 41.3, MCV 95.5, MCH 31.4 H, MCHC 32.9, RDW 13.1, Plt Count 201, MPV 8.5, Neut % (Auto) 93.2 H, Lymph % (Auto) 4.5 L, [place] % (Auto) 1.9, Eos % (Auto) 0.1, Baso % (Auto) 0.3, Neut # (Auto) 24.0 H, Lymph # (Auto) 1.2, [place] # (Auto) 0.5, Eos # (Auto) 0.0, Baso # (Auto) 0.1, Total Counted 100, Neutrophils % (Manual) 91 H, Band Neutrophils % 1.0, Lymphocytes % (Manual) 6 L, Monocytes % (Manual) 2, Platelet Estimate Normal, RBC Morphology Normal 01/12/23 13:00: Sodium 131 L, Potassium 3.2 L, Chloride 95 L, Carbon Dioxide 30, Anion Gap 9.2, BUN 20 H D, Creatinine 1.10 H D, Estimated Creat Clear 63, Estimated GFR 49 L, Est GFR ( Amer) 59 D, Glucose 150 H, Calcium 8.5, Total Bilirubin 0.7, AST 37 H, ALT 24, Alkaline Phosphatase 79, Total Protein 6.4, Albumin 3.1 L, Globulin 3.3 H, Albumin/Globulin Ratio 0.9 L 01/12/23 13:00: Lactate 1.2 01/12/23 13:27: VBG pH 7.38, VBG pCO2 46.4, VBG pO2 47.8 H, VBG HCO3 27.1, VBG Total CO2 28.5 H, VBG O2 Saturation 84.7 H, VBG Base Excess 2.0 01/12/23 14:15: SARS-CoV-2 (PCR) Not detected, Influenza A Untype (PCR) Not detected, Influenza Type B (PCR) Not detected 01/12/23 14:39: Urine Color Yellow, Urine Appearance Clear, Urine pH 5.5, Ur Specific [place] >= 1.030, Urine Protein 1+, Urine Glucose (UA) Negative, Urine Ketones 1+, Urine Blood Negative, Urine Nitrate Positive, Urine Bilirubin 2+ A, Urine Urobilinogen 1.0, Ur Leukocyte Esterase Negative, Urine RBC None, Urine WBC 3-5, Ur Squamous Epith Cells None, Urine Bacteria 3+ I & O for Labs for Last 24 Hours: Intake & Output 01/10/23 01/11/23 01/12/23 01/13/23 11:59 11:59 11:59 11:59 Intake Total 2400 / 2400 Output Total 300 / 300 Balance 2100 / 2100 Weight 213 lb Comment:: Better air movement in her chest, crackles now audible because of her good air movement. Heart rate regular. Murmur noted as previously. No extremity edema, lots of bruising from her previous skin changes, global weakness but she is alert, oriented x2, little fuzzy about the date. Assessment and Plan *Assessment and plan (1) Pneumonia: Status: Acute Category: Medical Code(s): J18.9 - Pneumonia, unspecified organism (2) Respir
[2023-01-13 08:14] LABS: MANUAL DIFFERENTIAL MANUAL DIFFERENTIAL (MANUAL DIFF)
[2023-01-13 08:20] LABS: Chloride 96 mmol/L (98-107); Sodium 135 mmol/L (136-145)
[2023-01-13 08:23] LABS: Blood Urea Nitrogen 22 mg/dl (7-17); Creatinine Clearance Estimated 34 mL/min (50-200); Estimated Glomerular Filt Rate 70 ml/min (>60); GFR (African American) 85 ML/MIN (>60)
[2023-01-13 08:24] LABS: Calcium 8.3 mg/dl (8.4-10.2); Carbon Dioxide 27 mmol/L (22.0-30.0); Glucose 90 mg/dl (74-100)
[2023-01-13 09:22] LABS: Lymphocytes % 11 % (10-50); Monocytes % 3 % (2-9); Neutrophils % 86 % (42-76); Total Cells Counted 100
[2023-01-13 09:23] LABS: Platelet Estimate Normal; RBC Morphology Normal
--- NOTE | 2023-01-13 09:26 | EXP.PHA.CONS ---
Pharmacy Consult Date: 01/13/23 Time: 09:26 Referring provider: DR MARTINEZ Reason for Consult:: VANCOMYCIN DOSING CONSULT Allergies Allergy/AdvReac Type Severity Reaction Status Date / Time ciprofloxacin [From CIPRO] Allergy Unknown Unknown Verified 12/26/22 11:15 allergy reaction codeine [CODEINE] Allergy Unknown Unknown Verified 12/26/22 11:15 allergy reaction erythromycin base Allergy Unknown I-RASH Verified 12/26/22 11:15 [From ERYTHROCIN] meperidine [MEPERIDINE] Allergy Unknown Unknown Verified 12/26/22 11:15 allergy reaction NSAIDS (Non-Steroidal Allergy Unknown I-RASH Verified 12/26/22 11:15 Anti-Inflamma [NSAIDS (NON-STEROIDAL ANTI-INFLAMMA] ofloxacin [OFLOXACIN] Allergy Unknown Unknown Verified 12/26/22 11:15 allergy reaction Quinolones [QUINOLONES] Allergy Unknown Unknown Verified 12/26/22 11:15 allergy reaction Macrolide Antibiotics Allergy Unknown Verified 12/26/22 11:15 allergy reaction Iodinated Contrast Media AdvReac Mild FLUSHED Verified 12/26/22 11:15 [Iodinated Contrast Media - FACE, IV Dye] ITCHING Home Medications Medication Instructions Recorded Confirmed Type amitriptyline 25 mg tablet 25 mg PO AM Depression 01/09/23 01/12/23 History amitriptyline 50 mg tablet 50 mg PO HS Depression 01/09/23 01/12/23 History baclofen 5 mg tablet 5 mg PO HS Muscle spasms 01/09/23 01/12/23 History buspirone 10 mg tablet 10 mg PO BID Anxiety 01/09/23 01/12/23 History carvedilol 6.25 mg tablet 6.25 mg PO BID High blood pressure 01/09/23 01/12/23 History clopidogrel 75 mg tablet 75 mg PO DAILY Blood thinner 01/09/23 01/12/23 History fluoxetine 20 mg capsule 20 mg PO HS Depression 01/09/23 01/12/23 History halobetasol propionate 0.05 % 1 applic topical BID DRY SKIN 01/09/23 01/12/23 History lotion memantine ER 28 mg-donepezil 10 mg 1 cap PO HS DEMENTIA 01/09/23 01/12/23 History capsule sprinkle,ext.release 24 hr (Namzaric) perphenazine 2 mg tablet 2 mg PO DAILY Depression 01/09/23 01/12/23 History perphenazine 4 mg tablet 4 mg PO HS Depression 01/09/23 01/12/23 History tizanidine 4 mg tablet 4 mg PO HSP PRN Muscle spasms 01/09/23 01/12/23 History apixaban 2.5 mg tablet (Eliquis) 2.5 mg PO BID Blood thinner 01/12/23 01/12/23 History cyanocobalamin (vitamin B-12) 1,000 mcg SQ DAILY Supplement 01/12/23 01/12/23 History 1,000 mcg/mL injection kit morphine 15 mg tablet,extended 15 mg PO HS SEVERE CHRONIC PAIN 01/12/23 01/12/23 History release morphine 30 mg tablet,extended 30 mg PO AM SEVERE CHRONIC PAIN 01/12/23 01/12/23 History release multivitamin with minerals 1 tab PO DAILY Supplement 01/12/23 01/12/23 History (Multiple Vitamin-Minerals tablet) nystatin 100,000 unit/gram topical 1 applic topical BID SKIN 01/12/23 01/12/23 History powder IRRITATION ondansetron HCl 4 mg tablet 4 mg PO Q8HP PRN Nausea 01/12/23 01/12/23 History polyethylene glycol 3350 17 gram 17 g PO DAILYP PRN Constipation 01/12/23 01/12/23 History oral powder packet (Miralax) tramadol 50 mg tablet 50 mg PO DAILYP PRN Severe Pain 01/12/23 01/12/23 History (Scale Score 7-10) New Prescriptions to Start Prescriptions: Height: 1.52 m Weight: 96.615 kg Laboratory Results:: Laboratory Results - last 24 hr 01/12/23 13:00: WBC 25.7 H* D, RBC 4.33, Hgb 13.6, Hct 41.3, MCV 95.5, MCH 31.4 H, MCHC 32.9, RDW 13.1, Plt Count 201, MPV 8.5, Neut % (Auto) 93.2 H, Lymph % (Auto) 4.5 L, [place] % (Auto) 1.9, Eos % (Auto) 0.1, Baso % (Auto) 0.3, Neut # (Auto) 24.0 H, Lymph # (Auto) 1.2, [place] # (Auto) 0.5, Eos # (Auto) 0.0, Baso # (Auto) 0.1, Total Counted 100, Neutrophils % (Manual) 91 H, Band Neutrophils % 1.0, Lymphocytes % (Manual) 6 L, Monocytes % (Manual) 2, Platelet Estimate Normal, RBC Morphology Normal 01/12/23 13:00: Sodium 131 L, Potassium 3.2 L, Chloride 95 L, Carbon Dioxide 30, Anion Gap 9.2, BUN 20 H D, Creatinine 1.10 H D, Estimated Creat Clear
[2023-01-13 11:22] VITALS: BP 145/88; PULSE 80; RESP 18; TEMP 36.9; O2SAT 93
--- NOTE | 2023-01-13 12:07 | PC.NURSE ---
pt requesting phenergan, stating the zofran is not working. notified md. devon tovar, order 25 mg phenergan iv q6 prn for nausea.
--- NOTE | 2023-01-13 12:54 | HMH.PTWOUND ---
Rehab Inpt Wound Evaluation Rehab IP Wound Evaluation Start: 01/13/23 08:07 Freq: ONCE Status: Active Protocol: Document 01/13/23 12:46 PHOROD (Rec: 01/13/23 12:54 PHORNE [id number]) Rehab PT Wound Assessment Subjective Subjective 72 yowf adm to [facility] with hypoxic resp failure and PNA. 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 She presents on admission with wounds to the L elbow and sacrum from SNF. Wound Left Elbow Wound Type likely abrasion Is This a Chronic Wound Yes Wound Length (cm) 1.5 Wound Width (cm) 1.5 Wound Bed Appearance Eschar Percentage of Eschar (Black) (%) 100 Wound Margins Description Well Defined Surrounding Tissue Appearance Camak,Purple Drainage Amount None Wound Debridement Amount of Tissue None Removed Dressing Change Patient Tolerance Tolerated Well Sacrum Wound Type MASD Is This a Chronic Wound No Wound Length (cm) 4.0 Wound Width (cm) 0.4 Wound Depth (cm) 0.1 Wound Bed Appearance Beefy Red Percentage Granulated (%) 100 Wound Margins Description Well Defined Surrounding Tissue Appearance Camak Wound Drainage Description Serosanguineous Drainage Amount Small Dressing Status Dry & Intact Primary Dressing Composite Wound Debridement Amount of Tissue None Removed Dressing Change Patient Tolerance Tolerated Well Plan/Recommendation Comment L elbow wound with dry, stable , black eschar at this time. No plans for debridement currently. Sacral wound appears healthy and is likely due to MASD. Current dressing is appropriate and nsg can change the compoite foam dressing as needed. Eval Complexity Eval Charge Codes 67553 - Moderate Complexity PHYSICIAN CERTIFICATION: I certify the specified therapy services for Casandra Christie are required, authorized, and reviewed every 30 days.
[2023-01-13 15:19] LABS: Adenovirus F 40/41, stool Not Detected (NotDetected); Astrovirus Not Detected (NotDetected); Campylobacter Not Detected (NotDetected); Clostridium Difficile A/B, PCR Not Detected (NotDetected); Cryptosporidium Not Detected (NotDetected); Cyclospora Cayetanesis Not Detected (NotDetected); Entamoeba histolytica Not Detected (NotDetected); Enteroaggregative E coli Not Detected (NotDetected); Enteropathogenic E coli Not Detected (NotDetected); Enterotoxigenic E coli Not Detected (NotDetected); Giardia lamblia Not Detected (NotDetected); Norovirus Not Detected (NotDetected); Plesimonas Shigalloides, PCR Not Detected (NotDetected); Rotavirus A Not Detected (NotDetected); Salmonella, PCR Not Detected (NotDetected); Sapovirus Not Detected (NotDetected); Shiga-like toxin E coli Not Detected (NotDetected); Shigella Enterovasive E coli Not Detected (NotDetected); Vibrio Cholerae Not Detected (NotDetected); Vibrio, PCR Not Detected (NotDetected); Yersinia Entercolitica, PCR Not Detected (NotDetected)
[2023-01-13 15:31] VITALS: BP 161/82; PULSE 81; RESP 19; TEMP 36.9; O2SAT 91
--- NOTE | 2023-01-13 16:25 | PC.NURSE ---
earlier this shift, pts daughter was at bedside and stated the pt is coughing up blood and showed a tissue the pt spit in. instructions were given early in the shift about collecting a sputum specimen. re-educated pt the need to spit sputum in the collection up. called RT to assist in sputum collection as pt has weak cough. assessed pt and found she has dried blood in her lt nare, unable to cough sputum up at this time.
--- NOTE | 2023-01-13 17:13 | PC.NURSE ---
courtesy tech yeimi: pt is sitting up in bed. refused tray but soup and crackers were provided. no further requests were voiced at this time. call light is within reach.
[2023-01-13 19:52] VITALS: BP 174/87; PULSE 87; RESP 14; TEMP 36.9; O2SAT 91
[2023-01-13 23:38] VITALS: BP 155/72; PULSE 69; RESP 16; TEMP 36.6; O2SAT 92
[2023-01-14 04:00] VITALS: BP 127/67; PULSE 67; RESP 18; TEMP 36.9; O2SAT 93; BMI 40.0
[2023-01-14 07:56] VITALS: BP 159/78; PULSE 77; RESP 18; TEMP 36.7; O2SAT 92
[2023-01-14 08:57] LABS: Chloride 103 mmol/L (98-107); Sodium 136 mmol/L (136-145)
[2023-01-14 09:00] LABS: Anion Gap 8.2 mEq/L (5-15); Blood Urea Nitrogen 16 mg/dl (7-17); Carbon Dioxide 27 mmol/L (22.0-30.0); Creatinine Clearance Estimated 72 mL/min (50-200); Estimated Glomerular Filt Rate 82 ml/min (>60); GFR (African American) 99 ML/MIN (>60)
[2023-01-14 09:01] LABS: Calcium 8.7 mg/dl (8.4-10.2); Glucose 87 mg/dl (74-100)
[2023-01-14 09:06] LABS: Basophils % 0.1 % (0.1-2.0); Eosinophils # 0.2 K/mm3 (0.0-0.4); Lymphocytes # 0.8 K/mm3 (0.7-4.5); Lymphocytes % 3.8 % (10-50); Mean Corpuscular HGB Conc 33.4 g/dL (31.8-35.4); Mean Corpuscular Volume 92.7 fl (81-99); Mean Platelet Volume 8.7 fl (7.4-10.4); Monocytes # 0.4 K/mm3 (0.1-1.0); Neutrophils # 19.7 K/mm3 (1.8-7.8); Neutrophils % 93.1 % (37.0-80.0); Platelet Count 191 K/mm3 (142-424); Red Blood Count 4.21 M/mm3 (4.20-5.40); Red Cell Distribution Width 13.1 % (11.5-17.5); White Blood Count 21.1 K/mm3 (4.8-10.8)
[2023-01-14 09:09] LABS: Potassium 2.2 mmoL/L (3.5-5.1)
[2023-01-14 09:11] LABS: MANUAL DIFFERENTIAL MANUAL DIFFERENTIAL (MANUAL DIFF)
--- NOTE | 2023-01-14 09:25 | EXP.ACUTE.PN ---
Subjective *Date: 01/14/23 *Time: 09:25 Interval history: Overall patient feels much better. Able to eat some breakfast this morning. States that she had a good night sleep last night and feels much more energetic. Still has a cough, but is unable to cough up sputum. Medical Exam Vital signs and Labs for Last 24 Hours: Vital Signs Temp Pulse Resp BP Pulse Ox 01/14/23 07:56 98.1 F 77 18 159/78 H 92 L 01/14/23 04:00 98.4 F 67 18 127/67 93 L 01/13/23 23:38 97.9 F 69 16 155/72 H 92 L 01/13/23 19:52 98.5 F 87 14 174/87 H 91 L 01/13/23 15:31 98.5 F 81 19 161/82 H 91 L 01/13/23 11:22 98.4 F 80 18 145/88 H 93 L Intake and Output 01/13/23 01/14/23 01/14/23 19:59 03:59 11:59 Intake Total 941 / 1181 240 / 1181 Output Total 150 / 150 Balance -150 / 1031 941 / 1031 240 / 1031 Intake: Intake, Oral Amount 240 / 240 Intake, Total IV Amount 941 / 941 Cefepime HCl 2 gm In 0.9 % 100 / 100 Sodium Chloride 100 ml @ 200 mls/hr IV Q8H [facility] Rx#:[id number] Lactated Ringers 1000ML 1,000 841 / 841 ml @ 100 mls/hr IV .Q10H [facility] Rx #:[id number] Output: Output, Urine Amount 150 / 150 Other: Number of Unmeasured Voids 1 1 1 Number of Bowel Movements 1 1 1 Weight 203 lb 12.8 oz Patient Weight 01/14/23 11:59 Weight 203 lb 12.8 oz Laboratory Results - last 24 hr 01/13/23 15:10: Stl Aeromonas (PCR) Not detected, Stl C. cayetanensis PCR Not detected, Stool Rotavirus (PCR) Not detected, Stl Adenov F 40/41 PCR Not detected, Stool Astrovirus (PCR) Not detected, Stool Campylobacter PCR Not detected, Stl C.difficile Tox PCR Not detected, Stool Cryptosporidium PCR Not detected, Stl E.coli Shiga Tox PCR Not detected, Stool E coli O157 PCR Not detected, Stl Enterotoxigenic E PCR Not detected, Stool EPEC (PCR) Not detected, Stool EAEC (PCR) Not detected, Stl E. histolytica PCR Not detected, Stool Giardia Lamblia PCR Not detected, Stool Salmonella PCR Not detected, Stool Sapovirus (PCR) Not detected, Stl P. shigelloides PCR Not detected, Stl Shigella/EIEC PCR Not detected, St Y.enterocolitica PCR Not detected, Stool Vibrio (PCR) Not detected, Stl Vibrio cholerae PCR Not detected, Stl Norovirus GI/GII PCR Not detected 01/14/23 07:33: WBC 21.1 H*, RBC 4.21, Hgb 13.0, Hct 39.0, MCV 92.7, MCH 31.0, MCHC 33.4, RDW 13.1, Plt Count 191, MPV 8.7, Neut % (Auto) 93.1 H, Lymph % (Auto) 3.8 L, Armstrong % (Auto) 2.0, Eos % (Auto) 1.0, Baso % (Auto) 0.1, Neut # (Auto) 19.7 H, Lymph # (Auto) 0.8, [place] # (Auto) 0.4, Eos # (Auto) 0.2, Baso # (Auto) 0.0 01/14/23 07:33: Sodium 136, Potassium 2.2 L* D, Chloride 103, Carbon Dioxide 27, Anion Gap 8.2, BUN 16 D, Creatinine 0.70, Estimated Creat Clear 72, Estimated GFR 82, Est GFR ( Amer) 99, Glucose 87, Calcium 8.7 I & O for Labs for Last 24 Hours: Intake & Output 01/11/23 01/12/23 01/13/23 01/14/23 11:59 11:59 11:59 11:59 Intake Total 2400 / 2400 1181 / 1181 Output Total 300 / 300 150 / 150 Balance 2099 / 2100 1031 / 1031 Weight 213 lb 203 lb 12.8 oz Microbiology Reports for the Last 24 Hours: Microbiology 01/13/23 18:29 Sputum - Expectorated Sputum Gram Stain - Final 01/12/23 13:30 Urine,Catheterized Urine Culture - Preliminary NO GROWTH AFTER 24 HOURS Comment:: Awake, alert. Oriented x3. Lungs have coarse rhonchi, when she takes a deep breath this triggers a cough. Heart rate regular. Previously noted murmur. Abdomen soft, nontender. Extremities warm, multiple scattered bruising as previously noted. Globally very weak, especially in her legs. Assessment and Plan *Assessment and plan (1) Pneumonia: Status: Acute Category: Medical Code(s): J18.9 - Pneumonia, unspecified organism (2) Respiratory failure: Status: Acute Category: Medical Code(s): J96.90 - Respiratory failure, unspecified, unspecified whether with hypoxia
[2023-01-14 09:29] VITALS: PULSE 78
[2023-01-14 10:22] LABS: Eosinophils % 1 % (0-3); Lymphocytes % 7 % (10-50); Monocytes % 3 % (2-9); Neutrophils % 89 % (42-76); Platelet Estimate Normal; RBC Morphology Normal; Total Cells Counted 100
[2023-01-14 12:00] VITALS: BP 157/79; PULSE 72; RESP 17; TEMP 36.8; O2SAT 94
[2023-01-14 15:53] VITALS: BP 159/79; PULSE 71; RESP 17; TEMP 36.9; O2SAT 91
--- NOTE | 2023-01-14 17:17 | PC.NURSE ---
PT IS RESTING IN BED. TOLERATED SITTING UP IN THE CHAIR FOR A FEW HOURS THIS SHIFT. ALERT AND ORIENTED X3. EATING AND DRINKING FAIR. TURNED AND REPOSITIONED IN BED. REDNESS NOTED TO ABDOMINAL FOLDS AND AYDE AREA. SMALL OPEN AREA NOTED TO THE COCCYX. O2 SATURATION HAS MAINTAINED 93-95% ON 2 L NC. LUNG SOUNDS DIMINISHED WITH SCATTERED RHONCHI. WILL CONTINUE TO MONITOR.
[2023-01-14 18:29] LABS: Chloride 102 mmol/L (98-107); Sodium 136 mmol/L (136-145)
[2023-01-14 18:32] LABS: Blood Urea Nitrogen 15 mg/dl (7-17); Creatinine Clearance Estimated 72 mL/min (50-200); Estimated Glomerular Filt Rate 82 ml/min (>60); GFR (African American) 99 ML/MIN (>60)
[2023-01-14 18:33] LABS: Anion Gap 7.5 mEq/L (5-15); Carbon Dioxide 29 mmol/L (22.0-30.0); Glucose 137 mg/dl (74-100)
[2023-01-14 18:41] LABS: Potassium 2.5 mmoL/L (3.5-5.1)
[2023-01-14 19:25] VITALS: BP 187/91; PULSE 79; RESP 16; TEMP 37; O2SAT 93
[2023-01-14 19:59] VITALS: BMI 40.0
--- NOTE | 2023-01-14 21:41 | PC.NURSE ---
Dr Coates notified of pt having course crackles. States he believes this is from her PNA but OK to DC fluids if she is drinking and eating ok. Pt has multiple drinks at bedside and states she is eating and drinking better today. Fluids DC at this time. Pt now saline locked.
[2023-01-15] VITALS (8 sets, daily range): BP systolic 147–184; BP diastolic 76–95; PULSE 70–80; RESP 16–18; TEMP 36.3–37.4; O2SAT 90–96; BMI 40.1
[2023-01-15 04:06] LABS: Basophils % 0.2 % (0.1-2.0); Eosinophils # 0.4 K/mm3 (0.0-0.4); Eosinophils % 2.8 % (0.1-12.0); Hematocrit 35.1 % (37.0-47.0); Hemoglobin 11.8 g/dL (12.2-16.2); Lymphocytes % 6.3 % (10-50); Mean Corpuscular HGB Conc 33.5 g/dL (31.8-35.4); Mean Corpuscular Hemoglobin 31.1 pg (27.0-31.2); Mean Corpuscular Volume 92.8 fl (81-99); Mean Platelet Volume 8.4 fl (7.4-10.4); Monocytes # 0.5 K/mm3 (0.1-1.0); Neutrophils # 13.1 K/mm3 (1.8-7.8); Neutrophils % 87.7 % (37.0-80.0); Platelet Count 185 K/mm3 (142-424); Red Blood Count 3.79 M/mm3 (4.20-5.40); Red Cell Distribution Width 13.4 % (11.5-17.5)
[2023-01-15 04:14] LABS: Chloride 103 mmol/L (98-107); Sodium 135 mmol/L (136-145)
[2023-01-15 04:15] LABS: MANUAL DIFFERENTIAL MANUAL DIFFERENTIAL (MANUAL DIFF)
[2023-01-15 04:16] LABS: Potassium 2.6 mmoL/L (3.5-5.1)
[2023-01-15 04:17] LABS: Alanine Aminotransferase 14 U/L (12-78); Albumin Level 2.3 g/dl (3.5-5.0); Albumin/Globulin Ratio 0.7 (1.1-1.8); Alkaline Phosphatase 83 U/L (38-126); Anion Gap 5.6 mEq/L (5-15); Aspartate Amino Transferase 25 U/L (14-36); Bilirubin,Total 0.4 mg/dl (0.2-1.3); Blood Urea Nitrogen 12 mg/dl (7-17); Calcium 8.1 mg/dl (8.4-10.2); Carbon Dioxide 29 mmol/L (22.0-30.0); Creatinine Clearance Estimated 72 mL/min (50-200); Estimated Glomerular Filt Rate 98 ml/min (>60); GFR (African American) 118 ML/MIN (>60); Globulin 3.3 g/dL (1.3-3.2); Glucose 90 mg/dl (74-100); Total Protein,Serum 5.6 g/dl (6.3-8.2)
--- NOTE | 2023-01-15 04:32 | PC.WOUNDNOTE ---
1. STAGE 2 - COCCYX 2. LEFT ELBOW 3. LEFT LEG 4. ABDOMINAL FOLD 5. RIGHT ELBOW.
--- NOTE | 2023-01-15 04:43 | PC.NURSE ---
Reported critical K+ of 2.[address] Coates. Orders received for K+ 60 mg PO once now
[2023-01-15 05:00] LABS: Eosinophils % 2 % (0-3); Lymphocytes % 6 % (10-50); Monocytes % 1 % (2-9); Neutrophils % 91 % (42-76); Platelet Estimate Normal; RBC Morphology Normal; Total Cells Counted 100
--- NOTE | 2023-01-15 08:05 | EXP.ACUTE.PN ---
Subjective *Date: 01/15/23 *Time: 08:05 Interval history: Patient's feels horrible. She is very tired and has been coughing. However, she is alert, talkative, vital signs have been stable with the exception of slightly elevated blood pressure. Medical Exam Vital signs and Labs for Last 24 Hours: Vital Signs Temp Pulse Pulse Resp BP Pulse Ox 01/15/23 07:31 97.3 F L 74 18 184/95 H 94 L 01/15/23 04:00 98.2 F 71 16 157/79 H 96 01/15/23 01:31 70 01/15/23 04:00 70 01/15/23 00:00 98.4 F 75 16 150/76 H 93 L 01/14/23 19:25 98.6 F 79 16 187/91 H 93 L 01/14/23 15:53 98.5 F 71 17 159/79 H 91 L 01/14/23 12:00 98.3 F 72 17 157/79 H 94 L 01/14/23 09:29 78 01/14/23 09:29 78 Intake and Output 01/14/23 01/15/23 01/15/23 19:59 03:59 11:59 Intake Total 480 / 700 220 / 700 Output Total 0 / 0 0 / 0 Balance 480 / 700 220 / 700 Intake: Intake, Oral Amount 480 / 700 220 / 700 Output: Output, Urine Amount 0 / 0 0 / 0 Other: Number of Unmeasured Voids 1 1 Number of Bowel Movements 1 1 Weight 203 lb 12.795 oz 204 lb 12.8 oz Patient Weight 01/15/23 11:59 Weight 204 lb 12.8 oz Laboratory Results - last 24 hr 01/14/23 07:33: WBC 21.1 H*, RBC 4.21, Hgb 13.0, Hct 39.0, MCV 92.7, MCH 31.0, MCHC 33.4, RDW 13.1, Plt Count 191, MPV 8.7, Neut % (Auto) 93.1 H, Lymph % (Auto) 3.8 L, [place] % (Auto) 2.0, Eos % (Auto) 1.0, Baso % (Auto) 0.1, Neut # (Auto) 19.7 H, Lymph # (Auto) 0.8, [place] # (Auto) 0.4, Eos # (Auto) 0.2, Baso # (Auto) 0.0, Total Counted 100, Neutrophils % (Manual) 89 H, Lymphocytes % (Manual) 7 L, Monocytes % (Manual) 3, Eosinophils % (Manual) 1, Platelet Estimate Normal, RBC Morphology Normal 01/14/23 07:33: Sodium 136, Potassium 2.2 L* D, Chloride 103, Carbon Dioxide 27, Anion Gap 8.2, BUN 16 D, Creatinine 0.70, Estimated Creat Clear 72, Estimated GFR 82, Est GFR ( Amer) 99, Glucose 87, Calcium 8.7 01/14/23 17:50: Sodium 136, Potassium 2.5 L*, Chloride 102, Carbon Dioxide 29, Anion Gap 7.5, BUN 15, Creatinine 0.70, Estimated Creat Clear 72, Estimated GFR 82, Est GFR ( Amer) 99, Glucose 137 H D, Calcium 9.0 01/15/23 03:30: WBC 15.0 H D, RBC 3.79 L, Hgb 11.8 L, Hct 35.1 L, MCV 92.8, MCH 31.1, MCHC 33.5, RDW 13.4, Plt Count 185, MPV 8.4, Neut % (Auto) 87.7 H, Lymph % (Auto) 6.3 L, [place] % (Auto) 3.0, Eos % (Auto) 2.8, Baso % (Auto) 0.2, Neut # (Auto) 13.1 H, Lymph # (Auto) 1.0, [place] # (Auto) 0.5, Eos # (Auto) 0.4, Baso # (Auto) 0.0, Total Counted 100, Neutrophils % (Manual) 91 H, Lymphocytes % (Manual) 6 L, Monocytes % (Manual) 1 L, Eosinophils % (Manual) 2, Platelet Estimate Normal, RBC Morphology Normal 01/15/23 03:30: Sodium 135 L, Potassium 2.6 L*, Chloride 103, Carbon Dioxide 29, Anion Gap 5.6, BUN 12, Creatinine 0.60, Estimated Creat Clear 72, Estimated GFR 98, Est GFR ( Amer) 118, Glucose 90 D, Calcium 8.1 L, Total Bilirubin 0.4, AST 25 D, ALT 14 D, Alkaline Phosphatase 83, Total Protein 5.6 L, Albumin 2.3 L, Globulin 3.3 H, Albumin/Globulin Ratio 0.7 L I & O for Labs for Last 24 Hours: Intake & Output 01/12/23 01/13/23 01/14/23 01/15/23 11:59 11:59 11:59 11:59 Intake Total 2400 / 2400 1181 / 1181 700 / 700 Output Total 300 / 300 150 / 150 0 / 0 Balance 2100 / 2100 1031 / 1031 700 / 700 Weight 213 lb 203 lb 12.8 oz 204 lb 12.8 oz Microbiology Reports for the Last 24 Hours: Microbiology 01/13/23 18:29 Sputum - Expectorated Sputum Gram Stain - Final 01/13/23 18:29 Sputum - Expectorated Sputum Sputum Culture - Preliminary 01/12/23 13:30 Urine,Catheterized Urine Culture - Final NO GROWTH AFTER 48 HOURS 01/12/23 13:56 Blood Blood Culture - Preliminary NO GROWTH AFTER 48 HOURS 01/12/23 13:00 Blood Blood Culture - Preliminary NO GROWTH AFTER 48 HOURS Comment:: Alert, rhonchorous air sounds bilaterally. At basel
--- NOTE | 2023-01-15 10:43 | HMH.PTEV ---
Physical Therapy Evaluation Rehab PT IP Evaluation Start: 01/14/23 09:24 Freq: ONCE Status: Active Protocol: Document 01/15/23 09:30 TA (Rec: 01/15/23 10:43 PHOROD [id number]) Subjective/History History History 72 yowf adm to [facility] with hypoxic resp failure and PNA. 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 She presents on admission with wounds to the L elbow and sacrum from SNF. Pt is non-ambulatory at baseline and Family assists her with all ADLs. Subjective Subjective Pt reports she continues to feel unwell in general and weak. Agrees to initial mobility assessment. Rehab PT IP Eval Objective Appearance Patient Behavior Appropriate Patient Orientation Person,Place,Time Difficulty following instructions none Speech Pattern Clear Ambulation Patient Able to Ambulate No Balance Ability to Arise Able, uses arms to help Sitting Balance Leans or slides in chair Standing Balance Unsteady Dynamic Sitting Balance Ability Fair Dynamic Standing Balance Ability Poor Transfers Bed Transfer Ability Moderate x 2 (50% assist) Sit to Stand Bed Transfer Ability Maximum x 2 (75% assist) Rehab PT IP prob,goals,plan Problems Date of Evaluation: 01/15/23 PT IP Problems Bed Mobility,Transfers Rehab Potential Rehab Potential Fair Plan PT Intervention Plan Bed Mobility,Transfers, Therapeutic Exercise PT Plan Frequency Daily Duration LOS Discharge Goals Bed Transfer Ability Minimal x 2 (25% assist) Sit to Stand Chair Transfer Ability Maximum x 1 (75% assist) Discharge Plan PT Discharge Plan Pt is currently most appropriate for SNF placement once medically stable for d/c. G -code Required No Eval Complexity Eval Charge Codes 18909 - Moderate Complexity PHYSICIAN CERTIFICATION: I certify the specified therapy services for Casandra Christie are required, authorized, and reviewed every 30 days.
--- NOTE | 2023-01-15 10:59 | HMH.OTEV ---
OT Inpatient Evaluation Rehab OT IP Evaluation Start: 01/14/23 09:24 Freq: ONCE Status: Active Protocol: Document 01/15/23 10:50 [facility] (Rec: [facility]15/23 10:59 [id number] Rehab OT IP Assessment Subjective History Pt oriented x 3 on arrival. Pt was admitted on 01/12/23 due to hypoxia and mental status change. Pt was recently discharged from [facility] and sent back to [facility] for more skilled therapy. However , she progressively became worse and now has PNA. Prior to being in SNF, pt lived at home with her . Pt required assistance with ADLs such as dressing and bathing prior. Her daugther normally assisted with these ADLs. Pt was dependent upon her for completion of all IADLs. Pt used a wheelchair majority of the time, but was able to transfer herself from surface to surface. Pt has a past medical history of: Previous back surgery Subjective I don't feel great. Objective Patient Orientation Person,Place,Birthday Upper Extremity Gross ROM Min Limitation <25% Shoulder ROM Limitations Muscle Weakness Elbow ROM Limitations Muscle Weakness Wrist Limitations of Range of Motion Muscle Weakness Bed Mobility bed mobility-scooting,bed mobility - supine/sit,bed mobility - rolling Assist Level Moderate x 2 (50% assist) Transfer Training Sit/Stand Transfer Assist Level Minimal x 2 (25% assist) Rehab OT IP prob,goals,plan Problems Date of Evaluation: 01/15/23 OT IP Problems Bed Mobility,Transfers,Balance ,Self care,Safety Rehab Potential Rehab Potential Good Equipment Needs Assistive Devices Rolling / Wheeled Walker, Wheelchair Plan OT intervention Plan Bed Mobility,Transfers,Balance ,Self care,Safety,Therapeutic Exercise OT Plan Frequency BID Duration LOS Discharge Goals Bed Mobility Abil
--- NOTE | 2023-01-15 12:34 | SW/DCPLANNER ---
Addendum entered by [facility] 01/23/23 10:37: This patient has been approved to discharge to [facility] SNF level of care. I will update patient/family and MD. Addendum entered by [facility] 01/22/23 09:01: Patient's family prefer that patient discharge to [facility] SNF level of care once medically stable for discharge. Addendum entered by [facility] 01/22/23 07:37: Updated patient information has been faxed to Megan arrington/ [facility]. Addendum entered by [facility] 01/18/23 07:45: Megan arrington/ [facility] stated that she can accept this patient once medically stable for discharge pending precert. Updated patient information has been faxed to Megan at [facility]. Addendum entered by [facility] 01/17/23 14:46: [facility] was able to offer a bed however now family prefers to return to [facility]. I have [facility] and I am waiting to hear back. Addendum entered by [facility] 01/17/23 13:26: Per family request patient information has been faxed to [facility]. Addendum entered by [facility] 01/17/23 09:50: I called and spoke with daughter regarding discharge plans. Daughter is unable to speak of a facility of interest at this time. I did inform daughter that I would need to send patient information to a SNF facility today with expected discharge soon. Daughter asked questions regarding Hospice vs Home Health and I explained these different services. Daughter also asked if [facility] would have a private room: I informed daughter that Megan arrington/ [facility] stated they could offer patient a semi private room w/ a charge of $225 per day which daughter refused. Daughter stated that she will speak with family then follow up with me regarding SNF vs home with services. Addendum entered by [facility] 01/16/23 13:19: Kang [facility]/ [facility] stated she is unable to meet this patient's needs. I have updated patient's daughter regarding situation and she stated that she will need to speak with other family members regarding placement. I have informed daughter that I would need to fax information to another facility today. Addendum entered by [facility] 01/16/23 11:48: [facility] denied this patient after reviewing information. Family has requested that patient information be faxed to [facility]: I have sent information to Kang arrington/ [facility]. Addendum entered by Gaby Crane 01/16/23 09:15: Per family/patient has requested patient information be faxed to Esperanza arrington/ [facility]. I have faxed patient information this AM. Original Note: I spoke with this patient and her today regarding plans once medically stable for discharge. Patient was recently at [facility] and does not want to return to this facility. Patient information was faxed to [facility] during previous admission and they were unable to meet patient's needs. Patient is not interested at [facility] during this admission. MD discussed home health vs Hospice Care this AM. Patient stated that she would like to speak with and daughter's today regarding home health vs Hospice. Patient is aware that PT/OT recommended SNF level of care today. Discharge date is unknown at this time.
[2023-01-15 14:27] LABS: Vancomycin,Trough 8.6 ug/mL (5.0-10.0)
--- NOTE | 2023-01-15 14:51 | EXP.PHA.CONS ---
Pharmacy Consult Date: 01/15/23 Time: 14:51 Referring provider: DR. MARTINEZ Reason for Consult:: VANCOMYCIN LEVEL AND DOSE CHANGE Allergies Allergy/AdvReac Type Severity Reaction Status Date / Time ciprofloxacin [From CIPRO] Allergy Unknown Unknown Verified 12/26/22 11:15 allergy reaction codeine [CODEINE] Allergy Unknown Unknown Verified 12/26/22 11:15 allergy reaction erythromycin base Allergy Unknown I-RASH Verified 12/26/22 11:15 [From ERYTHROCIN] meperidine [MEPERIDINE] Allergy Unknown Unknown Verified 12/26/22 11:15 allergy reaction NSAIDS (Non-Steroidal Allergy Unknown I-RASH Verified 12/26/22 11:15 Anti-Inflamma [NSAIDS (NON-STEROIDAL ANTI-INFLAMMA] ofloxacin [OFLOXACIN] Allergy Unknown Unknown Verified 12/26/22 11:15 allergy reaction Quinolones [QUINOLONES] Allergy Unknown Unknown Verified 12/26/22 11:15 allergy reaction Macrolide Antibiotics Allergy Unknown Verified 12/26/22 11:15 allergy reaction Iodinated Contrast Media AdvReac Mild FLUSHED Verified 12/26/22 11:15 [Iodinated Contrast Media - FACE, IV Dye] ITCHING Home Medications Medication Instructions Recorded Confirmed Type amitriptyline 25 mg tablet 25 mg PO AM Depression 01/09/23 01/12/23 History amitriptyline 50 mg tablet 50 mg PO HS Depression 01/09/23 01/12/23 History baclofen 5 mg tablet 5 mg PO HS Muscle spasms 01/09/23 01/12/23 History buspirone 10 mg tablet 10 mg PO BID Anxiety 01/09/23 01/12/23 History carvedilol 6.25 mg tablet 6.25 mg PO BID High blood pressure 01/09/23 01/12/23 History clopidogrel 75 mg tablet 75 mg PO DAILY Blood thinner 01/09/23 01/12/23 History fluoxetine 20 mg capsule 20 mg PO HS Depression 01/09/23 01/12/23 History halobetasol propionate 0.05 % 1 applic topical BID DRY SKIN 01/09/23 01/12/23 History lotion memantine ER 28 mg-donepezil 10 mg 1 cap PO HS DEMENTIA 01/09/23 01/12/23 History capsule sprinkle,ext.release 24 hr (Namzaric) perphenazine 2 mg tablet 2 mg PO DAILY Depression 01/09/23 01/12/23 History perphenazine 4 mg tablet 4 mg PO HS Depression 01/09/23 01/12/23 History tizanidine 4 mg tablet 4 mg PO HSP PRN Muscle spasms 01/09/23 01/12/23 History apixaban 2.5 mg tablet (Eliquis) 2.5 mg PO BID Blood thinner 01/12/23 01/12/23 History cyanocobalamin (vitamin B-12) 1,000 mcg SQ DAILY Supplement 01/12/23 01/12/23 History 1,000 mcg/mL injection kit morphine 15 mg tablet,extended 15 mg PO HS SEVERE CHRONIC PAIN 01/12/23 01/12/23 History release morphine 30 mg tablet,extended 30 mg PO AM SEVERE CHRONIC PAIN 01/12/23 01/12/23 History release multivitamin with minerals 1 tab PO DAILY Supplement 01/12/23 01/12/23 History (Multiple Vitamin-Minerals tablet) nystatin 100,000 unit/gram topical 1 applic topical BID SKIN 01/12/23 01/12/23 History powder IRRITATION ondansetron HCl 4 mg tablet 4 mg PO Q8HP PRN Nausea 01/12/23 01/12/23 History polyethylene glycol 3350 17 gram 17 g PO DAILYP PRN Constipation 01/12/23 01/12/23 History oral powder packet (Miralax) tramadol 50 mg tablet 50 mg PO DAILYP PRN Severe Pain 01/12/23 01/12/23 History (Scale Score 7-10) New Prescriptions to Start Prescriptions: Height: 1.52 m Weight: 92.896 kg Laboratory Results:: Laboratory Results - last 24 hr 01/14/23 17:50: Sodium 136, Potassium 2.5 L*, Chloride 102, Carbon Dioxide 29, Anion Gap 7.5, BUN 15, Creatinine 0.70, Estimated Creat Clear 72, Estimated GFR 82, Est GFR ( Amer) 99, Glucose 137 H D, Calcium 9.0 01/15/23 03:30: WBC 15.0 H D, RBC 3.79 L, Hgb 11.8 L, Hct 35.1 L, MCV 92.8, MCH 31.1, MCHC 33.5, RDW 13.4, Plt Count 185, MPV 8.4, Neut % (Auto) 87.7 H, Lymph % (Auto) 6.3 L, [place] % (Auto) 3.0, Eos % (Auto) 2.8, Baso % (Auto) 0.2, Neut # (Auto) 13.1 H, Lymph # (Auto) 1.0, [place] # (Auto) 0.5, Eos # (Auto) 0.4, Baso # (Auto) 0.0, Total Counted 100, Neutrophils % (Manual) 91 H, Lymphocytes % (Manual) 6 L, Monocytes % (Man
--- NOTE | 2023-01-15 16:25 | PC.NURSE ---
Pt A&O x3. Resting in bed. Currently on 2.5 L O2 NC. Lungs noted to have rhonchi t/o and crackles to bases. No c/o at this time. VS currently stable. Call light within reach.
[2023-01-15 17:42] LABS: Chloride 97 mmol/L (98-107); Sodium 134 mmol/L (136-145)
[2023-01-15 17:43] LABS: Potassium 3.5 mmoL/L (3.5-5.1)
[2023-01-15 17:45] LABS: Blood Urea Nitrogen 11 mg/dl (7-17); Creatinine Clearance Estimated 72 mL/min (50-200); Estimated Glomerular Filt Rate 98 ml/min (>60); GFR (African American) 118 ML/MIN (>60)
[2023-01-15 17:46] LABS: Anion Gap 10.5 mEq/L (5-15); Calcium 8.4 mg/dl (8.4-10.2); Carbon Dioxide 30 mmol/L (22.0-30.0); Glucose 159 mg/dl (74-100)
[2023-01-15 20:16] LABS: Vancomycin,Peak 26.2 ug/ml (11-39)
[2023-01-16] VITALS: BP 142/71; PULSE 85; RESP 18; TEMP 36.9; O2SAT 94
[2023-01-16 04:00] VITALS: BP 175/82; PULSE 78; RESP 18; TEMP 36.9; O2SAT 94; BMI 41.4
[2023-01-16 07:26] LABS: Basophils # 0.1 K/mm3 (0-0.2); Basophils % 0.4 % (0.1-2.0); Eosinophils # 0.4 K/mm3 (0.0-0.4); Eosinophils % 3.5 % (0.1-12.0); Hematocrit 35.2 % (37.0-47.0); Hemoglobin 11.7 g/dL (12.2-16.2); Lymphocytes # 1.3 K/mm3 (0.7-4.5); Lymphocytes % 10.8 % (10-50); Mean Corpuscular HGB Conc 33.3 g/dL (31.8-35.4); Mean Corpuscular Hemoglobin 30.7 pg (27.0-31.2); Mean Corpuscular Volume 92.2 fl (81-99); Mean Platelet Volume 8.8 fl (7.4-10.4); Monocytes # 0.4 K/mm3 (0.1-1.0); Monocytes % 3.5 % (1.7-9.3); Neutrophils % 81.8 % (37.0-80.0); Platelet Count 198 K/mm3 (142-424); Red Blood Count 3.82 M/mm3 (4.20-5.40); Red Cell Distribution Width 13.3 % (11.5-17.5); White Blood Count 12.2 K/mm3 (4.8-10.8)
[2023-01-16 07:34] LABS: Chloride 96 mmol/L (98-107); Sodium 132 mmol/L (136-145)
[2023-01-16 07:35] LABS: Potassium 3.6 mmoL/L (3.5-5.1)
[2023-01-16 07:37] LABS: Alanine Aminotransferase 14 U/L (12-78); Albumin Level 2.4 g/dl (3.5-5.0); Albumin/Globulin Ratio 0.7 (1.1-1.8); Alkaline Phosphatase 68 U/L (38-126); Anion Gap 8.6 mEq/L (5-15); Aspartate Amino Transferase 25 U/L (14-36); Bilirubin,Total 0.4 mg/dl (0.2-1.3); Blood Urea Nitrogen 10 mg/dl (7-17); Carbon Dioxide 31 mmol/L (22.0-30.0); Creatinine Clearance Estimated 34 mL/min (50-200); Estimated Glomerular Filt Rate 121 ml/min (>60); GFR (African American) 146 ML/MIN (>60); Globulin 3.4 g/dL (1.3-3.2); Total Protein,Serum 5.8 g/dl (6.3-8.2)
[2023-01-16 07:38] LABS: Glucose 97 mg/dl (74-100)
--- NOTE | 2023-01-16 07:50 | P.PN_ITS ---
Subjective *Date: 01/16/23 *Time: 07:50 Medical Exam Vital signs and Labs for Last 24 Hours: Vital Signs Temp Pulse Pulse Resp BP Pulse Ox 01/16/23 04:00 98.4 F 78 18 175/82 H 94 L 01/16/23 00:00 98.5 F 85 18 142/71 H 94 L 01/15/23 19:55 98.0 F 18 164/82 H 90 L 01/15/23 15:12 99.3 F 79 18 147/77 H 96 01/15/23 14:19 80 01/15/23 10:57 97.3 F L 71 18 159/79 H 96 Intake and Output 01/15/23 01/15/23 01/16/23 15:59 23:59 07:59 Intake Total 300 / 620 100 / 100 Output Total 0 / 0 0 / 0 400 / 400 Balance 0 / 620 300 / 620 -300 / -300 Intake: Intake, Total IV Amount 300 / 400 100 / 100 Cefepime HCl 2 gm In 0.9 % 100 / 100 Sodium Chloride 100 ml @ 200 mls/hr IV Q8H [facility] Rx#:[id number] Vancomycin/Water For Inj (Peg) 300 / 300 1.5 gm In 300 ml @ 150 mls/hr IV Q24H PATRICK Rx#:[id number] Output: Output, Urine Amount 0 / 0 0 / 0 400 / 400 Other: Number of Unmeasured Voids 1 1 Number of Bowel Movements 1 Weight 92.896 kg 95.736 kg Patient Weight 01/16/23 23:59 Weight 95.736 kg Laboratory Results - last 24 hr 01/15/23 13:50: Vancomycin Trough 8.6 01/15/23 17:20: Sodium 134 L, Potassium 3.5 D, Chloride 97 L, Carbon Dioxide 30, Anion Gap 10.5, BUN 11, Creatinine 0.60, Estimated Creat Clear 72, Estimated GFR 98, Est GFR ( Amer) 118, Glucose 159 H D, Calcium 8.4 01/15/23 19:00: Vancomycin Peak 26.2 01/16/23 06:55: WBC 12.2 H, RBC 3.82 L, Hgb 11.7 L, Hct 35.2 L, MCV 92.2, MCH 30.7, MCHC 33.3, RDW 13.3, Plt Count 198, MPV 8.8, Neut % (Auto) 81.8 H, Lymph % (Auto) 10.8, [place] % (Auto) 3.5, Eos % (Auto) 3.5, Baso % (Auto) 0.4, Neut # (Auto) 10.0 H, Lymph # (Auto) 1.3, [place] # (Auto) 0.4, Eos # (Auto) 0.4, Baso # (Auto) 0.1 01/16/23 06:55: Sodium 132 L, Potassium 3.6, Chloride 96 L, Carbon Dioxide 31 H, Anion Gap 8.6, BUN 10, Creatinine 0.50 L, Estimated Creat Clear 34, Estimated GFR 121, Est GFR ( Amer) 146 D, Glucose 97 D, Calcium 8.0 L, Total Bilirubin 0.4, AST 25, ALT 14, Alkaline Phosphatase 68, Total Protein 5.8 L, Albumin 2.4 L, Globulin 3.4 H, Albumin/Globulin Ratio 0.7 L I & O for Labs for Last 24 Hours: Intake & Output 01/13/23 01/14/23 01/15/23 01/16/23 23:59 23:59 23:59 23:59 Intake Total 1200 / 2141 1661 / 1661 520 / 620 100 / 100 Output Total 450 / 450 0 / 0 0 / 0 400 / 400 Balance 750 / 1691 1661 / 1661 520 / 620 -300 / -300 Weight 96.615 kg 92.442 kg 92.896 kg 95.736 kg Microbiology Reports for the Last 24 Hours: Microbiology 01/13/23 18:29 Sputum - Expectorated Sputum Gram Stain - Final 01/13/23 18:29 Sputum - Expectorated Sputum Sputum Culture - Final Normal Respiratory Gabby The patient's infection will respond to the chosen ABx?: Yes Is the patient receiving the right drug, dose, and route?: Yes Could a more targeted ABx be ordered?: No (WBC DECREASED, AFEBRILE, NO GROWTH OR NORMAL GABBY CX.)
[2023-01-16 08:00] VITALS: BP 161/86; PULSE 81; RESP 20; TEMP 36.8; O2SAT 90
--- NOTE | 2023-01-16 08:27 | EXP.ACUTE.PN ---
Subjective *Date: 01/16/23 *Time: 08:27 Interval history: Overnight patient continues to do well, feels tired, no fever. Did have a nosebleed from the right nostril this morning the nursing was able to stop fairly quickly. Medical Exam Vital signs and Labs for Last 24 Hours: Vital Signs Temp Pulse Pulse Resp BP Pulse Ox 01/16/23 08:00 98.3 F 81 20 161/86 H 90 L 01/16/23 04:00 98.4 F 78 18 175/82 H 94 L 01/16/23 00:00 98.5 F 85 18 142/71 H 94 L 01/15/23 19:55 98.0 F 18 164/82 H 90 L 01/15/23 15:12 99.3 F 79 18 147/77 H 96 01/15/23 14:19 80 01/15/23 10:57 97.3 F L 71 18 159/79 H 96 Intake and Output 01/15/23 01/16/23 01/16/23 19:59 03:59 11:59 Intake Total 300 / 640 100 / 640 240 / 640 Output Total 0 / 400 400 / 400 Balance 300 / 240 100 / 240 -160 / 240 Intake: Intake, Oral Amount 240 / 240 Intake, Total IV Amount 300 / 400 100 / 400 Cefepime HCl 2 gm In 0.9 % 100 / 100 Sodium Chloride 100 ml @ 200 mls/hr IV Q8H [facility] Rx#:[id number] Vancomycin/Water For Inj (Peg) 300 / 300 1.5 gm In 300 ml @ 150 mls/hr IV Q24H [facility] Rx#:[id number] Output: Output, Urine Amount 0 / 400 400 / 400 Other: Number of Unmeasured Voids 1 Weight 204 lb 12.8 oz 211 lb 1 oz Patient Weight 01/16/23 11:59 Weight 211 lb 1 oz Laboratory Results - last 24 hr 01/15/23 13:50: Vancomycin Trough 8.6 01/15/23 17:20: Sodium 134 L, Potassium 3.5 D, Chloride 97 L, Carbon Dioxide 30, Anion Gap 10.5, BUN 11, Creatinine 0.60, Estimated Creat Clear 72, Estimated GFR 98, Est GFR ( Amer) 118, Glucose 159 H D, Calcium 8.4 01/15/23 19:00: Vancomycin Peak 26.2 01/16/23 06:55: WBC 12.2 H, RBC 3.82 L, Hgb 11.7 L, Hct 35.2 L, MCV 92.2, MCH 30.7, MCHC 33.3, RDW 13.3, Plt Count 198, MPV 8.8, Neut % (Auto) 81.8 H, Lymph % (Auto) 10.8, [place] % (Auto) 3.5, Eos % (Auto) 3.5, Baso % (Auto) 0.4, Neut # (Auto) 10.0 H, Lymph # (Auto) 1.3, [place] # (Auto) 0.4, Eos # (Auto) 0.4, Baso # (Auto) 0.1 01/16/23 06:55: Sodium 132 L, Potassium 3.6, Chloride 96 L, Carbon Dioxide 31 H, Anion Gap 8.6, BUN 10, Creatinine 0.50 L, Estimated Creat Clear 34, Estimated GFR 121, Est GFR ( Amer) 146 D, Glucose 97 D, Calcium 8.0 L, Total Bilirubin 0.4, AST 25, ALT 14, Alkaline Phosphatase 68, Total Protein 5.8 L, Albumin 2.4 L, Globulin 3.4 H, Albumin/Globulin Ratio 0.7 L I & O for Labs for Last 24 Hours: Intake & Output 01/13/23 01/14/23 01/15/23 01/16/23 11:59 11:59 11:59 11:59 Intake Total 2400 / 2400 1181 / 1181 700 / 700 640 / 640 Output Total 300 / 300 150 / 150 0 / 0 400 / 400 Balance 2100 / 2100 1031 / 1031 700 / 700 240 / 240 Weight 213 lb 203 lb 12.8 oz 204 lb 12.8 oz 211 lb 1 oz Microbiology Reports for the Last 24 Hours: Microbiology 01/13/23 18:29 Sputum - Expectorated Sputum Gram Stain - Final 01/13/23 18:29 Sputum - Expectorated Sputum Sputum Culture - Final Normal Respiratory Gabby Comment:: No changes in exam, or lungs have good air movement, rhonchi when she takes a deep breath and cough is induced when she takes a deep breath. Heart rate regular. Murmur as previously noted. Abdomen soft, extremities unchanged. Assessment and Plan *Assessment and plan (1) Pneumonia: Status: Acute Category: Medical Code(s): J18.9 - Pneumonia, unspecified organism (2) Respiratory failure: Status: Acute Category: Medical Code(s): J96.90 - Respiratory failure, unspecified, unspecified whether with hypoxia or hypercapnia (3) Generalized weakness: Status: Chronic Category: Medical Code(s): R53.1 - Weakness (4) Chronic pain disorder: Status: Acute Category: Medical Code(s): G89.4 - Chronic pain syndrome (5) History of CVA (cerebrovascular accident): Status: Acute Category: Medical Code(s): Z86.73 - Personal history of transient
[2023-01-16 11:17] VITALS: BP 155/85; PULSE 90; RESP 17; TEMP 36.7; O2SAT 92
[2023-01-16 15:24] VITALS: BP 172/87; PULSE 81; RESP 18; TEMP 36.8; O2SAT 91
[2023-01-16 17:25] LABS: POC Glucose,Bedside 152 (70-110)
--- NOTE | 2023-01-16 18:25 | PC.NURSE ---
Pt is alert and oriented x3. She remains on 2L NC with O2 saturations measuring 90% or >. I was notified this am at approx 0730 that patient had blood coming from her nostril. I assessed patient and applied pressure to the bridge of her nose until bleeding stopped (approx 5min). Dr Coates notified during rounds. She was up to the chair for a few hours in the am and tolerated well. She reported 1 episode of nausea after eating dinner. PRN zofran administered with favorable result. She is currently resting in bed with family member at bedside. Bed is locked and in the lowest position, call light is within reach.
[2023-01-16 20:00] VITALS: BP 158/98; PULSE 100; RESP 18; TEMP 37.3; O2SAT 90
[2023-01-17] VITALS (7 sets, daily range): BP systolic 122–163; BP diastolic 66–90; PULSE 83–98; RESP 16–20; TEMP 37.1–37.4; O2SAT 90–93; BMI 41.3
[2023-01-17 05:54] LABS: Basophils # 0.1 K/mm3 (0-0.2); Basophils % 0.4 % (0.1-2.0); Eosinophils # 0.2 K/mm3 (0.0-0.4); Eosinophils % 1.3 % (0.1-12.0); Hematocrit 41.5 % (37.0-47.0); Lymphocytes # 0.9 K/mm3 (0.7-4.5); Mean Corpuscular HGB Conc 32.6 g/dL (31.8-35.4); Mean Corpuscular Hemoglobin 30.3 pg (27.0-31.2); Mean Platelet Volume 8.7 fl (7.4-10.4); Monocytes # 0.6 K/mm3 (0.1-1.0); Monocytes % 4.5 % (1.7-9.3); Neutrophils # 12.6 K/mm3 (1.8-7.8); Neutrophils % 87.9 % (37.0-80.0); Platelet Count 163 K/mm3 (142-424); Red Blood Count 4.46 M/mm3 (4.20-5.40); Red Cell Distribution Width 13.2 % (11.5-17.5); White Blood Count 14.3 K/mm3 (4.8-10.8)
[2023-01-17 05:56] LABS: MANUAL DIFFERENTIAL MANUAL DIFFERENTIAL (MANUAL DIFF)
[2023-01-17 06:05] LABS: Hemoglobin 13.6 g/dL (12.2-16.2)
[2023-01-17 06:28] LABS: Lymphocytes % 8 % (10-50); Monocytes % 8 % (2-9); Neutrophils % 84 % (42-76); Platelet Estimate Normal; RBC Morphology Normal; Total Cells Counted 100
[2023-01-17 07:16] LABS: Chloride 92 mmol/L (98-107); Potassium 3.8 mmoL/L (3.5-5.1); Sodium 132 mmol/L (136-145)
[2023-01-17 07:19] LABS: Anion Gap 11.8 mEq/L (5-15); Blood Urea Nitrogen 13 mg/dl (7-17); Carbon Dioxide 32 mmol/L (22.0-30.0); Creatinine Clearance Estimated 34 mL/min (50-200); Estimated Glomerular Filt Rate 121 ml/min (>60); GFR (African American) 146 ML/MIN (>60)
[2023-01-17 07:20] LABS: Calcium 8.7 mg/dl (8.4-10.2); Glucose 112 mg/dl (74-100)
--- NOTE | 2023-01-17 07:59 | XR_ITS ---
FINAL REPORT CLINICAL HISTORY: sob, f/u exam COMPARISON: 01/12/2023 FINDINGS: The heart size is mildly enlarged. There is a large hiatal hernia. Patchy airspace opacity in the right perihilar region and at the right base is probably due to acute pneumonia. There is a small right pleural effusion. There is no pneumothorax. There is no osseous abnormality. IMPRESSION: Large hiatal hernia. Right lower lobe infiltrate and effusion consistent with acute pneumonia. Reviewed, Interpreted and Dictated by Murphy Murdock MD Transcribed by Deanna Angulo Authenticated and [facility]
--- NOTE | 2023-01-17 07:59 | XR_ITS ---
FINAL REPORT CLINICAL HISTORY: Flat plate portable for stool pattern COMPARISON: None FINDINGS: AP and oblique views of the abdomen were obtained. There is a nonobstructive bowel gas pattern. There are no abnormally dilated loops of bowel. Gas and stool is noted in the colon. There is no free air. There are no abnormal calcifications. IMPRESSION: No acute process. Reviewed, Interpreted and Dictated by Murphy Murdock MD Transcribed by Deanna Angulo Authenticated and [facility]
--- NOTE | 2023-01-17 08:01 | EXP.ACUTE.PN ---
Subjective *Date: 01/17/23 *Time: 08:01 Interval history: Patient is a little down in the dumps today because she is nauseated and is very concerned about her disposition. No vomiting. Has not had a bowel movement per her report for a couple of days. No fever. Breathing has been okay, notes that when she coughs a lot she feels nauseated. Medical Exam Vital signs and Labs for Last 24 Hours: Vital Signs Temp Pulse Resp BP Pulse Ox 01/17/23 04:00 98.9 F 90 18 158/90 H 90 L 01/17/23 00:00 99.0 F 89 18 138/76 93 L 01/16/23 20:00 99.1 F 100 H 18 158/98 H 90 L 01/16/23 15:24 98.2 F 81 18 172/87 H 91 L 01/16/23 11:17 98.1 F 90 17 155/85 H 92 L Intake and Output 01/16/23 01/17/23 01/17/23 19:59 03:59 11:59 Intake Total 480 / 1438 100 / 1438 858 / 1438 Output Total 650 / 1550 500 / 1550 400 / 1550 Balance -170 / -112 -400 / -112 458 / -112 Intake: Intake, Oral Amount 480 / 480 Intake, Total IV Amount 100 / 958 858 / 958 Cefepime HCl 2 gm In 0.9 % 100 / 100 Sodium Chloride 100 ml @ 200 mls/hr IV Q8H [facility]ICK Rx#:[id number] Lactated Ringers 1000ML 1,000 858 / 858 ml @ 100 mls/hr IV .Q10H PATRICK Rx #:[id number] Output: Output, Urine Amount 650 / 1550 500 / 1550 400 / 1550 Other: Number of Unmeasured Voids 1 0 1 Weight 210 lb 8.663 oz Patient Weight 01/17/23 11:59 Weight 210 lb 8.663 oz Laboratory Results - last 24 hr 01/16/23 17:18: POC Glucose 152 H 01/17/23 05:40: WBC 14.3 H, RBC 4.46, Hgb 13.6 D, Hct 41.5, MCV 93.0, MCH 30.3, MCHC 32.6, RDW 13.2, Plt Count 163, MPV 8.7, Neut % (Auto) 87.9 H, Lymph % (Auto) 6.0 L, [place] % (Auto) 4.5, Eos % (Auto) 1.3, Baso % (Auto) 0.4, Neut # (Auto) 12.6 H, Lymph # (Auto) 0.9, [place] # (Auto) 0.6, Eos # (Auto) 0.2, Baso # (Auto) 0.1, Total Counted 100, Neutrophils % (Manual) 84 H, Lymphocytes % (Manual) 8 L, Monocytes % (Manual) 8, Platelet Estimate Normal, RBC Morphology Normal 01/17/23 05:40: Sodium 132 L, Potassium 3.8, Chloride 92 L, Carbon Dioxide 32 H, Anion Gap 11.8, BUN 13 D, Creatinine 0.50 L, Estimated Creat Clear 34, Estimated GFR 121, Est GFR ( Amer) 146, Glucose 112 H, Calcium 8.7 I & O for Labs for Last 24 Hours: Intake & Output 01/14/23 01/15/23 01/16/23 01/17/23 11:59 11:59 11:59 11:59 Intake Total 1181 / 1181 700 / 700 640 / 640 1438 / 1438 Output Total 150 / 150 0 / 0 700 / 700 1550 / 1550 Balance 1031 / 1031 700 / 700 -60 / -60 -112 / -112 Weight 203 lb 12.8 oz 204 lb 12.8 oz 211 lb 1 oz 210 lb 8.663 oz Microbiology Reports for the Last 24 Hours: Microbiology 01/13/23 18:29 Sputum - Expectorated Sputum Gram Stain - Final 01/13/23 18:29 Sputum - Expectorated Sputum Sputum Culture - Final Normal Respiratory Gabby Comment:: No changes in exam, or lungs have good air movement, rhonchi when she takes a deep breath and cough is induced when she takes a deep breath. Heart rate regular. Murmur as previously noted. Abdomen soft, extremities unchanged. Assessment and Plan *Assessment and plan (1) Pneumonia: Status: Acute Category: Medical Code(s): J18.9 - Pneumonia, unspecified organism (2) Respiratory failure: Status: Acute Category: Medical Code(s): J96.90 - Respiratory failure, unspecified, unspecified whether with hypoxia or hypercapnia (3) Generalized weakness: Status: Chronic Category: Medical Code(s): R53.1 - Weakness (4) Chronic pain disorder: Status: Acute Category: Medical Code(s): G89.4 - Chronic pain syndrome (5) History of CVA (cerebrovascular accident): Status: Acute Category: Medical Code(s): Z86.73 - Personal history of transient ischemic attack (TIA), and cerebral infarction without residual deficits (6) Hypokalemia: Status: Acute Category: Medical Code(s): E87.6 - Hypokalemia (7) Right hemiparesis
--- NOTE | 2023-01-17 18:14 | PC.NURSE ---
Pt is alert and oriented x3. She is currently on 3L NC with O2 sats measuring 90% or >. Humidification added for comfort. She was up to the chair for approx 4.5 hours and tolerated well. Left elbow cleansed with NS and covered with non adherent gauze and coban. Dressing to coccyx changed today as well. PRN zofran administered once this shift for nausea. She was resting with her eyes closed on reassessment. Appetite has been poor. Family has been at bedside and updated on poc. Bed is locked and in the lowest position, call light is within reach.
[2023-01-18] VITALS (7 sets, daily range): BP systolic 118–139; BP diastolic 53–76; PULSE 70–95; RESP 17–22; TEMP 36.6–37.6; O2SAT 90–92; BMI 40.4
--- NOTE | 2023-01-18 04:38 | PC.NURSE ---
Patient reluctant to care. VS stable and pt remained on 3LNC. Patient refuses to turn every two hours despite education on bed sores.
--- NOTE | 2023-01-18 07:49 | EXP.ACUTE.PN ---
Subjective *Date: 01/18/23 *Time: 07:49 Interval history: Overnight patient did fairly well. Has some sneezing and coughing. Continues to feel very tired. Had a long talk with patient and one of her daughters yesterday about options for discharge. They are considering going back to [facility] versus home care. We will try to get a decision today. Home care would certainly be quite a lot of work. Medical Exam Vital signs and Labs for Last 24 Hours: Vital Signs Temp Pulse Resp BP Pulse Ox 01/18/23 04:00 98.9 F 78 17 119/53 L 90 L 01/17/23 23:58 99.4 F 89 16 122/73 91 L 01/17/23 19:43 98.8 F 98 H 18 135/77 90 L 01/17/23 16:00 98.8 F 87 20 122/66 92 L 01/17/23 12:00 98.8 F 83 18 151/78 H 93 L 01/17/23 08:00 98.7 F 90 18 163/86 H 91 L Intake and Output 01/17/23 01/18/23 01/18/23 19:59 03:59 11:59 Intake Total 600 / 600 Output Total 600 / 700 0 / 700 100 / 700 Balance 0 / -100 0 / -100 -100 / -100 Intake: Intake, Oral Amount 600 / 600 Output: Output, Urine Amount 600 / 700 0 / 700 100 / 700 Other: Number of Unmeasured Voids 0 0 1 Weight 206 lb 2 oz Patient Weight 01/18/23 11:59 Weight 206 lb 2 oz I & O for Labs for Last 24 Hours: Intake & Output 01/15/23 01/16/23 01/17/23 01/18/23 11:59 11:59 11:59 11:59 Intake Total 700 / 700 640 / 640 1678 / 1678 600 / 600 Output Total 0 / 0 700 / 700 1550 / 1550 700 / 700 Balance 700 / 700 -60 / -60 128 / 128 -100 / -100 Weight 204 lb 12.8 oz 211 lb 1 oz 210 lb 8.663 oz 206 lb 2 oz Microbiology Reports for the Last 24 Hours: Microbiology 01/12/23 13:56 Blood Blood Culture - Final NO GROWTH AFTER 5 DAYS 01/12/23 13:00 Blood Blood Culture - Final NO GROWTH AFTER 5 DAYS Comment:: No changes in exam, or lungs have good air movement, rhonchi when she takes a deep breath and cough is induced when she takes a deep breath. Heart rate regular. Murmur as previously noted. Abdomen soft, extremities unchanged. Assessment and Plan *Assessment and plan (1) Pneumonia: Status: Acute Category: Medical Code(s): J18.9 - Pneumonia, unspecified organism (2) Respiratory failure: Status: Acute Category: Medical Code(s): J96.90 - Respiratory failure, unspecified, unspecified whether with hypoxia or hypercapnia (3) Generalized weakness: Status: Chronic Category: Medical Code(s): R53.1 - Weakness (4) Chronic pain disorder: Status: Acute Category: Medical Code(s): G89.4 - Chronic pain syndrome (5) History of CVA (cerebrovascular accident): Status: Acute Category: Medical Code(s): Z86.73 - Personal history of transient ischemic attack (TIA), and cerebral infarction without residual deficits (6) Hypokalemia: Status: Acute Category: Medical Code(s): E87.6 - Hypokalemia (7) Right hemiparesis: Status: Acute Category: Medical Code(s): G81.91 - Hemiplegia, unspecified affecting right dominant side Plan Pneumonia new onset, multiple healthcare exposures-agree with cefepime and vancomycin. Respiratory failure-reaffirmed DNR status with daughter. We will use BiPAP if needed. Avoid intubation or CPR. Significant illness. Follow labs tomorrow. Hold p.o. medications. If wakes up will institute pain medication. Plan update for 01/13/2023-restart home medications for depression, her chronic opiate issues, hold muscle relaxers. Continue cefepime for healthcare acquired pneumonia. Watch renal function today, redose vancomycin when appropriate. Await cultures. Plan update 01/14/2023-feeling better. Try to induce sputum with Mucomyst nebs and incentive spirometer. Patient is hypokalemic. Replace orally as she is awake and can swallow potassium supplementation orally. Check labs later today and also
--- NOTE | 2023-01-18 13:18 | PC.NURSE ---
Gaby Crane at bedside talking to pt's family regarding discharge plans.
--- NOTE | 2023-01-18 16:10 | PC.NURSE ---
pt alert and oriented t/o this shift. pt has slept off and on. pt was up to chair for a few hours today and tolerated well. pt ambulated with assistance per PT. LS clear, 3LNC in place with humidification. pt abdomen soft nontender, bowel sounds active. Excoriation noted to abdominal fold and nystatin powder being applied. pt has not complained of nausea t/o this shift. pt appetite poor. flower dressing to coccyx area. kerlix remains in place over left elbow. pt's IV changed to 22 right forearm. pt's daughter addressed concern today for patient being discharge and stated that she would like to wait until after the weekend. Gaby Crane, immigration case worker came and spoke with patient and communicated concern to Dr. Coates.
--- NOTE | 2023-01-18 18:24 | PC.NURSE ---
Dr. Reese pagecamacho
--- NOTE | 2023-01-18 18:28 | PC.NURSE ---
verbal order given per Dr. Reese for ABG. notified of granddaughter concern of pt being more confused than on Sunday and decreased oxygen sat to 87-88.
[2023-01-18 18:43] LABS: ABG Base Excess 9.2 mmol/L (-2.4-2.3); ABG HCO3 32.5 mmhg (22.0-26.0); ABG Oxygen Saturation 85 % (90-100); ABG PCO2 43.4 mmhg (35.0-45.0); ABG PH 7.49 mmol/L (7.35-7.45); ABG TCO2 33.8 mmhg (23-27)
[2023-01-18 18:44] LABS: Allen's Test Acceptable; Oxygen 2.5 L %; Source Right Radial
--- NOTE | 2023-01-18 18:53 | PC.NURSE ---
spoke with Dr. Reese regarding pt's ABG results, states to place patient on ventimask at 50%.
[2023-01-19] VITALS (8 sets, daily range): BP systolic 97–126; BP diastolic 46–61; PULSE 76–82; RESP 18–22; TEMP 36.6–36.7; O2SAT 91–97; BMI 86.3; BMI 39.0
--- NOTE | 2023-01-19 04:58 | PC.NURSE ---
PATIENT HAS BEEN TURNED AND REPOSITIONED Q 2 HRS WITH PILLOWS BETWEEN KNEES AND HEELS ELEVATED ON PILLOWS. DRSG TO DECUBITUS AT COCCYX DRY AND INTACT. BANDAID INTACT TO LEFT ELBOW SKIN TEAR. NYSTATIN PWD APPLIED TO SKIN FOLDS AT ABDOMEN AND GROINS. SKIN BENEATH THE BREASTS IS INTACT AND WITHOUT REDNESS ETC.. 02 SAT STABLE 91-93 % ON V-MASK AT 15L. NO COMPLAINTS OF PAIN. TAKES SCHEDULED MS CONTIN FOR PAIN. DAUGHTERS WOULD LIKE FOR THR PATIENT TO HAVE NEB TREATMENTS. ORAL SUCTION SET UP AT BEDSIDE FOR ORAL SUCTION WITH MARIANNE. PATIENT IS INCONTINENT OF URINE.
[2023-01-19 06:04] LABS: Blood Urea Nitrogen 20 mg/dl (7-17); Carbon Dioxide 35 mmol/L (22.0-30.0); Chloride 94 mmol/L (98-107); Sodium 132 mmol/L (136-145)
[2023-01-19 06:05] LABS: Calcium 8.2 mg/dl (8.4-10.2); Creatinine Clearance Estimated 34 mL/min (50-200); Estimated Glomerular Filt Rate 82 ml/min (>60); GFR (African American) 99 ML/MIN (>60); Glucose 95 mg/dl (74-100)
[2023-01-19 06:18] LABS: Basophils % 0.3 % (0.1-2.0); Eosinophils # 0.2 K/mm3 (0.0-0.4); Eosinophils % 2.1 % (0.1-12.0); Hematocrit 33.2 % (37.0-47.0); Hemoglobin 10.8 g/dL (12.2-16.2); Lymphocytes # 0.8 K/mm3 (0.7-4.5); Lymphocytes % 8.6 % (10-50); Mean Corpuscular HGB Conc 32.6 g/dL (31.8-35.4); Mean Corpuscular Hemoglobin 30.6 pg (27.0-31.2); Mean Corpuscular Volume 93.9 fl (81-99); Monocytes # 0.7 K/mm3 (0.1-1.0); Monocytes % 7.5 % (1.7-9.3); Neutrophils % 81.6 % (37.0-80.0); Platelet Count 209 K/mm3 (142-424); Red Blood Count 3.53 M/mm3 (4.20-5.40); White Blood Count 9.8 K/mm3 (4.8-10.8)
--- NOTE | 2023-01-19 06:24 | PC.NURSE ---
at 0620 lab called critical potassium level of 3.0. dr rena epperson.
--- NOTE | 2023-01-19 06:26 | PC.NURSE ---
DR BAUMANN RETURNED CALL AND WAS INFORMED OF PATIENT S POTASSIUM LEVEL. WILL HAVE DR MARTINEZ TO FOLLOW UP ON LAB.
--- NOTE | 2023-01-19 07:31 | CT_ITS ---
FINAL REPORT TECHNIQUE: The patient was injected with IV contrast. Axial images were obtained through the chest in a PE protocol. 3-D reconstruction images were also performed. Individualized dose reduction techniques using automated exposure control or adjustment of the MA and/or KV according to patient's size were employed. CLINICAL HISTORY: hypoxia COMPARISON: 01/09/2023 FINDINGS: Mediastinal vasculature is adequately opacified. No pulmonary artery filling defects are identified to suggest PE. There is no aortic dissection. There is no axillary adenopathy. There is no hilar or mediastinal adenopathy. The heart size is normal. There is no pericardial effusion. Limited images of the upper abdomen demonstrate benign-appearing cyst in the bilateral kidneys.. There are dense bibasilar airspace infiltrates. There is patchy upper lobe airspace infiltrates. Small bilateral pleural effusions are noted. There is a large hiatal hernia. IMPRESSION: Extensive bibasilar and upper lobe infiltrates. Large hiatal hernia. No evidence of pulmonary embolism. Reviewed, Interpreted and Dictated by Murphy Murdock MD Transcribed by Deanna Angulo Authenticated and [facility]
--- NOTE | 2023-01-19 07:36 | HMH.ITSTN ---
Spoke with Leal GARCIA pt has a 22g in forearm. Will attempt new IV for CTA and let us know.
--- NOTE | 2023-01-19 07:58 | EXP.ACUTE.PN ---
Subjective *Date: 01/19/23 *Time: 07:58 Interval history: Patient states she feels better this morning but had increased oxygen requirements through the night and is now on a 50% Venturi mask. She appears comfortable and is breathing fairly easily. Denies pain, states she does not feel like eating breakfast Medical Exam Vital signs and Labs for Last 24 Hours: Vital Signs Temp Pulse Resp BP Pulse Ox FiO2 01/19/23 04:00 97.9 F 78 22 126/60 93 L 01/18/23 23:51 99.6 F 70 22 125/63 91 L 01/18/23 20:00 91 L 01/18/23 20:00 97.9 F 95 H 18 118/76 91 L 01/18/23 19:20 90 L 50 01/18/23 15:50 98.2 F 90 18 120/61 91 L 01/18/23 11:19 98.6 F 79 18 119/64 91 L 01/18/23 08:00 99.0 F 85 20 139/76 92 L Intake and Output 01/18/23 01/19/23 01/19/23 19:59 03:59 11:59 Intake Total 240 / 300 60 / 300 Output Total 650 / 700 50 / 700 0 / 700 Balance -410 / -400 10 / -400 0 / -400 Intake: Intake, Oral Amount 240 / 300 60 / 300 Output: Output, Urine Amount 650 / 700 50 / 700 0 / 700 Other: Number of Unmeasured Voids 1 1 1 Weight 199 lb 1 oz Patient Weight 01/19/23 11:59 Weight 199 lb 1 oz Laboratory Results - last 24 hr 01/18/23 18:29: Specimen Source Right radial, O2 % 2.5 l, ABG pH 7.49 H, ABG pCO2 43.4, ABG pO2 44.0 L, ABG HCO3 32.5 H, ABG Total CO2 33.8 H, ABG O2 Saturation 85 L*, ABG Base Excess 9.2 H, Qamar Test Acceptable 01/19/23 05:40: WBC 9.8 D, RBC 3.53 L, Hgb 10.8 L, Hct 33.2 L, MCV 93.9, MCH 30.6, MCHC 32.6, RDW 13.0, Plt Count 209 D, MPV 8.0, Neut % (Auto) 81.6 H, Lymph % (Auto) 8.6 L, [place] % (Auto) 7.5, Eos % (Auto) 2.1, Baso % (Auto) 0.3, Neut # (Auto) 8.0 H, Lymph # (Auto) 0.8, [place] # (Auto) 0.7, Eos # (Auto) 0.2, Baso # (Auto) 0.0 01/19/23 05:40: Sodium 132 L, Potassium 3.0 L D, Chloride 94 L, Carbon Dioxide 35 H, Anion Gap 6.0, BUN 20 H D, Creatinine 0.70 D, Estimated Creat Clear 34, Estimated GFR 82, Est GFR ( Amer) 99 D, Glucose 95, Calcium 8.2 L I & O for Labs for Last 24 Hours: Intake & Output 01/16/23 01/17/23 01/18/23 01/19/23 11:59 11:59 11:59 11:59 Intake Total 640 / 640 1678 / 1678 600 / 600 300 / 300 Output Total 700 / 700 1550 / 1550 700 / 700 700 / 700 Balance -60 / -60 128 / 128 -100 / -100 -400 / -400 Weight 211 lb 1 oz 210 lb 8.663 oz 206 lb 2 oz 199 lb 1 oz Comment:: Alert, oriented x3. Breathing is easy, when she takes a deep breath at my urging she has a cough and a lot of rattling in her chest. Heart rate regular. No edema over baseline. Abdomen soft nontender. Assessment and Plan *Assessment and plan (1) Pneumonia: Status: Acute Category: Medical Code(s): J18.9 - Pneumonia, unspecified organism (2) Respiratory failure: Status: Acute Category: Medical Code(s): J96.90 - Respiratory failure, unspecified, unspecified whether with hypoxia or hypercapnia (3) Generalized weakness: Status: Chronic Category: Medical Code(s): R53.1 - Weakness (4) Chronic pain disorder: Status: Acute Category: Medical Code(s): G89.4 - Chronic pain syndrome (5) History of CVA (cerebrovascular accident): Status: Acute Category: Medical Code(s): Z86.73 - Personal history of transient ischemic attack (TIA), and cerebral infarction without residual deficits (6) Hypokalemia: Status: Acute Category: Medical Code(s): E87.6 - Hypokalemia (7) Right hemiparesis: Status: Acute Category: Medical Code(s): G81.91 - Hemiplegia, unspecified affecting right dominant side Plan Given patient's long-term hospitalization and increased oxygen requirement and coughing we will do a CTA today to make sure were not dealing with a PE. Replace potassium today, orders given through pharmacy service. Depending on CTA results and oxygen requirements will consider Lasix therapy later. Discharge planning continues
--- NOTE | 2023-01-19 10:53 | DIET.NUTRFU ---
Addendum entered by Sylvia Yanez RD, LD 01/19/23 13:51: showed some improvement at lunch today consumed 50% of meal. Medication added for BM regimen Original Note: Meal intake reviewed, seems to be declining. Nursing noted refusing dinner last night and breakfast this morning. When asked she did report she is drinking the boost. She reported some nausea, no vomiting and possible constipation. No BM noted x 3 days with LBM noted on 01/15. Spoke to nursing, there are no meds in place currently for BM, she will consult provider. She continues on pain meds which maybe contributing to constipation. IVF continues to provide hydration, Labs reviewed Na 132L, K 3.0L- potassium replacement ordered. This RD asked patient is she wanted anything else to eat, she reported she was hungry. She agreed to anne marie for now and nursing was getting some applesauce for her meds. Will review again for lunch. Continue boost with trays for additional calories/protein if consumes.
--- NOTE | 2023-01-19 17:17 | PC.NURSE ---
Patient very lethargic at beginning of shift but arousable by voice. VS stable. Patient weaned from venti mask to 4LNC. No complaints noted. Patient diuresed well with IV lasix. Patient able to sit in chair for most of shift. Patient more alert during the evening hours. Lung sounds exhibit crackles on ascultation. Bowl regimen started as patient has not had a bowel movement recently. Bowel sounds active and patient has no complaints of pain in abdomen
[2023-01-20] VITALS (9 sets, daily range): BP systolic 103–125; BP diastolic 31–65; PULSE 74–89; RESP 18–20; TEMP 36.8–37.1; O2SAT 85–96; BMI 39.1
--- NOTE | 2023-01-20 18:45 | PC.NURSE ---
Pt has had a decrease in urine output this shift. 75 ml and 1 unmeasured void. New orders received to start LR @ 75 ml/hr.
[2023-01-21] VITALS (9 sets, daily range): BP systolic 110–153; BP diastolic 47–82; PULSE 72–83; RESP 16–19; TEMP 36.9–37.2; O2SAT 90–95; BMI 38.9
--- NOTE | 2023-01-21 05:27 | PC.NURSE ---
pt has rested well this shift. no c/o pain. dressing to coccyx has been changed. turned q2 hours. call chávez in reach.
[2023-01-21 07:58] LABS: Basophils % 0.2 % (0.1-2.0); Eosinophils # 0.2 K/mm3 (0.0-0.4); Eosinophils % 2.2 % (0.1-12.0); Hematocrit 33.5 % (37.0-47.0); Lymphocytes # 1.2 K/mm3 (0.7-4.5); Lymphocytes % 15.2 % (10-50); Mean Corpuscular HGB Conc 32.8 g/dL (31.8-35.4); Mean Corpuscular Hemoglobin 30.9 pg (27.0-31.2); Mean Corpuscular Volume 94.1 fl (81-99); Mean Platelet Volume 8.5 fl (7.4-10.4); Monocytes # 0.4 K/mm3 (0.1-1.0); Monocytes % 5.3 % (1.7-9.3); Neutrophils # 6.2 K/mm3 (1.8-7.8); Neutrophils % 77.1 % (37.0-80.0); Platelet Count 233 K/mm3 (142-424); Red Blood Count 3.56 M/mm3 (4.20-5.40)
[2023-01-21 08:08] LABS: Anion Gap 7.6 mEq/L (5-15); Blood Urea Nitrogen 20 mg/dl (7-17); Calcium 8.3 mg/dl (8.4-10.2); Carbon Dioxide 36 mmol/L (22.0-30.0); Chloride 95 mmol/L (98-107); Creatinine Clearance Estimated 70 mL/min (50-200); Estimated Glomerular Filt Rate 98 ml/min (>60); GFR (African American) 118 ML/MIN (>60); Glucose 92 mg/dl (74-100); Potassium 3.6 mmoL/L (3.5-5.1); Sodium 135 mmol/L (136-145)
--- NOTE | 2023-01-21 08:40 | EXP.ACUTE.PN ---
Subjective *Date: 01/20/23 *Time: 17:00 Interval history: Late entry progress note from 01/20/2023: I made rounds later in the day than usual on Sunday evening 01/20/2023. I found patient to be alert, talkative. Still complaining that she did not really want to eat much. Oxygen therapy yesterday had been able to be maintained in the 4 to 6 L range on nasal cannula. She stated she got up in a chair but the nursing staff did not think she had. Medical Exam Vital signs and Labs for Last 24 Hours: Vital Signs Temp Pulse Pulse Resp BP Pulse Ox 01/21/23 07:20 98.6 F 83 18 131/49 L 90 L 01/21/23 06:15 77 01/21/23 06:15 72 01/21/23 06:15 90 L 01/21/23 04:00 98.9 F 82 19 110/47 L 92 L 01/21/23 00:00 98.4 F 76 17 129/55 L 94 L 01/20/23 20:28 81 01/20/23 20:28 83 01/20/23 19:41 98.3 F 89 18 125/64 95 01/20/23 15:32 98.2 F 75 18 110/65 96 01/20/23 13:49 87 01/20/23 13:49 84 01/20/23 13:49 90 L 01/20/23 11:11 98.2 F 74 18 106/61 L 94 L Intake and Output 01/20/23 01/21/23 01/21/23 19:59 03:59 11:59 Intake Total 60 / 879 819 / 879 Output Total 75 / 75 0 / 75 Balance -75 / 804 60 / 804 819 / 804 Intake: Intake, Oral Amount 60 / 90 30 / 90 Intake, Total IV Amount 789 / 789 Lactated Ringers 1000ML 1,000 789 / 789 ml @ 75 mls/hr IV .[id number] [facility] Rx#:[id number] Output: Output, Urine Amount 75 / 75 0 / 75 Other: Number of Unmeasured Voids 1 1 Number of Bowel Movements 1 Weight 198 lb 8 oz Patient Weight 01/21/23 11:59 Weight 198 lb 8 oz Laboratory Results - last 24 hr 01/21/23 07:27: WBC 8.0, RBC 3.56 L, Hgb 11.0 L, Hct 33.5 L, MCV 94.1, MCH 30.9, MCHC 32.8, RDW 13.0, Plt Count 233, MPV 8.5, Neut % (Auto) 77.1, Lymph % (Auto) 15.2, [place] % (Auto) 5.3, Eos % (Auto) 2.2, Baso % (Auto) 0.2, Neut # (Auto) 6.2, Lymph # (Auto) 1.2, [place] # (Auto) 0.4, Eos # (Auto) 0.2, Baso # (Auto) 0.0 01/21/23 07:27: Sodium 135 L, Potassium 3.6, Chloride 95 L, Carbon Dioxide 36 H, Anion Gap 7.6, BUN 20 H, Creatinine 0.60, Estimated Creat Clear 70, Estimated GFR 98, Est GFR ( Amer) 118, Glucose 92, Calcium 8.3 L I & O for Labs for Last 24 Hours: Intake & Output 01/18/23 01/19/23 01/20/23 01/21/23 11:59 11:59 11:59 11:59 Intake Total 600 / 600 300 / 300 597 / 597 879 / 879 Output Total 700 / 700 700 / 700 800 / 800 75 / 75 Balance -100 / -100 -400 / -400 -203 / -203 804 / 804 Weight 206 lb 2 oz 199 lb 1 oz 199 lb 1.6 oz 198 lb 8 oz Comment:: Alert, oriented x3. Breathing is easy, when she takes a deep breath at my urging she has a cough and a lot of rattling in her chest -consistent with prior exams, but no sputum production Heart rate regular. No edema over baseline. Abdomen soft nontender. Assessment and Plan *Assessment and plan (1) Pneumonia: Status: Acute Category: Medical Code(s): J18.9 - Pneumonia, unspecified organism (2) Respiratory failure: Status: Acute Category: Medical Code(s): J96.90 - Respiratory failure, unspecified, unspecified whether with hypoxia or hypercapnia (3) Generalized weakness: Status: Chronic Category: Medical Code(s): R53.1 - Weakness (4) Chronic pain disorder: Status: Acute Category: Medical Code(s): G89.4 - Chronic pain syndrome (5) History of CVA (cerebrovascular accident): Status: Acute Category: Medical Code(s): Z86.73 - Personal history of transient ischemic attack (TIA), and cerebral infarction without residual deficits (6) Hypokalemia: Status: Acute Category: Medical Code(s): E87.6 - Hypokalemia (7) Right hemiparesis: Status: Acute Category: Medical Code(s): G81.91 - Hemiplegia, unspecified affecting right dominant side Plan CTA from 01/19/2023 was negative for clot, lots of pneumonitis visible on CT
--- NOTE | 2023-01-21 08:56 | EXP.ACUTE.PN ---
Subjective *Date: 01/21/23 *Time: 08:56 Interval history: Overnight patient was stable. This morning she is very pessimistic about her ability to do things, get up in a chair or recover. Nurses report that she did not even want to be turned today for positioning. When I talked to her she denies pain, reports that she has no confusion or neurologic deficiencies. Medical Exam Vital signs and Labs for Last 24 Hours: Vital Signs Temp Pulse Pulse Resp BP Pulse Ox 01/21/23 07:20 98.6 F 83 18 131/49 L 90 L 01/21/23 06:15 77 01/21/23 06:15 72 01/21/23 06:15 90 L 01/21/23 04:00 98.9 F 82 19 110/47 L 92 L 01/21/23 00:00 98.4 F 76 17 129/55 L 94 L 01/20/23 20:28 81 01/20/23 20:28 83 01/20/23 19:41 98.3 F 89 18 125/64 95 01/20/23 15:32 98.2 F 75 18 110/65 96 01/20/23 13:49 87 01/20/23 13:49 84 01/20/23 13:49 90 L 01/20/23 11:11 98.2 F 74 18 106/61 L 94 L Intake and Output 01/20/23 01/21/23 01/21/23 19:59 03:59 11:59 Intake Total 60 / 879 819 / 879 Output Total 75 / 75 0 / 75 Balance -75 / 804 60 / 804 819 / 804 Intake: Intake, Oral Amount 60 / 90 30 / 90 Intake, Total IV Amount 789 / 789 Lactated Ringers 1000ML 1,000 789 / 789 ml @ 75 mls/hr IV .[id number] [facility] Rx#:[id number] Output: Output, Urine Amount 75 / 75 0 / 75 Other: Number of Unmeasured Voids 1 1 Number of Bowel Movements 1 Weight 198 lb 8 oz Patient Weight 01/21/23 11:59 Weight 198 lb 8 oz Laboratory Results - last 24 hr 01/21/23 07:27: WBC 8.0, RBC 3.56 L, Hgb 11.0 L, Hct 33.5 L, MCV 94.1, MCH 30.9, MCHC 32.8, RDW 13.0, Plt Count 233, MPV 8.5, Neut % (Auto) 77.1, Lymph % (Auto) 15.2, [place] % (Auto) 5.3, Eos % (Auto) 2.2, Baso % (Auto) 0.2, Neut # (Auto) 6.2, Lymph # (Auto) 1.2, [place] # (Auto) 0.4, Eos # (Auto) 0.2, Baso # (Auto) 0.0 01/21/23 07:27: Sodium 135 L, Potassium 3.6, Chloride 95 L, Carbon Dioxide 36 H, Anion Gap 7.6, BUN 20 H, Creatinine 0.60, Estimated Creat Clear 70, Estimated GFR 98, Est GFR ( Amer) 118, Glucose 92, Calcium 8.3 L I & O for Labs for Last 24 Hours: Intake & Output 01/18/23 01/19/23 01/20/23 01/21/23 11:59 11:59 11:59 11:59 Intake Total 600 / 600 300 / 300 597 / 597 879 / 879 Output Total 700 / 700 700 / 700 800 / 800 75 / 75 Balance -100 / -100 -400 / -400 -203 / -203 804 / 804 Weight 206 lb 2 oz 199 lb 1 oz 199 lb 1.6 oz 198 lb 8 oz Comment:: Patient is pleasant, alert, knows me, knows where she is. Is a little fuzzy about the exact date but otherwise her sensorium is intact. Cranial nerves are intact. She is globally weak but no focal deficits. Anterior lung chiang have rhonchi that are improved with a big breath on my encouragement and a cough. Abdomen soft, nontender. Extremities are warm, well-perfused. Very weak. Heart rate regular. Previously noted murmur. No other changes Assessment and Plan *Assessment and plan (1) Pneumonia: Status: Acute Category: Medical Code(s): J18.9 - Pneumonia, unspecified organism (2) Respiratory failure: Status: Acute Category: Medical Code(s): J96.90 - Respiratory failure, unspecified, unspecified whether with hypoxia or hypercapnia (3) Generalized weakness: Status: Chronic Category: Medical Code(s): R53.1 - Weakness (4) Chronic pain disorder: Status: Acute Category: Medical Code(s): G89.4 - Chronic pain syndrome (5) History of CVA (cerebrovascular accident): Status: Acute Category: Medical Code(s): Z86.73 - Personal history of transient ischemic attack (TIA), and cerebral infarction without residual deficits (6) Hypokalemia: Status: Acute Category: Medical Code(s): E87.6 - Hypokalemia (7) Right hemiparesis: Status: Acute Category: Medical Code(s): G81.91 - Hemiplegia, unspecified
--- NOTE | 2023-01-21 18:11 | PC.NURSE ---
Patient weaned to 4LNC and VS stable. Patient able to sit up in chair after lunch for a couple of hours before wanting to return to bed. Urine output has improved during shift. VS stable and lung sounds exhibit crackles on ascultation.
[2023-01-22] VITALS (10 sets, daily range): BP systolic 110–142; BP diastolic 52–78; PULSE 76–87; RESP 18–22; TEMP 36.5–36.9; O2SAT 90–97; BMI 40.1
--- NOTE | 2023-01-22 08:42 | EXP.ACUTE.PN ---
Subjective *Date: 01/22/23 *Time: 08:42 Interval history: Patient yesterday was fairly weak, this morning is arousable, pleasant, talkative, oriented x3. I was able to get her to drink half of one of her supplemental milk product drinks. Medical Exam Vital signs and Labs for Last 24 Hours: Vital Signs Temp Pulse Pulse Resp BP Pulse Ox FiO2 01/22/23 08:00 97.9 F 87 22 142/78 H 93 L 01/22/23 05:55 77 01/22/23 05:55 76 01/22/23 05:55 91 L 01/22/23 04:00 98.5 F 87 18 138/65 94 L 01/22/23 00:00 98.5 F 83 18 132/67 91 L 01/21/23 20:25 36 01/21/23 20:00 99.0 F 83 18 153/74 H 92 L 01/21/23 20:24 77 01/21/23 20:24 73 01/21/23 15:02 98.7 F 80 18 121/63 95 01/21/23 13:07 78 01/21/23 13:07 79 01/21/23 13:07 95 01/21/23 10:56 98.4 F 74 16 128/82 92 L Intake and Output 01/21/23 01/22/23 01/22/23 19:59 03:59 11:59 Intake Total 90 / 890 800 / 890 Output Total 500 / 1050 550 / 1050 Balance -410 / -160 800 / -160 -550 / -160 Intake: Intake, Oral Amount 90 / 90 Intake, Total IV Amount 800 / 800 Lactated Ringers 1000ML 1,000 800 / 800 ml @ 75 mls/hr IV .[id number] [facility] Rx#:[id number] Output: Output, Urine Amount 500 / 1050 550 / 1050 Other: Number of Unmeasured Voids 1 0 Number of Bowel Movements 1 Weight 204 lb 6 oz Patient Weight 01/22/23 11:59 Weight 204 lb 6 oz I & O for Labs for Last 24 Hours: Intake & Output 01/19/23 01/20/23 01/21/23 01/22/23 11:59 11:59 11:59 11:59 Intake Total 300 / 300 597 / 597 879 / 879 890 / 890 Output Total 700 / 700 800 / 800 75 / 75 1050 / 1050 Balance -400 / -400 -203 / -203 804 / 804 -160 / -160 Weight 199 lb 1 oz 199 lb 1.6 oz 198 lb 8 oz 204 lb 6 oz Comment:: Patient is pleasant, alert, knows me, knows where she is. Is a little fuzzy about the exact date but otherwise her sensorium is intact. Cranial nerves are intact. She is globally weak but no focal deficits. Anterior lung chiang have rhonchi that are improved with a big breath on my encouragement and a cough. Abdomen soft, nontender. Extremities are warm, well-perfused. Very weak. Heart rate regular. Previously noted murmur. No other changes Assessment and Plan *Assessment and plan (1) Pneumonia: Status: Acute Category: Medical Code(s): J18.9 - Pneumonia, unspecified organism (2) Respiratory failure: Status: Acute Category: Medical Code(s): J96.90 - Respiratory failure, unspecified, unspecified whether with hypoxia or hypercapnia (3) Generalized weakness: Status: Chronic Category: Medical Code(s): R53.1 - Weakness (4) Chronic pain disorder: Status: Acute Category: Medical Code(s): G89.4 - Chronic pain syndrome (5) History of CVA (cerebrovascular accident): Status: Acute Category: Medical Code(s): Z86.73 - Personal history of transient ischemic attack (TIA), and cerebral infarction without residual deficits (6) Hypokalemia: Status: Acute Category: Medical Code(s): E87.6 - Hypokalemia (7) Right hemiparesis: Status: Acute Category: Medical Code(s): G81.91 - Hemiplegia, unspecified affecting right dominant side Plan CTA from 01/19/2023 was negative for clot, lots of pneumonitis visible on CT as expected compared to her chest x-ray and some pleural effusions. Seem to respond well to Lasix. Continue planning. On 01/21/2023 I plan to speak with her family about their wishes for discharge planning. Plan update for 01/21/2023-I am very concerned about patient's mood and dysthymia. Her labs look great this morning, white count is normalized, she is been on of antibiotics for 2 days and she had no fever or increased white counts. Her electrolytes look good and her kidney function is good. Do not really have an or
--- NOTE | 2023-01-22 09:00 | PC.NURSE ---
ASSISTED PT TO THE CHAIR WITH 2 PERSON ASSIST. PT WAS ABLE TO BARE WEIGHT AND HELP. PT TOLERATED WELL. CALL LIGHT WITHIN REACH. ENCOURAGED PT TO SIT UP FOR ATLEAST A HOUR AND USE INCENTIVE SPIROMETER.
--- NOTE | 2023-01-22 16:37 | PC.NURSE ---
A&OX4. PT HAS TOLERATED 4L NC WELL THROUGHOUT SHIFT. OCCASIONAL PRODUCTIVE COUGH NOTED. DIMINISHED LUNG SOUNDS HEARD THROUGHOUT. RESPIRATIONS REGULAR AND UNLABORED. HAND CRIMINAL INTELLIGENCE ANALYST EQUAL. +1 NONPITTING EDEMA NOTED IN BLE. PT WAS UP TO THE CHAIR FROM BREAKFAST TO LUNCH. PT CAME AND SAW THE PT TODAY. FAMILY DID COME TO VISIT FOR A FEW HOURS. HEART RATE REGULAR. +2 PULSES NOTED THROUGHOUT. PT WAS INCONTINENT AT THE BEGINNING OF SHIFT BUT HAS BEEN CONTINENT SINCE ABOUT 9AM. PT HAS USED THE BSC WITH 2 PERSON ASSIST. PT HAS TOLERATED WELL. PT HAS VOIDED SEVERAL TIMES WITH YELLOW URINE NOTED. PT HAS ALSO HAD 3 BMS SOFT AND LOOSE AT TIMES. DRESSING NOTED TO COCCYX AREA DUE TO PRESSURE ULCER. PT RECEIVED A PARTIAL BED BATH TODAY. PT WAS USING PURWICK BUT NOW VOIDS PER BSC. ENCOURAGED PT TO USE INCENTIVE SPIROMETER 3-4 TIMES A HOUR WHILE AWAKE. ENCOURAGED PT TO CHANGE POSITIONS IN BED EVERY SO OFTEN AND WE ALSO TURNED HER Q 2 HOURS WHILE IN BED. LR INFUSING AT 75ML/HR. ACTIVE BOWEL SOUNDS HEARD IN ALL 4 QUADRANTS. SOFT AND NONTENDER ABDOMEN. LOVENOX FOR VTE. CALL LIGHT WITHIN REACH. BED IN LOWEST POSITION. VSS. NO QUESTIONS OR CONCERNS VOICED. PT CURRENTLY RESTING IN BED. WILL CONTINUE TO MONITOR.
--- NOTE | 2023-01-22 21:21 | DIET.NUTRFU ---
Pt PO intake remains poor. Diet is being supplemented with Boost TID. Pt has shown acceptance to supplements. Encourage PO intake. Will work to provide additional dietary supplements.
[2023-01-23] VITALS: BP 120/49; PULSE 68; RESP 18; TEMP 36.7; O2SAT 94
[2023-01-23 04:00] VITALS: BP 131/54; PULSE 68; RESP 18; TEMP 36.4; O2SAT 94
[2023-01-23 05:41] VITALS: PULSE 70; PULSE 74; O2SAT 94
[2023-01-23 07:23] VITALS: BP 143/70; PULSE 71; RESP 18; TEMP 36.6; O2SAT 95
--- NOTE | 2023-01-23 08:24 | EXP.DC.SUM ---
General Admission date:: 01/12/23 Discharge date: 01/23/23 HPI HPI HPI: 72-year-old white female with multiple medical problems including chronic ataxia, chronic cerebrovascular disease, chronic opiate dependence and chronic neuropathy. She was admitted here about 4 weeks ago, transferred to a rehab facility but then did well and went home. She was readmitted here 2 days later because of fall, cough, diarrhea. She was reevaluated and thought she would do well back in nursing facility. She was found here on her previous admission to have metapneumovirus, was treated with IV fluids and supportive care, but yesterday morning was doing very nicely, in her normal state of alertness, pleasant and talkative, chest x-ray was clear, CBC was normal and she was transferred to [facility] for skilled care and rehabilitation to try to get her back in a state of self-care activities. Family reports that they transported her there and she was doing well on the left. Unfortunately this morning she had a rough night with declining mental status and this morning was febrile, hypoxic and very obtunded. Transferred back to the ER. Dramatic changes in labs were noted with WBC in the mid 20s, infiltrates on chest x-ray and evidence of hypoxia. Admitted to [facility] for healthcare acquired pneumonia for Pseudomonas and staph coverage. Talked with family in room, they reaffirmed her DNR status. Hospital Course Hospital Course Hospital Course: Patient was admitted as noted with [facility] acquired pneumonia. Placed on cefepime and vancomycin. After 3 days of improvement, improving white counts and no culture results showing Staph aureus vancomycin was discontinued. She finished a 7-day course of cefepime. Patient's white count improved over the course of her admission and normalized. She had problems with hypokalemia and this was replaced multiple times. She also had hypocalcemia which was replaced. These also improved. Her kidney function also improved. Patient was extremely weak and very down about her condition and multiple, multiple family conferences were held about her ongoing disposition. Several long-term care facilities declined patient's admission because they felt she would need long-term care rather than skilled care and we had difficulty finding a place for her. The family had considered taking her home but after a realistic assessment of her needs felt that she would benefit from ongoing skilled care. [facility] facility where she had been before did except the patient. The family had some concerns about this given her previous experience there with the acquisition of pneumonia but finally agreed they would give this another trial and she has been accepted at that facility pending insurance approval. Plan will be as follows- 1. Admit to [facility] for skilled care with PT/OT/speech therapy and nutrition evaluation. 2. Patient is finished 7 days of IV antibiotics for healthcare acquired pneumonia and will not be discharged antibiotics. 3. Her medication list is as noted. Please note that I have cut down her dose of morphine in the mornings to help with alertness and PT participation. I will also cut down her dose of amitriptyline that she takes in the morning. She has taken opiates for over 40 years, they are managed by pain clinic here along with her antidepressant. And I have talked with her about cutting these down very slightly to help with her alertness level and physical activity. Follow-up be per our service at the [facility]. Please have a BMP and CBC done on 01/25/2023 to monitor her previous electrolyte disturbances and chronic kidney disease. When patient initially was admitted to the hospital she elected to pursue a DNR status. She has been somewhat on the fence about that and this will need to be fully addressed by social work at the [facility] now that she feels
--- NOTE | 2023-01-24 10:38 | CARE MANAGER ---
Contacted [facility] and they state patient is doing well. Deny any questions or concerns. JOSE Willoughby
== END 2023-01-23 12:51 | DRG 193 ==
LOC: ER 14:40 → 2ND 14:57
PROVIDERS: Family Medicine; Admitting Provider Internal Medicine Adolescent Medicine; Emergency Provider Emergency Medicine; PCP Internal Medicine Adolescent Medicine; Visit Provider Internal Medicine Adolescent Medicine
DX: J18.9 Pneumonia, unspecified organism (principal); J96.00 Acute respiratory failure, unspecified whether with hypoxia or hypercapnia; G81.91 Hemiplegia, unspecified affecting right dominant side; Z68.41 Body mass index [BMI] 40.0-44.9, adult; F11.20 Opioid dependence, uncomplicated; G89.4 Chronic pain syndrome; E87.6 Hypokalemia; E66.01 Morbid (severe) obesity due to excess calories; Z66 Do not resuscitate; Z86.73 Personal history of transient ischemic attack (TIA), and cerebral infarction without residual deficits; Y95 Nosocomial condition; G62.9 Polyneuropathy, unspecified
CPT/HCPCS: 36415; 70450; 71045; 71275; 72125; 74018; 74177; 80048; 80053; 80202; 81001; 82803; 82962; 83605; 83880; 84145; 84436; 84443; 84484; 85007; 85025; 85651; 86140; 87040; 87070; 87086; 87205; 87506; 87581; 87632; 87798; 93005; 93970; 94640; 94760; 94761; 97110; 97162; 97166; 97530; 97535; 99285; C9803; G0378; J0131; J0696; J2405; J3370; Q9967; U0003; U0005

== ENCOUNTER 2023-01-29 02:30 | Inpatient (IN) | payer MEDICARE, OTHER, SELFPAY ==
[2023-01-29] VITALS (22 sets, daily range): BP systolic 76–185; BP diastolic 32–97; PULSE 65–89; RESP 16–22; TEMP 36.2–37.4; O2SAT 90–100; BMI 36.8; BMI 36.6; BMI 35.5
--- NOTE | 2023-01-29 02:35 | CT_ITS ---
PROCEDURE INFORMATION: Exam: CT Abdomen And Pelvis With Contrast Exam date and time: 01/29/2023 3:41 AM Age: 72 years old Clinical indication: Nausea and vomiting; Additional info: N/v, abd pain, rectal bleeding TECHNIQUE: Imaging protocol: Computed tomography of the abdomen and pelvis with contrast. Radiation optimization: All CT scans at this facility use at least one of these dose optimization techniques: automated exposure control; mA and/or kV adjustment per patient size (includes targeted exams where dose is matched to clinical indication); or iterative reconstruction. Contrast material: ISOVUE; Contrast volume: 75 ml; Contrast route: IV; REPORTING DATA: Count of CT and Cardiac NM exams in prior 12 months: This patient has received 9 known CTs and 0 known cardiac nuclear medicine studies in the 12 months prior to the current study. COMPARISON: CT ABDOMEN PELVIS W CON 01/09/2023 7:31 AM FINDINGS: Tubes, catheters and devices: Loop recorder in the left side of the epigastric subcutaneous tissues. Lungs: Patchy bilateral airspace disease and consolidation concerning for pneumonia. Diaphragm: Large hiatal hernia. Liver: No acute findings. No mass. Gallbladder and bile ducts: The patient is status post cholecystectomy. Pancreas: Pancreatic atrophy and fatty infiltration. Spleen: No splenomegaly or focal abnormality. Adrenal glands: Normal. No mass. Kidneys and ureters: Simple appearing bilateral renal cysts for which no further follow-up should be necessary. No obstructive uropathy. Stomach and bowel: No bowel obstruction. Appendix: No evidence of appendicitis. Intraperitoneal space: No free air. No significant fluid collection. Vasculature: No abdominal aortic aneurysm. Lymph nodes: No pathologically enlarged lymph nodes. Urinary bladder: Unremarkable as visualized. Reproductive: Unremarkable as visualized. Bones/joints: Increasing thoracic kyphosis and lumbar lordosis. Soft tissues: No acute findings. IMPRESSION: 1. Patchy airspace disease/consolidation bilaterally concerning for pneumonia. 2. Large hiatal hernia. 3. Atrophic pancreas. COMMENTS: Consistent with the [employer]'s Incidental Findings Committee white paper (J Am Emmanuel Radiol 2018): Any incidental renal lesion less than 1 cm or classified as too small to characterize, or any incidental cystic renal lesion characterized as simple-appearing, is likely benign. No follow-up imaging is recommended for these lesions per consensus recommendations based on imaging criteria.
[2023-01-29 02:49] LABS: Basophils % 0.3 % (0.1-2.0); Eosinophils # 0.3 K/mm3 (0.0-0.4); Eosinophils % 2.1 % (0.1-12.0); Hemoglobin 10.4 g/dL (12.2-16.2); Lymphocytes # 2.5 K/mm3 (0.7-4.5); Lymphocytes % 20.4 % (10-50); Mean Corpuscular HGB Conc 32.4 g/dL (31.8-35.4); Mean Corpuscular Hemoglobin 30.6 pg (27.0-31.2); Mean Corpuscular Volume 94.3 fl (81-99); Mean Platelet Volume 8.3 fl (7.4-10.4); Monocytes # 0.4 K/mm3 (0.1-1.0); Neutrophils # 9.2 K/mm3 (1.8-7.8); Neutrophils % 74.2 % (37.0-80.0); Platelet Count 348 K/mm3 (142-424); Red Blood Count 3.39 M/mm3 (4.20-5.40); Red Cell Distribution Width 13.5 % (11.5-17.5); White Blood Count 12.4 K/mm3 (4.8-10.8)
[2023-01-29 03:01] LABS: C-Reactive Protein 45.5 mg/L (0-4)
[2023-01-29 03:27] LABS: Erythrocyte Sedimentation Rate > 140 mm/hr (0-30)
--- NOTE | 2023-01-29 03:41 | HMH.EDABDPAI ---
Discharge Plan Disposition Patient Disposition: Admitted As Inpatient Clinical Impressions Clinical Impression: Acute GI bleeding, Chronic pain disorder Discharge ED Provider: Magen (ED)Alireza Abdominal Pain HPI General Chief Complaint: Abdominal Pain Stated Complaint: Rectal bleeding Time Seen by Provider: 01/29/23 03:41 Mode of Arrival: EMS Source of Information: EMS and Medical Record Limitations: No Limitations Description of Symptoms (Recalled from ER Triage Doc. by RN): [facility] report pt c/o LLQ pain. pt had a bm with dark red blood clots. History of Present Illness HPI narrative: hx of lower abd pain and this am with rectal bleeding MD complaint: abdominal pain Onset (ago): hour(s) Consistency: intermittent Location: LLQ Severity: moderate Associated symptoms: denies other symptoms Related Data Home Medications Medication Instructions Recorded Confirmed amitriptyline 25 mg tablet 25 mg PO AM Depression 01/09/23 01/29/23 baclofen 5 mg tablet 5 mg PO HS Muscle spasms 01/09/23 01/29/23 buspirone 10 mg tablet 10 mg PO BID Anxiety 01/09/23 01/29/23 carvedilol 6.25 mg tablet 6.25 mg PO BID High blood pressure 01/09/23 01/29/23 clopidogrel 75 mg tablet 75 mg PO DAILY platelet inhibitor 01/09/23 01/29/23 fluoxetine 20 mg capsule 20 mg PO HS Depression 01/09/23 01/29/23 halobetasol propionate 0.05 % 1 applic topical BID skin 01/09/23 01/29/23 lotion irritation memantine ER 28 mg-donepezil 10 mg 1 cap PO HS dementia 01/09/23 01/29/23 capsule sprinkle,ext.release 24 hr (Namzaric) perphenazine 2 mg tablet 2 mg PO DAILY Depression 01/09/23 01/29/23 perphenazine 4 mg tablet 4 mg PO HS Depression 01/09/23 01/29/23 cyanocobalamin (vitamin B-12) 1,000 mcg SQ DAILY Supplement 01/12/23 01/29/23 1,000 mcg/mL injection kit multivitamin with minerals 1 tab PO DAILY Supplement 01/12/23 01/29/23 (Multiple Vitamin-Minerals tablet) nystatin 100,000 unit/gram topical 1 applic topical BID skin 01/12/23 01/29/23 powder irritation ondansetron HCl 4 mg tablet 4 mg PO Q8HP PRN Nausea 01/12/23 01/29/23 polyethylene glycol 3350 17 gram 17 g PO DAILYP PRN Constipation 01/12/23 01/29/23 oral powder packet (Miralax) amitriptyline 25 mg tablet 25 mg PO HS . 01/29/23 01/29/23 morphine 15 mg tablet,extended 15 mg PO .qAM Pain 01/29/23 01/29/23 release Previous Rx's Medication Instructions Recorded morphine 15 mg tablet,extended 15 mg PO HS SEVERE CHRONIC PAIN 30 01/23/23 release days #30 tabs Allergies Allergy/AdvReac Type Severity Reaction Status Date / Time ciprofloxacin [From CIPRO] Allergy Unknown Unknown Verified 12/26/22 11:15 allergy reaction codeine [CODEINE] Allergy Unknown Unknown Verified 12/26/22 11:15 allergy reaction erythromycin base Allergy Unknown I-RASH Verified 12/26/22 11:15 [From ERYTHROCIN] meperidine [MEPERIDINE] Allergy Unknown Unknown Verified 12/26/22 11:15 allergy reaction NSAIDS (Non-Steroidal Allergy Unknown I-RASH Verified 12/26/22 11:15 Anti-Inflamma [NSAIDS (NON-STEROIDAL ANTI-INFLAMMA] ofloxacin [OFLOXACIN] Allergy Unknown Unknown Verified 12/26/22 11:15 allergy reaction Quinolones [QUINOLONES] Allergy Unknown Unknown Verified 12/26/22 11:15 allergy reaction Macrolide Antibiotics Allergy Unknown Verified 12/26/22 11:15 allergy reaction Iodinated Contrast Media AdvReac Mild FLUSHED Verified 12/26/22 11:15 [Iodinated Contrast Media - FACE, IV Dye] ITCHING PFSH PFSH Disclaimer: The information contained in this section may have been updated after the patient was seen, as this information can be updated by other users. Surgical History Previous back surgery Family History Other No significant family history Social History
[2023-01-29 03:56] LABS: Occult Blood,Stool Positive (Negative)
--- NOTE | 2023-01-29 03:59 | PC.NURSE ---
Pt returned to room from RAD. Pt felt warm to touch rectal temp obtained 99.3. Occult stool sample obtained.
[2023-01-29 04:01] LABS: Microscopic, Urine URINE MICROSCOPIC (MICROSCOPIC)
[2023-01-29 04:02] LABS: Appearance,Urine CLEAR (Clear); Blood, Urine Negative (Negative); Color,Urine YELLOW (Yellow); Glucose,Urine (UA) Negative (Negative); Ketones,Urine Negative (Negative); Leukocyte Esterase,Urine Negative (Negative); Nitrate,Urine Negative (Negative); Protein,Urine Negative (Negative); Specific Gravity, Urine 1.025 (1.005-1.030); Urobilinogen,Urine 0.2 EU/dl (0.2)
--- NOTE | 2023-01-29 04:02 | PC.NURSE ---
Pt daughter at BS and updated on pt condition.
[2023-01-29 04:09] LABS: Bilirubin,Urine 1+ (Negative)
[2023-01-29 04:18] LABS: Bacteria,Urine 1+ /lpf; Hyaline Casts,Urine Occasional #/lpf (0); RBC,Urine Occasional #/hpf (0-3)
--- NOTE | 2023-01-29 04:30 | PC.NURSE ---
Manual BP obtained 80/50. Brad Almonte RN notified.
[2023-01-29 05:17] LABS: Chloride 96 mmol/L (98-107); Potassium 3.9 mmoL/L (3.5-5.1); Sodium 137 mmol/L (136-145)
[2023-01-29 05:19] LABS: Blood Urea Nitrogen 45 mg/dl (7-17); Creatinine Clearance Estimated 71 mL/min (50-200); Estimated Glomerular Filt Rate 61 ml/min (>60); GFR (African American) 74 ML/MIN (>60)
[2023-01-29 05:20] LABS: Alanine Aminotransferase 20 U/L (12-78); Albumin Level 2.8 g/dl (3.5-5.0); Alkaline Phosphatase 72 U/L (38-126); Anion Gap 10.9 mEq/L (5-15); Aspartate Amino Transferase 39 U/L (14-36); Bilirubin,Indirect 0.2 mg/dL (0.0-0.9); Bilirubin,Total 0.2 mg/dl (0.2-1.3); Bilirubin,Unconjugated 0.2 mg/dL (0.0-1.1); Calcium 9.5 mg/dl (8.4-10.2); Carbon Dioxide 34 mmol/L (22.0-30.0); Glucose 111 mg/dl (74-100); Total Protein,Serum 7.1 g/dl (6.3-8.2)
[2023-01-29 07:22] LABS: Coronavirus 19, PCR Not Detected (NotDetected); Influenza A, PCR Not Detected (NotDetected); Influenza B, PCR Not Detected (NotDetected)
--- NOTE | 2023-01-29 07:30 | PC.NURSE ---
notified care management of admission
--- NOTE | 2023-01-29 07:38 | PC.NURSE ---
per lab staff covid swab is going on analyzer now.
--- NOTE | 2023-01-29 08:03 | PC.NURSE ---
report called to atif on the floor
--- NOTE | 2023-01-29 08:29 | PC.NURSE ---
arrived to floor by stretcher from ED
--- NOTE | 2023-01-29 08:50 | HMH.PHAINT1 ---
Pharmacy Intervention Comments: HOME MEDICATION LIST VERIFIED USING MED LIST FROM PREVIOUS DISCHARGE (01/23/2023).
--- NOTE | 2023-01-29 08:56 | SW/DCPLANNER ---
Addendum entered by [facility] 02/05/23 15:19: Dana nury/ [facility] stated that services will begin tomorrow 02/06/23. Addendum entered by [facility] 02/05/23 13:10: Marybel nury/ [facility] is unable to accept this patient due to address. Patient/family are agreeable for patient information to be faxed to [facility]. Addendum entered by [facility] 02/05/23 09:05: The plan for this patient is to return home w/ family and home health services w/ [facility]. Patient information/order will be faxed to [facility] this AM. I have followed up w/ patient's daughter and she is agreeable to plan. Addendum entered by [facility] 02/05/23 07:57: Updated patient information will be faxed to [facility]. Addendum entered by [facility] 02/02/23 11:19: [facility] has called stating that she now has a female bed available and would be willing to review patient's information. Megan stated that if she is able to accept this patient she would start a precert today. I called to update patient's daughter: no answer at this time but I did leave a VM. Addendum entered by [facility] 02/01/23 08:41: Per patient's daughter the plan is to take patient home w/ family and home health services. I recommended other facilities such as: [facility], [facility] or [facility]. Family is not interested in placement at any other facility due to Dr Coates not being able to follow her. I will update MD and keep in contact with patient/family. Addendum entered by [facility] 01/31/23 13:20: Megan DELACRUZ stated that family chose to not pay bedhold. [facility] does not have any female beds at this time. I have called and updated patients daughter. Daughter stated that she would need to speak with other family members prior to making any decisions about other facilities. I also informed daughter that patient could be ready for discharge tomorrow pending no setbacks. Addendum entered by [facility] 01/31/23 08:34: I have updated Megan DELACRUZ that patient could potentially be ready for discharge tomorrow. Addendum entered by Gaby Crane 01/30/23 16:19: Daughter is now agreeable to placement at [facility]. I have faxed updated information to Megan arrington/ [facility]. Addendum entered by Gaby Crane 01/30/23 11:21: Patient's daughter has expressed that she is not interested in patient returning to [facility] at time of discharge. Daughter stated that she will need to speak with other family members about other facilities. I have updated MD. Addendum entered by Gaby Crane 01/30/23 09:47: Esperanza arrington/ [facility] is unable to meet patient needs at this time. I will fax updated patient information to Megan arrington/ [facility]. I will also update patient and her family. Addendum entered by Gaby Crane 01/30/23 09:05: Patient information has been faxed to [facility] at families request. Original Note: This patient currently resides at [facility] level of care. I will continue to follow up with Megan and fax patient information. Discharge date is unknown at this time.
--- NOTE | 2023-01-29 10:05 | EXP.SURG.CON ---
History of Present Illness *Admission Date: 01/29/23 *Reason for visit:: gi bleed *History of present illness: Patient is a 72-year-old female with multiple medical problems including chronic ataxia, chronic cerebrovascular disease, chronic opiate dependency, chronic neuropathy. She has had multiple strokes over the past several decades and has issues with cerebral vasculitis, chronic arthritis, spinal stenosis and chronic pain syndrome. She had recently been transferred to long-term care facility for rehabilitation. She had been admitted to this facility about 6 weeks ago with human metapneumovirus. She was readmitted about 2 weeks ago for pneumonia and ultimately discharged on 01/23/2023. Patient was transported to the emergency department this morning due to passage of blood clots per rectum. She was evaluated in the emergency department. She underwent CT scan which revealed findings of patchy airspace disease/consolidation bilaterally concerning for pneumonia, large hiatal hernia, atrophic pancreas. She had Hemoccult positivity on stool testing. Her hemoglobin is 10.4 which is close to her recent laboratory assessment values. Several weeks ago she had a hemoglobin of 13. She has a BUN of 45. Patient is on Plavix. [facility] Disclaimer: The information contained in this section may have been updated after the patient was seen, as this information can be updated by other users. Surgical History Previous back surgery Family History No significant family history Social History (Updated 01/29/23 @ 09:40 by Eleanor Alvarado RN) Smoking Status: Unknown if ever smoked alcohol intake: never substance use type: denies use current occupational status: retired Travel in the last 8 weeks: None household members: spouse housing: house current occupational exposures/hazards: No caffeine: Yes Meds Home Medications and Allergies Home Medications Medication Instructions Recorded Confirmed Type amitriptyline 25 mg tablet 25 mg PO AM Mood 01/09/23 01/29/23 History baclofen 5 mg tablet 5 mg PO HS Muscle spasms 01/09/23 01/29/23 History buspirone 10 mg tablet 10 mg PO BID Anxiety 01/09/23 01/29/23 History carvedilol 6.25 mg tablet 6.25 mg PO BID High blood pressure 01/09/23 01/29/23 History clopidogrel 75 mg tablet 75 mg PO DAILY Blood thinner 01/09/23 01/29/23 History fluoxetine 20 mg capsule 20 mg PO HS Mood 01/09/23 01/29/23 History halobetasol propionate 0.05 % 1 applic topical BID Skin 01/09/23 01/29/23 History lotion irritation memantine ER 28 mg-donepezil 10 mg 1 cap PO HS Dementia 01/09/23 01/29/23 History capsule sprinkle,ext.release 24 hr (Namzaric) perphenazine 2 mg tablet 2 mg PO DAILY Mood 01/09/23 01/29/23 History perphenazine 4 mg tablet 4 mg PO HS Mood 01/09/23 01/29/23 History multivitamin with minerals 1 tab PO DAILY Supplement 01/12/23 01/29/23 History (Multiple Vitamin-Minerals tablet) nystatin 100,000 unit/gram topical 1 applic topical BID Skin 01/12/23 01/29/23 History powder irritation ondansetron HCl 4 mg tablet 4 mg PO Q8HP PRN Nausea 01/12/23 01/29/23 History polyethylene glycol 3350 17 gram 17 g PO DAILYP PRN Constipation 01/12/23 01/29/23 History oral powder packet (Miralax) amitriptyline 25 mg tablet 25 mg PO HS Mood 01/29/23 01/29/23 History morphine 15 mg tablet,extended 15 mg PO AM Pain 01/29/23 01/29/23 History release New Prescriptions to Start Prescriptions: Allergies Allergy/AdvReac Type Severity Reaction Status Date / Time ciprofloxacin [From CIPRO] Allergy Unknown Unknown Verified 12/26/22 11:15 allergy reaction codeine [CODEINE] Allergy Unknown Unknown Verified 12/26/22 11:15 allergy reaction erythromycin base Allergy Unknown I-RASH Verified 12/26/22 11:15 [From ERYTHROCIN] meperidine [MEPERIDINE] Allergy Unknown Unknown Amaris
--- NOTE | 2023-01-29 12:27 | HMH.SCOPE ---
Procedure: Date: 01/29/23 Patient Date of :: 1950 Procedure Performed:: Esophagogastroduodenoscopy with epinephrine injection Indications:: Patient is a 72-year-old female correction patient who has had several admissions for acute illness recently. She was transported to the emergency department earlier this morning with signs of GI bleeding. She was admitted for inpatient management. Surgical consultation was obtained. Clinically patient had findings consistent with upper GI bleeding. Plan was made for upper endoscopy. Performing Provider:: Reji Negro MD Referring Provider:: Ari Coates MD Sedation:: MAC sedation Procedure:: Patient was taken to endoscopy procedure room. She was positioned in lateral decubitus position. Adequate intravenous sedation was achieved with anesthesia titration of propofol. Olympus endoscope was inserted via the oropharynx. Esophagus was cannulated. There was some tortuosity and findings consistent with presbyesophagus suggestive of esophageal dysmotility. Gastroesophageal junction was encountered at 30 cm from the incisors. There was some minor inflammation at the gastroesophageal junction. Stomach was cannulated and insufflated. Retroflexion revealed moderate hiatal hernia. Pylorus was widely patent. Endoscope was advanced through the pylorus. Within the duodenal bulb there was a rather large acute appearing inflamed deep cratered ulceration extending into the second portion of the duodenum. There was a moderate erosion adjacent to this. There was evidence of a visible vessel but no blood clot and no evidence of any active bleeding. Due to visible blood vessel and likely recent acute bleeding epinephrine was injected circumferentially. There was good blanching of the mucosa. Given the depth of the ulcer with acute inflammation it was felt that Hemoclip deployment would be technically difficult and potentially result and active bleeding. Therefore this was not performed. Stomach was then desufflated and the endoscope was withdrawn. Findings:: Findings of presbyesophagus suggestive of esophageal dysmotility Gastroesophageal junction at 30 cm Focal inflammation at the gastroesophageal junction Moderate hiatal hernia Minor diffuse gastropathy Large deep linear acute ulceration in the duodenal bulb, no active bleeding, nonbleeding visible vessel Recommendations:: Continue proton pump inhibitors. May benefit from Carafate. I will add Cytotec. Continue close monitoring for recurrent bleeding. Complications:: None immediate Estimated blood obtained (mL): 0
--- NOTE | 2023-01-29 12:31 | P.PN_ITS ---
[facility] Disclaimer: The information contained in this section may have been updated after the patient was seen, as this information can be updated by other users. Surgical History Previous back surgery Family History Other No significant family history Social History (Updated 01/29/23 @ 09:40 by Eleanor Alvarado RN) Smoking Status: Unknown if ever smoked alcohol intake: never substance use type: denies use current occupational status: retired Travel in the last 8 weeks: None household members: spouse housing: house current occupational exposures/hazards: No caffeine: Yes [facility] Anesthesia Checklist Patient Identification Patient Identification: Arm Band and Family Structural Data Admitted From: Inpatient Planned Operative Procedure/s: EGD Consent for Planned Operative Procedure(s) Verified: Yes Verified Documents: Surgical Consent and History and Physical NPO Status Verified Time NPO: 00:00 Additional verifications Anesthesia Reactions: No Hx Blood Transfusions: No Blood Transfusion Reaction: No Airway Assessment C-Spine Mobility Assessed: Yes TMJ Mobility Assessed: Yes Dentition: Edentulous Neurological Assessment Level of Consciousness: Awake and Alert Anesthesia Plan Anesthesia Risk discussed: Yes Anesthesia Plan: Verified ASA Class: III Anesthesia Type: MAC
[2023-01-29 14:06] LABS: Anion Gap 15.7 mEq/L (5-15); Calcium 8.6 mg/dl (8.4-10.2); Carbon Dioxide 27 mmol/L (22.0-30.0); Chloride 102 mmol/L (98-107); Glucose 163 mg/dl (74-100); Potassium 4.7 mmoL/L (3.5-5.1); Sodium 140 mmol/L (136-145)
[2023-01-29 14:11] LABS: Blood Urea Nitrogen 37 mg/dl (7-17); Creatinine Clearance Estimated 68 mL/min (50-200); Estimated Glomerular Filt Rate 70 ml/min (>60); GFR (African American) 85 ML/MIN (>60)
[2023-01-29 14:15] LABS: Basophils % 0.1 % (0.1-2.0); Eosinophils % 0.1 % (0.1-12.0); Hematocrit 29.5 % (37.0-47.0); Hemoglobin 9.6 g/dL (12.2-16.2); Lymphocytes # 0.7 K/mm3 (0.7-4.5); Lymphocytes % 9.4 % (10-50); Mean Corpuscular HGB Conc 32.4 g/dL (31.8-35.4); Mean Corpuscular Hemoglobin 30.8 pg (27.0-31.2); Mean Platelet Volume 8.8 fl (7.4-10.4); Monocytes # 0.1 K/mm3 (0.1-1.0); Monocytes % 1.1 % (1.7-9.3); Neutrophils # 7.1 K/mm3 (1.8-7.8); Neutrophils % 89.4 % (37.0-80.0); Platelet Count 299 K/mm3 (142-424); Red Blood Count 3.11 M/mm3 (4.20-5.40); Red Cell Distribution Width 13.5 % (11.5-17.5); White Blood Count 7.9 K/mm3 (4.8-10.8)
[2023-01-29 14:18] LABS: MANUAL DIFFERENTIAL MANUAL DIFFERENTIAL (MANUAL DIFF)
[2023-01-29 16:56] LABS: Eosinophils % 1 % (0-3); Lymphocytes % 6 % (10-50); Neutrophils % 93 % (42-76); Platelet Estimate Normal; RBC Morphology Normal; Total Cells Counted 100
--- NOTE | 2023-01-29 17:01 | EXP.HP ---
History of Present Illness *Admission Date: 01/29/23 *Reason for visit:: Lower GI bleeding *History of present illness: Patient is a 72-year-old female with multiple medical problems including chronic ataxia, chronic cerebrovascular disease, chronic opiate dependency, chronic neuropathy. She has had multiple strokes over the past several decades and has issues with cerebral vasculitis, chronic arthritis, spinal stenosis and chronic pain syndrome. She had recently been transferred to long-term care facility for rehabilitation. She had been admitted to this facility about 6 weeks ago with human metapneumovirus. She was readmitted about 2 weeks ago for pneumonia and ultimately discharged on 01/23/2023. Patient was transported to the emergency department this morning due to passage of blood clots per rectum. She was evaluated in the emergency department. She underwent CT scan which revealed findings of patchy airspace disease/consolidation bilaterally concerning for pneumonia, large hiatal hernia, atrophic pancreas. She had Hemoccult positivity on stool testing. Her hemoglobin is 10.4 which is close to her recent laboratory assessment values. Several weeks ago she had a hemoglobin of 13. She has a BUN of 45. Patient is on Plavix. Above note per surgery consultation. Agree with history review and presentation. [facility] Disclaimer: The information contained in this section may have been updated after the patient was seen, as this information can be updated by other users. Surgical History Previous back surgery Family History No significant family history Social History (Updated 01/29/23 @ 09:40 by Eleanor Alvarado RN) Smoking Status: Unknown if ever smoked alcohol intake: never substance use type: denies use current occupational status: retired Travel in the last 8 weeks: None household members: spouse housing: house current occupational exposures/hazards: No caffeine: Yes Review of Systems Review of Systems Review of systems:: unable to obtain Meds Home Medications and Allergies Home Medications Medication Instructions Recorded Confirmed Type amitriptyline 25 mg tablet 25 mg PO AM Mood 01/09/23 01/29/23 History baclofen 5 mg tablet 5 mg PO HS Muscle spasms 01/09/23 01/29/23 History buspirone 10 mg tablet 10 mg PO BID Anxiety 01/09/23 01/29/23 History carvedilol 6.25 mg tablet 6.25 mg PO BID High blood pressure 01/09/23 01/29/23 History clopidogrel 75 mg tablet 75 mg PO DAILY platelet inhibitor 01/09/23 01/29/23 History fluoxetine 20 mg capsule 20 mg PO HS Mood 01/09/23 01/29/23 History halobetasol propionate 0.05 % 1 applic topical BID Skin 01/09/23 01/29/23 History lotion irritation memantine ER 28 mg-donepezil 10 mg 1 cap PO HS Dementia 01/09/23 01/29/23 History capsule sprinkle,ext.release 24 hr (Namzaric) perphenazine 2 mg tablet 2 mg PO DAILY Mood 01/09/23 01/29/23 History perphenazine 4 mg tablet 4 mg PO HS Mood 01/09/23 01/29/23 History multivitamin with minerals 1 tab PO DAILY Supplement 01/12/23 01/29/23 History (Multiple Vitamin-Minerals tablet) nystatin 100,000 unit/gram topical 1 applic topical BID Skin 01/12/23 01/29/23 History powder irritation ondansetron HCl 4 mg tablet 4 mg PO Q8HP PRN Nausea 01/12/23 01/29/23 History polyethylene glycol 3350 17 gram 17 g PO DAILYP PRN Constipation 01/12/23 01/29/23 History oral powder packet (Miralax) amitriptyline 25 mg tablet 25 mg PO HS Mood 01/29/23 01/29/23 History morphine 15 mg tablet,extended 15 mg PO AM Pain 01/29/23 01/29/23 History release New Prescriptions to Start Prescriptions: Allergies Allergy/AdvReac Type Severity Reaction Status Date / Time ciprofloxacin [From CIPRO] Allergy Unknown Unknown Verified 12/26/22 11:15 allergy reaction codeine [CODEINE] Allergy Unknown Unknown Verified 12/26/22
--- NOTE | 2023-01-29 18:27 | PC.WOUNDNOTE ---
open wound on coccyx
[2023-01-30] VITALS: BP 118/96; PULSE 68; RESP 20; TEMP 36.9; O2SAT 90
[2023-01-30 04:00] VITALS: BP 124/58; PULSE 70; RESP 20; TEMP 36.6; BMI 37.0
[2023-01-30 06:22] LABS: Basophils % 0.2 % (0.1-2.0); Eosinophils % 0.4 % (0.1-12.0); Hematocrit 24.7 % (37.0-47.0); Lymphocytes % 21.3 % (10-50); Mean Corpuscular HGB Conc 32.5 g/dL (31.8-35.4); Mean Corpuscular Hemoglobin 31.2 pg (27.0-31.2); Mean Platelet Volume 8.6 fl (7.4-10.4); Monocytes # 0.4 K/mm3 (0.1-1.0); Monocytes % 3.8 % (1.7-9.3); Neutrophils # 6.9 K/mm3 (1.8-7.8); Neutrophils % 74.3 % (37.0-80.0); Platelet Count 287 K/mm3 (142-424); Red Blood Count 2.57 M/mm3 (4.20-5.40); Red Cell Distribution Width 13.8 % (11.5-17.5); White Blood Count 9.3 K/mm3 (4.8-10.8)
[2023-01-30 06:43] LABS: Anion Gap 9.8 mEq/L (5-15); Blood Urea Nitrogen 30 mg/dl (7-17); Calcium 8.4 mg/dl (8.4-10.2); Carbon Dioxide 28 mmol/L (22.0-30.0); Chloride 106 mmol/L (98-107); Creatinine Clearance Estimated 71 mL/min (50-200); Estimated Glomerular Filt Rate 82 ml/min (>60); GFR (African American) 99 ML/MIN (>60); Glucose 81 mg/dl (74-100); Potassium 3.8 mmoL/L (3.5-5.1); Sodium 140 mmol/L (136-145)
[2023-01-30 07:44] VITALS: BP 118/55; PULSE 78; RESP 16; TEMP 36.7; O2SAT 96
--- NOTE | 2023-01-30 08:10 | EXP.ACUTE.PN ---
Subjective *Date: 01/30/23 *Time: 08:10 Interval history: Patient rested well. No further evidence of GI bleeding. This morning she states she feels better. Medical Exam Vital signs and Labs for Last 24 Hours: Vital Signs Temp Pulse Pulse Pulse Resp BP BP 01/30/23 07:44 98.1 F 78 16 118/55 L 01/30/23 04:00 97.9 F 70 20 124/58 L 01/30/23 00:00 98.4 F 68 20 118/96 H 01/29/23 20:00 98.3 F 77 20 117/62 01/29/23 16:05 83 19 108/60 L 01/29/23 15:05 87 19 141/69 H 01/29/23 14:35 97.3 F L 83 20 162/72 H 01/29/23 14:05 82 20 185/92 H 01/29/23 13:50 81 19 176/78 H 01/29/23 13:35 80 20 174/85 H 01/29/23 13:20 97.6 F 77 20 173/79 H 01/29/23 13:05 97.1 F L 70 20 161/70 H 01/29/23 12:55 97.5 F L 79 20 184/82 H 01/29/23 12:43 82 17 01/29/23 12:28 97.4 F L 81 19 01/29/23 08:29 97.9 F 79 16 01/29/23 08:47 99.3 F 80 20 127/60 BP Pulse Ox 01/30/23 07:44 96 01/30/23 04:00 01/30/23 00:00 90 L 01/29/23 20:00 92 L 01/29/23 16:05 93 L 01/29/23 15:05 93 L 01/29/23 14:35 94 L 01/29/23 14:05 92 L 01/29/23 13:50 93 L 01/29/23 13:35 90 L 01/29/23 13:20 93 L 01/29/23 13:05 93 L 01/29/23 12:55 96 01/29/23 12:43 169/90 H 95 01/29/23 12:28 165/97 H 94 L 01/29/23 08:29 127/60 100 01/29/23 08:47 Intake and Output 01/29/23 01/30/23 01/30/23 19:59 03:59 11:59 Intake Total 505 / 1752 1247 / 1752 Output Total 0 / 0 0 / 0 Balance 505 / 1752 1247 / 1752 0 / 1752 Intake: Intake, Oral Amount 0 / 0 Intake, Total IV Amount 505 / 1752 1247 / 1752 0.9 % Sodium Chloride 1000ML 1, 505 / 1752 1247 / 1752 000 ml @ 100 mls/hr IV .Q10H [facility] Rx#:[id number] Output: Output, Urine Amount 0 / 0 0 / 0 Other: Number of Unmeasured Voids 1 0 Number of Bowel Movements 1 Weight 201 lb 1 oz Patient Weight 01/30/23 11:59 Weight 201 lb 1 oz Laboratory Results - last 24 hr 01/29/23 13:48: WBC 7.9 D, RBC 3.11 L, Hgb 9.6 L, Hct 29.5 L, MCV 95.0, MCH 30.8, MCHC 32.4, RDW 13.5, Plt Count 299, MPV 8.8, Neut % (Auto) 89.4 H, Lymph % (Auto) 9.4 L, [place] % (Auto) 1.1 L, Eos % (Auto) 0.1, Baso % (Auto) 0.1, Neut # (Auto) 7.1, Lymph # (Auto) 0.7, [place] # (Auto) 0.1, Eos # (Auto) 0.0, Baso # (Auto) 0.0, Total Counted 100, Neutrophils % (Manual) 93 H, Lymphocytes % (Manual) 6 L, Eosinophils % (Manual) 1, Platelet Estimate Normal, RBC Morphology Normal 01/29/23 13:48: Sodium 140, Potassium 4.7 D, Chloride 102, Carbon Dioxide 27, Anion Gap 15.7 H, BUN 37 H, Creatinine 0.80, Estimated Creat Clear 68, Estimated GFR 70, Est GFR ( Amer) 85, Glucose 163 H D, Calcium 8.6 01/30/23 05:58: WBC 9.3, RBC 2.57 L, Hgb 8.0 L D, Hct 24.7 L, MCV 96.0, MCH 31.2, MCHC 32.5, RDW 13.8, Plt Count 287, MPV 8.6, Neut % (Auto) 74.3, Lymph % (Auto) 21.3, [place] % (Auto) 3.8, Eos % (Auto) 0.4, Baso % (Auto) 0.2, Neut # (Auto) 6.9, Lymph # (Auto) 2.0, [place] # (Auto) 0.4, Eos # (Auto) 0.0, Baso # (Auto) 0.0 01/30/23 05:58: Sodium 140, Potassium 3.8, Chloride 106, Carbon Dioxide 28, Anion Gap 9.8, BUN 30 H, Creatinine 0.70, Estimated Creat Clear 71, Estimated GFR 82, Est GFR ( Amer) 99, Glucose 81 D, Calcium 8.4 I & O for Labs for Last 24 Hours: Intake & Output 01/27/23 01/28/23 01/29/23 01/30/23 11:59 11:59 11:59 11:59 Intake Total 0 / 0 1752 / 1752 Output Total 0 / 0 Balance 0 / 0 175 / 175 Weight 193 lb 201 lb 1 oz Comment:: Patient is pleasant, alert, knows me, knows where she is. Is a little fuzzy about the exact date but otherwise her sensorium is intact. Cranial nerves are intact. She is globally weak but no focal deficits. Anterior lung chiang have rhonchi that are improved with a big breath on my encouragement and a cough. Abdomen soft, nontender. Extremities are warm, well-perfused. Very weak. Heart rate regular. Previously noted m
--- NOTE | 2023-01-30 08:29 | EXP.SURG.PN ---
Subjective Patient reports: no new complaints Narrative: No major issues. Overnight patient did have some passage of old blood. Exam Data for Last 24 hours Vital signs and Labs for Last 24 Hours: Temp Pulse Resp BP Pulse Ox 98.1 F 78 16 118/55 L 96 01/30/23 07:44 01/30/23 07:44 01/30/23 07:44 01/30/23 07:44 01/30/23 07:44 Laboratory Results - last 24 hr 01/29/23 13:48: WBC 7.9 D, RBC 3.11 L, Hgb 9.6 L, Hct 29.5 L, MCV 95.0, MCH 30.8, MCHC 32.4, RDW 13.5, Plt Count 299, MPV 8.8, Neut % (Auto) 89.4 H, Lymph % (Auto) 9.4 L, [place] % (Auto) 1.1 L, Eos % (Auto) 0.1, Baso % (Auto) 0.1, Neut # (Auto) 7.1, Lymph # (Auto) 0.7, [place] # (Auto) 0.1, Eos # (Auto) 0.0, Baso # (Auto) 0.0, Total Counted 100, Neutrophils % (Manual) 93 H, Lymphocytes % (Manual) 6 L, Eosinophils % (Manual) 1, Platelet Estimate Normal, RBC Morphology Normal 01/29/23 13:48: Sodium 140, Potassium 4.7 D, Chloride 102, Carbon Dioxide 27, Anion Gap 15.7 H, BUN 37 H, Creatinine 0.80, Estimated Creat Clear 68, Estimated GFR 70, Est GFR ( Amer) 85, Glucose 163 H D, Calcium 8.6 01/30/23 05:58: WBC 9.3, RBC 2.57 L, Hgb 8.0 L D, Hct 24.7 L, MCV 96.0, MCH 31.2, MCHC 32.5, RDW 13.8, Plt Count 287, MPV 8.6, Neut % (Auto) 74.3, Lymph % (Auto) 21.3, [place] % (Auto) 3.8, Eos % (Auto) 0.4, Baso % (Auto) 0.2, Neut # (Auto) 6.9, Lymph # (Auto) 2.0, [place] # (Auto) 0.4, Eos # (Auto) 0.0, Baso # (Auto) 0.0 01/30/23 05:58: Sodium 140, Potassium 3.8, Chloride 106, Carbon Dioxide 28, Anion Gap 9.8, BUN 30 H, Creatinine 0.70, Estimated Creat Clear 71, Estimated GFR 82, Est GFR ( Amer) 99, Glucose 81 D, Calcium 8.4 I & O for Last 24 hours: Intake & Output 01/27/23 01/28/23 01/29/23 01/30/23 11:59 11:59 11:59 11:59 Intake Total 0 / 0 1752 / 1752 Output Total 0 / 0 Balance 0 / 0 1752 / 1752 Weight 193 lb 201 lb 1 oz Constitutional Constitutional: no acute distress Comments: Pale appearing Progress Note: A&P Assessment and plan (1) Acute GI bleeding: Status: Acute Assessment and plan: Decreased hemoglobin this morning. Possibly equilibration. Continue to monitor. Transfuse if needed. Continue pantoprazole and Cytotec for now. (2) Generalized weakness: Status: Chronic (3) Chronic pain disorder: Status: Acute (4) Right hemiparesis: Status: Acute (5) Hypertension: Status: Chronic
--- NOTE | 2023-01-30 08:55 | HMH.OTEV ---
OT Inpatient Evaluation Rehab OT IP Evaluation Start: 01/30/23 07:37 Freq: ONCE Status: Active Protocol: Document 01/30/23 08:50 AIDAN (Rec: 01/30/23 08:55 AIDAN [id number]) Rehab OT IP Assessment Subjective History Patient is a 72-year-old female with multiple medical problems including chronic ataxia, chronic cerebrovascular disease, chronic opiate dependency, chronic neuropathy. She has had multiple strokes over the past several decades and has issues with cerebral vasculitis, chronic arthritis, spinal stenosis and chronic pain syndrome. She had recently been transferred to [facility] for rehabilitation. She had been admitted to this facility about 6 weeks ago with human metapneumovirus. She was readmitted about 2 weeks ago for pneumonia and ultimately discharged on 01/23/2023. Patient was transported to the emergency department this morning due to passage of blood clots per rectum. She was evaluated in the emergency department. She underwent CT scan which revealed findings of patchy airspace disease/ consolidation bilaterally concerning for pneumonia, large hiatal hernia, atrophic pancreas. She had Hemoccult positivity on stool testing. Her hemoglobin is 10.4 which is close to her recent laboratory assessment values. Several weeks ago she had a hemoglobin of 13. She has a BUN of 45. Patient is on Plavix. Above note per surgery consultation. Agree with history review and presentation. Patient lives in [facility]
--- NOTE | 2023-01-30 10:57 | HMH.PTEV ---
Physical Therapy Evaluation Rehab PT IP Evaluation Start: 01/30/23 07:37 Freq: ONCE Status: Active Protocol: Document 01/30/23 10:55 TA (Rec: 01/30/23 10:57 TA [id number]) Subjective/History History History Patient is a 72-year-old female with multiple medical problems including chronic ataxia, chronic cerebrovascular disease, chronic opiate dependency, chronic neuropathy. She has had multiple strokes over the past several decades and has issues with cerebral vasculitis, chronic arthritis, spinal stenosis and chronic pain syndrome. Pt does not ambulate at baseline per her report and was brought in from rehab facility this adm. Subjective Subjective Pt with no c/o this am except chronic LBP that is continuous . Rehab PT IP Eval Objective Appearance Patient Behavior Appropriate Patient Orientation Person,Place Difficulty following instructions none Speech Pattern Clear Ambulation Patient Able to Ambulate No Balance Ability to Arise Able, uses arms to help Sitting Balance Leans or slides in chair Standing Balance Unsteady Dynamic Sitting Balance Ability Poor Dynamic Standing Balance Ability Poor Transfers Bed Transfer Ability Moderate x 1 (50% assist) Chair Transfer Ability Moderate x 1 (50% assist) Sit to Stand Bed Transfer Ability Moderate x 1 (50% assist) Sit to Stand Chair Transfer Ability Moderate x 1 (50% assist) Rehab PT IP prob,goals,plan Problems Date of Evaluation: 01/30/23 PT IP Problems Bed Mobility,Transfers Rehab Potential Rehab Potential Fair Plan PT Intervention Plan Bed Mobility,Transfers, Therapeutic Exercise PT Plan Frequency Daily Duration LOS Discharge Goals Bed Transfer Ability Minimal x 2 (25% assist) Sit to Stand Chair Transfer Ability Minimal x 2 (25% assist) Discharge Plan PT Discharge Plan Pt is currently most appropriate for short term rehab vs SNF placement once medically stable for d/c. G -code Required No Eval Complexity Eval Charge Codes
[2023-01-30 11:16] VITALS: BP 99/53; PULSE 70; RESP 17; TEMP 36.4; O2SAT 93
[2023-01-30 15:18] LABS: Basophils % 0.3 % (0.1-2.0); Eosinophils # 0.1 K/mm3 (0.0-0.4); Hematocrit 26.7 % (37.0-47.0); Hemoglobin 8.8 g/dL (12.2-16.2); Lymphocytes # 1.6 K/mm3 (0.7-4.5); Lymphocytes % 21.5 % (10-50); Mean Corpuscular Hemoglobin 31.3 pg (27.0-31.2); Mean Corpuscular Volume 94.8 fl (81-99); Mean Platelet Volume 9.3 fl (7.4-10.4); Monocytes # 0.3 K/mm3 (0.1-1.0); Neutrophils # 5.4 K/mm3 (1.8-7.8); Neutrophils % 73.2 % (37.0-80.0); Platelet Count 307 K/mm3 (142-424); Red Blood Count 2.81 M/mm3 (4.20-5.40); Red Cell Distribution Width 13.8 % (11.5-17.5); White Blood Count 7.4 K/mm3 (4.8-10.8)
[2023-01-30 16:00] VITALS: BP 105/50; PULSE 65; RESP 18; TEMP 36.6; O2SAT 99
[2023-01-30 20:00] VITALS: BP 117/45; PULSE 75; RESP 20; TEMP 36.8; O2SAT 100
[2023-01-31] VITALS (24 sets, daily range): BP systolic 96–144; BP diastolic 25–74; PULSE 59–97; RESP 16–20; TEMP 36.6–36.8; O2SAT 95–98; BMI 37.8; BMI 37.7
[2023-01-31 06:51] LABS: Basophils % 0.5 % (0.1-2.0); Eosinophils # 0.1 K/mm3 (0.0-0.4); Eosinophils % 2.2 % (0.1-12.0); Hematocrit 23.3 % (37.0-47.0); Lymphocytes # 1.7 K/mm3 (0.7-4.5); Lymphocytes % 32.1 % (10-50); Mean Corpuscular Hemoglobin 31.5 pg (27.0-31.2); Mean Corpuscular Volume 95.4 fl (81-99); Mean Platelet Volume 8.7 fl (7.4-10.4); Monocytes # 0.3 K/mm3 (0.1-1.0); Monocytes % 5.2 % (1.7-9.3); Neutrophils # 3.3 K/mm3 (1.8-7.8); Neutrophils % 59.9 % (37.0-80.0); Platelet Count 250 K/mm3 (142-424); Red Blood Count 2.44 M/mm3 (4.20-5.40); Red Cell Distribution Width 13.8 % (11.5-17.5); White Blood Count 5.4 K/mm3 (4.8-10.8)
[2023-01-31 06:52] LABS: Anion Gap 8.3 mEq/L (5-15); Blood Urea Nitrogen 20 mg/dl (7-17); Calcium 8.2 mg/dl (8.4-10.2); Carbon Dioxide 28 mmol/L (22.0-30.0); Chloride 106 mmol/L (98-107); Creatinine Clearance Estimated 73 mL/min (50-200); Estimated Glomerular Filt Rate 82 ml/min (>60); GFR (African American) 99 ML/MIN (>60); Glucose 84 mg/dl (74-100); Potassium 3.3 mmoL/L (3.5-5.1); Sodium 139 mmol/L (136-145)
[2023-01-31 07:04] LABS: Hemoglobin 7.7 g/dL (12.2-16.2)
--- NOTE | 2023-01-31 07:32 | EXP.SURG.PN ---
Subjective Patient reports: no new complaints Narrative: No definitive evidence of ongoing blood loss. She states that she feels very weak . Exam Data for Last 24 hours Vital signs and Labs for Last 24 Hours: Temp Pulse Resp BP Pulse Ox 98.0 F 64 20 96/49 L 100 01/31/23 04:00 01/31/23 04:00 01/31/23 04:00 01/31/23 04:00 01/30/23 20:00 Laboratory Results - last 24 hr 01/30/23 15:10: WBC 7.4, RBC 2.81 L, Hgb 8.8 L, Hct 26.7 L, MCV 94.8, MCH 31.3 H, MCHC 33.0, RDW 13.8, Plt Count 307, MPV 9.3, Neut % (Auto) 73.2, Lymph % (Auto) 21.5, [place] % (Auto) 4.0, Eos % (Auto) 1.0, Baso % (Auto) 0.3, Neut # (Auto) 5.4, Lymph # (Auto) 1.6, [place] # (Auto) 0.3, Eos # (Auto) 0.1, Baso # (Auto) 0.0 01/31/23 05:51: WBC 5.4 D, RBC 2.44 L, Hgb 7.7 L D, Hct 23.3 L, MCV 95.4, MCH 31.5 H, MCHC 33.0, RDW 13.8, Plt Count 250, MPV 8.7, Neut % (Auto) 59.9, Lymph % (Auto) 32.1, [place] % (Auto) 5.2, Eos % (Auto) 2.2, Baso % (Auto) 0.5, Neut # (Auto) 3.3, Lymph # (Auto) 1.7, [place] # (Auto) 0.3, Eos # (Auto) 0.1, Baso # (Auto) 0.0 01/31/23 05:51: Sodium 139, Potassium 3.3 L, Chloride 106, Carbon Dioxide 28, Anion Gap 8.3, BUN 20 H D, Creatinine 0.70, Estimated Creat Clear 73, Estimated GFR 82, Est GFR ( Amer) 99, Glucose 84, Calcium 8.2 L I & O for Last 24 hours: Intake & Output 01/28/23 01/29/23 01/30/23 01/31/23 11:59 11:59 11:59 11:59 Intake Total 0 / 0 1871 / 1871 360 / 360 Output Total 0 / 0 0 / 0 Balance 0 / 0 1871 360 / 360 Weight 193 lb 201 lb 1 oz 205 lb 3 oz Constitutional Constitutional: no acute distress *Routine Respiratory Exam Respiratory: Absent respiratory distress *Routine Cardiovascular Exam Cardiovascular: Absent tachycardia Progress Note: A&P Assessment and plan (1) Duodenal ulcer: Status: Acute Assessment and plan: Continue current medical management (2) Acute GI bleeding: Status: Acute Assessment and plan: Hemoglobin 7.7 this morning which could represent continued equilibration or ongoing blood loss. Continue medical management for duodenal ulcer NPO after midnight for possible repeat EGD Transfuse as needed (3) Blood loss anemia: Status: Acute Assessment and plan: (See #2 above) Although she does not (yet) meet the laboratory value for triggering transfusion, she is significantly weak. Agree with transfusion for symptomatology. (4) Generalized weakness: Status: Chronic Assessment and plan: Increased weakness acutely likely secondary to blood loss.
--- NOTE | 2023-01-31 08:15 | EXP.ACUTE.PN ---
Subjective *Date: 01/31/23 *Time: 08:15 Interval history: Patient was stable overnight from a hemodynamic standpoint. Does feel very weak. Did tolerate her diet well this morning. Medical Exam Vital signs and Labs for Last 24 Hours: Vital Signs Temp Pulse Resp BP Pulse Ox 01/31/23 04:00 98.0 F 64 20 96/49 L 01/31/23 00:00 98.3 F 68 20 106/50 L 01/30/23 20:00 98.2 F 75 20 117/45 L 100 01/30/23 16:00 97.8 F 65 18 105/50 L 99 01/30/23 11:16 97.6 F 70 17 99/53 L 93 L Intake and Output 01/30/23 01/31/23 01/31/23 19:59 03:59 11:59 Intake Total 360 / 360 Output Total 0 / 0 0 / 0 0 / 0 Balance 360 / 360 0 / 360 0 / 360 Intake: Intake, Oral Amount 360 / 360 Output: Output, Urine Amount 0 / 0 0 / 0 0 / 0 Other: Number of Unmeasured Voids 1 1 1 Number of Bowel Movements 1 1 1 Weight 205 lb 3 oz Patient Weight 01/31/23 11:59 Weight 205 lb 3 oz Laboratory Results - last 24 hr 01/30/23 15:10: WBC 7.4, RBC 2.81 L, Hgb 8.8 L, Hct 26.7 L, MCV 94.8, MCH 31.3 H, MCHC 33.0, RDW 13.8, Plt Count 307, MPV 9.3, Neut % (Auto) 73.2, Lymph % (Auto) 21.5, [place] % (Auto) 4.0, Eos % (Auto) 1.0, Baso % (Auto) 0.3, Neut # (Auto) 5.4, Lymph # (Auto) 1.6, [place] # (Auto) 0.3, Eos # (Auto) 0.1, Baso # (Auto) 0.0 01/31/23 05:51: WBC 5.4 D, RBC 2.44 L, Hgb 7.7 L D, Hct 23.3 L, MCV 95.4, MCH 31.5 H, MCHC 33.0, RDW 13.8, Plt Count 250, MPV 8.7, Neut % (Auto) 59.9, Lymph % (Auto) 32.1, [place] % (Auto) 5.2, Eos % (Auto) 2.2, Baso % (Auto) 0.5, Neut # (Auto) 3.3, Lymph # (Auto) 1.7, [place] # (Auto) 0.3, Eos # (Auto) 0.1, Baso # (Auto) 0.0 01/31/23 05:51: Sodium 139, Potassium 3.3 L, Chloride 106, Carbon Dioxide 28, Anion Gap 8.3, BUN 20 H D, Creatinine 0.70, Estimated Creat Clear 73, Estimated GFR 82, Est GFR ( Amer) 99, Glucose 84, Calcium 8.2 L I & O for Labs for Last 24 Hours: Intake & Output 01/28/23 01/29/23 01/30/23 01/31/23 11:59 11:59 11:59 11:59 Intake Total 0 / 0 1872 / 1872 360 / 360 Output Total 0 / 0 0 / 0 Balance 0 / 0 1872 / 1872 360 / 360 Weight 193 lb 201 lb 1 oz 205 lb 3 oz Comment:: Patient is pleasant, alert, knows me, knows where she is. Is a little fuzzy about the exact date but otherwise her sensorium is intact. Cranial nerves are intact. She is globally weak but no focal deficits. Anterior lung chiang have rhonchi that are improved with a big breath on my encouragement and a cough. Abdomen soft, nontender. Extremities are warm, well-perfused. Very weak. Heart rate regular. Previously noted murmur. No other changes Assessment and Plan *Assessment and plan (1) Acute GI bleeding: Status: Acute Category: Medical Code(s): K92.2 - Gastrointestinal hemorrhage, unspecified (2) Generalized weakness: Status: Chronic Category: Medical Code(s): R53.1 - Weakness (3) Chronic pain disorder: Status: Acute Category: Medical Code(s): G89.4 - Chronic pain syndrome (4) Right hemiparesis: Status: Acute Category: Medical Code(s): G81.91 - Hemiplegia, unspecified affecting right dominant side (5) Hypertension: Status: Chronic Category: Medical Code(s): I10 - Essential (primary) hypertension Plan Surgery has obtained EGD. Results noted. Plan will be to hold Plavix. PPI as noted. Continue to watch hemoglobin. Chronic pain issues-we will hold regular dose morphine until patient more stable. Hypertension-restart low-dose beta-xiomara today. Watch carefully. Labs tomorrow. Reevaluate for skilled care with PT and OT evaluation tomorrow once patient's hemoglobin is stable. Plan update for 01/30/2023-hemoglobin down to 8 g. We will watch at 3 PM. Transfuse if needed. PT and OT evaluation today and start diet. Plan update for 01/31/2023-hemoglobin below 8 g. Given her weakness, multiple medical problems and recent hemorrhage she does have transfusion criteria. We
--- NOTE | 2023-01-31 09:49 | PC.NURSE ---
courtesy tech round: pt is laying in bed resting. Will ask if she wants to get up to chair at lunch. call light is within reach.
[2023-01-31 21:46] LABS: Hematocrit 29.6 % (37.0-47.0)
[2023-01-31 21:53] LABS: Hemoglobin 10.1 g/dL (12.2-16.2)
[2023-02-01] VITALS: BP 108/44; PULSE 68; RESP 16; TEMP 36.6; O2SAT 98
[2023-02-01 04:00] VITALS: BP 106/50; PULSE 64; RESP 16; TEMP 36.6; O2SAT 96; BMI 37.6
[2023-02-01 06:54] LABS: Basophils % 0.7 % (0.1-2.0); Eosinophils # 0.2 K/mm3 (0.0-0.4); Hematocrit 30.4 % (37.0-47.0); Hemoglobin 10.1 g/dL (12.2-16.2); Lymphocytes # 1.6 K/mm3 (0.7-4.5); Lymphocytes % 28.1 % (10-50); Mean Corpuscular HGB Conc 33.1 g/dL (31.8-35.4); Mean Corpuscular Hemoglobin 30.6 pg (27.0-31.2); Mean Corpuscular Volume 92.3 fl (81-99); Monocytes # 0.3 K/mm3 (0.1-1.0); Monocytes % 5.8 % (1.7-9.3); Neutrophils # 3.5 K/mm3 (1.8-7.8); Neutrophils % 61.5 % (37.0-80.0); Platelet Count 264 K/mm3 (142-424); White Blood Count 5.6 K/mm3 (4.8-10.8)
[2023-02-01 06:55] LABS: Anion Gap 10.3 mEq/L (5-15); Blood Urea Nitrogen 13 mg/dl (7-17); Carbon Dioxide 26 mmol/L (22.0-30.0); Chloride 105 mmol/L (98-107); Creatinine Clearance Estimated 72 mL/min (50-200); Estimated Glomerular Filt Rate 82 ml/min (>60); GFR (African American) 99 ML/MIN (>60); Glucose 86 mg/dl (74-100); Potassium 3.3 mmoL/L (3.5-5.1); Sodium 138 mmol/L (136-145)
--- NOTE | 2023-02-01 06:57 | PC.NURSE ---
PT HAS RESTED WELL THIS SHIFT. TOLERATED BLOOD WE AND RESPONDED WELL. NO C/O NAUSEA THIS SHIFT. NO BM THIS SHIFT. ABD SOFT AND NON-TENDER. VSS. CALL AGUILAR WITHIN REACH.
--- NOTE | 2023-02-01 07:03 | EXP.SURG.PN ---
Subjective Narrative: Patient has had no issues overnight. Her hemoglobin was 7.7 yesterday, likely equilibration. Given 2 units packed red blood cells with excellent response with posttransfusion hemoglobin of 10. Tolerated transfusion well. No clinical bleeding according to nursing. Patient made n.p.o. after midnight in case she needed repeat EGD. Exam Data for Last 24 hours Vital signs and Labs for Last 24 Hours: Temp Pulse Resp BP Pulse Ox 97.9 F 64 16 106/50 L 96 02/01/23 04:00 02/01/23 04:00 02/01/23 04:00 02/01/23 04:00 02/01/23 04:00 Laboratory Results - last 24 hr 01/31/23 05:51: WBC 5.4 D, RBC 2.44 L, Hgb 7.7 L D, Hct 23.3 L, MCV 95.4, MCH 31.5 H, MCHC 33.0, RDW 13.8, Plt Count 250, MPV 8.7, Neut % (Auto) 59.9, Lymph % (Auto) 32.1, [place] % (Auto) 5.2, Eos % (Auto) 2.2, Baso % (Auto) 0.5, Neut # (Auto) 3.3, Lymph # (Auto) 1.7, [place] # (Auto) 0.3, Eos # (Auto) 0.1, Baso # (Auto) 0.0 01/31/23 06:50: Blood Type Confirm B Positive 01/31/23 08:30: Blood Type B Positive, Antibody Screen Negative, Crossmatch (AHG) See Detail 01/31/23 21:30: Hgb 10.1 L D, Hct 29.6 L 02/01/23 06:15: WBC 5.6, RBC 3.30 L D, Hgb 10.1 L, Hct 30.4 L, MCV 92.3, MCH 30.6, MCHC 33.1, RDW 15.0, Plt Count 264, MPV 9.0, Neut % (Auto) 61.5, Lymph % (Auto) 28.1, [place] % (Auto) 5.8, Eos % (Auto) 4.0, Baso % (Auto) 0.7, Neut # (Auto) 3.5, Lymph # (Auto) 1.6, [place] # (Auto) 0.3, Eos # (Auto) 0.2, Baso # (Auto) 0.0 02/01/23 06:15: Sodium 138, Potassium 3.3 L, Chloride 105, Carbon Dioxide 26, Anion Gap 10.3, BUN 13 D, Creatinine 0.70, Estimated Creat Clear 72, Estimated GFR 82, Est GFR ( Amer) 99, Glucose 86, Calcium 8.0 L I & O for Last 24 hours: Intake & Output 01/29/23 01/30/23 01/31/23 02/01/23 11:59 11:59 11:59 11:59 Intake Total 0 / 0 1872 / 1872 600 / 600 610 / 610 Output Total 0 / 0 0 / 0 Balance 0 / 0 1872 / 1872 600 / 600 610 / 610 Weight 193 lb 201 lb 1 oz 205 lb 0.478 oz 204 lb 9.6 oz Progress Note: A&P Assessment and plan (1) Acute GI bleeding: Status: Acute Assessment and plan: Hemoglobin this morning stable. Will restart diet. (2) Generalized weakness: Status: Chronic (3) Chronic pain disorder: Status: Acute (4) Right hemiparesis: Status: Acute (5) Hypertension: Status: Chronic
--- NOTE | 2023-02-01 07:40 | PC.NURSE ---
pt had an episode of bloody diarrhea this morning. breakfast tray held. la notified. 1000 h&h scheduled. per la okay to give a small amount of clears till h&h results.
[2023-02-01 08:00] VITALS: BP 147/73; PULSE 72; RESP 17; TEMP 36.6; O2SAT 96
--- NOTE | 2023-02-01 10:13 | EXP.ACUTE.PN ---
Subjective *Date: 02/01/23 *Time: 10:13 Interval history: Patient is alert and talkative. Had a good breakfast. Had 2 units of packed cells yesterday, hemoglobin had a very nice response up to 10.1 and it has remained at 10.1 this morning. However nurses report that she had a bloody bowel movement this morning with some brownish liquid stool with red blood staining around the periphery of the stool that stained her sheets. She has no abdominal pain or vomiting or nausea. Medical Exam Vital signs and Labs for Last 24 Hours: Vital Signs Temp Pulse Pulse Resp BP BP Pulse Ox 02/01/23 08:00 97.8 F 72 17 147/73 H 96 02/01/23 04:00 97.9 F 64 16 106/50 L 96 02/01/23 00:00 97.8 F 68 16 108/44 L 98 01/31/23 20:00 96 01/31/23 21:25 98.0 F 70 16 124/25 L 96 01/31/23 20:25 98.1 F 71 16 144/64 H 96 01/31/23 20:00 98.0 F 67 16 139/67 97 01/31/23 19:00 97.9 F 72 16 137/64 96 01/31/23 19:00 97.9 F 72 16 137/64 96 01/31/23 18:45 97.8 F 70 16 128/60 98 01/31/23 18:30 98.0 F 72 16 131/58 L 95 01/31/23 18:15 98.0 F 70 16 120/57 L 96 01/31/23 18:10 98.1 F 70 18 125/60 97 01/31/23 18:10 98.1 F 70 16 125/60 97 01/31/23 18:05 98.3 F 72 16 125/58 L 95 01/31/23 17:10 97.8 F 75 16 125/74 98 01/31/23 16:35 98.0 F 68 16 115/50 L 95 01/31/23 15:35 98.2 F 64 16 113/48 L 97 01/31/23 15:20 98.2 F 66 16 126/51 L 96 01/31/23 17:55 98.3 F 70 16 125/59 L 96 01/31/23 15:05 98.1 F 66 16 117/50 L 97 01/31/23 14:50 98.0 F 64 16 119/47 L 97 01/31/23 14:45 98.0 F 97 H 18 113/46 L 97 01/31/23 14:40 98.0 F 69 18 111/42 L 98 01/31/23 14:35 98.1 F 66 18 112/55 L 97 01/31/23 14:35 98.0 F 64 18 119/60 98 01/31/23 11:15 98.1 F 63 16 132/59 L 96 Intake and Output 01/31/23 02/01/23 02/01/23 19:59 03:59 11:59 Intake Total 360 / 610 250 / 610 Balance 360 / 610 250 / 610 Intake: Intake, Oral Amount 360 / 360 Intake (Blood Product) Amt 0 / 250 250 / 250 Red Blood Cells Unit 0 / 0 [id number] Red Blood Cells Unit 0 / 250 250 / 250 [id number] Other: Number of Unmeasured Voids 1 1 Number of Bowel Movements 1 Weight 204 lb 9.6 oz Patient Weight 02/01/23 11:59 Weight 204 lb 9.6 oz Laboratory Results - last 24 hr 01/31/23 06:50: Blood Type Confirm B Positive 01/31/23 08:30: Blood Type B Positive, Antibody Screen Negative, Crossmatch (AHG) See Detail 01/31/23 21:30: Hgb 10.1 L D, Hct 29.6 L 02/01/23 06:15: WBC 5.6, RBC 3.30 L D, Hgb 10.1 L, Hct 30.4 L, MCV 92.3, MCH 30.6, MCHC 33.1, RDW 15.0, Plt Count 264, MPV 9.0, Neut % (Auto) 61.5, Lymph % (Auto) 28.1, [place] % (Auto) 5.8, Eos % (Auto) 4.0, Baso % (Auto) 0.7, Neut # (Auto) 3.5, Lymph # (Auto) 1.6, [place] # (Auto) 0.3, Eos # (Auto) 0.2, Baso # (Auto) 0.0 02/01/23 06:15: Sodium 138, Potassium 3.3 L, Chloride 105, Carbon Dioxide 26, Anion Gap 10.3, BUN 13 D, Creatinine 0.70, Estimated Creat Clear 72, Estimated GFR 82, Est GFR ( Amer) 99, Glucose 86, Calcium 8.0 L I & O for Labs for Last 24 Hours: Intake & Output 01/29/23 01/30/23 01/31/23 02/01/23 11:59 11:59 11:59 11:59 Intake Total 0 / 0 1872 / 1872 600 / 600 610 / 610 Output Total 0 / 0 0 / 0 Balance 0 / 0 187 / 1872 600 / 600 610 / 610 Weight 193 lb 201 lb 1 oz 205 lb 0.478 oz 204 lb 9.6 oz Comment:: Patient is pleasant, alert, knows me, knows where she is. Is a little fuzzy about the exact date but otherwise her sensorium is intact. Cranial nerves are intact. She is globally weak but no focal deficits. Anterior lung chiang have rhonchi that are improved with a big breath on my encouragement and a cough. Abdomen soft, nontender. Extremities are warm, well-perfused. Very weak. Heart rate regular. Previously noted murmur. No other changes Assessment and Plan *Assessment and p
[2023-02-01 10:30] LABS: Hematocrit 32.8 % (37.0-47.0)
[2023-02-01 11:44] VITALS: BP 136/63; PULSE 65; RESP 17; TEMP 36.8; O2SAT 93
[2023-02-01 15:52] VITALS: BP 126/57; PULSE 72; RESP 17; TEMP 36.7; O2SAT 96
--- NOTE | 2023-02-01 16:47 | PC.NURSE ---
late entry: crackles heard t/o jose lower lungs.per besson stop ivmf. RA sat staying at 92%. o2 has been off pt for about 2 hrs now, tolerating well.
--- NOTE | 2023-02-01 18:23 | PC.NURSE ---
pt evidence of anymore blood in stool since this am. pt tolerating bland diet well, no c/o of n/v. treated chronic back pain.
[2023-02-01 20:00] VITALS: BP 153/77; PULSE 72; RESP 17; TEMP 37.1; O2SAT 95
[2023-02-02] VITALS: BP 124/52; PULSE 66; RESP 16; TEMP 37.2; O2SAT 93
[2023-02-02 04:00] VITALS: BP 145/70; PULSE 71; RESP 18; TEMP 36.8; O2SAT 93; BMI 37.4
--- NOTE | 2023-02-02 04:33 | PC.NURSE ---
pt has rested intermittantly t/o shift. a&o. VSS. 1 small bowel movement noted this shift, no visible blood noted. chronic back/hip pain, medicated per MAR. pt stable.
[2023-02-02 06:07] LABS: Basophils % 0.4 % (0.1-2.0); Eosinophils # 0.3 K/mm3 (0.0-0.4); Eosinophils % 3.7 % (0.1-12.0); Hematocrit 31.9 % (37.0-47.0); Hemoglobin 10.7 g/dL (12.2-16.2); Lymphocytes # 1.9 K/mm3 (0.7-4.5); Lymphocytes % 27.4 % (10-50); Mean Corpuscular HGB Conc 33.6 g/dL (31.8-35.4); Mean Corpuscular Hemoglobin 30.9 pg (27.0-31.2); Mean Corpuscular Volume 92.1 fl (81-99); Mean Platelet Volume 8.2 fl (7.4-10.4); Monocytes # 0.4 K/mm3 (0.1-1.0); Monocytes % 5.9 % (1.7-9.3); Neutrophils # 4.3 K/mm3 (1.8-7.8); Neutrophils % 62.6 % (37.0-80.0); Platelet Count 243 K/mm3 (142-424); Red Blood Count 3.46 M/mm3 (4.20-5.40); Red Cell Distribution Width 14.8 % (11.5-17.5); White Blood Count 6.9 K/mm3 (4.8-10.8)
--- NOTE | 2023-02-02 07:09 | EXP.SURG.PN ---
Subjective Narrative: No issues overnight. No additional rectal bleeding. Exam Data for Last 24 hours Vital signs and Labs for Last 24 Hours: Temp Pulse Resp BP Pulse Ox 98.3 F 71 18 145/70 H 93 L 02/02/23 04:00 02/02/23 04:00 02/02/23 04:00 02/02/23 04:00 02/02/23 04:00 Laboratory Results - last 24 hr 01/31/23 08:30: Crossmatch (AHG) See Detail 02/01/23 10:17: Hgb 11.0 L, Hct 32.8 L 02/02/23 05:48: WBC 6.9, RBC 3.46 L, Hgb 10.7 L, Hct 31.9 L, MCV 92.1, MCH 30.9, MCHC 33.6, RDW 14.8, Plt Count 243, MPV 8.2, Neut % (Auto) 62.6, Lymph % (Auto) 27.4, [place] % (Auto) 5.9, Eos % (Auto) 3.7, Baso % (Auto) 0.4, Neut # (Auto) 4.3, Lymph # (Auto) 1.9, [place] # (Auto) 0.4, Eos # (Auto) 0.3, Baso # (Auto) 0.0 I & O for Last 24 hours: Intake & Output 01/30/23 01/31/23 02/01/23 02/02/23 11:59 11:59 11:59 11:59 Intake Total 1871 / 1872 600 / 600 610 / 610 240 / 240 Output Total 0 / 0 0 / 0 600 / 600 Balance 1872 / 1872 600 / 600 610 / 610 -360 / -360 Weight 201 lb 1 oz 205 lb 0.478 oz 204 lb 9.6 oz 203 lb 9.6 oz Constitutional Constitutional: no acute distress Progress Note: A&P Assessment and plan (1) Acute GI bleeding: Status: Acute Assessment and plan: Hemoglobin is stable (2) Generalized weakness: Status: Chronic (3) Chronic pain disorder: Status: Acute (4) Right hemiparesis: Status: Acute (5) Hypertension: Status: Chronic
[2023-02-02 08:00] VITALS: BP 167/84; PULSE 74; RESP 20; TEMP 36.8; O2SAT 95
--- NOTE | 2023-02-02 09:56 | DIET.NUTRFU ---
Patients diet upgraded per sx to regular consistency, bland. Spoke to patient this AM, she denied any chewing or swallowing issues. She reported she does not need or want the ground meats. Her intake was poor this AM, only eating cereal. When asked about supplements, she has been receiving ensure on trays. Agreed to try Boost clear with lunch today. She also reported she consumed 50% of grilled cheese for dinner and turkey and jello for lunch. She is not a big eater, encouarged her to eat small portions plus supplements.
--- NOTE | 2023-02-02 09:59 | PC.NURSE ---
COURTESY TECH NOTE; ROUNDED ON PT 0830, PT DENIED NEED FOR RESTROOM, NEED TO REPOSITION. DRINK BROUGHT AT PT REQUEST. CALL LIGHT WITHIN REACH, NO FURTHER REQUESTS AT THIS TIME. Henny PINEDA, NILES
[2023-02-02 11:37] VITALS: BP 152/86; PULSE 68; RESP 18; TEMP 36.5; O2SAT 92
--- NOTE | 2023-02-02 14:07 | EXP.ACUTE.PN ---
Subjective *Date: 02/02/23 *Time: 14:07 Interval history: Overall did well through this morning. Noted PT evaluation which seem to show some improvement. She is up in a chair this afternoon on rounds. Medical Exam Vital signs and Labs for Last 24 Hours: Vital Signs Temp Pulse Resp BP Pulse Ox 02/02/23 11:37 97.7 F 68 18 152/86 H 92 L 02/02/23 08:00 98.2 F 74 20 167/84 H 95 02/02/23 04:00 98.3 F 71 18 145/70 H 93 L 02/02/23 00:00 98.9 F 66 16 124/52 L 93 L 02/01/23 20:00 98.7 F 72 17 153/77 H 95 02/01/23 15:52 98.1 F 72 17 126/57 L 96 Intake and Output 02/02/23 02/02/23 02/02/23 03:59 11:59 19:59 Intake Total 240 / 480 Output Total 200 / 600 400 / 600 Balance -200 / -120 -160 / -120 Intake: Intake, Oral Amount 240 / 480 Output: Output, Urine Amount 200 / 600 400 / 600 Other: Number of Voids 1 Number of Unmeasured Voids 1 1 1 Number of Bowel Movements 1 1 Weight 203 lb 9.6 oz Laboratory Results - last 24 hr 01/31/23 08:30: Crossmatch (AHG) See Detail 02/02/23 05:48: WBC 6.9, RBC 3.46 L, Hgb 10.7 L, Hct 31.9 L, MCV 92.1, MCH 30.9, MCHC 33.6, RDW 14.8, Plt Count 243, MPV 8.2, Neut % (Auto) 62.6, Lymph % (Auto) 27.4, Baxter % (Auto) 5.9, Eos % (Auto) 3.7, Baso % (Auto) 0.4, Neut # (Auto) 4.3, Lymph # (Auto) 1.9, Baxter # (Auto) 0.4, Eos # (Auto) 0.3, Baso # (Auto) 0.0 I & O for Labs for Last 24 Hours: Intake & Output 01/31/23 02/01/23 02/02/23 02/03/23 11:59 11:59 11:59 11:59 Intake Total 600 / 600 610 / 610 480 / 480 Output Total 0 / 0 600 / 600 Balance 600 / 600 610 / 610 -120 / -120 Weight 205 lb 0.478 oz 204 lb 9.6 oz 203 lb 9.6 oz Comment:: Patient is pleasant, alert, knows me, knows where she is --sensorium is intact. Cranial nerves are intact. She is globally weak but no focal deficits. Anterior lung chiang have rhonchi that are improved with a big breath on my encouragement and a cough. Abdomen soft, nontender. Extremities are warm, well-perfused. Very weak. Heart rate regular. Previously noted murmur. No other changes Assessment and Plan *Assessment and plan (1) Acute GI bleeding: Status: Acute Category: Medical Code(s): K92.2 - Gastrointestinal hemorrhage, unspecified (2) Generalized weakness: Status: Chronic Category: Medical Code(s): R53.1 - Weakness (3) Chronic pain disorder: Status: Acute Category: Medical Code(s): G89.4 - Chronic pain syndrome (4) Right hemiparesis: Status: Acute Category: Medical Code(s): G81.91 - Hemiplegia, unspecified affecting right dominant side (5) Hypertension: Status: Chronic Category: Medical Code(s): I10 - Essential (primary) hypertension Plan Surgery has obtained EGD. Results noted. Plan will be to hold Plavix. PPI as noted. Continue to watch hemoglobin. Chronic pain issues-we will hold regular dose morphine until patient more stable. Hypertension-restart low-dose beta-xiomara today. Watch carefully. Labs tomorrow. Reevaluate for skilled care with PT and OT evaluation tomorrow once patient's hemoglobin is stable. Plan update for 01/30/2023-hemoglobin down to 8 g. We will watch at 3 PM. Transfuse if needed. PT and OT evaluation today and start diet. Plan update for 01/31/2023-hemoglobin below 8 g. Given her weakness, multiple medical problems and recent hemorrhage she does have transfusion criteria. We will give 2 units packed cells, check post H&H. Follow CBC tomorrow. N.p.o. postmidnight just in case she needs every endoscopy. Continue PT and OT Plan update for 02/01/2023-hemoglobin had a nice response to transfusion and she feels better. Obviously concerned about the blood from her rectum. Follow H&H at 10 AM today. Treat if indicated. Surgery aware, I think this is probably old blood or perhaps hemorrhoidal bleeding. She has been hemodynamically stable. Adin
--- NOTE | 2023-02-02 14:57 | PC.ADMIT ---
[email or web address] [facility] Admission Note: The patient,Casandra Christie,72 y/o, was given written information regarding hospital policies, unit procedures and contact persons. Patient's smoking status: Unknown if ever smoked. Vital Signs - 8 hr 02/02/23 08:00 02/02/23 11:37 Temperature 98.2 F 97.7 F Pulse Rate [Left Brachial] 74 68 Respiratory Rate 20 18 Blood Pressure [Left Arm] 167/84 H 152/86 H 02 Sat by Pulse Oximetry 95 92 L
--- NOTE | 2023-02-02 14:57 | PC.NURSE ---
Pt is resting comfortably in the chair. Is Alert and Oriented x4. Pt has spoken to family on the phone. Did complain of nausea this AM but was better after medication.
[2023-02-02 15:27] VITALS: BP 151/76; PULSE 72; RESP 18; TEMP 36.6; O2SAT 92
[2023-02-02 20:00] VITALS: BP 147/65; PULSE 72; RESP 18; TEMP 36.6; O2SAT 92
[2023-02-03] VITALS: BP 151/78; PULSE 72; RESP 18; TEMP 36.8; O2SAT 94
[2023-02-03 04:00] VITALS: BP 124/55; PULSE 65; RESP 18; TEMP 36.9; O2SAT 95; BMI 37.5
[2023-02-03 07:46] VITALS: BP 130/54; PULSE 75; RESP 18; TEMP 37.1; O2SAT 93
[2023-02-03 09:13] LABS: Basophils % 0.4 % (0.1-2.0); Eosinophils # 0.3 K/mm3 (0.0-0.4); Eosinophils % 3.3 % (0.1-12.0); Hematocrit 34.4 % (37.0-47.0); Hemoglobin 11.2 g/dL (12.2-16.2); Lymphocytes # 1.3 K/mm3 (0.7-4.5); Lymphocytes % 15.8 % (10-50); Mean Corpuscular HGB Conc 32.6 g/dL (31.8-35.4); Mean Corpuscular Hemoglobin 30.6 pg (27.0-31.2); Mean Corpuscular Volume 93.8 fl (81-99); Mean Platelet Volume 8.4 fl (7.4-10.4); Monocytes # 0.4 K/mm3 (0.1-1.0); Monocytes % 4.5 % (1.7-9.3); Platelet Count 265 K/mm3 (142-424); Red Blood Count 3.67 M/mm3 (4.20-5.40); White Blood Count 7.9 K/mm3 (4.8-10.8)
--- NOTE | 2023-02-03 09:16 | EXP.ACUTE.PN ---
Subjective *Date: 02/03/23 *Time: 09:16 Interval history: Patient had a good day yesterday, up and around, in a chair, ate fairly well. Medical Exam Vital signs and Labs for Last 24 Hours: Vital Signs Temp Pulse Resp BP Pulse Ox 02/03/23 07:46 98.8 F 75 18 130/54 L 93 L 02/03/23 04:00 98.4 F 65 18 124/55 L 95 02/03/23 00:00 98.2 F 72 18 151/78 H 94 L 02/02/23 20:00 97.9 F 72 18 147/65 H 92 L 02/02/23 15:27 97.8 F 72 18 151/76 H 92 L 02/02/23 11:37 97.7 F 68 18 152/86 H 92 L Intake and Output 02/02/23 02/03/23 02/03/23 19:59 03:59 11:59 Intake Total 480 / 600 120 / 600 Output Total 0 / 0 Balance 480 / 600 120 / 600 Intake: Intake, Oral Amount 480 / 600 120 / 600 Output: Output, Urine Amount 0 / 0 Other: Number of Voids 1 Number of Unmeasured Voids 1 1 1 Weight 204 lb 3 oz Patient Weight 02/03/23 11:59 Weight 204 lb 3 oz Laboratory Results - last 24 hr 02/03/23 08:39: WBC 7.9, RBC 3.67 L, Hgb 11.2 L, Hct 34.4 L, MCV 93.8, MCH 30.6, MCHC 32.6, RDW 15.0, Plt Count 265, MPV 8.4, Neut % (Auto) 76.0, Lymph % (Auto) 15.8, Marion % (Auto) 4.5, Eos % (Auto) 3.3, Baso % (Auto) 0.4, Neut # (Auto) 6.0, Lymph # (Auto) 1.3, Marion # (Auto) 0.4, Eos # (Auto) 0.3, Baso # (Auto) 0.0 I & O for Labs for Last 24 Hours: Intake & Output 01/31/23 02/01/23 02/02/23 02/03/23 11:59 11:59 11:59 11:59 Intake Total 600 / 600 610 / 610 480 / 480 600 / 600 Output Total 0 / 0 600 / 600 0 / 0 Balance 600 / 600 610 / 610 -120 / -120 600 / 600 Weight 205 lb 0.478 oz 204 lb 9.6 oz 203 lb 9.6 oz 204 lb 3 oz Comment:: Patient is pleasant, alert, knows me, knows where she is --sensorium is intact. Cranial nerves are intact. She is globally weak but no focal deficits. Anterior lung chiang are clear bilaterally. Abdomen soft, nontender. Extremities are warm, well-perfused. Heart rate regular. Previously noted murmur. No other changes Assessment and Plan *Assessment and plan (1) Acute GI bleeding: Status: Acute Category: Medical Code(s): K92.2 - Gastrointestinal hemorrhage, unspecified (2) Generalized weakness: Status: Chronic Category: Medical Code(s): R53.1 - Weakness (3) Chronic pain disorder: Status: Acute Category: Medical Code(s): G89.4 - Chronic pain syndrome (4) Right hemiparesis: Status: Acute Category: Medical Code(s): G81.91 - Hemiplegia, unspecified affecting right dominant side (5) Hypertension: Status: Chronic Category: Medical Code(s): I10 - Essential (primary) hypertension Plan Surgery has obtained EGD. Results noted. Plan will be to hold Plavix. PPI as noted. Continue to watch hemoglobin. Chronic pain issues-we will hold regular dose morphine until patient more stable. Hypertension-restart low-dose beta-xiomara today. Watch carefully. Labs tomorrow. Reevaluate for skilled care with PT and OT evaluation tomorrow once patient's hemoglobin is stable. Plan update for 01/30/2023-hemoglobin down to 8 g. We will watch at 3 PM. Transfuse if needed. PT and OT evaluation today and start diet. Plan update for 01/31/2023-hemoglobin below 8 g. Given her weakness, multiple medical problems and recent hemorrhage she does have transfusion criteria. We will give 2 units packed cells, check post H&H. Follow CBC tomorrow. N.p.o. postmidnight just in case she needs every endoscopy. Continue PT and OT Plan update for 02/01/2023-hemoglobin had a nice response to transfusion and she feels better. Obviously concerned about the blood from her rectum. Follow H&H at 10 AM today. Treat if indicated. Surgery aware, I think this is probably old blood or perhaps hemorrhoidal bleeding. She has been hemodynamically stable. Continue efforts at PT. Continue efforts at discharge planning. Plan update for 02/02/2023-hemoglobin is stable. No further episodes
[2023-02-03 09:23] LABS: Blood Urea Nitrogen 8 mg/dl (7-17); Calcium 8.2 mg/dl (8.4-10.2); Carbon Dioxide 30 mmol/L (22.0-30.0); Chloride 100 mmol/L (98-107); Creatinine Clearance Estimated 72 mL/min (50-200); Estimated Glomerular Filt Rate 98 ml/min (>60); GFR (African American) 118 ML/MIN (>60); Glucose 131 mg/dl (74-100); Sodium 136 mmol/L (136-145)
[2023-02-03 12:00] VITALS: BP 135/67; PULSE 79; RESP 18; TEMP 36.8; O2SAT 95
[2023-02-03 15:28] VITALS: BP 140/70; PULSE 72; RESP 18; TEMP 37.1; O2SAT 98
--- NOTE | 2023-02-03 17:29 | PC.NURSE ---
PT REFUSED IV CHANGE AT THIS TIME. NEW DRESSING WAS APPLIED.
--- NOTE | 2023-02-03 18:25 | PC.NURSE ---
Patient able to sit in chair for most of shift. VS stable and patient remained on room air. Morphine given for chronic pain and patient able to tolerate. Zofran given for nausea with relief of symptoms. No other changes noted.
[2023-02-03 20:00] VITALS: BP 154/75; PULSE 78; RESP 18; TEMP 37.1; O2SAT 96
[2023-02-04] VITALS: BP 116/66; PULSE 75; RESP 18; TEMP 36.8; O2SAT 92
[2023-02-04 04:00] VITALS: BP 122/57; PULSE 68; RESP 18; TEMP 36.8; O2SAT 90; BMI 37.1
[2023-02-04 07:32] VITALS: BP 130/77; PULSE 79; RESP 18; TEMP 36.6; O2SAT 93
--- NOTE | 2023-02-04 09:03 | EXP.ACUTE.PN ---
Subjective *Date: 02/04/23 *Time: 09:03 Interval history: Patient is awake, alert, is very happy to be receiving birthday wishes from me and the hospital staff. She is excited about the prospect of going home tomorrow. Medical Exam Vital signs and Labs for Last 24 Hours: Vital Signs Temp Pulse Resp BP Pulse Ox 02/04/23 07:32 97.8 F 79 18 130/77 93 L 02/04/23 04:00 98.3 F 68 18 122/57 L 90 L 02/04/23 00:00 98.3 F 75 18 116/66 92 L 02/03/23 20:00 98.8 F 78 18 154/75 H 96 02/03/23 15:28 98.7 F 72 18 140/70 98 02/03/23 12:00 98.3 F 79 18 135/67 95 Intake and Output 02/03/23 02/04/23 02/04/23 19:59 03:59 11:59 Intake Total 120 / 480 360 / 480 Output Total 0 / 0 0 / 0 Balance 120 / 480 360 / 480 Intake: Intake, Oral Amount 120 / 480 360 / 480 Output: Output, Urine Amount 0 / 0 0 / 0 Other: Number of Unmeasured Voids 1 1 1 Number of Bowel Movements 1 1 Weight 202 lb 1 oz Patient Weight 02/04/23 11:59 Weight 202 lb 1 oz Laboratory Results - last 24 hr 02/03/23 08:39: WBC 7.9, RBC 3.67 L, Hgb 11.2 L, Hct 34.4 L, MCV 93.8, MCH 30.6, MCHC 32.6, RDW 15.0, Plt Count 265, MPV 8.4, Neut % (Auto) 76.0, Lymph % (Auto) 15.8, Crowley % (Auto) 4.5, Eos % (Auto) 3.3, Baso % (Auto) 0.4, Neut # (Auto) 6.0, Lymph # (Auto) 1.3, Crowley # (Auto) 0.4, Eos # (Auto) 0.3, Baso # (Auto) 0.0 02/03/23 08:39: Sodium 136, Potassium 3.0 L, Chloride 100, Carbon Dioxide 30, Anion Gap 9.0, BUN 8 D, Creatinine 0.60, Estimated Creat Clear 72, Estimated GFR 98, Est GFR ( Amer) 118, Glucose 131 H, Calcium 8.2 L I & O for Labs for Last 24 Hours: Intake & Output 02/01/23 02/02/23 02/03/23 02/04/23 11:59 11:59 11:59 11:59 Intake Total 610 / 610 480 / 480 800 / 800 480 / 480 Output Total 600 / 600 0 / 0 0 / 0 Balance 610 / 610 -120 / -120 800 / 800 480 / 480 Weight 204 lb 9.6 oz 203 lb 9.6 oz 204 lb 3 oz 202 lb 1 oz Comment:: Patient is pleasant, alert, knows me, knows where she is --sensorium is intact. Cranial nerves are intact. She is globally weak but has made some nice improvements over the past 3 days with her ability to get into a chair by herself with minimal help.. Anterior lung chiang are clear bilaterally. Abdomen soft, nontender. Extremities are warm, well-perfused. Heart rate regular. Previously noted murmur. No other changes Assessment and Plan *Assessment and plan (1) Acute GI bleeding: Status: Acute Category: Medical Code(s): K92.2 - Gastrointestinal hemorrhage, unspecified (2) Generalized weakness: Status: Chronic Category: Medical Code(s): R53.1 - Weakness (3) Chronic pain disorder: Status: Acute Category: Medical Code(s): G89.4 - Chronic pain syndrome (4) Right hemiparesis: Status: Acute Category: Medical Code(s): G81.91 - Hemiplegia, unspecified affecting right dominant side (5) Hypertension: Status: Chronic Category: Medical Code(s): I10 - Essential (primary) hypertension Plan Surgery has obtained EGD. Results noted. Plan will be to hold Plavix. PPI as noted. Continue to watch hemoglobin. Chronic pain issues-we will hold regular dose morphine until patient more stable. Hypertension-restart low-dose beta-xiomara today. Watch carefully. Labs tomorrow. Reevaluate for skilled care with PT and OT evaluation tomorrow once patient's hemoglobin is stable. Plan update for 01/30/2023-hemoglobin down to 8 g. We will watch at 3 PM. Transfuse if needed. PT and OT evaluation today and start diet. Plan update for 01/31/2023-hemoglobin below 8 g. Given her weakness, multiple medical problems and recent hemorrhage she does have transfusion criteria. We will give 2 units packed cells, check post H&H. Follow CBC tomorrow. N.p.o. postmidnight just in case she needs every endoscopy. Continue PT and OT Plan update for 02/01/2023-hemoglobin had a ni
[2023-02-04 11:07] LABS: Chloride 108 mmol/L (98-107); Sodium 138 mmol/L (136-145)
[2023-02-04 11:08] LABS: Potassium 4.9 mmoL/L (3.5-5.1)
[2023-02-04 11:10] LABS: Blood Urea Nitrogen 7 mg/dl (7-17); Creatinine Clearance Estimated 70 mL/min (50-200); Estimated Glomerular Filt Rate 82 ml/min (>60); GFR (African American) 99 ML/MIN (>60)
[2023-02-04 11:11] LABS: Anion Gap 13.9 mEq/L (5-15); Calcium 8.9 mg/dl (8.4-10.2); Carbon Dioxide 21 mmol/L (22.0-30.0); Glucose 106 mg/dl (74-100)
[2023-02-04 11:27] VITALS: BP 143/72; PULSE 65; RESP 18; TEMP 36.6; O2SAT 95
[2023-02-04 15:35] VITALS: BP 117/64; PULSE 73; RESP 18; TEMP 36.8; O2SAT 96
--- NOTE | 2023-02-04 16:21 | PC.NURSE ---
Patient remained on room air and VS stable. Patient up to chair after lunch and tolerated well. No nausea noted but morphine given q4 for chronic pain. No bloody bowel movements noted during shift.
[2023-02-04 20:00] VITALS: BP 151/79; PULSE 72; RESP 18; TEMP 36.7; O2SAT 92
[2023-02-05] VITALS: BP 134/58; PULSE 65; RESP 17; TEMP 36.7; O2SAT 94
[2023-02-05 04:00] VITALS: BP 129/58; PULSE 75; RESP 18; TEMP 36.7; O2SAT 91; BMI 36.8
[2023-02-05 08:00] VITALS: BP 149/67; PULSE 74; RESP 22; TEMP 36.6; O2SAT 91
--- NOTE | 2023-02-05 08:55 | EXP.DC.SUM ---
General Admission date:: 01/29/23 Discharge date: 02/05/23 HPI HPI HPI: Patient is a 72-year-old female with multiple medical problems including chronic ataxia, chronic cerebrovascular disease, chronic opiate dependency, chronic neuropathy. She has had multiple strokes over the past several decades and has issues with cerebral vasculitis, chronic arthritis, spinal stenosis and chronic pain syndrome. She had recently been transferred to long-term care facility for rehabilitation. She had been admitted to this facility about 6 weeks ago with human metapneumovirus. She was readmitted about 2 weeks ago for pneumonia and ultimately discharged on 01/23/2023. Patient was transported to the emergency department this morning due to passage of blood clots per rectum. She was evaluated in the emergency department. She underwent CT scan which revealed findings of patchy airspace disease/consolidation bilaterally concerning for pneumonia, large hiatal hernia, atrophic pancreas. She had Hemoccult positivity on stool testing. Her hemoglobin is 10.4 which is close to her recent laboratory assessment values. Several weeks ago she had a hemoglobin of 13. She has a BUN of 45. Patient is on Plavix. Above note per surgery consultation. Agree with history review and presentation. Hospital Course Hospital Course Hospital Course: Patient was admitted with evidence of GI bleed. Underwent EGD which showed the duodenal bleed as noted in chart. Placed on misoprostol and Protonix. Did well, was observed very carefully because of high risk of rebleeding. Did require 2 units of packed cells but responded very well to this and had no further evidence of blood loss after this event and hemoglobin remained in double digits. Long discussions with family about disposition. They had a lot of of concerns/questions/requirements about where they wished her to be in a long-term care facility and had a lot of misgivings about prior placement. As a result, we elected to try to pursue home health and this was done after patient responded well to [facility] PT here and got some strength back especially after her blood transfusion and some medication changes. Specifically, we reduced her morning morphine which seemed to help with energy levels. Yesterday and today she is done well, has done well with PT, has eaten well, has had some small bowel movements without blood. Her hemoglobin is remained unremarkable and her electrolytes have been stable. Plan okay to discharge home today with home health. She has a hospital bed, bedside commode, wheelchair and walker at her house. She will be at her home where her lives along with the care of her daughters who live very close. I will see her in the next 4 to 5 days and surgery will see her in the next week to follow-up her EGD. She will be discharged on the medications as noted including misoprostol and pantoprazole. Please note reduce morphine dose as noted. Patient also wonders about restarting her perphenazine which she taken at home for many many years, I would like to continue to hold this given the fact that she is been doing so well over the past 4 to 5 days. Exam Data for Last 24 hours Vital signs and Labs for Last 24 Hours: Temp Pulse Resp BP Pulse Ox 97.9 F 74 22 149/67 H 91 L 02/05/23 08:00 02/05/23 08:00 02/05/23 08:00 02/05/23 08:00 02/05/23 08:00 Laboratory Results - last 24 hr 02/04/23 10:00: Sodium 138, Potassium 4.9 D, Chloride 108 H, Carbon Dioxide 21 L, Anion Gap 13.9, BUN 7, Creatinine 0.70, Estimated Creat Clear 70, Estimated GFR 82, Est GFR ( Amer) 99, Glucose 106 H, Calcium 8.9 I & O for Last 24 hours: Intake & Output 02/02/23 02/03/23 02/04/23 02/05/23 11:59 11:59 11:59 11:59 Intake Total 480 / 480 800 / 800 480 / 480 600 / 600 Output Total 600 / 600 0 / 0 0 / 0 0 / 0 Balance -120 / -120 800 / 800 480 / 480 600 / 600 Weight 203 lb 9.6 oz 204 lb 3 oz 202 lb 1 oz 199 lb
--- NOTE | 2023-02-05 09:45 | HMH.PHAINT1 ---
Pharmacy Intervention Comments: Discharge medication counseling completed. The patient was starting these new medications: -misoprostol: 200 mcg q6h. Told of potential side effects such as upset stomach and diarrhea. Told patient to take the medication with food if this occurred. -pantoprazole:40 mg twice daily. Told patient it was best to take 30 minutes to one hour before eating. The patient and I discussed which of her home medications she was to continue taking and the indication of each. The patient was informed to stop the following medications: -clopidogrel -perphenazine: patient expressed some concern about stopping this. Told her that Dr. Coates thought she was feeling good and doing well without it while inpatient so he wanted to continue to hold. Patient verbalized understanding and had no other questions.
--- NOTE | 2023-02-06 13:56 | CARE MANAGER ---
Contacted patient related to hospital discharge. She states home health is currently there and she is aware of follow up appointments. She does have her new medication and denies any questions or concerns. JOSE Willoughby
== END 2023-02-05 12:50 | disposition home health service (06) | DRG 378 ==
LOC: ER 07:42 → 2ND 08:23
PROVIDERS: Surgery; Admitting Provider Internal Medicine Adolescent Medicine; Emergency Provider Emergency Medicine; PCP Internal Medicine Adolescent Medicine; Visit Provider Internal Medicine Adolescent Medicine
PROC: 0DJ08ZZ Inspection of Upper Intestinal Tract, Via Natural or Artificial Opening Endoscopic (ICD-10-PCS; CPT 43235; principal; 2023-01-29 11:00)
DX: K26.4 Chronic or unspecified duodenal ulcer with hemorrhage (principal); F11.20 Opioid dependence, uncomplicated; G81.91 Hemiplegia, unspecified affecting right dominant side; G89.29 Other chronic pain; G62.9 Polyneuropathy, unspecified; K22.89 Other specified disease of esophagus; K31.9 Disease of stomach and duodenum, unspecified; Z86.73 Personal history of transient ischemic attack (TIA), and cerebral infarction without residual deficits; I10 Essential (primary) hypertension
CPT/HCPCS: 43255; 36415; 74177; 80048; 80076; 81001; 82272; 84145; 85007; 85014; 85018; 85025; 85651; 86140; 86850; 87636; 97110; 97162; 97165; 97530; 97535; 99285; C9803; G0328; J2405; P9016; Q9967; U0003; U0005

== ENCOUNTER → 2023-02-14 14:54 | Outpatient (CLI) | payer MEDICARE, OTHER, SELFPAY ==
[2023-02-14 16:08] LABS: Basophils % 0.5 % (0.1-2.0); Eosinophils # 0.3 K/mm3 (0.0-0.4); Eosinophils % 3.3 % (0.1-12.0); Hematocrit 39.2 % (37.0-47.0); Hemoglobin 12.1 g/dL (12.2-16.2); Lymphocytes # 2.3 K/mm3 (0.7-4.5); Mean Corpuscular HGB Conc 30.9 g/dL (31.8-35.4); Mean Corpuscular Volume 96.9 fl (81-99); Mean Platelet Volume 8.7 fl (7.4-10.4); Monocytes # 0.3 K/mm3 (0.1-1.0); Monocytes % 3.9 % (1.7-9.3); Neutrophils # 5.2 K/mm3 (1.8-7.8); Neutrophils % 64.3 % (37.0-80.0); Platelet Count 210 K/mm3 (142-424); Red Blood Count 4.05 M/mm3 (4.20-5.40); Red Cell Distribution Width 15.4 % (11.5-17.5); White Blood Count 8.1 K/mm3 (4.8-10.8)
[2023-02-14 16:20] LABS: Alanine Aminotransferase 19 U/L (12-78); Albumin Level 2.8 g/dl (3.5-5.0); Albumin/Globulin Ratio 0.8 (1.1-1.8); Alkaline Phosphatase 107 U/L (38-126); Anion Gap 11.8 mEq/L (5-15); Aspartate Amino Transferase 28 U/L (14-36); Bilirubin,Total 0.2 mg/dl (0.2-1.3); Blood Urea Nitrogen 13 mg/dl (7-17); Calcium 8.5 mg/dl (8.4-10.2); Carbon Dioxide 30 mmol/L (22.0-30.0); Chloride 103 mmol/L (98-107); Estimated Glomerular Filt Rate 82 ml/min (>60); GFR (African American) 99 ML/MIN (>60); Globulin 3.3 g/dL (1.3-3.2); Glucose 129 mg/dl (74-100); Sodium 142 mmol/L (136-145); Total Protein,Serum 6.1 g/dl (6.3-8.2)
[2023-02-14 16:30] LABS: Potassium 2.8 mmoL/L (3.5-5.1)
== END ==
PROVIDERS: PCP Internal Medicine Adolescent Medicine; Visit Provider Internal Medicine Adolescent Medicine
DX: K92.2 Gastrointestinal hemorrhage, unspecified (principal)
CPT/HCPCS: 80053; 85025

== ENCOUNTER → 2023-03-19 09:36 | Outpatient (CLI) | payer MEDICARE, OTHER, SELFPAY ==
[2023-03-19 10:12] LABS: Basophils % 0.3 % (0.1-2.0); Eosinophils # 0.4 K/mm3 (0.0-0.4); Eosinophils % 5.1 % (0.1-12.0); Hematocrit 38.9 % (37.0-47.0); Hemoglobin 12.2 g/dL (12.2-16.2); Lymphocytes # 1.9 K/mm3 (0.7-4.5); Lymphocytes % 24.1 % (10-50); Mean Corpuscular HGB Conc 31.4 g/dL (31.8-35.4); Mean Corpuscular Hemoglobin 29.4 pg (27.0-31.2); Mean Corpuscular Volume 93.8 fl (81-99); Mean Platelet Volume 9.2 fl (7.4-10.4); Monocytes # 0.3 K/mm3 (0.1-1.0); Monocytes % 4.4 % (1.7-9.3); Neutrophils # 5.1 K/mm3 (1.8-7.8); Neutrophils % 66.1 % (37.0-80.0); Platelet Count 187 K/mm3 (142-424); Red Blood Count 4.15 M/mm3 (4.20-5.40); Red Cell Distribution Width 14.4 % (11.5-17.5); White Blood Count 7.7 K/mm3 (4.8-10.8)
[2023-03-19 10:38] LABS: Anion Gap 9.3 mEq/L (5-15); Blood Urea Nitrogen 15 mg/dl (7-17); Carbon Dioxide 35 mmol/L (22.0-30.0); Chloride 100 mmol/L (98-107); Estimated Glomerular Filt Rate 70 ml/min (>60); GFR (African American) 85 ML/MIN (>60); Glucose 111 mg/dl (74-100); Magnesium 1.4 mg/dl (1.6-2.3); Potassium 3.3 mmoL/L (3.5-5.1); Sodium 141 mmol/L (136-145)
== END ==
PROVIDERS: PCP Internal Medicine Adolescent Medicine; Visit Provider Nurse Practitioner Family
DX: R60.0 Localized edema (principal)
CPT/HCPCS: 36415; 80048; 83735; 85025

== ENCOUNTER → 2023-04-18 10:49 | Outpatient (POV) | payer MEDICARE, OTHER, SELFPAY ==
--- NOTE | 2023-04-18 12:18 | EXP.PAIN.SOA ---
[facility] Pain Management SOAP Note Subjective:: Patient is a pleasant 73-year-old female who presents today for follow-up and medication refill. We are currently treating the patient for degenerative disc disease of thoracic and lumbar spine with thoracic and lumbar radiculopathy symptoms. Today she rates her pain a 7 out of 10. She is stating that she continues to have mid to low back pain and has been having more weakness in her legs but that is related to trying to recover from illness over the last few months. She states that she did have a fall back in November which led to her being hospitalized. She did end up coming down with pneumonia and spent 2-1/2 months in a custodial for rehab. Patient was previously on morphine 15 mg at night and 30 mg morphine in the morning however while she was hospitalized Dr. Dudley did decrease her medication to just the 15 mg of morphine a day. Patient denies any side effects from this medication however she states it is not effectively treating her pain symptoms. She is requesting an increase at today's visit. Her Asif is [id number]. Its been reviewed and appropriate. Review of Systems: General: No recent weight changes, no fever, no sleep disturbances Respiratory: No cough, no shortness of air, no recurring pulmonary infections Cardiovascular/peripheral vascular: No chest pain, no palpitations, no edema, no shortness of breath Gastrointestinal: No new onset incontinence, normal bowel movements reported Genitourinary: No new onset incontinence Musculoskeletal: Mid to low back pain Psychiatric: [Normal mood/affect] Neurological: [Denies weakness in extremities], [denies balance issues] Objective:: Physical Exam: General: Alert and oriented x3, no acute distress, pleasant and cooperative Lungs: Respirations even and unlabored, symmetrical chest expansion Eyes: PERRL Musculoskeletal: Flexion and extension of thoracic, lumbar [spine] somewhat guarded secondary to pain, [antalgic gait noted] Neurological: Speech clear, no gross sensory deficit Assessment:: Degenerative disc disease of thoracic and lumbar spine with thoracic and lumbar radiculopathy symptoms, chronic pain Plan:: I will refill the patient's morphine sulfate ER 15 mg and change it to twice daily and provide a 1 month supply of this medication. Patient will return to clinic in 1 month for reevaluation of symptoms and plan of care. Patient has been advised of risks of oversedation with the prescribed medication. Narcan has been offered to the patient in the event of oversedation. Patient has been advised that a family member should also be educated regarding administration of Narcan. Patient has been instructed to contact the clinic with any concerns before the next appointment. Dr. Dudley has reviewed this note and agrees with this plan of care. This note was dictated using voice recognition software and make contain errors or omissions. [facility] Disclaimer: The information contained in this section may have been updated after the patient was seen, as this information can be updated by other users. Surgical History Previous back surgery Family History Other No significant family history Social History (Updated 01/29/23 @ 09:40 by Eleanor Alvarado RN) Smoking Status: Unknown if ever smoked alcohol intake: never substance use type: denies use current occupational status: retired Travel in the last 8 weeks: None household members: spouse housing: house current occupational exposures/hazards: No caffeine: Yes
[2023-04-18 13:34] VITALS: BP 129/81; PULSE 79; RESP 18; O2SAT 95; BMI 34.5
== END | disposition home or self-care (01) ==
PROVIDERS: Visit Provider Nurse Practitioner Family
DX: M51.14 Intervertebral disc disorders with radiculopathy, thoracic region (principal); M51.16 Intervertebral disc disorders with radiculopathy, lumbar region; G89.29 Other chronic pain
CPT/HCPCS: 99212; G0463

== ENCOUNTER → 2023-04-27 13:10 | Outpatient (CLI) | payer MEDICARE, OTHER, SELFPAY ==
--- NOTE | 2023-04-27 13:17 | XR_ITS ---
FINAL REPORT CLINICAL HISTORY: RT SIDED LOW BACK PAIN FINDINGS: LUMBAR SPINE Five views demonstrate no acute fracture. There are moderate and severe degenerative changes. There is retrolisthesis of L2 on 3 and L3 on 4. Vacuum phenomenon is seen at L2-3. There is a moderate compression fracture of T12. Mild rightward curvature is identified. IMPRESSION: Degenerative and chronic appearing findings. Reviewed, Interpreted and Dictated by Reji Llanos III, MD Transcribed by Katja Iraheta Authenticated and [facility]
== END ==
PROVIDERS: PCP Nurse Practitioner Family; Visit Provider Nurse Practitioner Family
DX: M54.41 Lumbago with sciatica, right side (principal)
CPT/HCPCS: 72110

== ENCOUNTER → 2023-07-13 10:09 | Outpatient (POV) | payer MEDICARE, OTHER, SELFPAY ==
--- NOTE | 2023-07-13 10:34 | A.OFFVIS_ITS ---
[facility] Pain Management SOAP Note Subjective:: This patient is a very pleasant 73-year-old female that comes our clinic today for medication refills. We currently treat the patient for chronic degenerative disc thoracic and lumbar spine with thoracic and lumbar radiculopathy symptoms. Patient rates her pain today 7/10. Patient ambulates with a walker for stability. However, she is staying active with friend group. Also, she is able to continue with light housework and yard work. Patient reports the pain medicine allows her this life. We currently manage her with morphine sulfate 15 mg twice daily. Patient takes a dose in the morning and a dose in the p.m. Her Asif #[id number] has been reviewed and appropriate. Her UDS is appropriate. She does not report any side effects or complications with the current oral medications. Objective:: Patient is awake alert [place] x3. In no acute distress. Flexion-extension lumbar spine somewhat guarded secondary to pain. Deep tendon reflexes upper lower extremities normal. There is no gross sensory deficit. Gait is normal. Assessment:: Degenerative disc disease thoracic spine. Thoracic radiculopathy. Degenerative disc disease lumbar spine. Lumbar radiculopathy. Plan:: We will refill the patient's pain medication. Morphine sulfate 15 mg 1 p.o. twice daily. She will return to see us in a month. [facility] Disclaimer: The information contained in this section may have been updated after the patient was seen, as this information can be updated by other users. Surgical History Previous back surgery Family History Other No significant family history Social History (Updated 01/29/23 @ 09:40 by Eleanor Alvarado RN) Smoking Status: Unknown if ever smoked alcohol intake: never substance use type: denies use current occupational status: retired Travel in the last 8 weeks: None household members: spouse housing: house current occupational exposures/hazards: No caffeine: Yes
[2023-07-13 11:04] VITALS: BP 118/78; PULSE 67; RESP 18; O2SAT 98; BMI 33.0
== END | disposition home or self-care (01) ==
PROVIDERS: PCP Internal Medicine Adolescent Medicine; Visit Provider Nurse Anesthetist, Certified Registered
DX: M51.14 Intervertebral disc disorders with radiculopathy, thoracic region (principal); M51.16 Intervertebral disc disorders with radiculopathy, lumbar region
CPT/HCPCS: 99212; G0463

== ENCOUNTER → 2023-07-13 10:38 | Outpatient (CLI) | payer MEDICARE, OTHER, SELFPAY ==
[2023-07-13 11:29] LABS: Basophils % 0.4 % (0.1-2.0); Eosinophils # 0.2 K/mm3 (0.0-0.4); Eosinophils % 2.7 % (0.1-12.0); Hemoglobin 12.5 g/dL (12.2-16.2); Lymphocytes # 1.2 K/mm3 (0.7-4.5); Lymphocytes % 22.4 % (10-50); Mean Corpuscular HGB Conc 33.7 g/dL (31.8-35.4); Mean Corpuscular Hemoglobin 31.8 pg (27.0-31.2); Mean Corpuscular Volume 94.2 fl (81-99); Mean Platelet Volume 9.1 fl (7.4-10.4); Monocytes # 0.3 K/mm3 (0.1-1.0); Monocytes % 4.7 % (1.7-9.3); Neutrophils # 3.8 K/mm3 (1.8-7.8); Neutrophils % 69.9 % (37.0-80.0); Platelet Count 188 K/mm3 (142-424); Red Blood Count 3.93 M/mm3 (4.20-5.40); Red Cell Distribution Width 13.4 % (11.5-17.5); White Blood Count 5.5 K/mm3 (4.8-10.8)
[2023-07-13 12:19] LABS: Alanine Aminotransferase 14 U/L (12-78); Albumin Level 3.4 g/dl (3.5-5.0); Albumin/Globulin Ratio 1.1 (1.1-1.8); Alkaline Phosphatase 101 U/L (38-126); Anion Gap 10.8 mEq/L (5-15); Aspartate Amino Transferase 30 U/L (14-36); Bilirubin,Total 0.5 mg/dl (0.2-1.3); Blood Urea Nitrogen 17 mg/dl (7-17); Calcium 9.3 mg/dl (8.4-10.2); Carbon Dioxide 33 mmol/L (22.0-30.0); Chloride 100 mmol/L (98-107); Estimated Glomerular Filt Rate 44 ml/min (>60); GFR (African American) 53 ML/MIN (>60); Globulin 3.2 g/dL (1.3-3.2); Glucose 114 mg/dl (74-100); Potassium 3.8 mmoL/L (3.5-5.1); Sodium 140 mmol/L (136-145); Total Protein,Serum 6.6 g/dl (6.3-8.2)
== END ==
PROVIDERS: PCP Internal Medicine Adolescent Medicine; Visit Provider Internal Medicine Adolescent Medicine
DX: R10.84 Generalized abdominal pain (principal)
CPT/HCPCS: 36415; 80053; 85025; 99212; G0463

== ENCOUNTER → 2023-08-08 10:40 | Outpatient (POV) | payer MEDICARE, OTHER, SELFPAY ==
[2023-08-08 10:50] VITALS: BP 133/80; PULSE 65; RESP 18; O2SAT 100; BMI 32.4
--- NOTE | 2023-08-08 10:53 | A.OFFVIS_ITS ---
[facility] Pain Management SOAP Note Subjective:: Patient is a pleasant 73-year-old female who presents today for medication refill. We are currently treating the patient for degenerative disc disease of thoracic and lumbar spine with thoracic and lumbar radiculopathy symptoms. Today she rates her pain an 8 out of 10. Patient denies any new trauma or injury from our last visit. She is currently managed with morphine sulfate 15 mg twice a day. She denies any side effects from this medication. She states that this medication does help make her daily aches and pains better and feel more functional. Her Asif has been reviewed and is appropriate. Review of Systems: General: No recent weight changes, no fever, no sleep disturbances Respiratory: No cough, no shortness of air, no recurring pulmonary infections Cardiovascular/peripheral vascular: No chest pain, no palpitations, no edema, no shortness of breath Gastrointestinal: No new onset incontinence, normal bowel movements reported Genitourinary: No new onset incontinence Musculoskeletal: Mid to low back pain Psychiatric: [Normal mood/affect] Neurological: [Denies weakness in extremities], [denies balance issues] Objective:: Physical Exam: General: Alert and oriented x3, no acute distress, pleasant and cooperative Lungs: Respirations even and unlabored, symmetrical chest expansion Eyes: PERRL Musculoskeletal: Flexion and extension of lumbar [spine] somewhat guarded secondary to pain, [antalgic gait noted] Neurological: Speech clear, no gross sensory deficit Assessment:: Degenerative disc disease of thoracic and lumbar spine with thoracic and lumbar radiculopathy symptoms Plan:: We will refill the patient's morphine sulfate 15 mg twice daily and provide a 1 month supply of these medications. Patient will return to clinic in 1 month for reevaluation of symptoms and medication refill. Patient has been advised of risks of oversedation with the prescribed medication. Narcan has been offered to the patient in the event of oversedation. Patient has been advised that a family member should also be educated regarding administration of Narcan. Patient has been instructed to contact the clinic with any concerns before the next appointment. Dr. Dudley has reviewed this note and agrees with this plan of care. This note was dictated using voice recognition software and make contain errors or omissions. [facility] Disclaimer: The information contained in this section may have been updated after the mauricio claire was seen, as this information can be updated by other users. Surgical History Previous back surgery Family History Other No significant family history Social History (Updated 01/29/23 @ 09:40 by Eleanor Alvarado RN) Smoking Status: Unknown if ever smoked alcohol intake: never substance use type: denies use current occupational status: retired Travel in the last 8 weeks: None household members: spouse housing: house current occupational exposures/hazards: No caffeine: Yes
== END | disposition home or self-care (01) ==
PROVIDERS: PCP Internal Medicine Adolescent Medicine; Visit Provider Nurse Practitioner Family
DX: M51.14 Intervertebral disc disorders with radiculopathy, thoracic region (principal); M51.16 Intervertebral disc disorders with radiculopathy, lumbar region
CPT/HCPCS: 99212; G0463

== ENCOUNTER → 2023-09-20 14:05 | Outpatient (POV) | payer MEDICARE, OTHER, SELFPAY ==
[2023-09-20 14:46] VITALS: BP 133/79; PULSE 67; RESP 18; O2SAT 97; BMI 32.5
--- NOTE | 2023-09-20 14:50 | A.OFFVIS_ITS ---
[facility] Pain Management SOAP Note Subjective:: Patient is a pleasant 73-year-old female who presents today for 1 month follow- up and medication refill. We are currently treating the patient for degenerative disc disease of thoracic and lumbar spine with thoracic and lumbar radiculopathy symptoms. Today she rates her pain an 8 out of 10. Patient denies any new trauma or injury since her last visit. She is currently managed with morphine sulfate 15 mg twice daily. Patient denies any side effects from this medication. She states it does continue to help her daily aches and pains. Her Asif has been reviewed and is appropriate. Review of Systems: General: No recent weight changes, no fever, no sleep disturbances Respiratory: No cough, no shortness of air, no recurring pulmonary infections Cardiovascular/peripheral vascular: No chest pain, no palpitations, no edema, no shortness of breath Gastrointestinal: No new onset incontinence, normal bowel movements reported Genitourinary: No new onset incontinence Musculoskeletal: Low back pain Psychiatric: [Normal mood/affect] Neurological: [Denies weakness in extremities], [denies balance issues] Objective:: Physical Exam: General: Alert and oriented x3, no acute distress, pleasant and cooperative Lungs: Respirations even and unlabored, symmetrical chest expansion Eyes: PERRL Musculoskeletal: Flexion and extension of lumbar [spine] somewhat guarded secondary to pain, [antalgic gait noted] Neurological: Speech clear, no gross sensory deficit Assessment:: Degenerative disc disease of thoracic and lumbar spine with thoracic and lumbar radiculopathy symptoms Plan:: Patient continues to do well with her current medication regimen. I will refill her morphine sulfate 15 mg twice a day and provide a 1 month supply of this m edication. Patient will return to clinic in 1 month for reevaluation of symptoms and plan of care. Patient has been advised of risks of oversedation with the prescribed medication. Narcan has been offered to the patient in the event of oversedation. Patient has been advised that a family member should also be educated regarding administration of Narcan. Patient has been instructed to contact the clinic with any concerns before the next appointment. Dr. Dudley has reviewed this note and agrees with this plan of care. This note was dictated using voice recognition software and make contain errors or omissions. [facility] Disclaimer: The information contained in this section may have been updated after the patient was seen, as this information can be updated by other users. Surgical History Previous back surgery Family History Other No significant family history Social History (Updated 01/29/23 @ 09:40 by Eleanor Alvarado RN) Smoking Status: Unknown if ever smoked alcohol intake: never substance use type: denies use current occupational status: retired Travel in the last 8 weeks: None household members: spouse housing: house current occupational exposures/hazards: No caffeine: Yes
[2023-09-25 14:12] LABS: Acetone <0.010 g/dL (0.000-0.010); Butalbital <1 ug/mL (1-10); Chlordiazepoxide <0.1 ug/mL (0.1-0.9); Diazepam <0.1 ug/mL (0.1-0.9); Ethanol <0.010 g/dL (0.000-0.010); Isopropanol <0.010 g/dL (0.000-0.010); Pentobarbital <1 ug/mL (1-5)
== END | disposition home or self-care (01) ==
PROVIDERS: PCP Internal Medicine Adolescent Medicine; Visit Provider Nurse Practitioner Family
DX: Z79.891 Long term (current) use of opiate analgesic (principal); M51.14 Intervertebral disc disorders with radiculopathy, thoracic region; M51.16 Intervertebral disc disorders with radiculopathy, lumbar region
CPT/HCPCS: 36415; 80306; 80307; 99212; G0463

== ENCOUNTER 2023-09-20 14:47 | Outpatient (CLI) | payer MEDICARE, OTHER, SELFPAY | END 2023-09-20 23:59 | LOC: LAB 14:49 | PROVIDERS: PCP Internal Medicine Adolescent Medicine; Visit Provider Nurse Practitioner Family | DX: Z79.891 Long term (current) use of opiate analgesic (principal) ==

== ENCOUNTER 2023-10-09 09:45 | Emergency (ER) | payer MEDICARE, OTHER, SELFPAY ==
[2023-10-09 09:46] VITALS: BP 145/85; PULSE 66; RESP 20; TEMP 37.1; O2SAT 96; BMI 31.4
[2023-10-09 10:00] VITALS: BP 136/85; PULSE 56; RESP 20; O2SAT 98
--- NOTE | 2023-10-09 10:11 | CT_ITS ---
FINAL REPORT CLINICAL HISTORY: fall, >63, L hip injury, back pain, nausea/abd renetta COMPARISON: None FINDINGS: CT BONY PELVIS: There is moderate joint space narrowing of the hip there are small defects in the right iliac wing, that may be iatrogenic, such as bone marrow biopsy. No evidence of acute fracture or dislocation is identified. No focal soft tissue abnormalities are noted in the pelvis. There is a large amount of stool present in the colon. IMPRESSION: Moderate joint space narrowing bilaterally in the hips. No acute bony abnormality identified. Reviewed, Interpreted and Dictated by Murphy Murdock MD Transcribed by Ingrid Neal Authenticated and [facility]
--- NOTE | 2023-10-09 10:11 | XR_ITS ---
FINAL REPORT CLINICAL HISTORY: fall, >63, L hip injury, back pain, nausea/abd renetta COMPARISON: None FINDINGS: Three views of the left knee reveal no evidence of fracture or dislocation. The bony alignment is normal. There is mild medial compartment degenerative change present. Small osteophytes are noted. There is no evidence of joint effusion. No localized soft tissue abnormality is seen. IMPRESSION: No acute abnormality identified. Reviewed, Interpreted and Dictated by Murphy Murdock MD Transcribed by Ingrid Neal Authenticated and [facility]
--- NOTE | 2023-10-09 10:11 | XR_ITS ---
FINAL REPORT CLINICAL HISTORY: fall, >63, L hip injury, back pain, nausea/abd renetta COMPARISON: None FINDINGS: AP and frog leg views of the left hip were obtained. There is no prior exam for comparison. There is no acute fracture or dislocation. Mild degenerative changes present in the left hip joint. Soft tissues are within normal limits. IMPRESSION: No acute osseous abnormality of the left hip. Reviewed, Interpreted and Dictated by Murphy Murdock MD Transcribed by Ingrid Neal Authenticated and [facility]
--- NOTE | 2023-10-09 10:11 | CT_ITS ---
FINAL REPORT TECHNIQUE: multiple axial CT images were performed from the foramen magnum to the vertex without enhancement. CLINICAL HISTORY: fall, >63, L hip injury, back pain, nausea/abd renetta COMPARISON: 01/09/2023 FINDINGS: There is asymmetric positioning of the head within the gantry. There is mild age-appropriate atrophy. There is periventricular white matter change likely related to small vessel disease. There is no evidence of hemorrhage. No masses are identified. No extra-axial fluid is seen. The sinuses are normal. IMPRESSION: Atrophy and chronic changes without acute process. Reviewed, Interpreted and Dictated by Murphy Murdock MD Transcribed by Ingrid Neal Authenticated and [facility]
--- NOTE | 2023-10-09 10:11 | XR_ITS ---
FINAL REPORT CLINICAL HISTORY: fall, >63, L hip injury, back pain, nausea/abd renetta COMPARISON: None FINDINGS: Two views show no evidence of an acute, displaced fracture or dislocation of the visualized bony architecture. The joint spaces appear normal. Mild vascular calcification is noted in the soft tissues. IMPRESSION: Unremarkable exam. Reviewed, Interpreted and Dictated by Murphy Murdock MD Transcribed by Ingrid Nael Authenticated and [facility]
--- NOTE | 2023-10-09 10:11 | CT_ITS ---
FINAL REPORT TECHNIQUE: Axial images were obtained of the cervical spine by computed tomography. Coronal and sagittal reconstruction process performed. This study was performed with techniques to keep radiation doses as low as reasonably achievable (ALARA). Individualized dose reduction techniques using automated exposure control or adjustment of mA and/or kV according to the patient''s size were employed. CLINICAL HISTORY: fall, >63, L hip injury, back pain, nausea/abd renetta COMPARISON: None FINDINGS: Cervical vertebrae show normal height. There are moderate advanced degenerative changes at the C6-7 level. There are small posterior osteophytes with annular bulges at the C4-5, C5-6, and C6-7 levels, with bilateral neural foraminal narrowing. No acute bony abnormality is identified. No prevertebral soft tissue swelling is noted. IMPRESSION: Degenerative change as described above. No acute bony abnormality is identified. Reviewed, Interpreted and Dictated by Murphy Murdock MD Transcribed by Ingrid Neal Authenticated and . [facility]
--- NOTE | 2023-10-09 10:11 | CT_ITS ---
FINAL REPORT TECHNIQUE: Axial images were obtained of the lumbar spine by computed tomography. Coronal and sagittal reconstruction process performed. This study was performed with techniques to keep radiation doses as low as reasonably achievable (ALARA). Individualized dose reduction techniques using automated exposure control or adjustment of mA and/or kV according to the patient''s size were employed. CLINICAL HISTORY: fall, >63, L hip injury, back pain, nausea/abd renetta COMPARISON: None FINDINGS: CT LUMBAR SPINE: There is vacuum phenomenon noted in the L1 there are anterior osteophytes at the L2-3 level with endplate sclerosis. There is mild retrolisthesis of L2 on L3. No acute bony abnormality is identified. L1-2: No evidence of significant canal or neural foraminal narrowing. L2-3: Posterior osteophytes are present, with moderate bilateral neural foraminal narrowing. L3-4: No evidence of significant canal or neural foraminal narrowing. L4-5: No evidence of significant canal or neural foraminal narrowing. L5-S1: Mild bilateral neural foraminal narrowing. IMPRESSION: No acute bony abnormality identified. Degenerative change predominantly at the L2-3 and L5-S1 levels as described. Reviewed, Interpreted and Dictated by Murphy Murdock MD Transcribed by Ingrid Neal Authenticated and . [facility]
--- NOTE | 2023-10-09 10:11 | CT_ITS ---
FINAL REPORT TECHNIQUE: Axial images were obtained of the thoracic spine by computed tomography. Coronal and sagittal reconstruction process performed. This study was performed with techniques to keep radiation doses as low as reasonably achievable (ALARA). Individualized dose reduction techniques using automated exposure control or adjustment of mA and/or kV according to the patient's size were employed. CLINICAL HISTORY: fall, >63, L hip injury, back pain, nausea/abd renetta COMPARISON: None FINDINGS: There is approximately 40% loss of height of the T12 vertebral body anteriorly consistent with an anterior compression fracture. No associated paraspinous soft tissue edema is seen, and would favor this is being a chronic fracture. There is mild endplate hypertrophic change in the lower thoracic spine. There is no malalignment. The facets are properly aligned. IMPRESSION: No acute bony abnormality identified. 40% loss of height of the T12 vertebral body anteriorly consistent with an anterior compression fracture. Would favor this is being a chronic fracture as no adjacent soft tissue swelling is identified. Reviewed, Interpreted and Dictated by Murphy Murdock MD Transcribed by Ingrid Neal Authenticated and [facility]
--- NOTE | 2023-10-09 10:13 | CT_ITS ---
FINAL REPORT TECHNIQUE: Axial images through the abdomen and pelvis were performed without contrast. This study was performed with techniques to keep radiation doses as low as reasonably achievable, (ALARA). Individualized dose reduction techniques using automated exposure control or adjustment of mA and/or kV according to the patient's size were employed. CLINICAL HISTORY: nausea/abd pain COMPARISON: 01/29/2023 FINDINGS: Abdomen: A large hiatal hernia is present. There is mild scarring present at the lung bases. The liver parenchyma is homogeneous, with the liver that is the upper limits of normal in size.. The gallbladder is surgically absent. The spleen, adrenals and kidneys are unremarkable. There is diffuse fatty infiltration of the pancreas. There is a benign-appearing right renal cyst that measures 2.2 cm in diameter. Pelvis: The urinary bladder is unremarkable. The appendix is not visualized. There is no pelvic mass or inflammation. There is a large amount of stool present in the colon. IMPRESSION: Large hiatal hernia. Diffuse fatty infiltration of the pancreas. Large amount of stool present in the colon. Reviewed, Interpreted and Dictated by Murphy Murdock MD Transcribed by Ingrid Neal Authenticated and [facility]
--- NOTE | 2023-10-09 10:14 | ED_ITS ---
Discharge Plan Disposition Patient Disposition: Home, Self-Care Condition: Good Prescriptions Prescriptions: New polyethylene glycol 3350 [Miralax] 17 gram/dose powder 17 g PO DAILY Qty: 510 0RF senna 8.6 mg capsule 8.6 mg PO DAILY Qty: 30 0RF No Action carvedilol 6.25 mg tablet 6.25 mg PO BID buspirone 10 mg tablet 10 mg PO BID fluoxetine 20 mg capsule 20 mg PO HS Namzaric 28-10 mg capsule,sprinkle,ER 24hr 1 cap PO HS halobetasol propionate 0.05 % Lotion 1 applic TOPICAL BID baclofen 5 mg Tablet 5 mg PO HS amitriptyline 25 mg tablet 25 mg PO BID pantoprazole [Protonix] 40 mg tablet,delayed release (DR/EC) 40 mg PO BID misoprostol 200 mcg tablet 200 mcg PO Q6H polyethylene glycol 3350 [Miralax] 17 gram Powder In Packet 17 g PO DAILYP PRN (Reason: Constipation) ondansetron HCl 4 mg Tablet 4 mg PO Q8HP PRN (Reason: Nausea) nystatin 100,000 unit/gram Powder 1 applic TOPICAL BID Patient Comments: APPLY UNDER BREASTS AND ABDOMINAL FOLDS Rx Instructions: APPLY UNDER BREASTS AND ABDOMINAL FOLDS Multiple Vitamin-Minerals Tablet 1 tab PO DAILY morphine 15 mg tablet extended release 15 mg PO BID Qty: 60 0RF Referrals Follow up/Referrals: Ari Coates MD [Primary Care Provider] - See instructions Activity Restrictions/Add. Instructions Additional Instructions/Restrictions: You were evaluated in the emergency department today. Please belt picker your prescriptions and take them for constipation. You were also found to have a large hiatal hernia, for which I recommend follow-up with your primary care provider. They may want to refer you for further evaluation. Continue taking your medications at home for your chronic pain. Follow-up with your primary care 5 over the next 3 days for reassessment. Rest, ice, and elevate your injured leg. Return to the emergency department for new or worsening symptoms. Clinical Impressions Clinical Impression: Fall, Acute pain of left hip, Constipation, Hernia, hiatal, Chronic nausea Instructions Patient Instructions: DI for Constipation, How to Prevent Falls Discharge ED Provider: Megan Zuniga General Adult HPI General Chief complaint: Fall Stated complaint: had a fall at home or passed out Time Seen by Provider: 01/23/24 09:48 Mode of Arrival: Wheelchair Source of Information: Patient and Relative Limitations: No Limitations Description of Symptoms (Recalled from ER Triage Doc. by RN): Patient states she fell at home 2 hours ago. She was sitting in her chair and went to stand up and get to her walker. Patient is c/o of pain in her left hip. Patient also has skin tear to right wrist. Patient denies LOC, and remebers the fall, it was unwitnessed. Patient has already taken her morning Morphine 15mg tab 30 minutes ago. History of Present Illness HPI narrative: This patient is a 73-year-old female with a history of hypertension, prior CVA, osteoporosis, chronic debility and balance issues, prior duodenal ulcer with GI bleed, and history of cardiac dysrhythmia who was previously on Eliquis but is not currently anticoagulated presented to the emergency department after a ground-level fall. Fall was unwitnessed, but patient states that she remembers the entire fall. She states that she got up from her chair to go to her rollator when her left leg went out from underneath her, causing her to fall onto her left side. She did not hit her head or lose consciousness. She complains of low back pain, which is chronic, significant left hip pain, and inability to bear weight on her left leg. This happened approximately 2 hours ago. Of note, she takes chronic opiates, including 15 mg of morphine in the morning. Patient also notes that she has had issues with chronic nausea and poor appetite. She states that nothing tastes good to her. She denies any significant abdominal pain, vomiting, changes bowel movements such as melena or hematochezia, or other concerns. Related Data Home Medications Medication Instructions Recorded Confirmed baclofen 5 mg tablet 5 mg PO HS Muscle spasms 01/09/23 09/20/23 buspirone 10 mg tablet 10 mg PO BID Anxiety 01/09/23 09/20/23 carvedilol 6.25 mg tablet 6.25 mg PO BID High blood pressure 01/09/23 09/20/23 fluoxetine 20 mg capsule 20 mg PO HS Mood 01/09/23 09/20/23 halobetasol propionate 0.05 % 1 applic topical BID Skin 01/09/23 09/20/23 lotion irritation memantine ER 28 mg-donepezil 10 mg 1 cap PO HS Dementia 01/09/23 09/20/23 capsule sprinkle,ext.release 24 hr (Namzaric) multivitamin with minerals 1 tab PO DAILY Supplement 01/12/23 09/20/23 (Multiple Vitamin-Minerals tablet) nystatin 100,000 unit/gram topical 1 applic topical BID Skin 01/12/23 09/20/23 powder irritation ondansetron HCl 4 mg tablet 4 mg PO Q8HP PRN Nausea 01/12/23 09/20/23 polyethylene glycol 3350 17 gram 17 g PO DAILYP PRN Constipation 01/12/23 09/20/23 oral powder packet (Miralax) amitriptyline 25 mg tablet 25 mg PO BID Mood 01/29/23 09/20/23 misoprostol 200 mcg tablet 200 mcg PO Q6H STOMACH 04/18/23 09/20/23 pantoprazole 40 mg tablet,delayed 40 mg PO BID STOMACH 04/18/23 09/20/23 release (Protonix) Previous Rx's Medication Instructions Recorded morphine 15 mg tablet,extended 15 mg PO BID Pain #60 tabs 09/20/23 release polyethylene glycol 3350 17 17 g PO DAILY #510 grams 10/09/23 gram/dose oral powder (Miralax) sennosides 8.6 mg capsule (senna) 8.6 mg PO DAILY #30 caps 10/09/23 Allergies Allergy/AdvReac Type Severity Reaction Status Date / Time ciprofloxacin [From CIPRO] Allergy Unknown Unknown Verified 12/26/22 11:15 allergy reaction codeine [CODEINE] Allergy Unknown Unknown Verified 12/26/22 11:15 allergy reaction erythromycin base Allergy Unknown I-RASH Verified 12/26/22 11:15 [From ERYTHROCIN] meperidine [MEPERIDINE] Allergy Unknown Unknown Verified 12/26/22 11:15 allergy reaction NSAIDS (Non-Steroidal Allergy Unknown I-RASH Verified 12/26/22 11:15 Anti-Inflamma [NSAIDS (NON-STEROIDAL ANTI-INFLAMMA] ofloxacin [OFLOXACIN] Allergy Unknown Unknown Verified 12/26/22 11:15 allergy reaction Quinolones [QUINOLONES] Allergy Unknown Unknown Verified 12/26/22 11:15 allergy reaction Macrolide Antibiotics Allergy Unknown Verified 12/26/22 11:15 allergy reaction Iodinated Contrast Media AdvReac Mild FLUSHED Verified 12/26/22 11:15 [Iodinated Contrast Media - FACE, IV Dye] ITCHING [facility] Disclaimer: The information contained in this section may have been updated after the patient was seen, as this information can be updated by other users. Surgical History Previous back surgery Family History Other No significant family history Social History Smoking Status: Never smoker alcohol intake: never substance use type: denies use current occupational status: retired Travel in the last 8 weeks: None household members: spouse housing: house current occupational exposures/hazards: No caffeine: Yes ROS Obtained: Yes All systems reviewed & no additional complaints except as do cumented Physical Exam General General appearance: alert and in no apparent distress Head Head exam: atraumatic and normocephalic Eye Eye exam: Present normal appearance, PERRL and EOMI ENT ENT exam: Present normal exam, normal oropharynx, mucous membranes moist and normal external ear exam Neck Neck exam: Present normal inspection, full ROM and trachea midline; Absent tenderness Chest Chest inspection: Present normal inspection and symmetric chest wall rise; Absent tenderness Respiratory Respiratory exam: Present normal lung sounds bilaterally; Absent respiratory distress, wheezes, stridor or accessory muscle use Cardiovascular Cardiovascular exam: Present regular rate and normal rhythm Abdominal Exam Abdominal exam: Present soft; Absent distention, tenderness or guarding Extremities Exam Extremities exam: Present tenderness (Shortened and internally rotated left lower extremity with tenderness palpation of the left hip joint. Neurovascularly intact distally.) and normal capillary refill; Absent full ROM or edema Back Exam Back exam: Present full ROM and tenderness (Lumbar spine) Neurological Exam Neurological exam: Present alert, oriented X3, CN II-XII intact and normal gait; Absent motor sensory deficit Psychiatric Psychiatric exam: Present normal affect and normal mood Skin Skin exam: Present warm and dry Medical Decision Making Medical Records Medical records reviewed: Yes I reviewed the patient's medical records. Asif Inquiry Pt receiving controlled substance: No Vital Signs: 10/09/23 09:46 10/09/23 10:00 10/09/23 11:30 Temperature 98.7 F Temperature Source Oral Pulse Rate 56 L 64 Pulse Rate [Right Radial] 66 Respiratory Rate 20 20 18 Blood Pressure 136/85 141/85 H Blood Pressure [Right Arm] 145/85 H Blood Pressure Mean 102 102 Blood Pressure Mean [Right Arm] 105 Blood Pressure Source Blood Pressure Source [Right Arm] Automatic Cuff Blood Pressure Position [Right Arm] Sitting 02 Sat by Pulse Oximetry 96 98 93 L Oxygen Delivery Method Room Air 10/09/23 12:01 10/09/23 12:30 10/09/23 13:34 Temperature 98.7 F Temperature Source Oral Pulse Rate 63 64 66 Pulse Rate [Right Radial] Respiratory Rate 18 18 18 Blood Pressure 114/72 101/67 L 112/68 Blood Pressure [Right Arm] Blood Pressure Mean 91 78 Blood Pressure Mean [Right Arm] Blood Pressure Source Automatic Cuff Blood Pressure Source [Right Arm] Blood Pressure Position [Right Arm] 02 Sat by Pulse Oximetry 93 L 94 L Oxygen Delivery Method Room Air Lab Data Lab results reviewed: Yes I reviewed the patient's lab results. Lab Results 10/09/23 10:22: WBC 7.2, RBC 4.33, Hgb 13.4, Hct 40.6, MCV 93.7, MCH 30.8, MCHC 32.9, RDW 13.3, Plt Count 166, MPV 9.0, Neut % (Auto) 77.7, Lymph % (Auto) 16.3, Harmon % (Auto) 3.8, Eos % (Auto) 1.6, Baso % (Auto) 0.6, Neut # (Auto) 5.6, Lymph # (Auto) 1.2, Harmon # (Auto) 0.3, Eos # (Auto) 0.1, Baso # (Auto) 0.0, Sodium 139, Potassium 3.5, Chloride 98, Carbon Dioxide 38 H, Anion Gap 6.5, BUN 16, Creatinine 1.30 H, Estimated Creat Clear 43, Estimated GFR 40 L, Est GFR (Afric an Amer) 48 L, Glucose 126 H, Calcium 9.5, Total Bilirubin 0.5, AST 31, ALT 16, Alkaline Phosphatase 100, Total Protein 7.4, Albumin 3.8, Globulin 3.6 H, Albumin/Globulin Ratio 1.1, Lipase 59 10/09/23 11:37: Urine Color Yellow, Urine Appearance Clear, Urine pH 7.5, Ur Specific [place] 1.015, Urine Protein Negative, Urine Glucose (UA) Negative, Urine Ketones Negative, Urine Blood Negative, Urine Nitrate Negative, Urine Bilirubin Negative, Urine Urobilinogen 0.2, Ur Leukocyte Esterase 1+ A, Urine RBC None, Urine WBC Occasional, Ur Squamous Epith Cells Occasional, Urine Bacteria Trace 10/09/23 10:22 10/09/23 10:22 Orders (Tests/Meds): ED MEDICATIONS Discontinued Medications Generic Name Dose Route Start Last Admin Trade Name Shalomq PRN Reason Stop Dose Admin Morphine Sulfate 4 mg 10/09/23 10:13 10/09/23 10:26 Morphine 4mg/Ml Syringe IV 10/09/23 10:14 4 mg ONCE ONE Administration Ondansetron HCl 4 mg 10/09/23 10:13 10/09/23 10:27 Ondansetron 4mg/2ml Vial IV 10/09/23 10:14 4 mg ONCE ONE Administration ORDERS Category Date Time Status CT abdomen pelvis wo con Stat Cat Scan 10/09/23 10:[address] bony pelvis Stat Cat Scan 10/09/23 10:[address] cervical spine wo con Stat Cat Scan 10/09/23 10:[address] head/brain wo con Stat Cat Scan 10/09/23 10:[address] lumbar spine wo con Stat Cat Scan 10/09/23 10:[address] thoracic spine wo con Stat Cat Scan 10/09/23 10:11 Completed XR femur LT 2V Stat Exams 10/09/23 10:11 Completed XR hip LT 2-3V w/pelvis Stat Exams 10/09/23 10:11 Completed XR knee LT 3V Stat Exams 10/09/23 10:11 Completed Complete Blood Count Auto Diff Stat Lab 10/09/23 10:22 Completed Comprehensive Metabolic Panel Stat Lab 10/09/23 10:22 Completed Lipase Stat Lab 10/09/23 10:22 Completed Urinalysis and Microscopic Stat Lab 10/09/23 11:37 Completed Urine Culture Stat Micro 10/09/23 11:37 Received ECG initial Besson Routine Y 10/09/23 11:10 Completed ECG Data Tracing #1: I reviewed this ECG and interpreted as documented below: Sinus rhythm with a ventricular rate of [address] changes concerning for ischemia. Normal axis and intervals. ECG initial impression date: 10/09/23 ECG initial impression time: 11:11 Medical Decision Narrative: In summary, this patient is a 73-year-old female presenting to the Emergency Department for evaluation of acute left hip pain after a fall as well as chronic low back pain and nausea. Differential diagnoses considered include but are not limited to fracture, contusion, dislocation, strain/sprain, polytrauma, gastritis, peptic ulcer disease, dehydration. Ruling out the most morbid conditions drove assessment. On exam, the patient is a alert and oriented with only tenderness to her low back and left hip. Vitals are reassuring and she is neurovascularly and neurologically intact. She is in no acute distress. Workup included CBC, CMP, lipase, urinalysis, EKG, CT head, CT C/T/L-spine, CT abdomen pelvis, and CT bony pelvis without IV contrast. X-rays of the injured left lower extremity were als o ordered. Patient was given IV morphine and Zofran for symptomatic improvement of pain. I independently interpreted x-ray and CT prior to the radiologist read and noted concerns for constipation as well as hiatal hernia but no acute obstruction or acute traumatic injury. She does have a chronic compression deformity. Please see their read for final interpretation. Labs were obtained that demonstrated no acutely concerning abnormalities at this time. On reassessment, patient had good improvement after administration of interventions as above. She is alert and at her neurologic baseline. Given reassuring workup and exam, I feel that she is appropriate for discharge with follow-up with her primary care provider, supportive management, and prescriptions for MiraLAX and senna for bowel cleanout. They were given strict return precautions and she was discharged in stable condition after all questions were answered.. Critical Care Critical Care Time Critical Care Time: No
[2023-10-09] MEDS: MORPHINE 4MG/ML SYRINGE 4 MG IV (10:26)
[2023-10-09] MEDS: ONDANSETRON 4MG/2ML VIAL 4 MG IV (10:27)
[2023-10-09 10:36] LABS: Chloride 98 mmol/L (98-107); Potassium 3.5 mmoL/L (3.5-5.1); Sodium 139 mmol/L (136-145)
[2023-10-09 10:38] LABS: Blood Urea Nitrogen 16 mg/dl (7-17); Creatinine Clearance Estimated 43 mL/min (50-200); Estimated Glomerular Filt Rate 40 ml/min (>60); GFR (African American) 48 ML/MIN (>60)
[2023-10-09 10:39] LABS: Alanine Aminotransferase 16 U/L (12-78); Albumin Level 3.8 g/dl (3.5-5.0); Albumin/Globulin Ratio 1.1 (1.1-1.8); Alkaline Phosphatase 100 U/L (38-126); Anion Gap 6.5 mEq/L (5-15); Aspartate Amino Transferase 31 U/L (14-36); Basophils % 0.6 % (0.1-2.0); Bilirubin,Total 0.5 mg/dl (0.2-1.3); Calcium 9.5 mg/dl (8.4-10.2); Carbon Dioxide 38 mmol/L (22.0-30.0); Eosinophils # 0.1 K/mm3 (0.0-0.4); Eosinophils % 1.6 % (0.1-12.0); Globulin 3.6 g/dL (1.3-3.2); Glucose 126 mg/dl (74-100); Hematocrit 40.6 % (37.0-47.0); Hemoglobin 13.4 g/dL (12.2-16.2); Lipase 59 U/L (23-300); Lymphocytes # 1.2 K/mm3 (0.7-4.5); Lymphocytes % 16.3 % (10-50); Mean Corpuscular HGB Conc 32.9 g/dL (31.8-35.4); Mean Corpuscular Hemoglobin 30.8 pg (27.0-31.2); Mean Corpuscular Volume 93.7 fl (81-99); Monocytes # 0.3 K/mm3 (0.1-1.0); Monocytes % 3.8 % (1.7-9.3); Neutrophils # 5.6 K/mm3 (1.8-7.8); Neutrophils % 77.7 % (37.0-80.0); Platelet Count 166 K/mm3 (142-424); Red Blood Count 4.33 M/mm3 (4.20-5.40); Red Cell Distribution Width 13.3 % (11.5-17.5); Total Protein,Serum 7.4 g/dl (6.3-8.2); White Blood Count 7.2 K/mm3 (4.8-10.8)
--- NOTE | 2023-10-09 11:10 | ECG_ITS ---
APPROVED REPORT Exam: Resting ECG HR:68 bpm ECG Measurements Heart Rate 68 AXES AK 205 P 79 QRSd 96 QRS 48 QT 417 T 55 QTc 434 Conclusion SINUS RHYTHM NORMAL ECG UNCONFIRMED REPORT Electronically signed by : Ari Coates MD 10/12/2023 14:47:51
[2023-10-09 11:30] VITALS: BP 141/85; PULSE 64; RESP 18; O2SAT 93
[2023-10-09 11:46] LABS: Microscopic, Urine URINE MICROSCOPIC (MICROSCOPIC)
[2023-10-09 11:50] LABS: Appearance,Urine CLEAR (Clear); Bilirubin,Urine Negative (Negative); Blood, Urine Negative (Negative); Color,Urine YELLOW (Yellow); Glucose,Urine (UA) Negative (Negative); Ketones,Urine Negative (Negative); Leukocyte Esterase,Urine 1+ (Negative); Nitrate,Urine Negative (Negative); PH,Urine 7.5 (5.0-8.5); Protein,Urine Negative (Negative); Specific Gravity, Urine 1.015 (1.005-1.030); Urobilinogen,Urine 0.2 EU/dl (0.2)
[2023-10-09 12:01] VITALS: BP 114/72; PULSE 63; RESP 18; O2SAT 93
[2023-10-09 12:07] LABS: Bacteria,Urine Trace /lpf; Squamous Epithelial Cell,Urine Occasional #/hpf (0-5); WBC,Urine Occasional #/hpf (0-3)
[2023-10-09 12:30] VITALS: BP 101/67; PULSE 64; RESP 18; O2SAT 94
--- NOTE | 2023-10-09 13:15 | PC.NURSE ---
Dr Zuniga spoke with pt and family
[2023-10-09 13:34] VITALS: BP 112/68; PULSE 66; RESP 18; TEMP 37.1; O2SAT 96
--- NOTE | 2023-10-12 17:29 | PC.NURSE ---
aware of urine culture results, contaminated, NTD at this time
== END 2023-10-09 13:36 | disposition home or self-care (01) ==
PROVIDERS: Emergency Provider Emergency Medicine; PCP Internal Medicine Adolescent Medicine
DX: M25.552 Pain in left hip (principal); K59.00 Constipation, unspecified; K44.9 Diaphragmatic hernia without obstruction or gangrene; R11.0 Nausea; I10 Essential (primary) hypertension; M81.8 Other osteoporosis without current pathological fracture; Z86.73 Personal history of transient ischemic attack (TIA), and cerebral infarction without residual deficits
CPT/HCPCS: 70450; 72125; 72128; 72131; 72192; 73502; 73552; 73562; 74176; 80053; 81001; 83690; 85025; 87086; 93005; 96374; 96375; 99285; J2405

== ENCOUNTER 2023-10-10 13:45 | Emergency (ER) | payer MEDICARE, OTHER, SELFPAY ==
[2023-10-10] VITALS (22 sets, daily range): BP systolic 102–185; BP diastolic 66–133; PULSE 74–105; RESP 10–26; TEMP 36.6–37.3; O2SAT 93–99; BMI 25.0
--- NOTE | 2023-10-10 13:34 | ECG_ITS ---
APPROVED REPORT Exam: Resting ECG HR:91 bpm ECG Measurements Heart Rate 91 AXES QRSd 106 QRS 42 QT 313 T 9 QTc 362 Conclusion SUPRAVENTRICULAR RHYTHM NONSPECIFIC T-WAVE ABNORMALITY ABNORMAL RHYTHM ECG Marked artifact liimits interpretation UNCONFIRMED REPORT Electronically signed by : Ari Coates MD 10/12/2023 14:41:19
--- NOTE | 2023-10-10 13:40 | CT_ITS ---
FINAL REPORT TECHNIQUE: multiple axial CT images were performed from the foramen magnum to the vertex without enhancement. This study was performed with techniques to keep radiation doses as low as reasonably achievable (ALARA). Individualized dose reduction techniques using automated exposure control or adjustment of mA and/or kV according to the patient's size were employed. CLINICAL HISTORY: AMS COMPARISON: 10/09/2023 FINDINGS: The ventricles are enlarged. There is moderate atrophy. There is periventricular white matter change likely related to small vessel disease. There is no evidence of hemorrhage. No masses are identified. No extra-axial fluid is seen. The sinuses are normal. IMPRESSION: Atrophy and chronic changes without acute process. Reviewed, Interpreted and Dictated by Murphy Murdock MD Transcribed by Katja Iraheta Authenticated and [facility]
--- NOTE | 2023-10-10 13:40 | XR_ITS ---
FINAL REPORT CLINICAL HISTORY: AMS COMPARISON: 01/17/2023 FINDINGS: SINGLE-VIEW CHEST There is moderate cardiomegaly. There is an unfolded aorta. Loop recorder device is present. The mediastinum is normal. There is a small right effusion. There is no pneumothorax. IMPRESSION: No significant change. Reviewed, Interpreted and Dictated by Murphy Murdock MD Transcribed by Katja Iraheta Authenticated and [facility]
--- NOTE | 2023-10-10 13:42 | PC.NURSE ---
PLACED SEIZURE PADS
[2023-10-10] MEDS: LORazepam 2MG/ML VIAL 4 MG IV ×2 (13:46→15:29)
--- NOTE | 2023-10-10 13:46 | PC.NURSE ---
CALLED RESP PER REQUEST TO PREPARE FOR POSSIBLE INTUBATION
--- NOTE | 2023-10-10 13:48 | PC.NURSE ---
RESPIRATORY AT BS
--- NOTE | 2023-10-10 13:50 | PC.NURSE ---
Paged Dr Coates per Dr Zuniga to speak with him about this pt
[2023-10-10 13:53] LABS: VBG Base Excess 3.5 mmol/L (-2.4-2.3); VBG HCO3 28.5 mmol/L (23-30); VBG Oxygen Saturation 77.9 % (50-70); VBG PH 7.39 mmol/L (7.31-7.41); VBG PO2 41.3 mmol/L (28-40); VBG Total CO2 29.9 mmol/L (23-27)
--- NOTE | 2023-10-10 13:56 | HMH.ITSTN ---
I called and spoke with gabrielle Stratton, Nurse still in patient room. Asked Chayito to give me a call when patient is ready for her CT.
[2023-10-10] MEDS: LACTATED RINGERS 1000ML 1,000 ML 999 ML IV ×2 (13:58→15:29)
[2023-10-10 13:59] LABS: Microscopic, Urine URINE MICROSCOPIC (MICROSCOPIC)
[2023-10-10 14:01] LABS: Basophils % 0.3 % (0.1-2.0); Eosinophils # 0.2 K/mm3 (0.0-0.4); Eosinophils % 1.6 % (0.1-12.0); Hematocrit 41.2 % (37.0-47.0); Hemoglobin 13.4 g/dL (12.2-16.2); Lymphocytes # 1.5 K/mm3 (0.7-4.5); Lymphocytes % 16.3 % (10-50); Mean Corpuscular HGB Conc 32.6 g/dL (31.8-35.4); Mean Corpuscular Hemoglobin 30.2 pg (27.0-31.2); Mean Corpuscular Volume 92.6 fl (81-99); Mean Platelet Volume 8.3 fl (7.4-10.4); Monocytes # 0.2 K/mm3 (0.1-1.0); Monocytes % 2.3 % (1.7-9.3); Neutrophils # 7.2 K/mm3 (1.8-7.8); Neutrophils % 79.5 % (37.0-80.0); Platelet Count 162 K/mm3 (142-424); Red Blood Count 4.44 M/mm3 (4.20-5.40); White Blood Count 9.1 K/mm3 (4.8-10.8)
[2023-10-10] MEDS: LORazepam 2MG/ML VIAL 2 MG IV (14:01)
[2023-10-10 14:02] LABS: Chloride 99 mmol/L (98-107); Potassium 3.6 mmoL/L (3.5-5.1)
--- NOTE | 2023-10-10 14:03 | PC.NURSE ---
DR MARTINEZ AT BEDSIDE
[2023-10-10 14:04] LABS: Alanine Aminotransferase 16 U/L (12-78); Aspartate Amino Transferase 36 U/L (14-36); Blood Urea Nitrogen 16 mg/dl (7-17); Creatinine Clearance Estimated 35 mL/min (50-200); Estimated Glomerular Filt Rate 34 ml/min (>60); GFR (African American) 41 ML/MIN (>60)
[2023-10-10 14:05] LABS: Albumin/Globulin Ratio 1.1 (1.1-1.8); Alkaline Phosphatase 116 U/L (38-126); Bilirubin,Total 0.8 mg/dl (0.2-1.3); Calcium 9.7 mg/dl (8.4-10.2); Carbon Dioxide 34 mmol/L (22.0-30.0); Creatine Kinase 68 U/L (30-135); Globulin 3.6 g/dL (1.3-3.2); Glucose 129 mg/dl (74-100); Total Protein,Serum 7.6 g/dl (6.3-8.2)
[2023-10-10 14:16] LABS: Acetaminophen < 10 ug/ml (10-30); Ethyl Alcohol < 10 mg/dl (0-10); Salicylate < 1.0 mg/dL (2.0-20.0)
[2023-10-10 14:22] LABS: T4 (Thyroxine) 12.2 ug/dl (5.53-11.0)
--- NOTE | 2023-10-10 14:34 | PC.NURSE ---
DR MCNAMARA AT BEDSIDE TO UPDATE FAMILY
[2023-10-10 14:36] LABS: Thyroid Stimulating Hormone 1.26 uIU/mL (0.465-4.68)
[2023-10-10 14:47] LABS: Appearance,Urine CLEAR (Clear); Blood, Urine Negative (Negative); Color,Urine YELLOW (Yellow); Glucose,Urine (UA) Negative (Negative); Ketones,Urine TRACE (Negative); Leukocyte Esterase,Urine Negative (Negative); Nitrate,Urine Negative (Negative); Protein,Urine Negative (Negative); Specific Gravity, Urine 1.025 (1.005-1.030); Urobilinogen,Urine 0.2 EU/dl (0.2)
[2023-10-10 14:48] LABS: Troponin I < 0.01 ng/ml (0.00-0.034)
[2023-10-10 14:49] LABS: Lactic Acid 1.8 mmol/L (0.7-2.1)
[2023-10-10 14:51] LABS: Bilirubin,Urine 1+ (Negative)
[2023-10-10 14:53] LABS: Amphetamine/Metha Screen,Urine Negative ng/ml (<1000); Benzodiazepines Screen,Urine Negative ng/ml (<200)
[2023-10-10 14:54] LABS: Barbiturates Screen,Urine Negative ng/ml (<200)
[2023-10-10 14:56] LABS: Cannabinoid Screen,Urine Negative ng/ml (<50); Methadone Screen,Urine Negative ng/ml (<300)
[2023-10-10 14:57] LABS: Cocaine Screen,Urine Negative ng/ml (<300)
[2023-10-10 14:58] LABS: Opiate Screen,Urine Positive ng/ml (<300); Phencyclidine Screen,Urine Negative ng/ml (<25)
--- NOTE | 2023-10-10 15:15 | PC.NURSE ---
at bs speaking with pt family
[2023-10-10 15:17] LABS: Bacteria,Urine Trace /lpf
[2023-10-10 15:21] LABS: Anion Gap 10.6 mEq/L (5-15); Sodium 140 mmol/L (136-145)
[2023-10-10] MEDS: VANCOMYCIN CONSULT REQUEST 1 EACH NOTAPPLIC (15:22)
[2023-10-10 15:25] LABS: Activated Partial Thrombo Time 21.4 seconds (22.8-30.6); INR 1.07 (0.9-1.1); Prothrombin Time 11.5 seconds (10.1-12.5)
[2023-10-10] MEDS: levETIRAcetam 1,000 MG in 0.9 % SODIUM CHLORIDE 100 ML 220 MG IV (15:39)
--- NOTE | 2023-10-10 15:53 | PC.NURSE ---
at bs speaking with pt family
[2023-10-10] MEDS: PIPERACILLIN/TAZO 3.375 GM in 0.9 % SODIUM CHLORIDE 50 ML IV (16:10)
--- NOTE | 2023-10-10 16:27 | [facility].EDGENADL ---
Discharge Plan Disposition Patient Disposition: Xfer Short-Term Hosp Condition: Critical Prescriptions Prescriptions: No Action carvedilol 6.25 mg tablet 6.25 mg PO BID buspirone 10 mg tablet 10 mg PO BID fluoxetine 20 mg capsule 20 mg PO HS Namzaric 28-10 mg capsule,sprinkle,ER 24hr 1 cap PO HS halobetasol propionate 0.05 % Lotion 1 applic TOPICAL BID baclofen 5 mg Tablet 5 mg PO HS amitriptyline 25 mg tablet 25 mg PO BID pantoprazole [Protonix] 40 mg tablet,delayed release (DR/EC) 40 mg PO BID misoprostol 200 mcg tablet 200 mcg PO Q6H polyethylene glycol 3350 [Miralax] 17 gram Powder In Packet 17 g PO DAILYP PRN (Reason: Constipation) ondansetron HCl 4 mg Tablet 4 mg PO Q8HP PRN (Reason: Nausea) nystatin 100,000 unit/gram Powder 1 applic TOPICAL BID Patient Comments: APPLY UNDER BREASTS AND ABDOMINAL FOLDS Rx Instructions: APPLY UNDER BREASTS AND ABDOMINAL FOLDS Multiple Vitamin-Minerals Tablet 1 tab PO DAILY morphine 15 mg tablet extended release 15 mg PO BID Qty: 60 0RF polyethylene glycol 3350 [Miralax] 17 gram/dose powder 17 g PO DAILY Qty: 510 0RF senna 8.6 mg capsule 8.6 mg PO DAILY Qty: 30 0RF Referrals Follow up/Referrals: Provider,Referral, [Referring] - See instructions Clinical Impressions Clinical Impression: Status epilepticus, ERNIE (acute kidney injury), Pneumonia, Encephalopathy Instructions Patient Instructions: DI for Seizure Disorder -- Adult, DI for Seizure (Not Epilepsy/Seizure Disorder), DI for Seizure Disorder -- Child Discharge ED Provider: Megan Zuniga General Adult HPI <Megan Zuniga DO - Last Filed: 10/10/23 17:01> General Chief complaint: Seizure Stated complaint: Altered Time Seen by Provider: 10/10/23 13:50 Mode of Arrival: EMS Source of Information: EMS Limitations: No Limitations Description of Symptoms (Recalled from ER Triage Doc. by RN): pt presents to ED via EMS. per EMS staff pt was only responsive to physcial stimuli, pt was given narcan and become responsive to verbal stimuli. pt was also given versed due to seizure like activity. pt still with abnormal eye movements, and jerking in the bed. History of Present Illness HPI narrative: This patient is a 73-year-old female with history of hypertension, obesity, chronic pain with chronic opiate use, duodenal ulcer, chronic constipation, history of CVA not on anticoagulation, and history of hiatal hernia presenting to the emergency department for evaluation with concern for altered mental status. According to the patient's family, she has been sleeping mostly since last night. This morning she was awoken by her around 11 AM to take her morning meds, she had not yet woken up. She took her medicine, and she told her daughter that she did not feel right and needed to be checked out. Once EMS got on scene, the patient was unresponsive with pinpoint pupils. They note that they gave her Narcan 8 mg at which point she began to have generalized convulsions and abnormal movements. They gave her 2 mg of Versed with no improvement. Patient is unable to contribute to history given altered mental status. Patient was evaluated here yesterday for a fall, at which point she was discharged home after reassuring workup. Patient was alert and conversational at the time of discharge yesterday. Related Data Home Medications Medication Instructions Recorded Confirmed baclofen 5 mg tablet 5 mg PO HS Muscle spasms 01/09/23 09/20/23 buspirone 10 mg tablet 10 mg PO BID Anxiety 01/09/23 09/20/23 carvedilol 6.25 mg tablet 6.25 mg PO BID High blood pressure 01/09/23 09/20/23 fluoxetine 20 mg capsule 20 mg PO HS Mood 01/09/23 09/20/23 halobetasol propionate 0.05 % 1 applic topical BID Skin 01/09/23 09/20/23 lotion irritation memantine ER 28 mg-donepezil 10 mg 1 cap PO HS Dementia 01/09/23 09/20/23 capsule sprinkle,ext.release 24 hr (Namzaric) multivitamin with minerals 1 tab PO DAILY Supplement 01/12/23 09/20/23 (Multiple Vitamin-Minerals tablet) nystatin 100,000 unit/gram topical 1 applic topical BID Skin 01/12/23 09/20/23 powder irritation ondansetron HCl 4 mg tablet 4 mg PO Q8HP PRN Nausea 01/12/23 09/20/23 polyethylene glycol 3350 17 gram 17 g PO DAILYP PRN Constipation 01/12/23 09/20/23 oral powder packet (Miralax) amitriptyline 25 mg tablet 25 mg PO BID Mood 01/29/23 09/20/23 misoprostol 200 mcg tablet 200 mcg PO Q6H STOMACH 04/18/23 09/20/23 pantoprazole 40 mg tablet,delayed 40 mg PO BID STOMACH 04/18/23 09/20/23 release (Protonix) Previous Rx's Medication Instructions Recorded morphine 15 mg tablet,extended 15 mg PO BID Pain #60 tabs 09/20/23 release polyethylene glycol 3350 17 17 g PO DAILY #510 grams 10/09/23 gram/dose oral powder (Miralax) sennosides 8.6 mg capsule (senna) 8.6 mg PO DAILY #30 caps 10/09/23 Allergies Allergy/AdvReac Type Severity Reaction Status Date / Time ciprofloxacin [From CIPRO] Allergy Unknown Unknown Verified 12/26/22 11:15 allergy reaction codeine [CODEINE] Allergy Unknown Unknown Verified 12/26/22 11:15 allergy reaction erythromycin base Allergy Unknown I-RASH Verified 12/26/22 11:15 [From ERYTHROCIN] meperidine [MEPERIDINE] Allergy Unknown Unknown Verified 12/26/22 11:15 allergy reaction NSAIDS (Non-Steroidal Allergy Unknown I-RASH Verified 12/26/22 11:15 Anti-Inflamma [NSAIDS (NON-STEROIDAL ANTI-INFLAMMA] ofloxacin [OFLOXACIN] Allergy Unknown Unknown Verified 12/26/22 11:15 allergy reaction Quinolones [QUINOLONES] Allergy Unknown Unknown Verified 12/26/22 11:15 allergy reaction Macrolide Antibiotics Allergy Unknown Verified 12/26/22 11:15 allergy reaction Iodinated Contrast Media AdvReac Mild FLUSHED Verified 12/26/22 11:15 [Iodinated Contrast Media - FACE, IV Dye] [facility] <Megan Zuniga, DO - Last Filed: 10/10/23 17:01> [facility] Disclaimer: The information contained in this section may have been updated after the patient was seen, as this information can be updated by other users. Surgical History Previous back surgery Family History No significant family history Social History Smoking Status: Never smoker alcohol intake: never substance use type: denies use current occupational status: retired Travel in the last 8 weeks: None household members: spouse housing: house current occupational exposures/hazards: No caffeine: Yes <Megan Zuniga DO - Last Filed: 10/10/23 17:01> ROS Obtained: Yes All systems reviewed & no additional complaints except as documented Physical Exam <Megan Zuniga DO - Last Filed: 10/10/23 17:01> General General appearance: in distress Comment: Ongoing convulsions and abnormal posturing concerning for potential seizure-like activity Head Head exam: atraumatic and normocephalic Eye Eye exam: Present other (Pinpoint pupils with rapid abnormal eye movements) ENT ENT exam: Present mucous membranes dry Neck Neck exam: Present normal inspection, full ROM and trachea midline; Absent tenderness Chest Chest inspection: Present normal inspection and symmetric chest wall rise; Absent tenderness Respiratory Respiratory exam: Present other (Rhonchi bilaterally. Maintaining airway.); Absent respiratory distress, wheezes, stridor or accessory muscle use Cardiovascular Cardiovascular exam: Present normal rhythm and tachycardia Abdominal Exam Abdominal exam: Present soft; Absent distention, tenderness, guarding, rebound or rigidity Extremities Exam Extremities exam: Present normal inspection, full ROM and normal capillary refill; Absent tenderness or edema Back Exam Back exam: Present normal inspection and full ROM; Absent tenderness Neurological Exam Neurological exam: Present other (Abnormal rhythmic movements with intermittent posturing.); Absent alert Expanded Neurological Exam Coma scale eye opening: None Coma scale motor response: Abnormal flexion Coma scale verbal response: Incomprehensible Coma scale total: 6 Psychiatric Psychiatric exam: Present normal affect and normal mood Skin Skin exam: Present warm and dry <Los Hickman MD - Last Filed: 10/10/23 18:48> Expanded Neurological Exam Coma scale total: 6 Medical Decision Making <Megan Zuniga DO - Last Filed: 10/10/23 17:01> Medical Records Medical records reviewed: Yes I reviewed the patient's medical records. Asif Inquiry Pt receiving controlled substance: No Vital Signs: 10/10/23 13:45 10/10/23 14:31 10/10/23 15:01 Temperature 97.8 F Temperature Source Rectal Pulse Rate 101 H 102 H Pulse Rate [Left Radial] 101 H Respiratory Rate 19 22 25 H Blood Pressure 185/113 H 154/133 H Blood Pressure [Right Arm] 132/97 H Blood Pressure Mean [Right Arm] 108 02 Sat by Pulse Oximetry 93 L 97 95 Oxygen Delivery Method Room Air Nasal Cannula Nasal Cannula Oxygen Flow Rate (LPM) 2 2 10/10/23 15:18 10/10/23 15:31 10/10/23 15:45 Temperature Temperature Source Pulse Rate 101 H 105 H 99 H Pulse Rate [Left Radial] Respiratory Rate 23 19 16 Blood Pressure 156/108 H 173/107 H 169/113 H Blood Pressure [Right Arm] Blood Pressure Mean [Right Arm] 02 Sat by Pulse Oximetry 95 98 99 Oxygen Delivery Method Nasal Cannula Oxygen Flow Rate (LPM) 2 10/10/23 16:01 10/10/23 16:16 10/10/23 16:30 Temperature Temperature Source Pulse Rate 102 H 103 H 100 H Pulse Rate [Left Radial] Respiratory Rate 15 13 10 L Blood Pressure 180/95 H 160/80 H 147/111 H Blood Pressure [Right Arm] Blood Pressure Mean [Right Arm] 02 Sat by Pulse Oximetry 98 99 98 Oxygen Delivery Method Oxygen Flow Rate (LPM) 10/10/23 16:46 10/10/23 17:00 10/10/23 17:14 Temperature Temperature Source Pulse Rate 100 H 97 H 97 H Pulse Rate [Left Radial] Respiratory Rate 10 L 16 15 Blood Pressure 155/90 H 163/89 H 128/80 Blood Pressure [Right Arm] Blood Pressure Mean [Right Arm] 02 Sat by Pulse Oximetry 97 98 99 Oxygen Delivery Method Nasal Cannula Oxygen Flow Rate (LPM) 5 10/10/23 18:09 10/10/23 17:30 10/10/23 17:45 Temperature Temperature Source Pulse Rate 97 H 99 H Pulse Rate [Left Radial] Respiratory Rate 20 10 L 19 Blood Pressure 138/83 134/84 Blood Pressure [Right Arm] Blood Pressure Mean [Right Arm] 02 Sat by Pulse Oximetry 99 98 98 Oxygen Delivery Method Nasal Cannula Nasal Cannula Oxygen Flow Rate (LPM) 5 5 10/10/23 18:00 10/10/23 18:15 Temperature Temperature Source Pulse Rate 88 74 Pulse Rate [Left Radial] Respiratory Rate 26 H 20 Blood Pressure 114/68 124/86 Blood Pressure [Right Arm] Blood Pressure Mean [Right Arm] 02 Sat by Pulse Oximetry 97 95 Oxygen Delivery Method Mechanical Ventilation Mechanical Ventilation Oxygen Flow Rate (LPM) Lab Data Lab results reviewed: Yes I reviewed the patient's lab results. Lab Results 10/10/23 13:37: WBC 9.1 D, RBC 4.44, Hgb 13.4, Hct 41.2, MCV 92.6, MCH 30.2, MCHC 32.6, RDW 13.0, Plt Count 162, MPV 8.3, Neut % (Auto) 79.5, Lymph % (Auto) 16.3, [place] % (Auto) 2.3, Eos % (Auto) 1.6, Baso % (Auto) 0.3, Neut # (Auto) 7.2, Lymph # (Auto) 1.5, [place] # (Auto) 0.2, Eos # (Auto) 0.2, Baso # (Auto) 0.0, PT 11.5, INR 1.07, APTT 21.4 L, Sodium 140, Potassium 3.6, Chloride 99, Carbon Dioxide 34 H, Anion Gap 10.6, BUN 16, Creatinine 1.50 H, Estimated Creat Clear 35, Estimated GFR 34 L, Est GFR ( Amer) 41 L, Glucose 129 H, Calcium 9.7, Total Bilirubin 0.8, AST 36, ALT 16, Alkaline Phosphatase 116, Total Creatine Kinase 68, Troponin I < 0.01, Total Protein 7.6, Albumin 4.0, Globulin 3.6 H, Albumin/Globulin Ratio 1.1, TSH 1.26, Thyroxine (T4) 12.2 H, Urine Color Yellow, Urine Appearance Clear, Urine pH 6.0, Ur Specific [place] 1.025, Urine Protein Negative, Urine Glucose (UA) Negative, Urine Ketones Trace, Urine Blood Negative, Urine Nitrate Negative, Urine Bilirubin 1+ A, Urine Urobilinogen 0.2, Ur Leukocyte Esterase Negative, Urine RBC None, Urine WBC 3-5, Ur Squamous Epith Cells 3-5, Urine Bacteria Trace, Salicylates < 1.0 L, Urine Opiates Screen Positive H, Urine Methadone Screen Negative, Acetaminophen < 10 L, Ur Barbituates Screen Negative, Ur Phencyclidine Scrn Negative, Ur Amphetamines Screen Negative, U Benzodiazepines Scrn Negative, Urine Cocaine Screen Negative, U Marijuana (THC) Screen Negative, Plasma/Serum Alcohol < 10 10/10/23 13:40: VBG pH 7.39, VBG pCO2 48.0, VBG pO2 41.3 H, VBG HCO3 28.5, VBG Total CO2 29.9 H, VBG O2 Saturation 77.9 H, VBG Base Excess 3.5 H 10/10/23 14:30: Lactate 1.8 10/10/23 17:18: Ammonia 11, Troponin I 0.02 10/10/23 13:37 10/10/23 13:37 Orders (Tests/Meds): ED MEDICATIONS Generic Name Dose Route Start Last Admin Trade Name Todd PRN Reason Stop Dose Admin Ceftriaxone Sodium 2 gm/ 100 mls @ 200 mls/hr 10/10/23 16:15 10/10/23 16:29 Sodium Chloride IV 10/20/23 16:14 200 mls/hr Q24H PATRICK Administration Miscellaneous 1 each 10/10/23 15:15 10/10/23 15:22 Vancomycin Consult Request NOTAPPLIC 11/09/23 15:14 1 each CONSULT PHARMACY PATRICK Administration Sodium Chloride 10 ml 10/10/23 14:00 Sodium Chloride 0.9% 10ml Vial IV 11/09/23 13:59 NEEDED PRN to Dilute Lorazepam inj Sodium Chloride 10 ml 10/10/23 15:19 Sodium Chloride 0.9% 10ml Vial IV 11/09/23 15:18 NEEDED PRN to Dilute Lorazepam inj Sodium Chloride 10 ml 10/10/23 15:43 Sodium Chloride 0.9% 10ml Vial IV 11/09/23 15:42 NEEDED PRN to Dilute Lorazepam inj Discontinued Medications Generic Name Dose Route Start Last Admin Trade Name Todd PRN Reason Stop Dose Admin Lactated Ringer's 1,000 mls @ 999 mls/hr 10/10/23 13:50 10/10/23 13:58 Lactated Ringer's 1000 Ml Bag IV 10/10/23 14:50 999 mls/hr .Q1H1M ONE Administration Lactated Ringer's 1,000 mls @ 999 mls/hr 10/10/23 15:15 10/10/23 15:29 Lactated Ringer's 1000 Ml Bag IV 10/10/23 16:15 999 mls/hr .Q1H1M ONE Administration Piperacillin Sod/Tazobactam 50 mls @ 100 mls/hr 10/10/23 15:16 10/10/23 16:10 Sod 3.375 gm/ Sodium Chloride IV 10/10/23 15:45 100 mls/hr ONCE ONE Administration Levetiracetam 1,000 mg/ Sodium 110 mls @ 220 mls/hr 10/10/23 15:19 10/10/23 15:39 Chloride IV 10/10/23 15:20 220 mls/hr ONCE ONE Administration Vancomycin/PEG/NA[place]/Lysine/Water 1.25 gm in 250 mls @ 125 mls/hr 10/10/23 15:30 10/10/23 18:43 Vancomycin 1.25gm/250ml (Peg) Premix IV 10/10/23 17:29 125 mls/hr ONCE ONE Administration Levetiracetam 3,000 mg/ Sodium 130 mls @ 260 mls/hr 10/10/23 18:12 10/10/23 18:29 Chloride IV 10/10/23 18:13 260 mls/hr ONCE ONE Administration Lorazepam 2 mg 10/10/23 14:00 10/10/23 14:01 Lorazepam 2mg/Ml Vial IV 10/10/23 14:01 2 mg ONCE ONE Administration Lorazepam 4 mg 10/10/23 15:19 10/10/23 15:29 Lorazepam 2mg/Ml Vial IV 10/10/23 15:20 4 mg ONCE ONE Administration Lorazepam 4 mg 10/10/23 13:46 10/10/23 13:46 Lorazepam 2mg/Ml Vial IV 10/10/23 13:47 4 mg ONCE ONE Administration ORDERS Category Date Time Status CT head/brain wo con Stat Cat Scan 10/10/23 13:40 Taken Portable CXR [XR chest portable] Stat Exams 10/10/23 18:16 Ordered XR chest portable Stat Exams 10/10/23 13:40 Taken Acetaminophen Stat Lab 10/10/23 13:37 Completed Activated Partial Thrombo Time Stat Lab 10/10/23 13:37 Completed Ammonia Stat Lab 10/10/23 17:18 Completed Complete Blood Count Auto Diff Stat Lab 10/10/23 13:37 Completed Comprehensive Metabolic Panel Stat Lab 10/10/23 13:37 Completed Creatine Kinase Stat Lab 10/10/23 13:37 Completed Drug Screen,Urine Stat Lab 10/10/23 13:37 Completed Ethyl Alcohol Stat Lab 10/10/23 13:37 Completed Lactic Acid Stat Lab 10/10/23 14:30 Completed Prothrombin Time INR Stat Lab 10/10/23 13:37 Completed Salicylate Stat Lab 10/10/23 13:37 Completed T4 (Thyroxine) Stat Lab 10/10/23 13:37 Completed Thyroid Stimulating Hormone Stat Lab 10/10/23 13:37 Completed Troponin I Q3H Lab 10/10/23 17:18 Completed Troponin I Q3H Lab 10/10/23 20:00 Ordered Troponin I Stat Lab 10/10/23 13:37 Completed Urinalysis and Microscopic Stat Lab 10/10/23 13:37 Completed Blood Culture Stat Micro 10/10/23 14:30 Received Venous Blood Gas Stat RT 10/10/23 13:40 Completed ECG initial Besson Routine Y 10/10/23 13:34 Completed ECG Data Tracing #1: I reviewed this ECG and interpreted as documented below: Sinus rhythm with a ventricular rate of 91 bpm. Significant motion artifact limiting further assessment. No obvious acute ST changes ECG initial impression date: 10/10/23 ECG initial impression time: 13:34 Medical Decision Narrative: In summary, this patient is a 73-year-old female presenting to the Emergency Department for evaluation of altered mental status and abnormal rhythmic movements. Differential diagnoses considered include but are not limited to seizure, status epilepticus, hypoglycemia, electrolyte derangements, CVA, intracranial hemorrhage, intracranial mass, medication overdose, CO2 narcosis. Ruling out the most morbid conditions drove assessment. On exam, the patient is in acute distress with abnormal rhythm movements. She was given 2 mg of IV Ativan with no change, and then 4 mg of IV Ativan. She continued to have convulsions and seizure-like activity with intermittent posturing. I had multiple discussions with the patient's family as well as the patient's primary care provider, Dr. Oliveira, who advised that the patient had expressed previously that she did not want heroic interventions or prolong life support. I had a discussion with him that patient will need more antiepileptics to abort potential seizure-like activity, which can take away her respiratory drive. At this point, I would intubate the patient and put her on a ventilator for airway protection and to abort her seizures with heavily sedation. They expressed that they would not want this, and Dr. Coates witnessed this converstion. Very broad infectious workup, metabolic workup, and other workup was ordered. Fingerstick blood glucose upon arrival was normal. Patient has a mild ERNIE and concerns for pneumonia on x-ray, but I do not appreciate any other acutely concerning abnormalities that could explain this seizure-like activity. It could be that she has neuroleptic malignant syndrome as a result of her medication history or some other concern. Patient was given a total of 2 L bolus of IV fluids as well as initiation of broad-spectrum antibiotics including vancomycin, Zosyn, and Rocephin. She was loaded with Keppra and given another 4 mg of Ativan with no change in her status. I had multiple very long discussions with the patient's family regarding goals of care. They advised that she would not want to be intubated but they would like to know what is going on and what is causing the significant potentially be reversible. I advised that we do not do this and that the best course of action would either be to intubate her and transfer her to higher level of care with EEG capabilities and neurology, versus put her on hospice to make her comfortable here. They are still deciding at this time. I had an interactive discussion with Dr. Boogie who graciously came down to assess the patient. He also had a long discussion with the family, and they advised they would like further evaluation but no intubation. Patient care was signed out to Dr. Hickman pending final decisions and hospice vs transfer. <Los Hickman MD - Last Filed: 10/10/23 18:48> Vital Signs: 10/10/23 13:45 10/10/23 14:31 10/10/23 15:01 Temperature 97.8 F Temperature Source Rectal Pulse Rate 101 H 102 H Pulse Rate [Left Radial] 101 H Respiratory Rate 19 22 25 H Blood Pressure 185/113 H 154/133 H Blood Pressure [Right Arm] 132/97 H Blood Pressure Mean [Right Arm] 108 02 Sat by Pulse Oximetry 93 L 97 95 Oxygen Delivery Method Room Air Nasal Cannula Nasal Cannula Oxygen Flow Rate (LPM) 2 2 10/10/23 15:18 10/10/23 15:31 10/10/23 15:45 Temperature Temperature Source Pulse Rate 101 H 105 H 99 H Pulse Rate [Left Radial] Respiratory Rate 23 19 16 Blood Pressure 156/108 H 173/107 H 169/113 H Blood Pressure [Right Arm] Blood Pressure Mean [Right Arm] 02 Sat by Pulse Oximetry 95 98 99 Oxygen Delivery Method Nasal Cannula Oxygen Flow Rate (LPM) 2 10/10/23 16:01 10/10/23 16:16 10/10/23 16:30 Temperature Temperature Source Pulse Rate 102 H 103 H 100 H Pulse Rate [Left Radial] Respiratory Rate 15 13 10 L Blood Pressure 180/95 H 160/80 H 147/111 H Blood Pressure [Right Arm] Blood Pressure Mean [Right Arm] 02 Sat by Pulse Oximetry 98 99 98 Oxygen Delivery Method Oxygen Flow Rate (LPM) 10/10/23 16:46 10/10/23 17:00 10/10/23 17:14 Temperature Temperature Source Pulse Rate 100 H 97 H 97 H Pulse Rate [Left Radial] Respiratory Rate 10 L 16 15 Blood Pressure 155/90 H 163/89 H 128/80 Blood Pressure [Right Arm] Blood Pressure Mean [Right Arm] 02 Sat by Pulse Oximetry 97 98 99 Oxygen Delivery Method Nasal Cannula Oxygen Flow Rate (LPM) 5 10/10/23 18:09 10/10/23 17:30 10/10/23 17:45 Temperature Temperature Source Pulse Rate 97 H 99 H Pulse Rate [Left Radial] Respiratory Rate 20 10 L 19 Blood Pressure 138/83 134/84 Blood Pressure [Right Arm] Blood Pressure Mean [Right Arm] 02 Sat by Pulse Oximetry 99 98 98 Oxygen Delivery Method Nasal Cannula Nasal Cannula Oxygen Flow Rate (LPM) 5 5 10/10/23 18:00 10/10/23 18:15 Temperature Temperature Source Pulse Rate 88 74 Pulse Rate [Left Radial] Respiratory Rate 26 H 20 Blood Pressure 114/68 124/86 Blood Pressure [Right Arm] Blood Pressure Mean [Right Arm] 02 Sat by Pulse Oximetry 97 95 Oxygen Delivery Method Mechanical Ventilation Mechanical Ventilation Oxygen Flow Rate (LPM) Lab Data Lab Results 10/10/23 13:37: WBC 9.1 D, RBC 4.44, Hgb 13.4, Hct 41.2, MCV 92.6, MCH 30.2, MCHC 32.6, RDW 13.0, Plt Count 162, MPV 8.3, Neut % (Auto) 79.5, Lymph % (Auto) 16.3, [place] % (Auto) 2.3, Eos % (Auto) 1.6, Baso % (Auto) 0.3, Neut # (Auto) 7.2, Lymph # (Auto) 1.5, [place] # (Auto) 0.2, Eos # (Auto) 0.2, Baso # (Auto) 0.0, PT 11.5, INR 1.07, APTT 21.4 L, Sodium 140, Potassium 3.6, Chloride 99, Carbon Dioxide 34 H, Anion Gap 10.6, BUN 16, Creatinine 1.50 H, Estimated Creat Clear 35, Estimated GFR 34 L, Est GFR ( Amer) 41 L, Glucose 129 H, Calcium 9.7, Total Bilirubin 0.8, AST 36, ALT 16, Alkaline Phosphatase 116, Total Creatine Kinase 68, Troponin I < 0.01, Total Protein 7.6, Albumin 4.0, Globulin 3.6 H, Albumin/Globulin Ratio 1.1, TSH 1.26, Thyroxine (T4) 12.2 H, Urine Color Yellow, Urine Appearance Clear, Urine pH 6.0, Ur Specific [place] 1.025, Urine Protein Negative, Urine Glucose (UA) Negative, Urine Ketones Trace, Urine Blood Negative, Urine Nitrate Negative, Urine Bilirubin 1+ A, Urine Urobilinogen 0.2, Ur Leukocyte Esterase Negative, Urine RBC None, Urine WBC 3-5, Ur Squamous Epith Cells 3-5, Urine Bacteria Trace, Salicylates < 1.0 L, Urine Opiates Screen Positive H, Urine Methadone Screen Negative, Acetaminophen < 10 L, Ur Barbituates Screen Negative, Ur Phencyclidine Scrn Negative, Ur Amphetamines Screen Negative, U Benzodiazepines Scrn Negative, Urine Cocaine Screen Negative, U Marijuana (THC) Screen Negative, Plasma/Serum Alcohol < 10 10/10/23 13:40: VBG pH 7.39, VBG pCO2 48.0, VBG pO2 41.3 H, VBG HCO3 28.5, VBG Total CO2 29.9 H, VBG O2 Saturation 77.9 H, VBG Base Excess 3.5 H 10/10/23 14:30: Lactate 1.8 10/10/23 17:18: Ammonia 11, Troponin I 0.02 Orders (Tests/Meds): ED MEDICATIONS Generic Name Dose Route Start Last Admin Trade Name Freq PRN Reason Stop Dose Admin Ceftriaxone Sodium 2 gm/ 100 mls @ 200 mls/hr 10/10/23 16:15 10/10/23 16:29 Sodium Chloride IV 10/20/23 16:14 200 mls/hr Q24H PATRICK Administration Miscellaneous 1 each 10/10/23 15:15 10/10/23 15:22 Vancomycin Consult Request NOTAPPLIC 11/09/23 15:14 1 each CONSULT PHARMACY PATRICK Administration Sodium Chloride 10 ml 10/10/23 14:00 Sodium Chloride 0.9% 10ml Vial IV 11/09/23 13:59 NEEDED PRN to Dilute Lorazepam inj Sodium Chloride 10 ml 10/10/23 15:19 Sodium Chloride 0.9% 10ml Vial IV 11/09/23 15:18 NEEDED PRN to Dilute Lorazepam inj Sodium Chloride 10 ml 10/10/23 15:43 Sodium Chloride 0.9% 10ml Vial IV 11/09/23 15:42 NEEDED PRN to Dilute Lorazepam inj Discontinued Medications Generic Name Dose Route Start Last Admin Trade Name Freq PRN Reason Stop Dose Admin Lactated Ringer's 1,000 mls @ 999 mls/hr 10/10/23 13:50 10/10/23 13:58 Lactated Ringer's 1000 Ml Bag IV 10/10/23 14:50 999 mls/hr .Q1H1M ONE Administration Lactated Ringer's 1,000 mls @ 999 mls/hr 10/10/23 15:15 10/10/23 15:29 Lactated Ringer's 1000 Ml Bag IV 10/10/23 16:15 999 mls/hr .Q1H1M ONE Administration Piperacillin Sod/Tazobactam 50 mls @ 100 mls/hr 10/10/23 15:16 10/10/23 16:10 Sod 3.375 gm/ Sodium Chloride IV 10/10/23 15:45 100 mls/hr ONCE ONE Administration Levetiracetam 1,000 mg/ Sodium 110 mls @ 220 mls/hr 10/10/23 15:19 10/10/23 15:39 Chloride IV 10/10/23 15:20 220 mls/hr ONCE ONE Administration Vancomycin/PEG/NADA/Lysine/Water 1.25 gm in 250 mls @ 125 mls/hr 10/10/23 15:30 10/10/23 18:43 Vancomycin 1.25gm/250ml (Peg) Premix IV 10/10/23 17:29 125 mls/hr ONCE ONE Administration Levetiracetam 3,000 mg/ Sodium 130 mls @ 260 mls/hr 10/10/23 18:12 10/10/23 18:29 Chloride IV 10/10/23 18:13 260 mls/hr ONCE ONE Administration Lorazepam 2 mg 10/10/23 14:00 10/10/23 14:01 Lorazepam 2mg/Ml Vial IV 10/10/23 14:01 2 mg ONCE ONE Administration Lorazepam 4 mg 10/10/23 15:19 10/10/23 15:29 Lorazepam 2mg/Ml Vial IV 10/10/23 15:20 4 mg ONCE ONE Administration Lorazepam 4 mg 10/10/23 13:46 10/10/23 13:46 Lorazepam 2mg/Ml Vial IV 10/10/23 13:47 4 mg ONCE ONE Administration ORDERS Category Date Time Status CT head/brain wo con Stat Cat Scan 10/10/23 13:40 Taken Portable CXR [XR chest portable] Stat Exams 10/10/23 18:16 Ordered XR chest portable Stat Exams 10/10/23 13:40 Taken Acetaminophen Stat Lab 10/10/23 13:37 Completed Activated Partial Thrombo Time Stat Lab 10/10/23 13:37 Completed Ammonia Stat Lab 10/10/23 17:18 Completed Complete Blood Count Auto Diff Stat Lab 10/10/23 13:37 Completed Comprehensive Metabolic Panel Stat Lab 10/10/23 13:37 Completed Creatine Kinase Stat Lab 10/10/23 13:37 Completed Drug Screen,Urine Stat Lab 10/10/23 13:37 Completed Ethyl Alcohol Stat Lab 10/10/23 13:37 Completed Lactic Acid Stat Lab 10/10/23 14:30 Completed Prothrombin Time INR Stat Lab 10/10/23 13:37 Completed Salicylate Stat Lab 10/10/23 13:37 Completed T4 (Thyroxine) Stat Lab 10/10/23 13:37 Completed Thyroid Stimulating Hormone Stat Lab 10/10/23 13:37 Completed Troponin I Q3H Lab 10/10/23 17:18 Completed Troponin I Q3H Lab 10/10/23 20:00 Ordered Troponin I Stat Lab 10/10/23 13:37 Completed Urinalysis and Microscopic Stat Lab 10/10/23 13:37 Completed Blood Culture Stat Micro 10/10/23 14:30 Received Venous Blood Gas Stat RT 10/10/23 13:40 Completed ECG initial Besson Routine Y 10/10/23 13:34 Completed Medical Decision Narrative: In summary, this patient is a 73-year-old female presenting to the Emergency Department for evaluation of altered mental status and abnormal rhythmic movements. Differential diagnoses considered include but are not limited to seizure, status epilepticus, hypoglycemia, electrolyte derangements, CVA, intracranial hemorrhage, intracranial mass, medication overdose, CO2 narcosis. Ruling out the most morbid conditions drove assessment. On exam, the patient is in acute distress with abnormal rhythm movements. She was given 2 mg of IV Ativan with no change, and then 4 mg of IV Ativan. She continued to have convulsions and seizure-like activity with intermittent posturing. I had multiple discussions with the patient's family as well as the patient's primary care provider, Dr. Oliveira, who advised that the patient had expressed previously that she did not want heroic interventions or prolong life support. I had a discussion with him that patient will need more antiepileptics to abort potential seizure-like activity, which can take away her respiratory drive. At this point, I would intubate the patient and put her on a ventilator for airway protection and to abort her seizures with heavily sedation. They expressed that they would not want this, and Dr. Coates witnessed this converstion. Very broad infectious workup, metabolic workup, and other workup was ordered. Fingerstick blood glucose upon arrival was normal. Patient has a mild ERNIE and concerns for pneumonia on x-ray, but I do not appreciate any other acutely concerning abnormalities that could explain this seizure-like activity. It could be that she has neuroleptic malignant syndrome as a result of her medication history or some other concern. Patient was given a total of 2 L bolus of IV fluids as well as initiation of broad-spectrum antibiotics including vancomycin, Zosyn, and Rocephin. She was loaded with Keppra and given another 4 mg of Ativan with no change in her status. I had multiple very long discussions with the patient's family regarding goals of care. They advised that she would not want to be intubated but they would like to know what is going on and what is causing the significant potentially be reversible. I advised that we do not do this and that the best course of action would either be to intubate her and transfer her to higher level of care with EEG capabilities and neurology, versus put her on hospice to make her comfortable here. They are still deciding at this time. I had an interactive discussion with Dr. Boogie who graciously came down to assess the patient. He also had a long discussion with the family, and they advised they would like further evaluation but no intubation. Patient care was signed out to Dr. Hickman pending final decisions and hospice vs transfer. Los Hickman: Upon assumption of care patient is hemodynamically stable, ongoing seizure-like activity. Shared decision making discussion was had at bedside, family wishes to proceed with maximal medical management until etiology can be discerned. Given this patient underwent rapid sequence intubation with etomidate and succinylcholine. Postintubation sedation with propofol. Patient was given an additional 3 g of Keppra. Will be loaded with phenytoin given that we do not have fosphenytoin at this institution. Workup reviewed by me, hematologic labs are nonactionable, CT shows atrophy with chronic changes without acute process. Chest x-ray informally interpreted by me, there is right lower lobe infiltrates however have been demonstrated on multiple previous imaging. It is unknown whether patient has an acute pneumonia or if this is just chronic lung changes. Regardless patient has been covered previously vancomycin and Zosyn, broadened with Rocephin for [employer] coverage. The case was discussed with [facility] who graciously accepted patient for transfer for continued evaluation at this time. Procedure: Procedure performed was intubation, procedure performed by Los Hickman. Using rapid sequence with 20 mg of etomidate and 100 mg of succinylcholine 7-0 ET tube was passed through the cords with success. Number of attempts was 1. Postintubation sedation with propofol. Critical Care <Megan Zuniga, DO - Last Filed: 10/10/23 17:01> Critical Care Time Critical Care Time: Yes Attestation: On 10/10/23, the high probability of a clinically significant, sudden or life threatening deterioration of the following system(s) (neurologic, respiratory, cardiovascular) required my full and direct attention, intervention and personal management. The time I documented below is in addition to time spent performing reported procedures but includes the following listed in this critical care notation. Total Time Total Critical Care Time: 60
[2023-10-10] MEDS: CEFTRIAXONE SODIUM 2 GM in 0.9 % SODIUM CHLORIDE 100 ML IV (16:29)
--- NOTE | 2023-10-10 16:43 | P.CONS_ITS ---
History of Present Illness *Admission Date: 10/10/23 *Reason for visit:: altered mental status *History of present illness: Ms. Christie is a 73-year-old female with complex past medical history of hypertension, chronic pain, duodenal ulcer, history of CVA, history of hiatal hernia. She presented to the ER today via EMS due to onset of altered mental status. Patient is unable to provide any history or review of systems. Family at bedside consists of 2 daughters, granddaughter, . They state the patient has not been feeling well for the past day or 2, she fell yesterday and came to the ER for evaluation. Went home after evaluation yesterday and last night has been significantly sleepy. Woke up this morning briefly around 11 AM took her morning meds. She told her she did not feel right and proceeded to fall backwards in the bed and has been obtunded since that episode. Not responding to family, questioning, painful stimuli. EMS was contacted and patient was brought to the ER. EMS gave the patient 8 mg of Narcan and she has proceeded to have some convulsions/abnormal movements since that time. Received Versed via EMS with no improvement in symptoms. She is continue to have abnormal spontaneous twitching and posturing. Grimaces to painful sternal rub and postures but does not focalize. Does not open eyes spontaneously or make verbal sounds. Patient appears encephalopathic. Workup in the ER relatively unremarkable with normal white cell count, creatinine 1.5 (baseline). Talk screen positive for opiates (which she is prescribed). Denies any fevers. Family unsure of what they want to do on initial evaluation by the ER. Medicine was consulted to evaluate the patient and talk about goals of care as well as neck steps and workup. Family informing they do want to proceed with further evaluation, my recommendation would be EEG and LP to evaluate for meningitis and status epilepticus. We are unable to perform this workup in our facility, recommend transfer to higher level of care for neurology and further management. [facility] Disclaimer: The information contained in this section may have been updated after the patient was seen, as this information can be updated by other users. Surgical History Previous back surgery Family History No significant family history Social History Smoking Status: Never smoker alcohol intake: never substance use type: denies use current occupational status: retired Travel in the last 8 weeks: None household members: spouse housing: house current occupational exposures/hazards: No caffeine: Yes Review of Systems Review of Systems Review of systems:: unable to obtain Exam Data for Last 24 hours Vital signs and Labs for Last 24 Hours: Temp Pulse Resp BP Pulse Ox O2 Del Method O2 Flow Rate 97.8 F 101 H 23 156/108 H 95 Nasal Cannula 2 10/10/23 13:45 10/10/23 15:18 10/10/23 15:18 10/10/23 15:18 10/10/23 15:18 10/10/23 15:18 10/10/23 15:18 Laboratory Results - last 24 hr 10/10/23 13:37: WBC 9.1 D, RBC 4.44, Hgb 13.4, Hct 41.2, MCV 92.6, MCH 30.2, MCHC 32.6, RDW 13.0, Plt Count 162, MPV 8.3, Neut % (Auto) 79.5, Lymph % (Auto) 16.3, [place] % (Auto) 2.3, Eos % (Auto) 1.6, Baso % (Auto) 0.3, Neut # (Auto) 7.2, Lymph # (Auto) 1.5, [place] # (Auto) 0.2, Eos # (Auto) 0.2, Baso # (Auto) 0.0, PT 11.5, INR 1.07, APTT 21.4 L, Sodium 140, Potassium 3.6, Chloride 99, Carbon Dioxide 34 H, Anion Gap 10.6, BUN 16, Creatinine 1.50 H, Estimated Creat Clear 35, Estimated GFR 34 L, Est GFR ( Amer) 41 L, Glucose 129 H, Calcium 9.7, Total Bilirubin 0.8, AST 36, ALT 16, Alkaline Phosphatase 116, Total Creatine Kinase 68, Troponin I < 0.01, Total Protein 7.6, Albumin 4.0, Globulin 3.6 H, Albumin/Globulin Ratio 1.1, TSH 1.26, Thyroxine (T4) 12.2 H, Urine Color Yellow, Urine Appearance Clear, Urine pH 6.0, Ur Specific [place] 1.025, Urine Protein Negative, Urine Glucose (UA) Negative, Urine Ketones Trace, Urine Blood Negative , Urine Nitrate Negative, Urine Bilirubin 1+ A, Urine Urobilinogen 0.2, Ur Le ukocyte Esterase Negative, Urine RBC None, Urine WBC 3-5, Ur Squamous Epith Cells 3-5, Urine Bacteria Trace, Salicylates < 1.0 L, Urine Opiates Screen Positive H, Urine Methadone Screen Negative, Acetaminophen < 10 L, Ur Barbituate s Screen Negative, Ur Phencyclidine Scrn Negative, Ur Amphetamines Screen Negative, U Benzodiazepines Scrn Negative, Urine Cocaine Screen Negative, U Marijuana (THC) Screen Negative, Plasma/Serum Alcohol < 10 10/10/23 13:40: VBG pH 7.39, VBG pCO2 48.0, VBG pO2 41.3 H, VBG HCO3 28.5, VBG Total CO2 29.9 H, VBG O2 Saturation 77.9 H, VBG Base Excess 3.5 H 10/10/23 14:30: Lactate 1.8 I & O for Last 24 hours: Intake & Output 10/07/23 10/08/23 10/09/23 10/10/23 23:59 23:59 23:59 23:59 Weight 68.039 kg Constitutional Constitutional: mild distress, average body habitus, chronically ill appearing and obtunded *Routine HEENT Exam Head: Present normocephalic ENT: Present mucous membranes moist Comments: Pupils pinpoint *Routine Neck Exam Neck: Present supple; Absent lymphadenopathy *Routine Respiratory Exam Respiratory: Present rhonchi, crackles (Right lower lung field) and normal respiratory effort; Absent accessory muscle use or wheezes *Routine Cardiovascular Exam Cardiovascular: Present RRR and murmur *Routine Abdominal Exam Abdominal: Present soft and normoactive bowel sounds; Absent tenderness *Routine Rectal Exam Patient deferred: visual exam *Routine Exam Patient deferred: external exam *Routine Extremities Exam Extremities: Absent cyanosis, clubbing or edema *Routine Skin Exam Skin: Present warm; Absent rash *Routine Neurological Exam Neurological: Present altered mental status and moving all extremities (Spontaneous) Comments: Patient having spontaneous muscle movements of upper and lower extremities, appears to be posturing. Head turned to the right. No focalization to pain. Pupils pinpoint and difficult to evaluate reaction to light. Unable to follow commands. Meds Home Medications and Allergies Home Medications Medication Instructions Recorded Confirmed Type baclofen 5 mg tablet 5 mg PO HS Muscle spasms 01/09/23 09/20/23 History buspirone 10 mg tablet 10 mg PO BID Anxiety 01/09/23 09/20/23 History carvedilol 6.25 mg tablet 6.25 mg PO BID High blood pressure 01/09/23 09/20/23 H istory fluoxetine 20 mg capsule 20 mg PO HS Mood 01/09/23 09/20/23 History halobetasol propionate 0.05 % 1 applic topical BID Skin 01/09/23 09/20/23 History lotion irritation memantine ER 28 mg-donepezil 10 mg 1 cap PO HS Dementia 01/09/23 09/20/23 History capsule sprinkle,ext.release 24 hr (Namzaric) multivitamin with minerals 1 tab PO DAILY Supplement 01/12/23 09/20/23 History (Multiple Vitamin-Minerals tablet) nystatin 100,000 unit/gram topical 1 applic topical BID Skin 01/12/23 09/20/23 History powder irritation ondansetron HCl 4 mg tablet 4 mg PO Q8HP PRN Nausea 01/12/23 09/20/23 History polyethylene glycol 3350 17 gram 17 g PO DAILYP PRN Constipation 01/12/23 09/20/23 History oral powder packet (Miralax) amitriptyline 25 mg tablet 25 mg PO BID Mood 01/29/23 09/20/23 History misoprostol 200 mcg tablet 200 mcg PO Q6H STOMACH 04/18/23 09/20/23 History pantoprazole 40 mg tablet,delayed 40 mg PO BID STOMACH 04/18/23 09/20/23 History release (Protonix) morphine 15 mg tablet,extended 15 mg PO BID Pain #60 tabs 09/20/23 Rx release polyethylene glycol 3350 17 17 g PO DAILY #510 grams 10/09/23 Rx gram/dose oral powder (Miralax) sennosides 8.6 mg capsule (senna) 8.6 mg PO DAILY #30 caps 10/09/23 Rx New Prescriptions to Start Prescriptions: Allergies Allergy/AdvReac Type Severity Reaction Status Date / Time ciprofloxacin [From CIPRO] Allergy Unknown Unknown Verified 12/26/22 11:15 allergy reaction codeine [CODEINE] Allergy Unknown Unknown Verified 12/26/22 11:15 allergy reaction erythromycin base Allergy Unknown I-RASH Verified 12/26/22 11:15 [From ERYTHROCIN] meperidine [MEPERIDINE] Allergy Unknown Unknown Verified 12/26/22 11:15 allergy reaction NSAIDS (Non-Steroidal Allergy Unknown I-RASH Verified 12/26/22 11:15 Anti-Inflamma [NSAIDS (NON-STEROIDAL ANTI-INFLAMMA] ofloxacin [OFLOXACIN] Allergy Unknown Unknown Verified 12/26/22 11:15 allergy reaction Quinolones [QUINOLONES] Allergy Unknown Unknown Verified 12/26/22 11:15 allergy reaction Macrolide Antibiotics Allergy Unknown Verified 12/26/22 11:15 allergy reaction Iodinated Contrast Media AdvReac Mild FLUSHED Verified 12/26/22 11:15 [Iodinated Contrast Media - FACE, IV Dye] ITCHING Results Labs 10/10/23 13:37 10/10/23 13:37 Labs: Abnormal lab results 10/10/23 10/10/23 Range/Units 13:37 13:40 APTT 21.4 L (22.8-30.6) seconds VBG pO2 41.3 H (28-40) mmol/L VBG Total CO2 29.9 H (23-27) mmol/L VBG O2 Saturation 77.9 H (50-70) % VBG Base Excess 3.5 H (-2.4-2.3) mmol/L Carbon Dioxide 34 H (22.0-30.0) mmol/L Creatinine 1.50 H (0.52-1.04) mg/dl Estimated GFR 34 L (>60) ml/min Est GFR ( Amer) 41 L (>60) ML/MIN Glucose 129 H (74-100) mg/dl Globulin 3.6 H (1.3-3.2) g/dL Thyroxine (T4) 12.2 H (5.53-11.0) ug/dl Urine Bilirubin 1+ A (Negative) Salicylates < 1.0 L (2.0-20.0) mg/dL Urine Opiates Screen Positive H (<300) ng/ml Acetaminophen < 10 L (10-30) ug/ml H & H 10/10/23 Range/Units 13:37 Hgb 13.4 (12.2-16.2) g/dL Hct 41.2 (37.0-47.0) % Coagulation 10/10/23 Range/Units 13:37 INR 1.07 (0.9-1.1) All other labs normal. Assessment and Plan *Assessment and plan (1) Encephalopathy acute: Status: Acute Category: Medical Code(s): G93.40 - Encephalopathy, unspecified (2) Involuntary movements: Status: Acute Category: Medical Code(s): R25.9 - Unspecified abnormal involuntary movements (3) Pneumonia: Status: Acute Category: Medical Code(s): J18.9 - Pneumonia, unspecified organism (4) Hypertension: Status: Chronic Category: Medical Code(s): I10 - Essential (primary) hypertension (5) History of CVA (cerebrovascular accident): Status: Chronic Category: Medical Code(s): Z86.73 - Personal history of transient ischemic attack (TIA), and cerebral infarction without residual deficits Plan 73-year-old female with multiple comorbidities who presents encephalopathic to the ER. Discussed case with ER physician, requested consult for possible admission versus recommendations on further workup. This time my concern is for neurologic disorder including but not limited to status epilepticus, neuroleptic malignant syndrome, serotonin syndrome, akathisia from medication side effect, meningitis. Chest x-ray does show concern for right lower lobe conso lidation/airspace disease consistent with pneumonia even in setting of normal white count. Initiated on empiric antibiotics and Keppra. Agree with continuing this regimen. Given patient's family's goals of care and desire to further workup patient, patient would benefit from EEG, LP, neurology consult. Recommend transfer to higher level of care for further management.
--- NOTE | 2023-10-10 17:01 | PC.NURSE ---
at bs speaking with pt family to update and what next steps are for pt care
[2023-10-10] MEDS: ETOMIDATE 40MG/20ML VIAL 20 MG IV (17:55)
[2023-10-10 17:56] LABS: Troponin I 0.02 ng/ml (0.00-0.034)
[2023-10-10] MEDS: SUCCINYLCHOLINE 20MG/ML 10 ML MDV 100 MG IV (17:57)
[2023-10-10] MEDS: propofoL 100 ML 3 MG IV (18:00)
--- NOTE | 2023-10-10 18:11 | PC.NURSE ---
1750 DR SUTTON AT BEDSIDE 1755 ETOMIDATE 20MG PUSH PER DR SUTTON 1756 SUCCIN[address] 100MG PER DR SUTTON [address] SUTTON 7.0 TUBE, 22 AT GUM. CONFIRMATION WITH BILATERAL BREATH SOUNDS, COLOR CHANGE OF CO2. 1800 PROPFOL STARTED AT 3MLS/HR
[2023-10-10 18:15] LABS: Ammonia 11 umol/L (9-30)
--- NOTE | 2023-10-10 18:16 | XR_ITS ---
PROCEDURE INFORMATION: Exam: XR Chest Exam date and time: 10/10/2023 6:32 PM Age: 73 years old Clinical indication: Device placement; Ng tube; Additional info: Tube placement TECHNIQUE: Imaging protocol: Radiologic exam of the chest. Views: 1 view. COMPARISON: CR XR CHEST PORTABLE 10/10/2023 2:28 PM FINDINGS: Tubes, catheters and devices: The endotracheal tube terminates approximately 1 cm from the torres. Lungs: Unchanged mild patchy density at the right lung base which could be atelectasis or pneumonia. Clear left lung. Pleural spaces: Unchanged small right pleural effusion. Heart/Mediastinum: Unchanged mild cardiomegaly. Vasculature: Tortuous atherosclerotic thoracic aorta. Bones/joints: Old left humeral neck fracture. Osteopenia. Other findings: Difficult exam due to patient obliquity. IMPRESSION: 1. Difficult exam due to patient obliquity. 2. The endotracheal tube terminates approximately 1 cm from the torres. 3. Unchanged small right pleural effusion. 4. Unchanged mild patchy density at the right lung base which could be atelectasis or pneumonia.
--- NOTE | 2023-10-10 18:35 | PC.NURSE ---
[facility] called back and is speaking with Dr Hickman right now.
[2023-10-10] MEDS: VANCOMYCIN/WATER FOR INJ (PEG) 1.25 GM/250 ML PIGGYBACK IV (18:43)
--- NOTE | 2023-10-10 18:43 | PC.NURSE ---
PROPOFOL TITRATED TO 8MLS/HR
--- NOTE | 2023-10-10 18:49 | PC.NURSE ---
[facility] called to let know Head CT was negative. They stated that they have ICU patients being downgraded and when they get moved, room cleaned should be able to call with room assignment.
--- NOTE | 2023-10-10 18:49 | PC.NURSE ---
1830 PROPOFOL INCREASED TO 5MLS/HR 1845 PROPOFOL INCREASED TO 8MLS/HR
--- NOTE | 2023-10-10 19:02 | PC.NURSE ---
Called [facility] and they said they were doing a stst clean on the room and would be calling back within a half an hour
--- NOTE | 2023-10-10 19:57 | PC.NURSE ---
Called with bed. [facility] Neuro ICU .
[2023-10-10 20:13] LABS: ABG Base Excess 1.4 mmol/L (-2.4-2.3); ABG HCO3 22.5 mmhg (22.0-26.0); ABG Oxygen Saturation 98 % (90-100); ABG PCO2 21.8 mmhg (35.0-45.0); ABG PO2 101.3 mmhg (80-100); ABG TCO2 23.1 mmhg (23-27)
[2023-10-10 20:15] LABS: Allen's Test Patient Unable; Oxygen 30 %; PEEP 5; Source Right Radial; Tidal Volume 420; Vent Rate 20
[2023-10-10 20:17] LABS: ABG PH 7.63 mmol/L (7.35-7.45)
--- NOTE | 2023-10-10 20:35 | PC.NURSE ---
RT called to place pt on mobile vent
--- NOTE | 2023-10-10 20:51 | PC.NURSE ---
called EMS at 20:29 for transfer
--- NOTE | 2023-10-10 21:03 | PC.NURSE ---
called [employer] in reference a flight to [place], declined due to weather.
== END 2023-10-10 21:31 | disposition short-term general hospital (02) ==
PROVIDERS: Emergency Provider Emergency Medicine; PCP Internal Medicine Adolescent Medicine
DX: G93.40 Encephalopathy, unspecified (principal); G40.901 Epilepsy, unspecified, not intractable, with status epilepticus; N17.9 Acute kidney failure, unspecified; I10 Essential (primary) hypertension; Z86.73 Personal history of transient ischemic attack (TIA), and cerebral infarction without residual deficits
CPT/HCPCS: 36415; 70450; 71045; 80053; 80307; 80329; 81001; 82140; 82550; 82803; 83605; 84436; 84443; 84484; 85025; 85610; 85730; 87040; 93005; 94002; 96361; 96365; 96368; 96375; 96376; 99291; J0330; J0696; J1953; J2543; J2704

== ENCOUNTER 2023-10-30 10:47 | Emergency (ER) | payer MEDICARE, OTHER, SELFPAY ==
[2023-10-30] VITALS (19 sets, daily range): BP systolic 113–150; BP diastolic 74–97; PULSE 82–93; RESP 20; TEMP 36.7; O2SAT 92–99; BMI 30.7
--- NOTE | 2023-10-30 10:57 | ECG_ITS ---
APPROVED REPORT Exam: Resting ECG HR:81 bpm ECG Measurements Heart Rate 81 AXES TX 157 P 61 QRSd 85 QRS 7 QT 349 T 47 QTc 386 Conclusion SINUS RHYTHM NORMAL ECG UNCONFIRMED REPORT Electronically signed by : Ari Coates MD 10/30/2023 21:53:54
--- NOTE | 2023-10-30 11:55 | XR_ITS ---
FINAL REPORT CLINICAL HISTORY: CHARLES, OG COMPARISON: 10/18/2023 FINDINGS: SINGLE-VIEW CHEST The heart size is normal. The mediastinum is normal. Moderate hiatal hernia is present. There is a small right effusion. There is a chronic fracture of the left humerus. There is no pneumothorax. IMPRESSION: Small right effusion. Reviewed, Interpreted and Dictated by Reji Llanos III, MD Transcribed by Katja Iraheta Authenticated and [facility]
--- NOTE | 2023-10-30 12:04 | ED_ITS ---
Discharge Plan Disposition Patient Disposition: Home, Self-Care Condition: Fair Prescriptions Prescriptions: No Action carvedilol 6.25 mg tablet 6.25 mg PO BID buspirone 10 mg tablet 10 mg PO BID fluoxetine 20 mg capsule 20 mg PO HS Namzaric 28-10 mg capsule,sprinkle,ER 24hr 1 cap PO HS halobetasol propionate 0.05 % Lotion 1 applic TOPICAL BID baclofen 5 mg Tablet 5 mg PO HS amitriptyline 25 mg tablet 25 mg PO BID pantoprazole [Protonix] 40 mg tablet,delayed release (DR/EC) 40 mg PO BID misoprostol 200 mcg tablet 200 mcg PO Q6H polyethylene glycol 3350 [Miralax] 17 gram Powder In Packet 17 g PO DAILYP PRN (Reason: Constipation) ondansetron HCl 4 mg Tablet 4 mg PO Q8HP PRN (Reason: Nausea) nystatin 100,000 unit/gram Powder 1 applic TOPICAL BID Patient Comments: APPLY UNDER BREASTS AND ABDOMINAL FOLDS Rx Instructions: APPLY UNDER BREASTS AND ABDOMINAL FOLDS Multiple Vitamin-Minerals Tablet 1 tab PO DAILY morphine 15 mg tablet extended release 15 mg PO BID Qty: 60 0RF polyethylene glycol 3350 [Miralax] 17 gram/dose powder 17 g PO DAILY Qty: 510 0RF senna 8.6 mg capsule 8.6 mg PO DAILY Qty: 30 0RF Referrals Follow up/Referrals: Ari Coates MD [Primary Care Provider] - See instructions Activity Restrictions/Add. Instructions Additional Instructions/Restrictions: You have been evaluated in the ED for your complaints. You may follow-up with your PCP in the next 3 to 5 days. Please return to ED for any new or worsening symptoms. Clinical Impressions Clinical Impression: Generalized weakness, Shortness of breath, Chest pain Discharge ED Provider: Perry Lang Adult HPI General Chief complaint: Shortness of Breath/Dyspnea Stated complaint: soa Time Seen by Provider: 10/30/23 11:38 Mode of Arrival: EMS Source of Information: EMS Limitations: No Limitations Description of Symptoms (Recalled from ER Triage Doc. by RN): EMS states the patient's only complaint is SOB. Patient denies any pain at this time. History of Present Illness HPI narrative: 73-year-old female with past medical history significant for hypertension, osteoporosis with chronic back pain, currently on morphine, history of TIAs, peptic ulcer disease, depression, anxiety, status epilepticus with recent admission 2 weeks ago, presents today from [facility] facility for evaluation concerning worsening generalized weakness and shortness of breath over the past day. Patient also complains of right-sided chest pain. She has had significant congestion and coughing. Has not had any fevers or chills. Family reports that on yesterday patient was less fatigued however today has declined. She believes the patient's symptoms may be due to being on Keppra. Patient denies any dysuria or hematuria. Has not had any diarrhea or constipation. Denies abdominal pain. No further complaints Related Data Home Medications Medication Instructions Recorded Confirmed baclofen 5 mg tablet 5 mg PO HS Muscle spasms 01/09/23 09/20/23 buspirone 10 mg tablet 10 mg PO BID Anxiety 01/09/23 09/20/23 carvedilol 6.25 mg tablet 6.25 mg PO BID High blood pressure 01/09/23 09/20/23 fluoxetine 20 mg capsule 20 mg PO HS Mood 01/09/23 09/20/23 halobetasol propionate 0.05 % 1 applic topical BID Skin 01/09/23 09/20/23 lotion irritation memantine ER 28 mg-donepezil 10 mg 1 cap PO HS Dementia 01/09/23 09/20/23 capsule sprinkle,ext.release 24 hr (Namzaric) multivitamin with minerals 1 tab PO DAILY Supplement 01/12/23 09/20/23 (Multiple Vitamin-Minerals tablet) nystatin 100,000 unit/gram topical 1 applic topical BID Skin 01/12/23 09/20/23 powder irritation ondansetron HCl 4 mg tablet 4 mg PO Q8HP PRN Nausea 01/12/23 09/20/23 polyethylene glycol 3350 17 gram 17 g PO DAILYP PRN Constipation 01/12/23 0 09/20/23 oral powder packet (Miralax) amitriptyline 25 mg tablet 25 mg PO BID Mood 01/29/23 09/20/23 misoprostol 200 mcg tablet 200 mcg PO Q6H STOMACH 04/18/23 09/20/23 pantoprazole 40 mg tablet,delayed 40 mg PO BID STOMACH 04/18/23 09/20/23 release (Protonix) Previous Rx's Medication Instructions Recorded morphine 15 mg tablet,extended 15 mg PO BID Pain #60 tabs 09/20/23 release polyethylene glycol 3350 17 17 g PO DAILY #510 grams 10/09/23 gram/dose oral powder (Miralax) sennosides 8.6 mg capsule (senna) 8.6 mg PO DAILY #30 caps 10/09/23 Allergies Allergy/AdvReac Type Severity Reaction Status Date / Time ciprofloxacin [From CIPRO] Allergy Unknown Unknown Verified 12/26/22 11:15 allergy reaction codeine [CODEINE] Allergy Unknown Unknown Verified 12/26/22 11:15 allergy reaction erythromycin base Allergy Unknown I-RASH Verified 12/26/22 11:15 [From ERYTHROCIN] meperidine [MEPERIDINE] Allergy Unknown Unknown Verified 12/26/22 11:15 allergy reaction NSAIDS (Non-Steroidal Allergy Unknown I-RASH Verified 12/26/22 11:15 Anti-Inflamma [NSAIDS (NON-STEROIDAL ANTI-INFLAMMA] ofloxacin [OFLOXACIN] Allergy Unknown Unknown Verified 12/26/22 11:15 allergy reaction Quinolones [QUINOLONES] Allergy Unknown Unknown Verified 12/26/22 11:15 allergy reaction Macrolide Antibiotics Allergy Unknown Verified 12/26/22 11:15 allergy reaction Iodinated Contrast Media AdvReac Mild FLUSHED Verified 12/26/22 11:15 [Iodinated Contrast Media - FACE, IV Dye] ITCHING PFSH PFSH Disclaimer: The information contained in this section may have been updated after the patient was seen, as this information can be updated by other users. Surgical History Previous back surgery Family History No significant family history Social History Smoking Status: Unknown if ever smoked alcohol intake: never substance use type: denies use current occupational status: retired Travel in the last 8 weeks: None household members: spouse housing: house current occupational exposures/hazards: No caffeine: Yes ROS Obtained: Yes All systems reviewed & no additional complaints except as documented Physical Exam General General appearance: alert, in no apparent distress and lethargic Head Head exam: atraumatic and normocephalic Eye Eye exam: Present normal appearance, PERRL and EOMI ENT ENT exam: Present normal oropharynx and mucous membranes moist Neck Neck exam: Present full ROM; Absent meningismus Respiratory Respiratory exam: Present other (Decreased breath sounds over the right middle and lower lung chiang); Absent respiratory distress, wheezes, stridor or accessory muscle use Cardiovascular Cardiovascular exam: Present normal rhythm Abdominal Exam Abdominal exam: Present soft; Absent distention, tenderness, guarding, rebound or rigidity Neurological Exam Neurological exam: Present alert, oriented X3 and CN II-XII intact; Absent motor sensory deficit Psychiatric Psychiatric exam: Present normal affect and normal mood Skin Skin exam: Present warm and dry Medical Decision Making Medical Records Medical records reviewed: Yes I reviewed the patient's medical records. Asif Inquiry Pt receiving controlled substance: No Asif was queried for this patient: No Vital Signs: 10/30/23 10:47 10/30/23 11:30 10/30/23 12:00 Temperature 98.1 F Temperature Source Oral Pulse Rate 86 83 Pulse Rate [Radial] 88 Respiratory Rate 20 Blood Pressure 122/76 129/80 Blood Pressure [Right Arm] 113/74 Blood Pressure Mean 90 89 Blood Pressure Mean [Right Arm] 87 Blood Pressure Source [Right Arm] Automatic Cuff Blood Pressure Position [Right Arm] Supine 02 Sat by Pulse Oximetry 96 95 98 Oxygen Delivery Method Nasal Cannula Room Air Room Air Oxygen Flow Rate (LPM) 2 10/30/23 12:30 10/30/23 13:00 10/30/23 13:30 Temperature Temperature Source Pulse Rate 82 83 83 Pulse Rate [Radial] Respiratory Rate Blood Pressure 150/96 H 127/87 141/94 H Blood Pressure [Right Arm] Blood Pressure Mean 114 100 110 Blood Pressure Mean [Right Arm] Blood Pressure Source [Right Arm] Blood Pressure Position [Right Arm] 02 Sat by Pulse Oximetry 99 98 96 Oxygen Delivery Method Room Air Room Air Room Air Oxygen Flow Rate (LPM) 10/30/23 14:30 10/30/23 15:13 10/30/23 15:30 Temperature Temperature Source Pulse Rate 86 87 89 Pulse Rate [Radial] Respiratory Rate Blood Pressure 133/88 130/85 136/90 Blood Pressure [Right Arm] Blood Pressure Mean 103 Blood Pressure Mean [Right Arm] Blood Pressure Source [Right Arm] Blood Pressure Position [Right Arm] 02 Sat by Pulse Oximetry 96 96 97 Oxygen Delivery Method Room Air Room Air Room Air Oxygen Flow Rate (LPM) 10/30/23 16:00 10/30/23 16:30 Temperature Temperature Source Pulse Rate 85 87 Pulse Rate [Radial] Respiratory Rate Blood Pressure 142/95 H 137/92 H Blood Pressure [Right Arm] Blood Pressure Mean Blood Pressure Mean [Right Arm] Blood Pressure Source [Right Arm] Blood Pressure Position [Right Arm] 02 Sat by Pulse Oximetry 92 L 93 L Oxygen Delivery Method Nasal Cannula Nasal Cannula Oxygen Flow Rate (LPM) 2 2 Lab Data Lab Results 10/30/23 11:00: WBC 9.1, RBC 4.49, Hgb 14.2, Hct 43.1, MCV 95.9, MCH 31.7 H, MCHC 33.0, RDW 15.4, Plt Count 188, MPV 10.5 H, Neut % (Auto) 76.1, Lymph % (Auto) 17.2, [place] % (Auto) 4.6, Eos % (Auto) 1.7, Baso % (Auto) 0.3, Neut # (Auto) 6.9, Lymph # (Auto) 1.6, [place] # (Auto) 0.4, Eos # (Auto) 0.2, Baso # (Auto) 0.0, Sodium 142, Potassium 4.3, Chloride 109 H, Carbon Dioxide 24, Anion Gap 13.3, BUN 22 H, Creatinine 0.90, Estimated Creat Clear 55, Estimated GFR 61, Est GFR ( Amer) 74, Glucose 157 H, Calcium 10.5 H, Magnesium 2.1, Total Bilirubin 0.6, AST 28, ALT 20, Alkaline Phosphatase 72, Troponin I < 0.01, NT-Pro-B Natriuret Pep 258, Total Protein 7.1, Albumin 3.5, Globulin 3.6 H, Albumin/Globulin Ratio 1.0 L 10/30/23 12:06: SARS-CoV-2 (PCR) Not detected, Influenza A Untype (PCR) Not detected, Influenza Type B (PCR) Not detected 10/30/23 13:35: Urine Color Yellow, Urine Appearance Clear, Urine pH 5.5, Ur Specific Arabi >= 1.030, Urine Protein Negative, Urine Glucose (UA) Negative, Urine Ketones 1+, Urine Blood Negative, Urine Nitrate Negative, Urine Bilirubin 1+ A, Urine Urobilinogen 0.2, Ur Leukocyte Esterase Negative, Urine RBC None, Urine WBC None, Ur Squamous Epith Cells Occasional, Urine Bacteria Trace 10/30/23 15:12: Troponin I < 0.01 10/30/23 11:00 10/30/23 11:00 Orders (Tests/Meds): ED MEDICATIONS Generic Name Dose Route Start Last Admin Trade Name Freq PRN Reason Stop Dose Admin Sodium Chloride 3 ml 10/30/23 12:42 Sodium Chloride 3% 15ml Neb IH 11/29/23 12:41 ONCE PRN INDUCE SPUTUM COLLECTION ORDERS Category Date Time Status CXR --portable [XR chest portable] Stat Exams 10/30/23 11:55 Completed BNP [Brain Natriuretic Peptide] Stat Lab 10/30/23 11:00 Completed CBC w/Auto Diff [Complete Blood Count Auto Diff] Stat Lab 10/30/23 11:00 Completed CMP [Comprehensive Metabolic Panel] Stat Lab 10/30/23 11:00 Completed Levetiracetam (Keppra) Stat Lab 10/30/23 11:00 Received MAG [Magnesium] Stat Lab 10/30/23 11:00 Completed Rapid PCR Covid and Flu A/B Stat Lab 10/30/23 12:06 Completed Troponin I Q3H Lab 10/30/23 15:12 Completed Troponin I Q3H Lab 10/30/23 18:00 Ordered Troponin I Stat Lab 10/30/23 11:00 Completed UA [Urinalysis and Microscopic] Stat Lab 10/30/23 13:35 Completed Sputum Culture & Gram Stain Stat Micro 10/30/23 12:44 Received ECG initial Besson Routine Y 10/30/23 10:57 Completed ECG Data Tracing #1: I reviewed this ECG and interpreted as documented below: EKG was personally interpreted by me. Normal sinus rhythm with a rate of [address] elevations to suggest ischemia. QTc of 386. Medical Decision Narrative: 73-year-old female with past medical history significant for hypertension, o steoporosis with chronic back pain, currently on morphine, history of TIAs, peptic ulcer disease, depression, anxiety, status epilepticus with recent admission 2 weeks ago, presents today from [facility] for evaluation concerning worsening generalized weakness and shortness of breath over the past day. Patient also complains of right-sided chest pain. She has had significant congestion and coughing. On assessment, the patient was hemodynamically stable and in no acute distress. She did have a lethargic appearance. Her chest was with decreased breath sounds of the right middle and lower lung chiang. Otherwise clear to auscultation. Abdomen was soft nondistended and nontender. No significant peripheral edema. Other physical exam findings unremarkable differential diagnoses include but not limited to ACS, COVID, influenza, other viral illness, pleural effusion, pneumonia, electrolyte disturbance, medication effect, among others. Lab workup today remarkable for a WBC of 9.1. No anemia. CMP was nonactionable. Initial troponin less than 0.01. Second troponin less than 0.01. Urinalysis with no signs of UTI. Negative COVID and influenza swab. Chest x-ray with small right pleural effusion. No significant electrolyte disturbances. She is not requiring oxygen at this time with sustaining oxygen saturation 93/94%. On reassessment she remains medically stable and in no acute distress. She remains persistently weak. I discussed with patient/family ED workup and results. Patient is currently staying at [facility] to have the capacity to care for patient with PT/OT and speech therapy. Had interactive discussion with patient/family concerning discharge back to [facility] and they were agreeable to plan. Also discussed that it may take some time for Clarisse, which could be contributing to her weakness, to leave patient's system as the medication was just discontinued yesterday morning. Of note, I did speak with hospital medicine concerning the patient and discussed management and hospital medicine has been at bedside and has also evaluated patient and agrees with current plan. Family and patient are also in agreement with discharge back to [place] at this time given patient's ED workup today. I provided them with strict return ED precautions and instructions concerning follow-up. They verbalized understanding and agreement with plan. Patient was subsequently discharged back to [facility]. She remained hemodynamically stable and in no acute distress. Critical Care Critical Care Time Critical Care Time: No
[2023-10-30 12:09] LABS: Basophils % 0.3 % (0.1-2.0); Eosinophils # 0.2 K/mm3 (0.0-0.4); Eosinophils % 1.7 % (0.1-12.0); Hematocrit 43.1 % (37.0-47.0); Hemoglobin 14.2 g/dL (12.2-16.2); Lymphocytes # 1.6 K/mm3 (0.7-4.5); Lymphocytes % 17.2 % (10-50); Mean Corpuscular Hemoglobin 31.7 pg (27.0-31.2); Mean Corpuscular Volume 95.9 fl (81-99); Mean Platelet Volume 10.5 fl (7.4-10.4); Monocytes # 0.4 K/mm3 (0.1-1.0); Monocytes % 4.6 % (1.7-9.3); Neutrophils # 6.9 K/mm3 (1.8-7.8); Neutrophils % 76.1 % (37.0-80.0); Platelet Count 188 K/mm3 (142-424); Red Blood Count 4.49 M/mm3 (4.20-5.40); Red Cell Distribution Width 15.4 % (11.5-17.5); White Blood Count 9.1 K/mm3 (4.8-10.8)
[2023-10-30 12:10] LABS: Coronavirus 19, PCR Not Detected (NotDetected); Influenza A, PCR Not Detected (NotDetected); Influenza B, PCR Not Detected (NotDetected)
[2023-10-30 12:23] LABS: Alanine Aminotransferase 20 U/L (12-78); Albumin Level 3.5 g/dl (3.5-5.0); Alkaline Phosphatase 72 U/L (38-126); Anion Gap 13.3 mEq/L (5-15); Aspartate Amino Transferase 28 U/L (14-36); Bilirubin,Total 0.6 mg/dl (0.2-1.3); Blood Urea Nitrogen 22 mg/dl (7-17); Calcium 10.5 mg/dl (8.4-10.2); Carbon Dioxide 24 mmol/L (22.0-30.0); Chloride 109 mmol/L (98-107); Creatinine Clearance Estimated 55 mL/min (50-200); Estimated Glomerular Filt Rate 61 ml/min (>60); GFR (African American) 74 ML/MIN (>60); Globulin 3.6 g/dL (1.3-3.2); Glucose 157 mg/dl (74-100); Magnesium 2.1 mg/dl (1.6-2.3); Potassium 4.3 mmoL/L (3.5-5.1); Sodium 142 mmol/L (136-145); Total Protein,Serum 7.1 g/dl (6.3-8.2)
[2023-10-30 12:35] LABS: NT Pro Brain Natriuretic Pep. 258 pg/mL (0-450); Troponin I < 0.01 ng/ml (0.00-0.034)
[2023-10-30 13:54] LABS: Microscopic, Urine URINE MICROSCOPIC (MICROSCOPIC)
[2023-10-30 14:03] LABS: Appearance,Urine CLEAR (Clear); Blood, Urine Negative (Negative); Color,Urine YELLOW (Yellow); Glucose,Urine (UA) Negative (Negative); Ketones,Urine 1+ (Negative); Leukocyte Esterase,Urine Negative (Negative); Nitrate,Urine Negative (Negative); PH,Urine 5.5 (5.0-8.5); Protein,Urine Negative (Negative); Specific Gravity, Urine >= 1.030 (1.005-1.030); Urobilinogen,Urine 0.2 EU/dl (0.2)
[2023-10-30 14:05] LABS: Bilirubin,Urine 1+ (Negative)
[2023-10-30 14:14] LABS: Bacteria,Urine Trace /lpf; Squamous Epithelial Cell,Urine Occasional #/hpf (0-5)
[2023-10-30 15:46] LABS: Troponin I < 0.01 ng/ml (0.00-0.034)
--- NOTE | 2023-10-30 17:04 | EXP.MED.CON ---
History of Present Illness *Admission Date: 10/30/23 *Reason for visit:: Weakness *History of present illness: Ms. Christie is a 73-year-old female who is currently at [facility] for rehab after recent hospitalization for status epilepticus. She has had progressive weakness and fatigue. Concern that she had some shortness of breath today but otherwise was hemodynamically stable at the custodial. Was sent via EMS for evaluation due to complaint of shortness of breath. Denies any pain, nausea, vomiting at this time. History significant for hypertension, osteoporosis with chronic back pain, chronic pain disorder, depression, history of TIAs, PUD. Presented with family to the ER. Initial evaluation showed stable vitals and O2 sats above 90. Placed on oxygen for comfort but able to wean to room air with sats in the 90s. Patient has gotten more fatigued since last time she was in the ER approximately 2 to 3 weeks ago. She has had declining function. Is on polypharmacy. Concern for fatigue may be medication related from family. Patient denies any chest pain, nausea, vomiting, dysuria, diarrhea. Last bowel movement 2 days ago. No significant cough on evaluation. ER evaluated patient, workup unremarkable with normal labs, benign exam except for fatigue. Consulted medicine to evaluate for possible admission versus transfer back to nursing facility. On initial assessment, patient appears frankly depressed. Does not want to go back to [facility]. Feels that she goes back she will . Wants to go home but is globally weak and beyond family's capacity to care for her. Has been participating less with PT, OT. Due for speech eval tomorrow at custodial. Cooperative on exam. Alert and oriented to self and place. [facility] Disclaimer: The information contained in this section may have been updated after the patient was seen, as this information can be updated by other users. Surgical History Previous back surgery Family History No significant family history Social History Smoking Status: Unknown if ever smoked alcohol intake: never substance use type: denies use current occupational status: retired Travel in the last 8 weeks: None household members: spouse housing: house current occupational exposures/hazards: No caffeine: Yes Review of Systems Review of Systems Review of systems (narrative): 14 point review of systems performed, pertinent positives and negatives as per HPI Exam Data for Last 24 hours Vital signs and Labs for Last 24 Hours: Temp Pulse Resp BP Pulse Ox O2 Del Method O2 Flow Rate 98.1 F 87 20 137/92 H 93 L Nasal Cannula 2 10/30/23 10:47 10/30/23 16:30 10/30/23 10:47 10/30/23 16:30 10/30/23 16:30 10/30/23 16:30 10/30/23 16:30 Laboratory Results - last 24 hr 10/30/23 11:00: WBC 9.1, RBC 4.49, Hgb 14.2, Hct 43.1, MCV 95.9, MCH 31.7 H, MCHC 33.0, RDW 15.4, Plt Count 188, MPV 10.5 H, Neut % (Auto) 76.1, Lymph % (Auto) 17.2, Mineral % (Auto) 4.6, Eos % (Auto) 1.7, Baso % (Auto) 0.3, Neut # (Auto) 6.9, Lymph # (Auto) 1.6, Mineral # (Auto) 0.4, Eos # (Auto) 0.2, Baso # (Auto) 0.0, Sodium 142, Potassium 4.3, Chloride 109 H, Carbon Dioxide 24, Anion Gap 13.3, BUN 22 H, Creatinine 0.90, Estimated Creat Clear 55, Estimated GFR 61, Est GFR ( Amer) 74, Glucose 157 H, Calcium 10.5 H, Magnesium 2.1, Total Bilirubin 0.6, AST 28, ALT 20, Alkaline Phosphatase 72, Troponin I < 0.01, NT-Pro-B Natriuret Pep 258, Total Protein 7.1, Albumin 3.5, Globulin 3.6 H, Albumin/Globulin Ratio 1.0 L 10/30/23 12:06: SARS-CoV-2 (PCR) Not detected, Influenza A Untype (PCR) Not detected, Influenza Type B (PCR) Not detected 10/30/23 13:35: Urine Color Yellow, Urine Appearance Clear, Urine pH 5.5, Ur Specific [place] >= 1.030, Urine Protein Negative, Urine Glucose (UA) Negative, Urine Ketones 1+, Urine Blood Negative, Urine Nitrate Negative, Urine Bilirubin 1+ A, Urine Urobilinogen 0.2, Ur Leukocyte Esterase Negative, Urine RBC None, Urine WBC None, Ur Squamous Epith Cells Occasional, Urine Bacteria Trace 10/30/23 15:12: Troponin I < 0.01 I & O for Last 24 hours: Intake & Output 10/27/23 10/28/23 10/29/23 10/30/23 23:59 23:59 23:59 23:59 Weight 71.214 kg Constitutional Constitutional: no acute distress, average body habitus, chronically ill appearing and cooperative *Routine HEENT Exam Head: Present normocephalic and atraumatic Eye: Present EOMI and PERRL ENT: Present mucous membranes moist Comments: Pupils pinpoint *Routine Neck Exam Neck: Present supple; Absent lymphadenopathy *Routine Respiratory Exam Respiratory: Present normal respiratory effort; Absent accessory muscle use, rhonchi, wheezes or crackles *Routine Cardiovascular Exam Cardiovascular: Present RRR and murmur *Routine Abdominal Exam Abdominal: Present soft and normoactive bowel sounds; Absent tenderness *Routine Rectal Exam Patient deferred: visual exam *Routine Exam Patient deferred: external exam *Routine Extremities Exam Extremities: Present edema (Trace bilateral lower extremity); Absent cyanosis or clubbing *Routine Skin Exam Skin: Present intact and warm; Absent rash *Routine Neurological Exam Neurological: Present alert, oriented X3, CN II-XII intact, normal reflexes and moving all extremities; Absent sensory deficit or motor deficit Comments: Patient having spontaneous muscle movements of upper and lower extremities, appears to be posturing. Head turned to the right. No focalization to pain. Pupils pinpoint and difficult to evaluate reaction to light. Unable to follow commands. Routine Psychiatric Exam Psychiatric: Present depressed; Absent good insight Meds Home Medications and Allergies Home Medications Medication Instructions Recorded Confirmed Type baclofen 5 mg tablet 5 mg PO HS Muscle spasms 01/09/23 09/20/23 History buspirone 10 mg tablet 10 mg PO BID Anxiety 01/09/23 09/20/23 History carvedilol 6.25 mg tablet 6.25 mg PO BID High blood pressure 01/09/23 09/20/23 History fluoxetine 20 mg capsule 20 mg PO HS Mood 01/09/23 09/20/23 History halobetasol propionate 0.05 % 1 applic topical BID Skin 01/09/23 09/20/23 History lotion irritation memantine ER 28 mg-donepezil 10 mg 1 cap PO HS Dementia 01/09/23 09/20/23 History capsule sprinkle,ext.release 24 hr (Namzaric) multivitamin with minerals 1 tab PO DAILY Supplement 01/12/23 09/20/23 History (Multiple Vitamin-Minerals tablet) nystatin 100,000 unit/gram topical 1 applic topical BID Skin 01/12/23 09/20/23 History powder irritation ondansetron HCl 4 mg tablet 4 mg PO Q8HP PRN Nausea 01/12/23 09/20/23 History polyethylene glycol 3350 17 gram 17 g PO DAILYP PRN Constipation 01/12/23 09/20/23 History oral powder packet (Miralax) amitriptyline 25 mg tablet 25 mg PO BID Mood 01/29/23 09/20/23 History misoprostol 200 mcg tablet 200 mcg PO Q6H STOMACH 04/18/23 09/20/23 History pantoprazole 40 mg tablet,delayed 40 mg PO BID STOMACH 04/18/23 09/20/23 History release (Protonix) morphine 15 mg tablet,extended 15 mg PO BID Pain #60 tabs 09/20/23 Rx release polyethylene glycol 3350 17 17 g PO DAILY #510 grams 10/09/23 Rx gram/dose oral powder (Miralax) sennosides 8.6 mg capsule (senna) 8.6 mg PO DAILY #30 caps 10/09/23 Rx New Prescriptions to Start Prescriptions: Allergies Allergy/AdvReac Type Severity Reaction Status Date / Time ciprofloxacin [From CIPRO] Allergy Unknown Unknown Verified 12/26/22 11:15 allergy reaction codeine [CODEINE] Allergy Unknown Unknown Verified 12/26/22 11:15 allergy reaction erythromycin base Allergy Unknown I-RASH Verified 12/26/22 11:15 [From ERYTHROCIN] meperidine [MEPERIDINE] Allergy Unknown Unknown Verified 12/26/22 11:15 allergy reaction NSAIDS (Non-Steroidal Allergy Unknown I-RASH Verified 12/26/22 11:15 Anti-Inflamma [NSAIDS (NON-STEROIDAL ANTI-INFLAMMA] ofloxacin [OFLOXACIN] Allergy Unknown Unknown Verified 12/26/22 11:15 allergy reaction Quinolones [QUINOLONES] Allergy Unknown Unknown Verified 12/26/22 11:15 allergy reaction Macrolide Antibiotics Allergy Unknown Verified 12/26/22 11:15 allergy reaction Iodinated Contrast Media AdvReac Mild FLUSHED Verified 12/26/22 11:15 [Iodinated Contrast Media - FACE, IV Dye] ITCHING Results Labs 10/30/23 11:00 10/30/23 11:00 Labs: Abnormal lab results 10/30/23 10/30/23 Range/Units 11:00 13:35 MCH 31.7 H (27.0-31.2) pg MPV 10.5 H (7.4-10.4) fl Chloride 109 H (98-107) mmol/L BUN 22 H (7-17) mg/dl Glucose 157 H (74-100) mg/dl Calcium 10.5 H (8.4-10.2) mg/dl Globulin 3.6 H (1.3-3.2) g/dL Albumin/Globulin Ratio 1.0 L (1.1-1.8) Urine Bilirubin 1+ A (Negative) H & H 10/30/23 Range/Units 11:00 Hgb 14.2 (12.2-16.2) g/dL Hct 43.1 (37.0-47.0) % All other labs normal. Assessment and Plan *Assessment and plan (1) Generalized weakness: Status: Acute Category: Medical Code(s): R53.1 - Weakness (2) Shortness of breath: Status: Acute Category: Medical Code(s): R06.02 - Shortness of breath (3) Class 2 obesity: Status: Chronic Category: Medical Code(s): E66.9 - Obesity, unspecified (4) Hypertension: Status: Chronic Category: Medical Code(s): I10 - Essential (primary) hypertension (5) Right hemiparesis: Status: Acute Category: Medical Code(s): G81.91 - Hemiplegia, unspecified affecting right dominant side (6) Chronic pain disorder: Status: Acute Category: Medical Code(s): G89.4 - Chronic pain syndrome (7) Polypharmacy: Status: Acute Category: Medical Code(s): 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 Christie is a 73-year-old female with multiple comorbidities and polypharmacy. Presents with progressive weakness shortness of breath. Workup in ER unremarkable with normal labs. Imaging not concerning for any acute process. Stable on room air though wanting oxygen. Extensive discussion with family at bedside about no medical need for admission. Reviewed patient's meds with ER physician and family, feel patient would benefit from weaning some of her chronic medications that could cause fatigue. Does appear to have depressed mood and does not appear to like being at the custodial. Encouraged her to participate so that she can get back home with family as she is beyond their capabilities at this time. Exam relatively unremarkable except for global weakness.White cell count normal 11.1, no signs of anemia with hemoglobin of 14.2. Metabolic panel with normal sodium and potassium, no acute kidney injury, creatinine 0.9 with BUN 22. Glucose normal at 157. Troponin negative. Urine unremarkable. Negative for COVID and flu. EKG with sinus rhythm. Otherwise normal. Chest x-ray with small right effusion but no consolidation or pneumonia. After much discussion with family and patient, I agree with the ER that patient is stable to discharge back to nursing facility to continue therapy with PT, OT, speech. Strongly recommend reevaluating medication list and weaning polypharmacy. Will consider discontinuing Megace as 1 side effect can be sensation of shortness of breath. Offered reassurance.
--- NOTE | 2023-10-30 18:16 | PC.NURSE ---
Report called to Ed Mcdonald.
--- NOTE | 2023-10-30 19:41 | PC.NURSE ---
Pt awaiting transport back to [facility], family at bedside. Family states she hasn't ate or drank all day, offered pt something to eat and drink and she refused.
--- NOTE | 2023-10-30 20:04 | PC.NURSE ---
pt family is upset and not happy with the patient disposition of being discharged back to nursing facility and have voiced this concern now twice to RN. B shift ER MD made aware of this a few hours ago and just said he wasnt familar with the case and didnt have time to look into the situation currently since it had been handled by another physician. ER charge nurse made aware of issue
[2023-10-30 20:13] LABS: Troponin I 0.02 ng/ml (0.00-0.034)
--- NOTE | 2023-10-30 20:15 | PC.NURSE ---
family upset with lack of diagnosis to support her not being herself . diagnosed as weakness. family stated to primary nurse she will just be back up here tomorrow . discussed situation with both primary nurse, previous nurse, and data warehouse consultant. day habilitation supervisor agrees to take a look at the chart and patient.
--- NOTE | 2023-10-30 20:28 | PC.NURSE ---
Rounded on patient. Patient's daughter is in the room. Both patient and daughter deny any needs. Daughter denied any complaints. Had discussion with daughter that was notified of some concerns, she stated it was probably her sister Sheila.
--- NOTE | 2023-10-30 21:07 | PC.NURSE ---
Spoke with tha at [facility] to make sure they were aware of patient coming back to facility and to see if they had any questions from report they had received from [facility]
[2023-11-01 09:51] LABS: Levetiracetam (Keppra) 40.7 ug/mL (10.0-40.0)
--- NOTE | 2023-11-01 14:48 | PC.NURSE ---
sputum culture discussed with NTD at this time
== END 2023-10-30 21:25 | disposition home or self-care (01) ==
PROVIDERS: Emergency Provider Emergency Medicine; PCP Internal Medicine Adolescent Medicine
DX: R07.9 Chest pain, unspecified (principal); R06.02 Shortness of breath; R53.1 Weakness; I10 Essential (primary) hypertension
CPT/HCPCS: 36415; 71045; 80053; 80177; 81001; 83735; 83880; 84484; 85025; 87070; 87205; 87636; 93005; 99285